=== PATIENT | female | born 1945 | race Caucasian/White ===

== ENCOUNTER → 2025-06-06 | Outpatient (CLI) | payer MEDICARE, OTHER, SELFPAY ==
--- OUTSIDE RECORDS SUMMARY | 2025-06-06 06:04 | XMS RPT_ITS | CCD ---
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 Unavailable Unavailable BARON, DANIELLE A. Unavailable Unavailable NO, PHYSICIAN Unavailable Unavailable BARON, DANIELLE A. Unavailable Unavailable GHAZAL SHEN Unavailable Unavailabl e NO, PHYSICIAN Unavailable Unavailable BARON, DANIELLE A. Unavailable Unavailable KESARI, JAIDEN Unavailable Unavailable NO, PHYSICIAN Unavailable Unavailable BARON, DANIELLE A. Unavailable Unavailable KESARI, JAIDEN Unavailable Unavailable NO, PHYSICIAN Unavailable Unavailable BARON, DANIELLE A. Unavailable Unavailable KESARI, JAIDEN Unavailable Unavailable NO, PHYSICIAN Unavailable Unavailable No, Physician Unavailable Unavailable Unavailable Primary Care Provider Unavailabl e No, Physician Primary Care Provider Unavailabl e No, Physician Primary Care Provider Unavailabl e NEMESIO CHIN Attending Unavailab JUAN PABLO Thakkar Referring Unavailable NO, PHYSICIAN Primary Care Unavailable NEMESIO CHIN Admitting Unavailab NEMESIO Guevara Referring Unavailab le NO, PHYSICIAN Primary Care Unavailable NO, PHYSICIAN Primary Care Unavailable MONE SALVADOR Attending Unavailable NO, PHYSICIAN Primary Care Unavailable FREADOJUAN PABLO Attending Unavailable FREHOPE, JUAN PABLO CALVERT Attending Unavailable JUAN PABLO VELASQUEZ Referring Unavailable NO, PHYSICIAN Primary Care Unavailable NO, PHYSICIAN Primary Care Unavailable MADELEINEMONE Attending Unavailable PHYSICIAN, NONE Primary Care Physician Unavailab galen STEPHENS MD, DR ANGELA Castro Primary Care Physician Un available Kalani Rounding Nurse, Jamal Unavailable Bell CONRAD MD, SERGEY Attending Unavailable KAT HICKEY, DR ANGELA Castro Primary Care Unavailab galen STEPHENS MD, DR ANGELA Castro Attending Unavailab galen DRIVERAR MD, DR ANGELA Castro Primary Care Unavailab galen REYNOLDS PA-C, EARLENE Attending Unavailable KAT HICKEY, DR ANGELA Castro Primary Care Unavailab galen STEPHENS MD, DR ANGELA Castro Attending Unavailab galen STEPHENS MD, DR ANGELA Castro Primary Care Unavailab galen STEPHENS MD, DR ANGELA Castro Primary Care Unavailab galen BRIDGES MD, DR JEAN Attending Unavailab galen STEPHENS MD, DR ANGELA Castro Primary Care Unavailab galen STEPHENS MD, DR ANGELA Castro Attending Unavailab galen STEPHENS MD, DR ANGELA Castro Primary Care Unavailab galen ROMERO MD, DR URIOSTEGUI Attending Unavailable BACILIO HICKEY, ROSA Consulting Unavailable YULIANA HICKEY, DR JEAN Attending Unavailab galen STEPHENS MD, DR ANGELA Castro Primary Care Unavailab galen AMBRIZ SPONGE CLIPPER-TAPEMAN, TSERING Block Attending Shellie STEPHENS MD, DR ANGELA Castro Primary Care Unavailab galen STEPHENS MD, DR ANGELA Castro Attending Unavailab galen STEPHENS MD, DR ANGELA Castro Primary Care Unavailab galen STEPHENS MD, DR ANGELA Castro Primary Care Unavailab galen BRIDGES MD, DR JEAN Attending Unavailab galen BRIDGES MD, DR JEAN Attending Unavailab galen STEPHENS MD, DR ANGELA Castro Primary Care Unavailab galen BRIDGES MD, DR JEAN Attending Unavailab galen STEPHENS MD, DR ANGELA Castro Primary Care Unavailab galen STEPHENS MD, DR ANGELA Csatro Primary Care Unavailab galen GIBBONS MD, DR MEHUL Joseph Admitting Bell ROMERO MD, DR URIOSTEGUI Attending Unavailable KAT HICKEY, DR ANGELA Castro Consulting Unavailab Denisse HICKEY, DR JEAN Consulting Unavailab Itz HICKEY, DR ANGELA Castro Primary Care Unavailab galen BRIDGES MD, DR JEAN Attending Unavailab Itz HICKEY, DR ANGELA Castro Primary Care Unavailab galen AMBRIZ SPONGE CLIPPER-TAPEMAN, TSERING Block Attending Shellie STEPHENS MD, DR ANGELA Castro Primary Care Unavailab galen AMBRIZ APRN-TAPEMAN, TSERING Block Attending Shellie STEPHENS MD, DR ANGELA Castro Primary Care Unavailab galen BRIDGES MD, DR JEAN Attending Unavailab Debo HICKEY, SERGEY Attending Unavailable KAT HICKEY, DR ANGELA Castro Primary Care Unavailab galen DESHPANDE PA-C, VINOD Attending Tho STEPHENS MD, DR ANGELA Castro Primary Care Unavailab galen STEPHENS MD, DR ANGELA Castro Primary Care Unavailab galen STEPHENS MD, DR ANGELA Castro Attending Unavailab galen STEPHENS MD, DR ANGELA Castro Primary Care Unavailab galen BRIDGES MD, DR JEAN Attending Unavailab galen BRIDGES MD, DR JEAN Admitting Unavailab galen STEPHENS MD, DR ANGELA Castro Primary Care Unavailab galen BRIDGES MD, DR JEAN Attending Unavailab galen STEPHENS MD, DR ANGELA Castro Primary Care Unavailab galen BRIDGES MD, DR JEAN Attending Unavailab galen STEPHENS MD, DR ANGELA Castro Primary Care Unavailab galen STEPHENS MD, DR ANGELA Castro Attending Unavailab galen STEPHENS MD, DR ANGELA Castro Attending Unavailab galen STEPHENS MD, DR ANGELA Castro Primary Care Unavailab galen DESHPANDE PA-C, VINOD Attending Tho STEPHENS MD, DR ANGELA Castro Primary Care Unavailab galen STEPHENS MD, DR ANGELA Castro Primary Care Unavailab galen BRIDGES MD, DR JEAN Attending Unavailab galen STEPHENS MD, DR ANGELA Castro Primary Care Unavailab galen STEPHENS MD, DR ANGELA Castro Attending Unavailab galen STEHPENS MD, DR ANGELA Castro Primary Care Unavailab galen BRIDGES MD, DR JEAN Attending Unavailab galen STEPHENS MD, DR ANGELA Castro Primary Care Unavailab galen STEPHENS MD, DR ANGELA Castro Attending Unavailab galen STEPHENS MD, DR ANGELA Castro Primary Care Unavailab galen BRIDGES MD, DR JEAN Attending Unavailab galen STEPHENS MD, DR ANGELA Castro Primary Care Unavailab galen STEPHENS MD, DR ANGELA Castro Attending Unavailab galen STEPHENS MD, DR ANGELA Castro Primary Care Unavailab galen STEPHENS MD, DR ANGELA Castro Attending Unavailab galen [facility] Doctor, Out of Primary Care Provider Bell solis [facility] Doctor, Out of Referring Provider Unavailab Glenna HICKEY, Dr. Lozano Attending Provider [phone] KAT HICKEY, DR ANGELA Castro Primary Care Unavailab galen MORILLO MD, DR YU Ny Attending Unavailab galen MORILLO MD, DR YU Ny Attending Nahum Mobley MD, DR ANGELA Castro Primary Care Unavailab Dioni HICKEY, DR YU Ny Attending Nahum Mobley MD, DR ANGELA Castro Primary Care Unavailab Itz HICKEY, DR ANGELA Castro Primary Care Unavailab Denisse HICKEY, DR JEAN Admitting Nahum Salcedo MD, DR JEAN Attending Unavailab Blake Manzanares Attending Unavailable [facility] Doctor, Out of Referring Unavailable [facility] Doctor, Out of Primary Care Unavailable Care Physician, No Primary Primary Care Unava ilable Jamil, Blake Referring Unavailable Jamil Buhl Attending Unavailable Medications Current Medications Medication Drug Class(es) Dates Sig (Normalized) Sig (Original) aspirin 81 mg delayed release oral tablet (4 sources) Platelet Aggregation Inhibitor, Nonsteroidal Anti-inflammatory Drug Start: 04-12-2025 take 1 tablet by mouth once daily Aspirin (Adult Aspirin Regimen) 81 mg tablet,delayed release (DR/EC) Active 81 mg PO daily April 12, 2025 12:00am Start: 06-02-2024 Ecotrin Adult Low Strength 81 mg oral delayed release tablet Dose : 81 mg = 1 tab(s), Oral, qDayM, # 30 tab(s), 11 Refill(s), Pharmacy: [facility]/pharmacy #[id number], 160, cm, 06/02/24 6:17:00 EDT, Height, kg, 06/02/24 6:17:00 EDT, Dosing Weight Start Date: 06/02/24 Status: Ordered azithromycin 250 mg oral tablet (4 sources) Macrolide Antimicrobial Start: 06-13-2021 End: 06-18-2021 take 2 tablets by mouth once daily, then take 1 tablet by mouth once daily azithromycin (Zithromax Z-Moris) 250 MG tablet Indications: LRTI (lower respiratory tract infection) Take 2 (two) tablets (500 mg total) by mouth daily for 1 day, THEN 1 (one) tablet (250 mg total) daily for 4 days. 6 tablet 0 06/13/2021 06/18/2021 Active Start: 04-24-2021 End: 04-29-2021 take 2 tablets by mouth once daily, then take 1 tablet by mouth once daily azithromycin (Zithromax Z-Moris) 250 MG tablet Indications: LRTI (lower respiratory tract infection) Take 2 (two) tablets (500 mg total) by mouth daily for 1 day, THEN 1 (one) tablet (250 mg total) daily for 4 days. 6 tablet 0 04/24/2021 04/29/2021 Active Start: 06-03-2017 End: 07-08-2017 azithromycin (ZITHROMAX Z-PA K) 250 MG tablet Take 2 tablets (500 mg) on Day 1, followed by 1 tablet (250 mg) once daily on Days 2 through 5.. 6 tablet 0 06/03/2017 07/08/2017 Discontinued Start: 06-03-2017 azithromycin ( ZITHROMAX Z-MORIS) 250 MG tablet Take 2 tablets (500 mg) on Day 1, followed by 1 tablet (250 mg) once daily on Days 2 through 5.. 6 tablet 0 06/03/2017 Active cefdinir 300 mg oral capsule (1 source) Cephalosporin Antibacterial Start: 07-01-2018 End: 07-11-2018 take 1 capsule by mouth twice daily cefdinir (OMNICEF) 300 MG capsule Take 1 (one) capsule (300 mg total) by mouth 2 (two) times a day for 10 days. 20 capsule 0 07/01/2018 07/11/2018 Active celecoxib 200 mg oral capsule (1 source) Nonsteroidal Anti-inflammatory Drug Start: 07-09-2017 End: 07-16-2017 take 1 capsule by mouth twice daily celecoxib (CELEBREX) 200 MG capsule Take 1 (one) capsule (200 mg total) by mouth 2 (two) times a day for 7 days. 14 capsule 0 07/09/2017 07/16/2017 Active cetirizine hydrochloride 10 mg oral tablet (6 sources) Histamine-1 Receptor Antagonist take 1 tablet by mouth once daily cetirizine (ZYRTEC) 10 MG tablet Take 10 mg by mouth daily . 0 Active cholecalciferol 0.025 mg oral capsule (1 source) Vitamin D Start: 04-12-2025 take 1 capsule by mouth once daily Cholecalciferol (Vitamin D3) 25 mcg (1,000 unit) capsule Active 25 ug PO daily April 12, 2025 12:00am clopidogrel 75 mg oral tablet (4 sources) P2Y12 Platelet Inhibitor Start: 04-12-2025 take 1 tablet by mouth once daily Clopidogrel 75 mg tablet Active 75 mg PO daily April 12, 2025 12:00am Start: 06-02-2024 Plavix 75 mg o ral tablet Dose : 75 mg = 1 tab(s), Oral, qDay, # 30 tab(s), 11 Refill(s), [id number] 160, cm, 06/02/24 6:17:00 EDT, Height, kg, 06/02/24 6:17:00 EDT, Dosing Weight Start Date: 06/02/24 Status: Ordered dapagliflozin 10 mg oral tablet (2 sources) Sodium-Glucose Cotransporter 2 Inhibitor Start: 04-12-2025 take 1 tablet by mouth once daily Dapagliflozin Propanediol 10 mg tablet Active 10 mg PO daily April 12, 2025 12:00am Start: 03-15-2024 Farxiga 5 mg o ral tablet Dose : 5 mg = 1 tab(s), Oral, qDay, # 30 tab(s), 6 Refill(s), [id number] 160, cm, 03/15/24 11:01:00 EDT, Height, kg, 03/15/24 11:01:00 EDT, Dosing Weight Start Date: 03/15/24 Status: Ordered dexamethasone 6 mg oral tablet (1 source) Corticosteroid Start: 06-08-2024 End: 06-13-2024 dexAMETHasone 6 mg oral tablet Dose : 6 mg = 1 tab(s), Oral, qDay, X 5 day(s), # 5 tab(s), 0 Refill(s), 06/13/24 9:47:00 AM EDT, [id number] 156, cm, 06/07/24 14:01:00 EDT, Height, kg, 06/07/24 14:01:00 EDT, Dosing Weight Start Date: 06/08/24 Stop Date: 06/13/24 Status: Ordered DULoxetine 30 mg delayed release oral capsule (2 sources) Serotonin and Norepinephrine Reuptake Inhibitor Start: 04-12-2025 take 1 capsule by mouth once daily Duloxetine (Cymbalta) 30 mg capsule,delayed release(DR/EC) Active 30 mg PO daily April 12, 2025 12:00am Start: 08-17-2024 Cymbalta 30 mg oral delayed release capsule Dose : 30 mg = 1 cap(s), Oral, qDay, # 30 cap(s), 2 Refill(s), Pharmacy: [facility]/pharmacy #[id number], 160, cm, 08/17/24 10:51:00 EDT, Height, kg, 08/17/24 10:51:00 EDT, Dosing Weight Start Date: 08/17/24 Status: Ordered empagliflozin 10 mg oral tablet (1 source) Sodium-Glucose Cotransporter 2 Inhibitor Start: 03-30-2024 Jardiance 10 mg oral tablet Dose : 10 mg = 1 tab(s), Oral, qAM, # 30 tab(s), 0 Refill(s), 160, cm, 03/15/24 11:01:00 EDT, Height, kg, 03/15/24 11:01:00 EDT, Dosing Weight Start Date: 03/30/24 Status: Ordered ferrous fumarate 324 mg oral tablet (6 sources) Start: 02-17-2024 ferrous fumara te 324 mg (106 mg elemental iron) oral tablet Dose : 324 mg = 1 tab(s), Oral, Thursday & , 0 Refill(s) Start Date: 02/17/24 Status: Ordered Start: 02-17-2024 take 1 tablet by navid th every week ferrous fumarate 324 mg (106 mg elemental iron) oral tablet See Instructions, 1 tab(s) Oral 2-3x/week, 0 Refill(s) Start Date: 02/17/24 Status: Ordered ferrous sulfate 324 mg delayed release oral tablet (1 source) Start: 04-12-2025 Ferrous Sulfat e 324 mg (65 mg iron) tablet,delayed release (DR/EC) Active 324 mg PO . and April 12, 2025 12:00am furosemide 40 mg oral tablet (4 sources) Loop Diuretic Start: 04-12-2025 Furosemide 40 mg tablet Active 20 mg PO EVERY MORNING as needed April 12, 2025 1:36pm Start: 04-12-2025 End: 04-12-2025 take 1 tablet by mouth once daily in the morning as needed Furosemide 40 mg tablet Discontinued 40 mg PO EVERY MORNING as needed April 12, 2025 12:00am April 12, 2025 1:37pm Start: 08-22-2024 furosemide 20 mg oral tablet Dose : 20 mg = 1 tab(s), Oral, qDay, # 30 tab(s), 6 Refill(s), [id number] 160, cm, 08/22/24 15:20:00 EDT, Height, kg, 08/22/24 15:20:00 EDT, Dosing Weight Start Date: 08/22/24 Status: Ordered Start: 06-08-2024 furosemide 40 mg oral tablet Dose : 40 mg = 1 tab(s), Oral, qDay, # 30 tab(s), 0 Refill(s), [id number] 156, cm, 06/07/24 14:01:00 EDT, Height, kg, 06/07/24 14:01:00 EDT, Dosing Weight Start Date: 06/08/24 Status: Ordered gabapentin 300 mg oral capsule (9 sources) Anti-epileptic Agent Start: 05-10-2025 Gabapenti n 300 mg capsule Active 300 mg PO THREE TIMES A DAY May 10, 2025 1:02pm one cap in AM, one cap at noon, and 2 in the PM Start: 04-12-2025 End: 05-10-2025 take 1 capsule by mouth twice daily Gabapentin 300 mg capsule Discontinued 300 mg PO TWICE A DAY April 12, 2025 12:00am May 10, 2025 1:03pm Start: 08-26-2024 gabapentin 300 mg oral capsule See Instructions, 1 cap(s) in am, 1 cap at noon, and 2 in the pm, # 120 cap(s), 0 Refill(s), [id number], Neuropathy, 160, cm, 08/26/24 9:42:00 EDT, Height, 75, kg, 08/26/24 9:42:00 EDT, Dosing Weight Start Date: 08/26/24 Status: Ordered Start: 06-05-2024 gabapentin 300 mg oral capsule Dose : 300 mg = 1 cap(s), Oral, BID, 0 Refill(s), 77.9 Start Date: 06/05/24 Status: Ordered Start: 02-16-2024 gabapentin Dos e : 300 mg =, Oral, BID, unsure of strength once a day, 0 Refill(s), 77.4 Start Date: 02/16/24 Status: Ordered Start: 02-16-2024 gabapentin Ora l, unsure of strength once a day, 0 Refill(s), 77.4 Start Date: 02/16/24 Status: Ordered leflunomide 20 mg oral tablet (13 sources) Antirheumatic Agent Start: 04-12-2025 take 1 tablet by mouth once daily Leflunomide 20 mg tablet Active 20 mg PO daily April 12, 2025 12:00am Start: 02-16-2024 leflunomide 20 mg oral tablet Dose : 20 mg = 1 tab(s), Oral, qDay, 0 Refill(s) Start Date: 02/16/24 Status: Ordered take 1 tablet by [facility] once daily leflunomide (ARAVA) 20 MG tablet Take 20 mg by mouth daily . 0 Active mecobalamin (1 source) Start: 04-12-2025 take 1 tablet by mouth two times weekly Mecobalamin (Vitamin B12) 5,000 mcg tablet,chewable Active 5000 ug PO TWICE A WEEK April 12, 2025 12:00am meloxicam 15 mg oral tablet (3 sources) Nonsteroidal Anti-inflammatory Drug Start: 05-13-2021 End: 05-23-2021 take 1 tablet by mouth once daily meloxicam (MOBIC) 15 MG tablet Indications: Left wrist injury, initial encounter Take 1 (one) tablet (15 mg total) by mouth daily for 10 days . 10 tablet 0 05/13/2021 05/23/2021 Active 24 hr metoprolol succinate 25 mg extended release oral tablet (13 sources) beta-Adrenergic Alena Start: 02-16-2024 metoprolol succinate 25 mg oral TABLET extended release Dose : 25 mg = 1 tab(s), Oral, qDay, # 30 tab(s), 0 Refill(s) Start Date: 02/16/24 Status: Ordered Start: 07-08-2017 End: 07-09-2017 take 1 tablet by mouth twice daily metoprolol tartrate (LOPRESSOR) tablet 25 mg 25 mg, Oral, 2 times daily, First dose on Thu07/08/17 at 2100 Given 07/08/2017 22:54 EDT 25 mg nebivolol 2.5 mg oral tablet (5 sources) Start: 04-12-2025 take 1 tablet by mouth once daily Nebivolol 2.5 mg tablet Active 2.5 mg PO daily April 12, 2025 12:00am Start: 07-01-2024 nebivolol 2.5 mg oral tablet Dose : 2.5 mg = 1 tab(s), Oral, qDay, # 30 tab(s), 6 Refill(s), Pharmacy: [facility] #[id number], 160, cm, 07/01/24 14:59:00 EDT, Height, kg, 07/01/24 14:59:00 EDT, Dosing Weight Start Date: 07/01/24 Status: Ordered Start: 03-31-2024 nebivolol 5 mg oral tablet Dose : 5 mg = 1 tab(s), Oral, qDay, # 90 tab(s), 3 Refill(s), Pharmacy: [facility]/pharmacy #[id number], 160, cm, 03/15/24 11:01:00 EDT, Height, kg, 03/15/24 11:01:00 EDT, Dosing Weight Start Date: 03/31/24 Status: Ordered omeprazole 20 mg delayed release oral capsule (7 sources) Proton Pump Inhibitor Start: 03-15-2021 take 1 capsule by mouth at breakfast omeprazole (PRILOSEC) 20 MG capsule TAKE 1 CAPSULE BY MOUTH AT LEAST 30 MINUTES PRIOR TO BREAKFAST 0 03/15/2021 Active Start: 07-09-2017 End: 07-16-2017 take 1 capsule by mouth once daily omeprazole (PRILOSEC) 40 MG capsule Take 1 (one) capsule (40 mg total) by mouth daily for 7 days. 7 capsule 0 07/09/2017 07/16/2017 Active potassium chloride 20 meq or al tablet (3 sources) Start: 06-05-2024 Potassium Chlo ride (Eqv-K-Tab) 20 mEq oral tablet, extended release Dose : 20 mEq = 1 tab(s), Oral, qDay, 0 Refill(s) Start Date: 06/05/24 Status: Ordered Start: 04-03-2024 potassium chlo ride 20 mEq oral tablet, extended release Dose : 20 mEq = 1 tab(s), Oral, qDay, Take with food, # 90 tab(s), 3 Refill(s), Pharmacy: [facility]/pharmacy #[id number], 160, cm, 03/15/24 11:01:00 EDT, Height, kg, 03/15/24 11:01:00 EDT, Dosing Weight Start Date: 04/03/24 Status: Ordered Start: 03-10-2024 potassium chlo ride 20 mEq oral tablet, extended release Dose : 20 mEq = 1 tab(s), Oral, qDay, Take with food, # 30 tab(s), 0 Refill(s), Pharmacy: [facility]/pharmacy #[id number], 157.5, cm, 03/10/24 10:06:00 EDT, Height, kg, 03/10/24 10:06:00 EDT, Dosing Weight Start Date: 03/10/24 Status: Ordered predniSONE 2.5 mg oral tablet (12 sources) Corticosteroid Start: 02-16-2024 predniSONE 2.5 mg oral tablet Dose : 2.5 mg = 1 tab(s), Oral, qDay, # 30 tab(s), 0 Refill(s) Start Date: 02/16/24 Status: Ordered End: 05-29-2021 take 7.5 mg by mouth once daily predniSONE (DELTASONE) 5 MG tablet Indications: polymyalgia rheumatica , 7.5mg Take 7.5 mg by mouth daily Reasons: Polymyalgia Rheumatica, 7.5mg. 0 05/29/2021 Discontinued (Discontinued by another clinician) take 1 tablet by navid once daily, then take 7.5 mg by mouth predniSONE (DELTASONE) 5 MG tablet Indications: 7.5mg Take 5 mg by mouth daily Reasons: 7.5mg. Active rosuvastatin calcium 10 mg oral tablet (4 sources) HMG-CoA Reductase Inhibitor Start: 04-12-2025 take 1 tablet by mouth once daily Rosuvastatin 10 mg tablet Active 10 mg PO daily April 12, 2025 12:00am Start: 06-08-2024 rosuvastatin 1 0 mg oral tablet Dose : 10 mg = 1 tab(s), Oral, qHS, # 30 tab(s), 0 Refill(s), Pharmacy: [facility]/pharmacy #[id number], 156, cm, 06/07/24 14:01:00 EDT, Height, kg, 06/07/24 14:01:00 EDT, Dosing Weight Start Date: 06/08/24 Status: Ordered Start: 05-23-2024 Crestor 10 mg oral tablet Dose : 10 mg = 1 tab(s), Oral, Daily, # 100 tab(s), 3 Refill(s), Pharmacy: [facility]/pharmacy #[id number], 160, cm, 05/20/24 9:45:00 EDT, Height, kg, 05/20/24 9:45:00 EDT, Dosing Weight Start Date: 05/23/24 Status: Ordered simvastatin 10 mg oral tablet (1 source) HMG-CoA Reductase Inhibitor Start: 02-16-2024 simvastatin 10 mg oral tablet Dose : 10 mg = 1 tab(s), Oral, qHS, # 90 tab(s), 0 Refill(s) Start Date: 02/16/24 Status: Ordered spironolactone 25 mg oral tablet (7 sources) Aldosterone Antagonist Start: 04-12-2025 take 1 tablet by mouth twice daily Spironolactone 25 mg tablet Active 25 mg PO TWICE A DAY April 12, 2025 1:36pm Start: 04-12-2025 End: 04-12-2025 take 1 tablet by mouth once daily Spironolactone 25 mg tablet Discontinued 25 mg PO daily April 12, 2025 12:00am April 12, 2025 1:37pm Start: 09-08-2024 spironolactone 25 mg oral tablet Dose : 25 mg = 1 tab(s), Oral, qDay, Take with food, # 180 tab(s), 3 Refill(s), Pharmacy: [facility]/pharmacy #[id number], 160, cm, 08/26/24 9:42:00 EDT, Height, kg, 08/26/24 9:42:00 EDT, Dosing Weight Start Date: 09/08/24 Status: Ordered Start: 03-15-2024 spironolactone 25 mg oral tablet Dose : 25 mg = 1 tab(s), Oral, qDay, Take with food, # 30 tab(s), 6 Refill(s), Pharmacy: [facility]/pharmacy #[id number], 160, cm, 03/15/24 11:01:00 EDT, Height, kg, 03/15/24 11:01:00 EDT, Dosing Weight Start Date: 03/15/24 Status: Ordered levothyroxine sodium 0.1 mg oral capsule (19 sources) l-Thyroxine Start: 04-12-2025 take 1 capsule by mouth once daily Levothyroxine 100 mcg capsule Active 100 ug PO daily April 12, 2025 12:00am Start: 02-16-2024 levothyroxine 100 mcg (0.1 mg) oral tablet Dose : 100 mcg = 1 tab(s), Oral, qDay, 0 Refill(s) Start Date: 02/16/24 Status: Ordered Start: 07-08-2017 End: 07-09-2017 take 1 tablet by mouth once daily levothyroxine (SYNTHROID, LEVOTHROID) tablet 100 mcg 100 mcg, Oral, Daily, First dose on Thu07/08/17 at 1800, For patients on continuous tube feed: Hold TF from 1 hr before until 1 hr after each dose. TF rate may need adjustment to meet caloric needs. Given 07/09/2017 06:54 EDT 100 mcg Vitamin B12 5000 mcg oral tablet, disintegrating (6 sources) Start: 06-05-2024 Vitamin B12 50 00 mcg oral tablet, disintegrating Dose : 5,000 mcg = 1 tab(s), Oral, 2X/week, # 100 tab(s), 0 Refill(s) Start Date: 06/05/24 Status: Ordered Start: 03-21-2024 take 1 tablet by navid th every week Vitamin B12 5000 mcg oral tablet, disintegrating See Instructions, 1 tab(s) Oral 3x/week, # 100 tab(s), 1 Refill(s), Pharmacy: [facility]/pharmacy #[id number], 160, cm, 03/15/24 11:01:00 EDT, Height, kg, 03/15/24 11:01:00 EDT, Dosing Weight Start Date: 03/21/24 Status: Ordered Start: 02-17-2024 take 1 tablet by navid th every week Vitamin B12 5000 mcg oral tablet, disintegrating See Instructions, 1 tab(s) Oral 3x/week, 0 Refill(s) Start Date: 02/17/24 Status: Ordered Vitamin D3 25 mcg (1000 intl units) oral capsule (6 sources) Start: 02-17-2024 Vitamin D3 25 mcg (1000 intl units) oral capsule Dose : 25 mcg = 1 cap(s), Oral, qDay, 0 Refill(s) Start Date: 02/17/24 Status: Ordered Start: 02-17-2024 Vitamin D3 25 mcg (1000 intl units) oral capsule Dose : 25 mcg = 1 cap(s), Oral, Daily, 0 Refill(s) Start Date: 02/17/24 Status: Ordered Completed/Discontinued Medications Medication Drug Class(es) Dates Sig (Normalized) Sig (Original) acetaminophen 325 mg oral tablet (1 source) Start: 07-08-2017 End: 07-09-2017 take 2 tablets by mouth every four hours acetaminophen (TYLENOL) tablet 650 mg 650 mg, Oral, Every 4 hours PRN, mild pain, headaches, Starting 07/08/17 at 2259 Given 07/08/2017 23:22 EDT 650 mg [id number] 200 actuat albuterol 0.09 mg/actuat metered dose inhaler (8 sources) beta2-Adrenergic Agonist Start: 04-24-2021 End: 04-24-2022 take 2 puff(s) by inhalation every six hours as needed for wheezing albuterol 90 mcg/actuation inhaler Indications: LRTI (lower respiratory tract infection) Inhale 2 (two) puffs every 6 (six) hours as needed for wheezing . 1 Inhaler 0 04/24/2021 05/29/2021 Discontinued (Discontinued by another clinician) Start: 07-01-2018 End: 04-24-2021 take 2 puff(s) by inhalation every four hours as needed for wheezing albuterol 90 mcg/actuation inhaler Inhale 2 (two) puffs every 4 (four) hours as needed for wheezing or shortness of breath. 1 Inhaler 0 07/01/2018 04/24/2021 Discontinued Start: 07-01-2018 take 2 puff(s) by in halation every four hours as needed for wheezing albuterol 90 mcg/actuation inhaler Inhale 2 (two) puffs every 4 (four) hours as needed for wheezing or shortness of breath. 1 Inhaler 0 07/01/2018 Active Start: 07-01-2018 End: 07-01-2019 albuterol 90 mcg/actuation i nhaler Inhale 2 (two) puffs every 4 (four) hours as needed for wheezing or shortness of breath. 1 Inhaler 0 07/01/2018 07/01/2019 Active benzonatate 100 mg oral capsule (7 sources) Non-narcotic Antitussive Start: 04-24-2021 End: 04-24-2022 take 1 capsule by mouth three times daily as needed for cough benzonatate (Tessalon Perles) 100 MG capsule Indications: LRTI (lower respiratory tract infection) Take 1 (one) capsule (100 mg total) by mouth 3 (three) times a day as needed for cough . 30 capsule 1 04/24/2021 05/29/2021 Discontinued (Discontinued by another clinician) Start: 07-01-2018 End: 07-01-2019 take 1 capsule by mouth three times daily as needed for cough benzonatate (TESSALON PERLES) 100 MG capsule Take 1 (one) capsule (100 mg total) by mouth 3 (three) times a day as needed for cough. 30 capsule 1 07/01/2018 07/01/2019 Active Start: 08-18-2017 End: 08-25-2017 take 1 capsule by mouth three times daily as needed for cough benzonatate (TESSALON) 200 MG capsule Indications: Viral upper respiratory tract infection Take 1 (one) capsule (200 mg total) by mouth 3 (three) times a day as needed for cough. 20 capsule 0 08/18/2017 08/25/2017 Active codeine phosphate 2 mg/ml / guaiFENesin 20 mg/ml oral solution (2 sources) Opioid Agonist Start: 06-03-2017 End: 07-08-2017 take 5 mL by mouth three times daily as needed for cough guaiFENesin-codeine (TUSSI-ORGANIDIN NR) 10-100 mg/5 mL syrup Take 5 mL by mouth 3 (three) times a day as needed for cough. 118 mL 0 06/03/2017 07/08/2017 Discontinued hydroCHLOROthiazide 25 mg oral tablet (12 sources) Thiazide Diuretic Start: 07-08-2017 End: 07-09-2017 take 1 tablet by mouth once daily hydroCHLOROthiazide (HYDRODIURIL) tablet 12.5 mg 12.5 mg, Oral, Daily, First dose on Thu07/08/17 at 1800 Given 07/09/2017 11:37 EDT 12.5 mg take 1 tablet by mouth once lori y hydroCHLOROthiazide (HYDRODIURIL) 12.5 MG tablet Take 12.5 mg by mouth daily. 0 Active Iopamidol (1 source) Radiographic Contrast Agent Start: 07-08-2017 End: 07-08-2017 iopamidol (ISOVUE-370) 76 % injection 100 mL 100 mL, Intravenous, Once in imaging, contrast, Starting 07/08/17 at 1341, For 1 dose Contrast Administered 07/08/2017 14:49 EDT 100 mL 1 ml ketorolac tromethamine 30 mg/ml injection (4 sources) Nonsteroidal Anti-inflammatory Drug, Cyclooxygenase Inhibitor Start: 05-13-2021 End: 05-13-2021 ketorolac (TORADOL) injection 30 mg Start: 05-13-2021 End: 05-13-2021 ketorolac (TORADOL) injectio n 30 mg Start: 05-13-2021 End: 05-13-2021 ketorolac (TORADOL) injectio n 30 mg Start: 05-13-2021 End: 05-13-2021 ketorolac (TORADOL) injectio n 30 mg methotrexate 2.5 mg oral tablet (7 sources) Folate Analog Metabolic Inhibitor End: 05-29-2021 methotrexate (TREXALL) 2.5 MG tablet Take by mouth once a week. 0 05/29/2021 Discontinued (Discontinued by another clinician) methylPREDNISolone (8 sources) Corticosteroid Start: 08-18-2017 End: 05-29-2021 methylPREDNISolone (MEDROL DOSEPACK) 4 mg tablet Indications: Viral upper respiratory tract infection Take as directed.. 21 tablet 0 08/18/2017 05/29/2021 Discontinued (Discontinued by another clinician) Start: 08-18-2017 methylPREDNISo lone (MEDROL DOSEPACK) 4 mg tablet Indications: Viral upper respiratory tract infection Take as directed.. 21 tablet 0 08/18/2017 Active pantoprazole 20 mg delayed release oral tablet (2 sources) Proton Pump Inhibitor Start: 04-12-2025 End: 05-10-2025 take 1 tablet by mouth twice daily Pantoprazole 20 mg tablet,delayed release (DR/EC) Discontinued 20 mg PO TWICE A DAY April 12, 2025 12:00am May 10, 2025 1:03pm Start: 08-17-2024 Protonix 20 mg oral enteric coated tablet Dose : 20 mg = 1 tab(s), Oral, BIDAC, # 60 tab(s), 2 Refill(s), Pharmacy: [id number], 160, cm, 08/17/24 10:51:00 EDT, Height, kg, 08/17/24 10:51:00 EDT, Dosing Weight Start Date: 08/17/24 Status: Ordered predniSONE (DELTASONE) tablet 7.5 mg 7.5 mg, Oral, Daily, First dose on Thu07/08/17 at 1800 Given 07/09/2017 11:37 EDT 7.5 mg (1 source) Start: 07-08-2017 End: 07-09-2017 take 1 tablet by mouth once daily predniSONE (DELTASONE) tablet 7.5 mg 7.5 mg, Oral, Daily, First dose on Thu07/08/17 at 1800 Given 07/09/2017 11:37 EDT 7.5 mg 1000 ml sodium chloride 9 mg/ml injection (2 sources) Start: 07-08-2017 End: 07-09-2017 sodium chloride 0.9% (NS) 125 mL/hr, Intravenous, Continuous, Starting Thu07/08/17 at 1800, For 16 hours, 125 mL/hr for 2 Liters, then convert to saline lock Rate/Dose Verify 07/09/2017 02:52 EDT 125 mL/hr 125 mL/hr Start: 07-08-2017 End: 07-08-2017 sodium chloride 0.9% (NS) jose umer 1,000 mL 1,000 mL, Intravenous, at 1,000 mL/hr, Once, Thu07/08/17 at 1320, For 1 dose New Bag 07/08/2017 15:26 EDT 1,000 mL 1000 mL/hr technetium (Tc-99m) sestamibi (CARDIOLITE) injection 26.5 millicurie 26.5 millicurie, Intravenous, Once, [facility] 07/09/17 at 1000, For 1 dose Contrast Administered 07/09/2017 10:00 EDT 26.5 millicuries (1 source) Start: 07-09-2017 End: 07-09-2017 technetium (Tc-99m) sestamibi (CARDIOLITE) injection 26.5 millicurie 26.5 millicurie, Intravenous, Once, [facility] 07/09/17 at 1000, For 1 dose Contrast Administered 07/09/2017 10:00 EDT 26.5 millicuries technetium (Tc-99m) sestamibi (CARDIOLITE) injection 8.5 millicurie 8.5 millicurie, Intravenous, Once, Inga 07/09/17 at 0830, For 1 dose Contrast Administered 07/09/2017 08:20 EDT 8.5 millicuries (1 source) Start: 07-09-2017 End: 07-09-2017 technetium (Tc-99m) sestamibi (CARDIOLITE) injection 8.5 millicurie 8.5 millicurie, Intravenous, Once, Inga 07/09/17 at 0830, For 1 dose Contrast Administered 07/09/2017 08:20 EDT 8.5 millicuries traMADol hydrochloride 50 mg oral tablet (4 sources) Opioid Agonist Start: 05-13-2021 End: 05-29-2021 take 1 tablet by mouth every four hours as needed for pain traMADoL (ULTRAM) 50 mg tablet Indications: Left wrist injury, initial encounter Take 1 (one) tablet (50 mg total) by mouth every 4 (four) hours as needed for pain . 5 tablet 0 05/13/2021 05/29/2021 Discontinued (Discontinued by another clinician) triamcinolone acetonide 1 mg/ml topical cream (2 sources) Corticosteroid Start: 06-03-2017 End: 06-03-2018 triamcinolone (KENALOG) 0.1 % cream Apply topically 2 (two) times a day. 30 g 0 06/03/2017 07/08/2017 Discontinued Problems Active Problems Problem Classification Problem Date Documented Date Episodic/Chronic Abdominal pain (1 source) Epigastric pain 08-17-2024 Episodic Cardiac dysrhythmias (5 sources) Paroxysmal supraventricular tachycardia; Translations: [Paroxysmal supraventricular tachycardia] 04-06-2024 Chronic Cardiac dysrhythmias (1 source) Palpitations; Translations: [Palpitations] Onset: 09-01-2021 Episodic Chronic obstructive pulmonary disease and bronchiectasis (1 source) Bronchitis Episodic Conditions associated with dizziness or vertigo (2 sources) Postural dizziness; Translations: [Dizziness and giddiness] 06-22-2024 Episodic Conduction disorders (12 sources) Left anterior fascicular block on electrocardiogram; Translations: [Bifascicular block] 02-17-2024 Chronic Congestive heart failure; nonhypertensive (4 sources) Acute on chronic diastolic heart failure; Translations: [Acute on chronic diastolic (congestive) heart failure] Onset: 05-10-2025 Chronic Coronary atherosclerosis and other heart disease (5 sources) Coronary atherosclerosis; Translations: [Atherosclerotic heart disease of [place] coronary artery without angina pectoris] Onset: 05-10-2025 Chronic Coronary atherosclerosis and other heart disease (1 source) Stent in anterior descending branch of left coronary artery 06-22-2024 Episodic Deficiency and other anemia (7 sources) Anemia; Translations: [Anemia, unspecified] 02-17-2024 Episodic Deficiency and other anemia (3 sources) Pernicious anemia 05-20-2024 Episodic Diseases of white blood cells (1 source) Leukocytosis 06-22-2024 Chronic Disorders of lipid metabolism (8 sources) Hyperlipidemia; Translations: [Dyslipidemia] Onset: 05-10-2025 02-17-2024 Chronic Diverticulosis and diverticulitis (2 sources) Diverticulitis; Translations: [Diverticulitis of intestine, part unspecified, without perforation or abscess without bleeding] 06-22-2024 Chronic E Codes: Fall (2 sources) Fall; Translations: [Unspecified fall, initial encounter] Episodic Essential hypertension (8 sources) Hypertensive disorder; Translations: [Essential hypertension] Onset: 05-10-2025 02-17-2024 Chronic Gastritis and duodenitis (1 source) NSAID-associated gastropathy 08-17-2024 Episodic Hypertension with complications and secondary hypertension (1 source) Hypertensive heart failure; Translations: [Hypertensive heart disease with heart failure] Chronic Immunizations and screening for infectious disease (2 sources) Suspected disease caused by 2019-nCoV; Translations: [Suspected COVID-19 virus infection] Episodic Malaise and fatigue (6 sources) Fatigue; Translations: [Other fatigue] Onset: 05-10-2025 04-06-2024 Episodic Mood disorders (2 sources) Mild major depression; Translations: [Depressive disorder] 08-17-2024 Chronic Nausea and vomiting (1 source) Nausea; Translations: [Nausea] Onset: 09-01-2021 Episodic Nutritional deficiencies (6 sources) Vitamin D deficiency; Translations: [Vitamin D deficiency, unspecified] 03-10-2024 Chronic Nutritional deficiencies (10 sources) Cobalamin deficiency; Translations: [Iron deficiency] 03-10-2024 Episodic Osteoarthritis (9 sources) Arthritis of first carpometacarpal joint of left hand; Translations: [Unilateral primary osteoarthritis of first carpometacarpal joint, left hand] Chronic Other connective tissue disease (7 sources) Polymyalgia rheumatica; Translations: [Polymyalgia rheumatica] 02-17-2024 Chronic Other connective tissue disease (6 sources) History of osteopenia 02-17-2024 Episodic Other injuries and conditions due to external causes (2 sources) Injury of left wrist; Translations: [Unspecified injury of left wrist, hand and finger(s), initial encounter] Episodic Other lower respiratory disease (2 sources) Lower respiratory tract infection; Translations: [Unspecified acute lower respiratory infection] Episodic Other lower respiratory disease (1 source) Cough; Translations: [Cough] Episodic Other lower respiratory disease (6 sources) Dyspnea on exertion 02-17-2024 Episodic Other lower respiratory disease (5 sources) Dyspnea; Translations: [Shortness of breath] 04-06-2024 Episodic Other nervous system disorders (1 source) Neuropathy of lower limb 08-26-2024 Chronic Other non-traumatic joint disorders (1 source) Pain in unspecified knee; Translations: [Pain in unspecified knee] Onset: 02-20-2025 Episodic Other non-traumatic joint disorders (1 source) Pain in right knee; Translations: [Pain in right knee] Onset: 02-20-2025 Episodic Other nutritional; endocrine; and metabolic disorders (6 sources) Body mass index 30+ - obesity 02-17-2024 Chronic Other nutritional; endocrine; and metabolic disorders (7 sources) Obesity; Translations: [Obesity, unspecified] 02-17-2024 Chronic Other upper respiratory infections (3 sources) Sore throat symptom; Translations: [Viral upper respiratory tract infection] Episodic Pulmonary heart disease (9 sources) Pulmonary hypertension; Translations: [Pulmonary hypertension, unspecified] Onset: 06-02-2024 03-10-2024 Chronic Residual codes; unclassified (5 sources) Hypersomnia 03-10-2024 Chronic Respiratory failure; insufficiency; arrest (adult) (1 source) Acute respiratory failure; Translations: [Acute respiratory failure with hypoxia] Episodic Spondylosis; intervertebral disc disorders; other back problems (4 sources) Cervical radiculopathy; Translations: [Cervical radiculopathy] Onset: 07-08-2017 07-09-2017 Chronic Spondylosis; intervertebral disc disorders; other back problems (7 sources) Cervical radiculopathy; Translations: [Radiculopathy, cervical region] Onset: 07-08-2017 07-09-2017 Episodic Thyroid disorders (1 source) Hypothyroidism; Translations: [Hypothyroidism, unspecified] 04-12-2025 Chronic Unclassified (6 sources) Long-term current use of steroid 02-17-2024 Unclassified (3 sources) Patient encounter status 05-20-2024 Unclassified (1 source) Supraventricular tachycardia, unspecified; Translations: [Supraventricular tachycardia, unspecified] Onset: 05-10-2025 Past or Other Problems Problem Classification Problem Date Documented Da te Episodic/Chronic Nonspecific chest pain (3 sources) Other chest pain; Translations: [Chest pain] Onset: 07-08-2017 Episodic Other circulatory disease (2 sources) Other specified symptoms and signs involving the circulatory and respiratory systems; Translations: [Other specified symptoms and signs involving the circulatory and respiratory systems] Onset: 07-08-2017 Episodic Unclassified (1 source) Labile blood pressure Viral infection (1 source) Disease caused by 2019-nCoV; Translations: [COVID-19] Results Test Name Value Interpretation Reference Range Facility Cardiology Visit Reporton Cardiology Visit Report [facility] [place] [id number] [facility]. [address] [place], [place] [address] OFFICE VISIT Date of Service: 05/10/25 MR#: [id number] Acct: [id number] Name: PEGGY LOPEZ Rep #: [id number] : 1945 Provider: Dr. Blake Negron MD Age/Sex: 79/F Location: [facility] [place] Status: Signed HPI HPI History of Present Illness Details: 79-year-old lady who presented approximately a year ago with shortness of breath with exertion despite various testing. She eventually underwent a cardiac catheterization with demonstrated an 80% mid left anterior descending artery lesion for which she underwent PCI and stenting. She said that she did well after that but was told that she had diastolic heart failure for which she was put on medication and she thinks that she is overmedicated. Her renal function worsened and she was put on Farxiga for this. She thinks she goes to the bathroom too much. She has not had any chest pain or shortness of breath is somewhat better. She denies any dizziness or diaphoresis near syncope or syncope. Her physical exam is unremarkable electrocardiogram demonstrates normal sinus rhythm with a right bundle branch block and a left anterior fascicular block. Intake Vital Signs 05/10/25 13:06 Height 5 ft 3 in Weight: 156 lb BMI 27.6 BP 132/74 H Blood Pressure Location Lt brachial Position Sitting Respiration 16 Pulse 96 Pulse Source Monitor Intake Visit Reasons: ESTABLISH (SELF) Shuttle Final Inspector Required: No Accompanied by: Self Is patient in pain?: No Allergies No Known Allergies Allergy (Unverified 05/10/25 13:01) Medications ???Medication ???Instructions ???Recorded ???Confirmed ???Type aspirin 81 mg tablet,delayed 81 mg PO QDAY 04/12/25 05/10/25 Hi story release (Adult Aspirin Regimen) cholecalciferol (vitamin D3) 25 25 mcg PO QDAY 04/12/25 05/10/25 H istory mcg (1,000 unit) capsule clopidogrel 75 mg tablet 75 mg PO QDAY 04/12/25 05/10/25 Hi story dapagliflozin propanediol 10 mg 10 mg PO QDAY 04/12/25 05/10/25 Hi story tablet duloxetine 30 mg capsule,delayed 30 mg PO QDAY 04/12/25 05/10/25 Hi story release (Cymbalta) ferrous sulfate 324 mg (65 mg 324 mg PO .QMon and 04/12/25 05/10/25 History iron) tablet,delayed release leflunomide 20 mg tablet 20 mg PO QDAY 04/12/25 05/10/25 Hi story levothyroxine 100 mcg capsule 100 mcg PO QDAY 04/12/25 05/10/25 History mecobalamin (vitamin B12) 5,000 5,000 mcg PO 2XW 04/12/25 05/10/25 History mcg chewable tablet rosuvastatin 10 mg tablet 10 mg PO QDAY 04/12/25 05/10/25 Hi story gabapentin 300 mg capsule 300 mg PO TID 05/10/25 05/10/25 Hi story spironolactone 25 mg tablet 25 mg PO QDAY 05/10/25 05/10/25 Hi story Have you fallen in the past year?: No [facility] Medical History Vitamin D deficiency SOB (shortness of breath) Pulmonary hypertension PSVT (paroxysmal supraventricular tachycardia) Postural dizziness PMR (polymyalgia rheumatica) Fatigue Chronic diastolic heart failure Anemia Depression Diverticulitis Hypothyroidism Osteoarthritis Hyperlipidemia Essential (primary) hypertension CAD (coronary artery disease) Surgical History History of bowel resection S/P coronary artery stent placement ( 2019) Family History Mother Cancer Hypertension Heart disease Father Heart disease Brother Heart disease Hypertension Social History Smoking Status: Never smoker alcohol intake: current alcohol intake frequency: a few times a month substance use type: does not use ROS Const Const: Positive for fatigue and difficulty sleeping; Negative for weakness, headache(s) or daytime sleepiness ENT ENT: Negative for headache(s), dizziness or Nosebleed/epistaxis Cardio Chest Pain: No Palpitations: Yes (infrequently) Edema: None Resp Respiratory: Positive for SOB with activity; Negative for SOB at rest, SOB orthopnea SOB lying down or Cough GI GI: Negative nausea, vomiting or heartburn Neuro Neuro: Negative for dizziness, lightheadedness, near syncope, headache(s) or weakness Endo Endo: Positive for fatigue Cardiology Exam Const Appearance: cooperative, healthy appearing, no acute distress, well developed and well groomed Nutritional Appearance: average body habitus and well nourished Orientation: alert, awake and oriented x3 Head Head: normal to inspection, normocephalic and atraumatic Ears: hearing grossly normal bilaterally and external ears normal Nose: external nose normal, nares normal, nasal mucous membranes and turbinates normal, septum normal and no mak (more content not included)... Normal [facility] .Auto Diffon 04-11-2025 Basophil, Absolute 0.0 10 3/mcL Normal 0.0-0.3 [facility] Comment on above: Performed By: #### L IPID, GFR, PBNP, BMP #### [facility] [address] [place] [id number] Basophils/100 WBC (Bld) 0.5 % Normal 0.0-2.5 [facility] Comment on above: Performed By: #### L IPID, GFR, PBNP, BMP #### [address] [address] Eosinophil, Absolute 0.1 10 3/mcL Normal 0.0-0.7 [facility] Comment on above: Performed By: #### L IPID, GFR, PBNP, BMP #### [address] [address] Eosinophils/100 WBC (Bld) 2.7 % Normal 0.0-6.0 [facility] Comment on above: Performed By: #### L IPID, GFR, PBNP, BMP #### [address] [address] Lymphocyte, Absolute 1.9 10 3/mcL Normal 0.9-4.3 [facility] Comment on above: Performed By: #### L IPID, GFR, PBNP, BMP #### [address] [address] Lymphocytes/100 WBC (Bld) 38.7 % Normal 20.0-40.0 [facility] Comment on above: Performed By: #### L IPID, GFR, PBNP, BMP #### [address] [address] Monocyte, Absolute 0.6 10 3/mcL Normal 0.1-1.4 [facility] Comment on above: Performed By: #### L IPID, GFR, PBNP, BMP #### [address] [address] Monocytes/100 WBC (Bld) 11.9 % Normal 2.0-13.0 [facility] Comment on above: Performed By: #### L IPID, GFR, PBNP, BMP #### [address] [address] Neutrophils/100 WBC (Bld) 46.2 % Low 50.0-75.0 [facility] Comment on above: Performed By: #### L IPID, GFR, PBNP, BMP #### [address] [address] .GFRon 04-11-2025 Estimated Glomerular Filtration Rate 40 ml/min/1.73sqm Normal [facility] Comment on above: Result Comment: Stages of Chronic Kidney Disease (CKD) Stage Description eGFR(ml/min/1.73 sq.m.) CKD 1 Normal kidney function or >=90 normal kindney function with possible kidney damage (ex. Proteinuria) CKD 2 Kidney damage with mild loss 60-89 of kidney function CKD 3a Mild to moderate loss of kidney 45-59 function CKD 3b Moderate to severe loss of 30-44 of kindey function CKD 4 Severe loss of kidney function 15-29 CKD 5 Kidney failure <15 Note: (go live 2024) the eGFR calculation was updated to the 2020 CKD-EPI creatinine equation without a race factor to calculate the eGFR results. Performed By: #### L IPID, GFR, PBNP, BMP #### [place] [address] .NEUABSon 04-11-2025 Neutrophil, Absolute 2.3 10 3/mcL Normal 2.3-8.1 [facility] Comment on above: Performed By: #### L IPID, GFR, PBNP, BMP #### [place] [address] CBCon 04-11-2025 Erythrocyte distribution width (RBC) [Ratio] 15.1 % Normal 11.5-15.5 [facility] Comment on above: Performed By: #### L IPID, GFR, PBNP, BMP #### [place] [address] Hematocrit (Bld) [Volume fraction] 34.7 % Normal 34.0-46.0 [facility] Comment on above: Performed By: #### L IPID, GFR, PBNP, BMP #### [place] [address] Hgb 11.3 G/dL Low 12.0-16.0 [facility] Comment on above: Performed By: #### L IPID, GFR, PBNP, BMP #### [place] [address] MCH (RBC) [Entitic mass] 30.8 pg Normal 27.0-33.0 [facility] Comment on above: Performed By: #### L IPID, GFR, PBNP, BMP #### [place] [address] MCHC 32.7 G/dL Normal 32.0-36.0 [facility] Comment on above: Performed By: #### L IPID, GFR, PBNP, BMP #### [place] [address] MCV (RBC) [Entitic vol] 94.1 fL Normal 80.0-99.0 [facility] Comment on above: Performed By: #### L IPID, GFR, PBNP, BMP #### [place] [address] Platelet 178 10 3/mcL Normal 150-450 [facility] Comment on above: Performed By: #### L IPID, GFR, PBNP, BMP #### [place] [address] Platelet mean volume (Bld) [Entitic vol] 9.4 fL Normal 6.6-10.5 [facility] Comment on above: Performed By: #### L IPID, GFR, PBNP, BMP #### [place] [address] RBC 3.69 10 6/mcL Low 4.10-5.30 [facility] Comment on above: Performed By: #### L IPID, GFR, PBNP, BMP #### [place] [address] WBC 4.9 10 3/mcL Normal 4.5-10.8 [facility] Comment on above: Performed By: #### L IPID, GFR, PBNP, BMP #### [place] [address] CMPon 04-11-2025 Albumin Level 3.8 G/dL Normal 3.2-4.8 [facility] Comment on above: Performed By: #### L IPID, GFR, PBNP, BMP #### [place] [address] Albumin/Globulin [Mass ratio] 1.2 {ratio} Normal 0.9-1.6 [facility] Comment on above: Performed By: #### L IPID, GFR, PBNP, BMP #### [place] [address] ALP [Catalytic activity/Vol] 114 U/L Normal 38-126 [facility] Comment on above: Performed By: #### L IPID, GFR, PBNP, BMP #### [place] [address] ALT [Catalytic activity/Vol] 13 U/L Normal 10-49 [facility] Comment on above: Performed By: #### L IPID, GFR, PBNP, BMP #### [place] [address] AST [Catalytic activity/Vol] 19 U/L Normal 8-34 [facility] Comment on above: Performed By: #### L IPID, GFR, PBNP, BMP #### [place] [address] Bili Total 0.30 mg/dL Normal 0.20-1.20 [facility] Comment on above: Result Comment: Use of this assay is not recommended for patients undergoing treatment with eltrombopag due to the potential for falsely elevated results. Performed By: #### L IPID, GFR, PBNP, BMP #### [place] [address] BUN/Creatinine Ratio 22.8 ratio High 10.0-22.0 [facility] Comment on above: Performed By: #### L IPID, GFR, PBNP, BMP #### [place] [address] Calcium [Mass/Vol] 9.8 mg/dL Normal 8.7-10.4 [facility] Comment on above: Performed By: #### L IPID, GFR, PBNP, BMP #### [place] [address] Chloride [Moles/Vol] 109 mmol/L Normal 98-110 [facility] Comment on above: Performed By: #### L IPID, GFR, PBNP, BMP #### [address] [address] CO2 [Moles/Vol] 29 mmol/L Normal 22-32 [facility] Comment on above: Performed By: #### L IPID, GFR, PBNP, BMP #### [address] [address] Creatinine [Mass/Vol] 1.36 mg/dL High 0.50-1.20 [facility] Comment on above: Result Comment: Test ing performed on [employer] analyzer using enzymatic creatinine methodology. Performed By: #### L IPID, GFR, PBNP, BMP #### [address] [address] Electrolyte Balance 5.0 mEq/L Normal 4.0-15.0 [facility] Comment on above: Performed By: #### L IPID, GFR, PBNP, BMP #### [address] [address] Globulin 3.3 G/dL Normal 2.5-4.2 [facility] Comment on above: Performed By: #### L IPID, GFR, PBNP, BMP #### [address] [address] Glucose [Mass/Vol] 106 mg/dL Normal 82-115 [facility] Comment on above: Performed By: #### L IPID, GFR, PBNP, BMP #### [address] [address] Potassium [Moles/Vol] 4.4 mmol/L Normal 3.5-5.0 [facility] Comment on above: Performed By: #### L IPID, GFR, PBNP, BMP #### [address] [address] Sodium [Moles/Vol] 143 mmol/L Normal 136-145 [facility] Comment on above: Performed By: #### L IPID, GFR, PBNP, BMP #### [address] [address] Total Protein 7.1 G/dL Normal 5.7-8.2 [facility] Comment on above: Performed By: #### L IPID, GFR, PBNP, BMP #### [place] [address] Urea nitrogen [Mass/Vol] 31.0 mg/dL High 8.0-22.0 [facility] Comment on above: Performed By: #### L IPID, GFR, PBNP, BMP #### [place] [id number] FT4on 04-11-2025 Free T4 [Mass/Vol] 1.03 ng/dL Normal 0.89-1.76 [facility] Comment on above: Result Comment: No te - New Reference Range in effect 20 Performed By: #### L IPID, GFR, PBNP, BMP #### [place] [address] TSHon 04-11-2025 TSH 4.011 mIU/mL Normal 0.550-4.780 [facility] Comment on above: Performed By: #### L IPID, GFR, PBNP, BMP #### [place] [address] VIDHon 04-11-2025 Vit. D 25-Hydroxy 36.2 ng/mL Normal [facility] Comment on above: Result Comment: Inte rpretive Values Based on Total 25(OH)D: Severe Deficiency <20 ng/mL Mild to Moderate Deficiency 20-30 ng/mL Optimum Levels 30-100 ng/mL Toxicity Possible >100 ng/mL Performed By: #### L IPID, GFR, PBNP, BMP #### [place] [address] .GFRon 03-31-2025 Estimated Glomerular Filtration Rate 40 ml/min/1.73sqm Normal [facility] Comment on above: Result Comment: Stages of Chronic Kidney Disease (CKD) Stage Description eGFR(ml/min/1.73 sq.m.) CKD 1 Normal kidney function or >=90 normal kindney function with possible kidney damage (ex. Proteinuria) CKD 2 Kidney damage with mild loss 60-89 of kidney function CKD 3a Mild to moderate loss of kidney 45-59 function CKD 3b Moderate to severe loss of 30-44 of kindey function CKD 4 Severe loss of kidney function 15-29 CKD 5 Kidney failure <15 Note: (go live 2024) the eGFR calculation was updated to the 2020 CKD-EPI creatinine equation without a race factor to calculate the eGFR results. Performed By: #### B MP, GFR #### [address] [address] [facility] BUN/Creatinine Ratio 18.5 ratio Normal 10.0-22.0 [facility] Comment on above: Performed By: #### B MP, GFR #### [address] [address] Calcium [Mass/Vol] 9.1 mg/dL Normal 8.7-10.4 [facility] Comment on above: Performed By: #### B MP, GFR #### [address] [address] Chloride [Moles/Vol] 110 mmol/L Normal 98-110 [facility] Comment on above: Performed By: #### B MP, GFR #### [address] [address] CO2 [Moles/Vol] 24 mmol/L Normal 22-32 [facility] Comment on above: Performed By: #### B MP, GFR #### [address] [address] Creatinine [Mass/Vol] 1.35 mg/dL High 0.50-1.20 [facility] Comment on above: Result Comment: Test ing performed on [employer] analyzer using enzymatic creatinine methodology. Performed By: #### B MP, GFR #### [address] [address] Electrolyte Balance 8.0 mEq/L Normal 4.0-15.0 [facility] Comment on above: Performed By: #### B MP, GFR #### [address] [address] Glucose [Mass/Vol] 115 mg/dL Normal 82-115 [facility] Comment on above: Performed By: #### B MP, GFR #### [address] [address] Potassium [Moles/Vol] 4.1 mmol/L Normal 3.5-5.0 [facility] Comment on above: Performed By: #### B MP, GFR #### [address] [address] Sodium [Moles/Vol] 142 mmol/L Normal 136-145 [facility] Comment on above: Performed By: #### B MP, GFR #### [address] [address] Urea nitrogen [Mass/Vol] 25.0 mg/dL High 8.0-22.0 [facility] Comment on above: Performed By: #### B MP, GFR #### [address] [address] .GFRon 03-22-2025 Estimated Glomerular Filtration Rate 36 ml/min/1.73sqm Normal [facility] Comment on above: Result Comment: Stages of Chronic Kidney Disease (CKD) Stage Description eGFR(ml/min/1.73 sq.m.) CKD 1 Normal kidney function or >=90 normal kindney function with possible kidney damage (ex. Proteinuria) CKD 2 Kidney damage with mild loss 60-89 of kidney function CKD 3a Mild to moderate loss of kidney 45-59 function CKD 3b Moderate to severe loss of 30-44 of kindey function CKD 4 Severe loss of kidney function 15-29 CKD 5 Kidney failure <15 Note: (go live 2024) the eGFR calculation was updated to the 2020 CKD-EPI creatinine equation without a race factor to calculate the eGFR results. Performed By: #### L IPID, GFR, PBNP, BMP #### [address] [address] BMPon 03-22-2025 BUN/Creatinine Ratio 24.3 ratio High 10.0-22.0 [facility] Comment on above: Performed By: #### B MP, GFR #### [address] [address] Calcium [Mass/Vol] 9.3 mg/dL Normal 8.7-10.4 [facility] Comment on above: Performed By: #### B MP, GFR #### [address] [address] Chloride [Moles/Vol] 107 mmol/L Normal 98-110 [facility] Comment on above: Performed By: #### B MP, GFR #### [address] [address] CO2 [Moles/Vol] 26 mmol/L Normal 22-32 [facility] Comment on above: Performed By: #### B MP, GFR #### [address] [address] Creatinine [Mass/Vol] 1.48 mg/dL High 0.50-1.20 [facility]IN Comment on above: Result Comment: Test ing performed on [employer] analyzer using enzymatic creatinine methodology. Performed By: #### B MP, GFR #### [address] [address] Electrolyte Balance 7.0 mEq/L Normal 4.0-15.0 [facility] Comment on above: Performed By: #### B MP, GFR #### [address] [address] Glucose [Mass/Vol] 110 mg/dL Normal 82-115 [facility] Comment on above: Performed By: #### B MP, GFR #### [address] [address] Potassium [Moles/Vol] 4.9 mmol/L Normal 3.5-5.0 [facility] Comment on above: Performed By: #### B MP, GFR #### [address] [address] Sodium [Moles/Vol] 140 mmol/L Normal 136-145 [facility] Comment on above: Performed By: #### B MP, GFR #### [address] [address] Urea nitrogen [Mass/Vol] 36.0 mg/dL High 8.0-22.0 [facility] Comment on above: Performed By: #### B MP, GFR #### [address] [address] LIPIDon 03-08-2025 Cholesterol [Mass/Vol] 118 mg/dL Normal 50-199 [facility] Comment on above: Result Comment: Chol esterol Reference Interval: Less than 200 Desirable 200-239 Borderline high risk 240 and above High risk Performed By: #### B MP, PBNP, GFR #### [facility] [address] [place] [address] Cholesterol in HDL [Mass/Vol] 35 mg/dL Low 40-59 [facility] Comment on above: Performed By: #### B MP, PBNP, GFR #### [facility] [address] [place] [address] Cholesterol in LDL [Mass/Vol] 57 mg/dL Normal 0-129 [facility] Comment on above: Performed By: #### B MP, PBNP, GFR #### [facility] [address] [place] [address] Triglyceride [Mass/Vol] 132 mg/dL Normal 3-149 [facility] Comment on above: Performed By: #### B MP, PBNP, GFR #### [facility] [address] [place] [address] PBNPon 03-08-2025 Natriuretic peptide B (Bld) [Mass/Vol] 199 pg/mL Normal 0-1800 [facility] Comment on above: Performed By: #### B MP, PBNP, GFR #### [facility] [address] [place] [address] XR KNEE THREE VIEWS RIGHTon 02-20-2025 XR KNEE THREE VIEWS RIGHT ORIGINAL EXAMINATION: XR knee TECHNIQUE: Three views of the right knee COMPARISON: None. HISTORY: ORDERING SYSTEM PROVIDED HISTORY: Reason for Exam: evaluation for pain/injury FINDINGS: The osseous structures are diffusely demineralized. Moderate tricompartmental joint space narrowing is present. Mild enthesopathy changes of the lateral tibial plateau is noted. Slight cortical irregularity involving the medial femoral condyle may reflect the sequela of remote trauma. No acute fracture or dislocation. A small joint effusion is seen. IMPRESSION: 1. No acute fracture or dislocation. 2. Moderate tricompartmental joint space narrowing. 3. Diffuse osseous demineralization. 4. Small joint effusion. Interpreted by: Milan Marie MD Preliminary Report By: Milan Marie MD Electronically signed By Milan Marie MD Dictated Date: 02/20/2025 9:17:17 AM Prelim Date: 02/20/2025 9:19:02 AM Sign Date: 02/20/2025 9:19:02 AM Ordering Provider: VINOD DESHPANDE [facility] MAIN .GFRon 10-21-2024 GFR 54 ml/min/1.73sqm [facility] MAIN Comment on above: Result Comment: GFR Population mean for , Non- Americans Ages 20-29 = 116 mL/min/1.73 sq.m. Ages 30-39 = 107 mL/min/1.73 sq.m. Ages 40-49 = 99 mL/min/1.73 sq.m. Ages 50-59 = 93 mL/min/1.73 sq.m. Ages 60-69 = 85 mL/min/1.73 sq.m. Ages 70+ = 75 mL/min/1.73 sq.m. Chronic Kidney Disease: Less than 60 mL/min/1.73 square meters End Stage Renal Disease: Less than 15 mL/min/1.73 square meters Performed By: #### B MP, PBNP, GFR #### [address] [address] GFR Non- 45 ml/min/1.73sqm [facility] MAIN Comment on above: Result Comment: GFR Population mean for , Non- Americans Ages 20-29 = 116 mL/min/1.73 sq.m. Ages 30-39 = 107 mL/min/1.73 sq.m. Ages 40-49 = 99 mL/min/1.73 sq.m. Ages 50-59 = 93 mL/min/1.73 sq.m. Ages 60-69 = 85 mL/min/1.73 sq.m. Ages 70+ = 75 mL/min/1.73 sq.m. Chronic Kidney Disease: Less than 60 mL/min/1.73 square meters End Stage Renal Disease: Less than 15 mL/min/1.73 square meters Performed By: #### B MP, PBNP, GFR #### [address] [address] BMPon 10-21-2024 BUN/Creatinine Ratio 18.8 ratio Normal 10.0-22.0 [facility] MAIN Comment on above: Performed By: #### B MP, PBNP, GFR #### [address] [address] Calcium [Mass/Vol] 9.7 mg/dL Normal 8.7-10.4 [facility] Comment on above: Performed By: #### B MP, PBNP, GFR #### [address] [address] Chloride [Moles/Vol] 107 mmol/L Normal 98-110 [facility] Comment on above: Performed By: #### B MP, PBNP, GFR #### [address] [address] CO2 [Moles/Vol] 28 mmol/L Normal 22-32 [facility] Comment on above: Performed By: #### B MP, PBNP, GFR #### [address] [address] Creatinine [Mass/Vol] 1.17 mg/dL Normal 0.50-1.20 [facility]IN Comment on above: Result Comment: Test ing performed on [employer] analyzer using enzymatic creatinine methodology. Performed By: #### B MP, PBNP, GFR #### [address] [address] Electrolyte Balance 6.0 mEq/L Normal 4.0-15.0 [facility] MAIN Comment on above: Performed By: #### B MP, PBNP, GFR #### [address] [address] Glucose [Mass/Vol] 111 mg/dL Normal 82-115 [facility] Comment on above: Performed By: #### B MP, PBNP, GFR #### [address] [address] Potassium [Moles/Vol] 4.1 mmol/L Normal 3.5-5.0 [facility] Comment on above: Performed By: #### B MP, PBNP, GFR #### [address] [address] Sodium [Moles/Vol] 141 mmol/L Normal 136-145 [facility] Comment on above: Performed By: #### B MP, PBNP, GFR #### [address] [address] Urea nitrogen [Mass/Vol] 22.0 mg/dL Normal 8.0-22.0 [facility] Comment on above: Performed By: #### B MP, PBNP, GFR #### [address] [address] PBNPon 10-21-2024 Natriuretic peptide B (Bld) [Mass/Vol] 209 pg/mL Normal 0-1800 [facility] Comment on above: Performed By: #### B MP, PBNP, GFR #### [address] [address] .GFRon 09-22-2024 GFR 54 ml/min/1.73sqm [facility] MAIN Comment on above: Result Comment: GFR Population mean for , Non- Americans Ages 20-29 = 116 mL/min/1.73 sq.m. Ages 30-39 = 107 mL/min/1.73 sq.m. Ages 40-49 = 99 mL/min/1.73 sq.m. Ages 50-59 = 93 mL/min/1.73 sq.m. Ages 60-69 = 85 mL/min/1.73 sq.m. Ages 70+ = 75 mL/min/1.73 sq.m. Chronic Kidney Disease: Less than 60 mL/min/1.73 square meters End Stage Renal Disease: Less than 15 mL/min/1.73 square meters Performed By: #### L IPID, GFR, PBNP, BMP #### [address] [address] GFR Non- 45 ml/min/1.73sqm [facility] MAIN Comment on above: Result Comment: GFR Population mean for , Non- Americans Ages 20-29 = 116 mL/min/1.73 sq.m. Ages 30-39 = 107 mL/min/1.73 sq.m. Ages 40-49 = 99 mL/min/1.73 sq.m. Ages 50-59 = 93 mL/min/1.73 sq.m. Ages 60-69 = 85 mL/min/1.73 sq.m. Ages 70+ = 75 mL/min/1.73 sq.m. Chronic Kidney Disease: Less than 60 mL/min/1.73 square meters End Stage Renal Disease: Less than 15 mL/min/1.73 square meters Performed By: #### L IPID, GFR, PBNP, BMP #### [address] [address] BMPon 09-22-2024 BUN/Creatinine Ratio 23.9 ratio High 10.0-22.0 [facility] MAIN Comment on above: Performed By: #### L IPID, GFR, PBNP, BMP #### [address] [address] Calcium [Mass/Vol] 9.7 mg/dL Normal 8.7-10.4 [facility] Comment on above: Performed By: #### L IPID, GFR, PBNP, BMP #### [place] [id number] Chloride [Moles/Vol] 110 mmol/L Normal 98-110 [facility] MAIN Comment on above: Performed By: #### L IPID, GFR, PBNP, BMP #### [address] [address] CO2 [Moles/Vol] 26 mmol/L Normal 22-32 [facility] Comment on above: Performed By: #### L IPID, GFR, PBNP, BMP #### [address] [address] Creatinine [Mass/Vol] 1.17 mg/dL Normal 0.50-1.20 [facility]IN Comment on above: Result Comment: Test ing performed on [employer] analyzer using enzymatic creatinine methodology. Performed By: #### L IPID, GFR, PBNP, BMP #### [address] [address] Electrolyte Balance 7.0 mEq/L Normal 4.0-15.0 [facility] MAIN Comment on above: Performed By: #### L IPID, GFR, PBNP, BMP #### [address] [address] Glucose [Mass/Vol] 99 mg/dL Normal 82-115 [facility] MAIN Comment on above: Performed By: #### L IPID, GFR, PBNP, BMP #### [address] [address] Potassium [Moles/Vol] 4.8 mmol/L Normal 3.5-5.0 [facility] MAIN Comment on above: Performed By: #### L IPID, GFR, PBNP, BMP #### [address] [address] Sodium [Moles/Vol] 143 mmol/L Normal 136-145 [facility] MA[facility] Comment on above: Performed By: #### L IPID, GFR, PBNP, BMP #### [address] [address] Urea nitrogen [Mass/Vol] 28.0 mg/dL High 8.0-22.0 [facility] Comment on above: Performed By: #### L IPID, GFR, PBNP, BMP #### [address] [address] .GFRon 09-16-2024 GFR 39 ml/min/1.73sqm [facility] MAIN Comment on above: Result Comment: GFR Population mean for , Non- Americans Ages 20-29 = 116 mL/min/1.73 sq.m. Ages 30-39 = 107 mL/min/1.73 sq.m. Ages 40-49 = 99 mL/min/1.73 sq.m. Ages 50-59 = 93 mL/min/1.73 sq.m. Ages 60-69 = 85 mL/min/1.73 sq.m. Ages 70+ = 75 mL/min/1.73 sq.m. Chronic Kidney Disease: Less than 60 mL/min/1.73 square meters End Stage Renal Disease: Less than 15 mL/min/1.73 square meters Performed By: #### L IPID, GFR, PBNP, BMP #### [address] [address] GFR Non- 32 ml/min/1.73sqm [facility] MAIN Comment on above: Result Comment: GFR Population mean for , Non- Americans Ages 20-29 = 116 mL/min/1.73 sq.m. Ages 30-39 = 107 mL/min/1.73 sq.m. Ages 40-49 = 99 mL/min/1.73 sq.m. Ages 50-59 = 93 mL/min/1.73 sq.m. Ages 60-69 = 85 mL/min/1.73 sq.m. Ages 70+ = 75 mL/min/1.73 sq.m. Chronic Kidney Disease: Less than 60 mL/min/1.73 square meters End Stage Renal Disease: Less than 15 mL/min/1.73 square meters Performed By: #### L IPID, GFR, PBNP, BMP #### [address] [address] [facility] BUN/Creatinine Ratio 21.8 ratio Normal 10.0-22.0 [facility] MAIN Comment on above: Performed By: #### L IPID, GFR, PBNP, BMP #### [address] [address] Calcium [Mass/Vol] 9.6 mg/dL Normal 8.7-10.4 [facility] MAIN Comment on above: Performed By: #### L IPID, GFR, PBNP, BMP #### [address] [address] Chloride [Moles/Vol] 114 mmol/L High 98-110 [facility] MAIN Comment on above: Performed By: #### L IPID, GFR, PBNP, BMP #### [address] [address] CO2 [Moles/Vol] 24 mmol/L Normal 22-32 [facility] Comment on above: Performed By: #### L IPID, GFR, PBNP, BMP #### [address] [address] Creatinine [Mass/Vol] 1.56 mg/dL High 0.50-1.20 [facility] MAIN Comment on above: Result Comment: Test ing performed on [employer] analyzer using enzymatic creatinine methodology. Performed By: #### L IPID, GFR, PBNP, BMP #### [address] [address] Electrolyte Balance 10.0 mEq/L Normal 4.0-15.0 [facility] MAIN Comment on above: Performed By: #### L IPID, GFR, PBNP, BMP #### [address] [address] Glucose [Mass/Vol] 113 mg/dL Normal 82-115 [facility] MAIN Comment on above: Performed By: #### L IPID, GFR, PBNP, BMP #### [address] [address] Potassium [Moles/Vol] 5.5 mmol/L High 3.5-5.0 [facility] MAIN Comment on above: Performed By: #### L IPID, GFR, PBNP, BMP #### [address] [address] Sodium [Moles/Vol] 148 mmol/L High 136-145 [facility] MAIN Comment on above: Performed By: #### L IPID, GFR, PBNP, BMP #### [address] [address] Urea nitrogen [Mass/Vol] 34.0 mg/dL High 8.0-22.0 [facility] Comment on above: Performed By: #### L IPID, GFR, PBNP, BMP #### [address] [address] [id number] 09-03-2024 Vitamin B6 Lvl 2.2 UG/L Low 3.4-65.2 [facility] Comment on above: Result Comment: This test was developed and its performance characteristics determined by [facility]. It has not been cleared or approved by the Food and Drug Administration. Deficiency: <3.4 Marginal: 3.4 - 5.1 Adequate: >5.1 Performed At: [address] [id number] Merrill Mayers MD Ph:[phone] Performed By: #### L IPID, GFR, PBNP, BMP #### [address] [address] SPEon 09-01-2024 SPE Interpretation Normal serum protein electrophoresis pattern. No abnormality detected. Normal [facility] Comment on above: Result Comment: Elec tronically Signed by: MECCA LR 09/01/2024 18:08 EDT Performed By: #### L IPID, GFR, PBNP, BMP #### [address] [address] Albumin 3.4 G/dL Normal 3.3-5.0 [facility] Comment on above: Performed By: #### L IPID, GFR, PBNP, BMP #### [address] [address] Alpha 1 0.3 G/dL Normal 0.1-0.4 [facility] Comment on above: Performed By: #### L IPID, GFR, PBNP, BMP #### [address] [address] Alpha 2 1.2 G/dL Normal 0.6-1.2 [facility] Comment on above: Performed By: #### L IPID, GFR, PBNP, BMP #### [address] [address] Beta 1.1 G/dL Normal 0.6-1.3 [facility] Comment on above: Performed By: #### L IPID, GFR, PBNP, BMP #### [address] [address] Gamma 0.9 G/dL Normal 0.7-1.6 [facility] Comment on above: Performed By: #### L IPID, GFR, PBNP, BMP #### [address] [address] UPEon 09-01-2024 UPE Interpretation Electrophoresis of concentrated urine demonstrates the presence of a small amount of albumin and other globulins in a pattern similar to that of serum. This may be seen in diseases associated with mild glomerular dysfunction as well as postural proteinuria, transient proteinuria and . Normal [facility] Comment on above: Result Comment: Elec tronically Signed by: MECCA LR 09/01/2024 18:12 EDT Performed By: #### L IPID, GFR, PBNP, BMP #### [address] [address] IFESon 08-31-2024 IFES Interpretation Immunofixation electrophoresis of serum shows the presence of only polyclonal immunoglobulins (IgG,A,M,Mamers and Lambda), No monoclonal protein detected. Normal [facility] Comment on above: Result Comment: Elec tronically Signed by: MECCA LR 08/31/2024 15:05 EDT Performed By: #### L IPID, GFR, PBNP, BMP #### [address] [address] .Auto Diffon 08-30-2024 Basophil, Absolute 0.0 10 3/mcL Normal 0.0-0.3 [facility] MAIN Comment on above: Performed By: #### L IPID, GFR, PBNP, BMP #### [address] [address] Basophils/100 WBC (Bld) 0.5 % Normal 0.0-2.5 [facility] Comment on above: Performed By: #### L IPID, GFR, PBNP, BMP #### [address] [address] Eosinophil, Absolute 0.1 10 3/mcL Normal 0.0-0.7 [facility] MAIN Comment on above: Performed By: #### L IPID, GFR, PBNP, BMP #### [address] [address] Eosinophils/100 WBC (Bld) 1.9 % Normal 0.0-6.0 [facility] Comment on above: Performed By: #### L IPID, GFR, PBNP, BMP #### [address] [address] Lymphocyte, Absolute 1.5 10 3/mcL Normal 0.9-4.3 [facility] MAIN Comment on above: Performed By: #### L IPID, GFR, PBNP, BMP #### [address] [address] Lymphocytes/100 WBC (Bld) 19.5 % Low 20.0-40.0 [facility] Comment on above: Performed By: #### L IPID, GFR, PBNP, BMP #### [place] [id number] [place] [address] Monocyte, Absolute 0.7 10 3/mcL Normal 0.1-1.4 [facility] MAIN Comment on above: Performed By: #### L IPID, GFR, PBNP, BMP #### [address] [address] Monocytes/100 WBC (Bld) 8.8 % Normal 2.0-13.0 [facility] Comment on above: Performed By: #### L IPID, GFR, PBNP, BMP #### [address] [address] Neutrophils/100 WBC (Bld) 69.3 % Normal 50.0-75.0 [facility] Comment on above: Performed By: #### L IPID, GFR, PBNP, BMP #### [address] [address] .GFRon 08-30-2024 GFR Non- 37 ml/min/1.73sqm [facility] MAIN Comment on above: Result Comment: GFR Population mean for , Non- Americans Ages 20-29 = 116 mL/min/1.73 sq.m. Ages 30-39 = 107 mL/min/1.73 sq.m. Ages 40-49 = 99 mL/min/1.73 sq.m. Ages 50-59 = 93 mL/min/1.73 sq.m. Ages 60-69 = 85 mL/min/1.73 sq.m. Ages 70+ = 75 mL/min/1.73 sq.m. Chronic Kidney Disease: Less than 60 mL/min/1.73 square meters End Stage Renal Disease: Less than 15 mL/min/1.73 square meters Performed By: #### L IPID, GFR, PBNP, BMP #### [address] [address] GFR 45 ml/min/1.73sqm [facility] MAIN Comment on above: Result Comment: GFR Population mean for , Non- Americans Ages 20-29 = 116 mL/min/1.73 sq.m. Ages 30-39 = 107 mL/min/1.73 sq.m. Ages 40-49 = 99 mL/min/1.73 sq.m. Ages 50-59 = 93 mL/min/1.73 sq.m. Ages 60-69 = 85 mL/min/1.73 sq.m. Ages 70+ = 75 mL/min/1.73 sq.m. Chronic Kidney Disease: Less than 60 mL/min/1.73 square meters End Stage Renal Disease: Less than 15 mL/min/1.73 square meters Performed By: #### L IPID, GFR, PBNP, BMP #### [address] [address] GFR 45 ml/min/1.73sqm [facility] MAIN Comment on above: Result Comment: GFR Population mean for , Non- Americans Ages 20-29 = 116 mL/min/1.73 sq.m. Ages 30-39 = 107 mL/min/1.73 sq.m. Ages 40-49 = 99 mL/min/1.73 sq.m. Ages 50-59 = 93 mL/min/1.73 sq.m. Ages 60-69 = 85 mL/min/1.73 sq.m. Ages 70+ = 75 mL/min/1.73 sq.m. Chronic Kidney Disease: Less than 60 mL/min/1.73 square meters End Stage Renal Disease: Less than 15 mL/min/1.73 square meters Performed By: #### L IPID, GFR, PBNP, BMP #### [address] [address] GFR Non- 37 ml/min/1.73sqm [facility] MAIN Comment on above: Result Comment: GFR Population mean for , Non- Americans Ages 20-29 = 116 mL/min/1.73 sq.m. Ages 30-39 = 107 mL/min/1.73 sq.m. Ages 40-49 = 99 mL/min/1.73 sq.m. Ages 50-59 = 93 mL/min/1.73 sq.m. Ages 60-69 = 85 mL/min/1.73 sq.m. Ages 70+ = 75 mL/min/1.73 sq.m. Chronic Kidney Disease: Less than 60 mL/min/1.73 square meters End Stage Renal Disease: Less than 15 mL/min/1.73 square meters Performed By: #### L IPID, GFR, PBNP, BMP #### [address] [address] .NEUABSon 08-30-2024 Neutrophil, Absolute 5.4 10 3/mcL Normal 2.3-8.1 [facility] MAIN Comment on above: Performed By: #### L IPID, GFR, PBNP, BMP #### [place] [address] B12on 08-30-2024 Cobalamin (Vitamin B12) [Mass/Vol] 740 pg/mL Normal 211-911 MAIN [facility] Comment on above: Performed By: #### L IPID, GFR, PBNP, BMP #### [place] [address] BMPon 08-30-2024 BUN/Creatinine Ratio 21.9 ratio Normal 10.0-22.0 [facility] Comment on above: Performed By: #### L IPID, GFR, PBNP, BMP #### [place] [address] Calcium [Mass/Vol] 9.3 mg/dL Normal 8.7-10.4 [facility] Comment on above: Performed By: #### L IPID, GFR, PBNP, BMP #### [place] [address] Chloride [Moles/Vol] 107 mmol/L Normal 98-110 [facility] Comment on above: Performed By: #### L IPID, GFR, PBNP, BMP #### [place] [address] CO2 [Moles/Vol] 29 mmol/L Normal 22-32 [facility] Comment on above: Performed By: #### L IPID, GFR, PBNP, BMP #### [place] [address] Creatinine [Mass/Vol] 1.37 mg/dL High 0.50-1.20 [facility] MAIN Comment on above: Result Comment: Test ing performed on [employer] analyzer using enzymatic creatinine methodology. Performed By: #### L IPID, GFR, PBNP, BMP #### [place] [id number] Electrolyte Balance 5.0 mEq/L Normal 4.0-15.0 [facility] Comment on above: Performed By: #### L IPID, GFR, PBNP, BMP #### [place] [id number] Glucose [Mass/Vol] 108 mg/dL Normal 82-115 [facility] Comment on above: Performed By: #### L IPID, GFR, PBNP, BMP #### [place] [id number] Potassium [Moles/Vol] 4.3 mmol/L Normal 3.5-5.0 [facility] Comment on above: Performed By: #### L IPID, GFR, PBNP, BMP #### [place] [id number] Sodium [Moles/Vol] 141 mmol/L Normal 136-145 [facility] Comment on above: Performed By: #### L IPID, GFR, PBNP, BMP #### [place] [address] Urea nitrogen [Mass/Vol] 30.0 mg/dL High 8.0-22.0 [facility] Comment on above: Performed By: #### L IPID, GFR, PBNP, BMP #### [place] [address] CBCon 08-30-2024 Erythrocyte distribution width (RBC) [Ratio] 15.3 % Normal 11.5-15.5 [facility] Comment on above: Performed By: #### L IPID, GFR, PBNP, BMP #### [place] [id number] Hematocrit (Bld) [Volume fraction] 36.2 % Normal 34.0-46.0 [facility] Comment on above: Performed By: #### L IPID, GFR, PBNP, BMP #### [place] [id number] Hgb 11.6 G/dL Low 12.0-16.0 [facility] Comment on above: Performed By: #### L IPID, GFR, PBNP, BMP #### [place] [address] MCH (RBC) [Entitic mass] 30.4 pg Normal 27.0-33.0 [facility] Comment on above: Performed By: #### L IPID, GFR, PBNP, BMP #### [place] [address] MCHC 32.2 G/dL Normal 32.0-36.0 [facility] Comment on above: Performed By: #### L IPID, GFR, PBNP, BMP #### [place] [address] MCV (RBC) [Entitic vol] 94.5 fL Normal 80.0-99.0 [facility] Comment on above: Performed By: #### L IPID, GFR, PBNP, BMP #### [place] [address] Platelet 198 10 3/mcL Normal 150-450 [facility] Comment on above: Performed By: #### L IPID, GFR, PBNP, BMP #### [place] [address] Platelet mean volume (Bld) [Entitic vol] 9.9 fL Normal 6.6-10.5 [facility] Comment on above: Performed By: #### L IPID, GFR, PBNP, BMP #### [place] [address] RBC 3.83 10 6/mcL Low 4.10-5.30 [facility] Comment on above: Performed By: #### L IPID, GFR, PBNP, BMP #### [place] [address] WBC 7.7 10 3/mcL Normal 4.5-10.8 [facility] Comment on above: Performed By: #### L IPID, GFR, PBNP, BMP #### [place] [address] CMPon 10-15-2024 Albumin/Globulin [Mass ratio] 1.0 {ratio} Normal 0.9-1.6 [facility] Comment on above: Performed By: #### L IPID, GFR, PBNP, BMP #### [place] [address] Globulin 3.5 G/dL Normal 1.5-3.8 [facility] Comment on above: Performed By: #### L IPID, GFR, PBNP, BMP #### [place] [address] Albumin Level 3.4 G/dL Normal 3.2-4.8 [facility] Comment on above: Performed By: #### L IPID, GFR, PBNP, BMP #### [place] [address] ALP [Catalytic activity/Vol] 111 U/L Normal 38-126 [facility] Comment on above: Performed By: #### L IPID, GFR, PBNP, BMP #### [place] [address] ALT [Catalytic activity/Vol] 8 U/L Low 10-49 [facility] Comment on above: Performed By: #### L IPID, GFR, PBNP, BMP #### [place] [address] AST [Catalytic activity/Vol] 16 U/L Normal 8-34 [facility] Comment on above: Performed By: #### L IPID, GFR, PBNP, BMP #### [place] [address] Bili Total 0.50 mg/dL Normal 0.20-1.20 [facility] Comment on above: Result Comment: Use of this assay is not recommended for patients undergoing treatment with eltrombopag due to the potential for falsely elevated results. Performed By: #### L IPID, GFR, PBNP, BMP #### [place] [address] BUN/Creatinine Ratio 22.6 ratio High 10.0-22.0 [facility] Comment on above: Performed By: #### L IPID, GFR, PBNP, BMP #### [address] [address] Calcium [Mass/Vol] 9.3 mg/dL Normal 8.7-10.4 [facility] Comment on above: Performed By: #### L IPID, GFR, PBNP, BMP #### [address] [address] Chloride [Moles/Vol] 109 mmol/L Normal 98-110 [facility] Comment on above: Performed By: #### L IPID, GFR, PBNP, BMP #### [address] [address] CO2 [Moles/Vol] 29 mmol/L Normal 22-32 [facility] Comment on above: Performed By: #### L IPID, GFR, PBNP, BMP #### [address] [address] Creatinine [Mass/Vol] 1.37 mg/dL High 0.50-1.20 [facility] Comment on above: Result Comment: Test ing performed on [employer] analyzer using enzymatic creatinine methodology. Performed By: #### L IPID, GFR, PBNP, BMP #### [address] [address] Electrolyte Balance 1.0 mEq/L Low 4.0-15.0 [facility] MA[facility] Comment on above: Performed By: #### L IPID, GFR, PBNP, BMP #### [address] [address] Glucose [Mass/Vol] 107 mg/dL Normal 82-115 [facility] Comment on above: Performed By: #### L IPID, GFR, PBNP, BMP #### [address] [address] Potassium [Moles/Vol] 4.3 mmol/L Normal 3.5-5.0 [facility] Comment on above: Performed By: #### L IPID, GFR, PBNP, BMP #### [address] [address] Sodium [Moles/Vol] 139 mmol/L Normal 136-145 [facility] Comment on above: Performed By: #### L IPID, GFR, PBNP, BMP #### [place] [address] Total Protein 6.9 G/dL Normal 5.7-8.2 [facility] Comment on above: Result Comment: No te - New Reference Range in effect 20 Performed By: #### L IPID, GFR, PBNP, BMP #### [place] [address] Urea nitrogen [Mass/Vol] 31.0 mg/dL High 8.0-22.0 [facility] Comment on above: Performed By: #### L IPID, GFR, PBNP, BMP #### [place] [address] PBNPon 08-30-2024 Natriuretic peptide B (Bld) [Mass/Vol] 495 pg/mL Normal 0-1800 [facility] Comment on above: Performed By: #### L IPID, GFR, PBNP, BMP #### [place] [id number] SPEon 08-30-2024 Total Protein 6.9 G/dL Normal 5.7-8.2 [facility] Comment on above: Result Comment: No te - New Reference Range in effect 20 Performed By: #### L IPID, GFR, PBNP, BMP #### [place] [address] XR SPINE LUMBAR AP/LATon XR SPINE LUMBAR AP/LAT ORIGINAL EXAMINATION: AP and lateral 2 XRAY VIEWS OF THE LUMBAR SPINE08/26/2024 10:38 am COMPARISON: None HISTORY: ORDERING SYSTEM PROVIDED HISTORY: Reason for Exam: neuropathy, lower back pain FINDINGS: AP view shows moderate lumbar dextroscoliosis. There are 5 non rib-bearing lumbar type vertebral bodies with hypoplastic right T12 rib. Multilevel moderate to severe disc space narrowing, large endplate spurs and facet arthropathy is present throughout most of the lumbar spine. Lower thoracic spondylosis also. There may be minimal L5-S1 anterolisthesis and mild spondylolysis at this level is not excludable. Symmetric normal SI joints. Left upper quadrant calcification is probably vascular or costal cartilage. 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 Interpreted by: Josep Guzman MD Preliminary Report By: Jsoep Guzman MD Electronically signed By Josep Guzman MD Dictated Date: 08/29/2024 1:26:02 PM Prelim Date: 08/29/2024 1:27:50 PM Sign Date: 08/29/2024 1:27:50 PM Ordering Provider: ANGELA Mendes [facility] .Auto Diffon 08-17-2024 Basophil, Absolute 0.0 10 3/mcL Normal 0.0-0.3 [facility] Comment on above: Performed By: #### L IPID, GFR, PBNP, BMP #### [facility] [address] [place] [id number] Basophils/100 WBC (Bld) 0.6 % Normal 0.0-2.5 [facility] Comment on above: Performed By: #### L IPID, GFR, PBNP, BMP #### [address] [address] Eosinophil, Absolute 0.2 10 3/mcL Normal 0.0-0.7 [facility]IN Comment on above: Performed By: #### L IPID, GFR, PBNP, BMP #### [address] [address] Eosinophils/100 WBC (Bld) 3.1 % Normal 0.0-6.0 [facility] Comment on above: Performed By: #### L IPID, GFR, PBNP, BMP #### [address] [address] Lymphocyte, Absolute 1.5 10 3/mcL Normal 0.9-4.3 [facility] Comment on above: Performed By: #### L IPID, GFR, PBNP, BMP #### [address] [address] Lymphocytes/100 WBC (Bld) 19.4 % Low 20.0-40.0 [facility] Comment on above: Performed By: #### L IPID, GFR, PBNP, BMP #### [place] [id number] [address] [place] [address] Monocyte, Absolute 0.6 10 3/mcL Normal 0.1-1.4 [facility] Comment on above: Performed By: #### L IPID, GFR, PBNP, BMP #### [address] [address] Monocytes/100 WBC (Bld) 7.9 % Normal 2.0-13.0 [facility] Comment on above: Performed By: #### L IPID, GFR, PBNP, BMP #### [address] [address] Neutrophils/100 WBC (Bld) 69.0 % Normal 50.0-75.0 [facility] Comment on above: Performed By: #### L IPID, GFR, PBNP, BMP #### [address] [address] .GFRon 08-17-2024 GFR 53 ml/min/1.73sqm [facility] MAIN Comment on above: Result Comment: GFR Population mean for , Non- Americans Ages 20-29 = 116 mL/min/1.73 sq.m. Ages 30-39 = 107 mL/min/1.73 sq.m. Ages 40-49 = 99 mL/min/1.73 sq.m. Ages 50-59 = 93 mL/min/1.73 sq.m. Ages 60-69 = 85 mL/min/1.73 sq.m. Ages 70+ = 75 mL/min/1.73 sq.m. Chronic Kidney Disease: Less than 60 mL/min/1.73 square meters End Stage Renal Disease: Less than 15 mL/min/1.73 square meters Performed By: #### B MP, PBNP, GFR #### [address] [address] GFR Non- 43 ml/min/1.73sqm [facility] MAIN Comment on above: Result Comment: GFR Population mean for , Non- Americans Ages 20-29 = 116 mL/min/1.73 sq.m. Ages 30-39 = 107 mL/min/1.73 sq.m. Ages 40-49 = 99 mL/min/1.73 sq.m. Ages 50-59 = 93 mL/min/1.73 sq.m. Ages 60-69 = 85 mL/min/1.73 sq.m. Ages 70+ = 75 mL/min/1.73 sq.m. Chronic Kidney Disease: Less than 60 mL/min/1.73 square meters End Stage Renal Disease: Less than 15 mL/min/1.73 square meters Performed By: #### B MP, PBNP, GFR #### [address] [address] .NEUABSon 08-17-2024 Neutrophil, Absolute 5.2 10 3/mcL Normal 2.3-8.1 [facility] MAIN Comment on above: Performed By: #### B MP, PBNP, GFR #### [place] [address] AMYon 08-17-2024 Amylase [Catalytic activity/Vol] 62 U/L Normal 30-118 [facility] Comment on above: Order Comment: STAT Dr. Stephens pager [phone] Result Comment: No te - New Reference Range in effect 20 Performed By: #### B MP, PBNP, GFR #### [place] [address] CBCon 08-17-2024 Erythrocyte distribution width (RBC) [Ratio] 14.9 % Normal 11.5-15.5 [facility] Comment on above: Order Comment: STAT Dr. Stephens pager [phone] Performed By: #### L IPID, GFR, PBNP, BMP #### [place] [address] Hematocrit (Bld) [Volume fraction] 35.7 % Normal 34.0-46.0 [facility] Comment on above: Order Comment: STAT Dr. Stephens pager [phone] Performed By: #### L IPID, GFR, PBNP, BMP #### [place] [address] Hgb 11.8 G/dL Low 12.0-16.0 [facility] Comment on above: Order Comment: STAT Dr. Kat sellers [phone] Performed By: #### L IPID, GFR, PBNP, BMP #### [address] [address] MCH (RBC) [Entitic mass] 30.7 pg Normal 27.0-33.0 [facility] Comment on above: Order Comment: STAT Dr. Kat sellers [phone] Performed By: #### L IPID, GFR, PBNP, BMP #### [address] [address] MCHC 32.9 G/dL Normal 32.0-36.0 [facility] Comment on above: Order Comment: STAT Dr. Kat sellers [phone] Performed By: #### L IPID, GFR, PBNP, BMP #### [place] [address] MCV (RBC) [Entitic vol] 93.4 fL Normal 80.0-99.0 [facility] Comment on above: Order Comment: STAT Dr. Kat sellers [phone] Performed By: #### L IPID, GFR, PBNP, BMP #### [place] [address] Platelet 187 10 3/mcL Normal 150-450 [facility] Comment on above: Order Comment: STAT Dr. Kat sellers [phone] Performed By: #### L IPID, GFR, PBNP, BMP #### [place] [address] Platelet mean volume (Bld) [Entitic vol] 9.5 fL Normal 6.6-10.5 [facility] Comment on above: Order Comment: STAT Dr. Kat sellers [phone] Performed By: #### L IPID, GFR, PBNP, BMP #### [place] [address] RBC 3.82 10 6/mcL Low 4.10-5.30 [facility] Comment on above: Order Comment: STAT Dr. Kat sellers [phone] Performed By: #### L IPID, GFR, PBNP, BMP #### [address] [address] WBC 7.6 10 3/mcL Normal 4.5-10.8 [facility] Comment on above: Order Comment: STAT Dr. Kat sellers [phone] Performed By: #### L IPID, GFR, PBNP, BMP #### [address] [address] CMPon 08-17-2024 Albumin Level 3.3 G/dL Normal 3.2-4.8 [facility] Comment on above: Order Comment: STAT Dr. Kat sellers [phone] Performed By: #### B MP, PBNP, GFR #### [place] [address] Albumin/Globulin [Mass ratio] 0.9 {ratio} Normal 0.9-1.6 [facility] Comment on above: Order Comment: STAT Dr. Kat sellers [phone] Performed By: #### B MP, PBNP, GFR #### [address] [address] ALP [Catalytic activity/Vol] 110 U/L Normal 38-126 [facility] Comment on above: Order Comment: STAT Dr. Kat sellers [phone] Performed By: #### B MP, PBNP, GFR #### [address] [address] ALT [Catalytic activity/Vol] 10 U/L Normal 10-49 [facility] Comment on above: Order Comment: STAT Dr. Kat sellers [phone] Performed By: #### B MP, PBNP, GFR #### [address] [address] AST [Catalytic activity/Vol] 15 U/L Normal 8-34 [facility] Comment on above: Order Comment: STAT Dr. Kat sellers [phone] Performed By: #### B MP, PBNP, GFR #### [address] [address] Bili Total 0.40 mg/dL Normal 0.20-1.20 [facility] Comment on above: Order Comment: STAT Dr. Kat sellers [phone] Result Comment: Use of this assay is not recommended for patients undergoing treatment with eltrombopag due to the potential for falsely elevated results. Performed By: #### B MP, PBNP, GFR #### [place] [id number] BUN/Creatinine Ratio 24.2 ratio High 10.0-22.0 [facility] MAIN Comment on above: Order Comment: STAT Dr. Kat sellers [phone] Performed By: #### B MP, PBNP, GFR #### [address] [address] Calcium [Mass/Vol] 10.0 mg/dL Normal 8.7-10.4 [facility] Comment on above: Order Comment: STAT Dr. Kat sellers [phone] Performed By: #### B MP, PBNP, GFR #### [address] [address] Chloride [Moles/Vol] 109 mmol/L Normal 98-110 [facility] MA[facility] Comment on above: Order Comment: STAT Dr. Kat sellers [phone] Performed By: #### B MP, PBNP, GFR #### [address] [address] CO2 [Moles/Vol] 29 mmol/L Normal 22-32 [facility] Comment on above: Order Comment: STAT Dr. Kat sellers [phone] Performed By: #### B MP, PBNP, GFR #### [address] [address] Creatinine [Mass/Vol] 1.20 mg/dL Normal 0.50-1.20 [facility] MAIN Comment on above: Order Comment: STAT Dr. Kat sellers [phone] Result Comment: Test ing performed on [employer] analyzer using enzymatic creatinine methodology. Performed By: #### B MP, PBNP, GFR #### [address] [address] Electrolyte Balance 6.0 mEq/L Normal 4.0-15.0 [facility] MAIN Comment on above: Order Comment: STAT Dr. Kat sellers [phone] Performed By: #### B MP, PBNP, GFR #### [address] [address] Globulin 3.6 G/dL Normal 1.5-3.8 [facility] Comment on above: Order Comment: STAT Dr. Kat sellers [phone] Performed By: #### B MP, PBNP, GFR #### [address] [address] Glucose [Mass/Vol] 125 mg/dL High 82-115 [facility] Comment on above: Order Comment: STAT Dr. Kat sellers [phone] Performed By: #### B MP, PBNP, GFR #### [address] [address] Potassium [Moles/Vol] 4.9 mmol/L Normal 3.5-5.0 [facility] Comment on above: Order Comment: STAT Dr. Kat sellers [phone] Performed By: #### B MP, PBNP, GFR #### [address] [address] Sodium [Moles/Vol] 144 mmol/L Normal 136-145 [facility] Comment on above: Order Comment: STAT Dr. Kat sellers [phone] Performed By: #### B MP, PBNP, GFR #### [address] [address] Total Protein 6.9 G/dL Normal 5.7-8.2 [facility] Comment on above: Order Comment: STAT Dr. Kat sellers [phone] Result Comment: No te - New Reference Range in effect 20 Performed By: #### B MP, PBNP, GFR #### [place] [id number] Urea nitrogen [Mass/Vol] 29.0 mg/dL High 8.0-22.0 [facility] Comment on above: Order Comment: STAT Dr. Stephens pager [phone] Performed By: #### B MP, PBNP, GFR #### [facility] [address] [place] [address] LIPon 08-17-2024 Lipase Level 26 U/L Normal 12-53 [facility] Comment on above: Order Comment: STAT Dr. Stephens pager [phone] Result Comment: No te - New Reference Range in effect 20 Performed By: #### B MP, PBNP, GFR #### [address] [address] .GFRon 07-25-2024 GFR >60 Normal [facility] MAIN Comment on above: Result Comment: GFR Population mean for , Non- Americans Ages 20-29 = 116 mL/min/1.73 sq.m. Ages 30-39 = 107 mL/min/1.73 sq.m. Ages 40-49 = 99 mL/min/1.73 sq.m. Ages 50-59 = 93 mL/min/1.73 sq.m. Ages 60-69 = 85 mL/min/1.73 sq.m. Ages 70+ = 75 mL/min/1.73 sq.m. Chronic Kidney Disease: Less than 60 mL/min/1.73 square meters End Stage Renal Disease: Less than 15 mL/min/1.73 square meters Performed By: #### L IPID, GFR, PBNP, BMP #### [place] [address] GFR Non- 50 ml/min/1.73sqm [facility] MAIN Comment on above: Result Comment: GFR Population mean for , Non- Americans Ages 20-29 = 116 mL/min/1.73 sq.m. Ages 30-39 = 107 mL/min/1.73 sq.m. Ages 40-49 = 99 mL/min/1.73 sq.m. Ages 50-59 = 93 mL/min/1.73 sq.m. Ages 60-69 = 85 mL/min/1.73 sq.m. Ages 70+ = 75 mL/min/1.73 sq.m. Chronic Kidney Disease: Less than 60 mL/min/1.73 square meters End Stage Renal Disease: Less than 15 mL/min/1.73 square meters Performed By: #### L IPID, GFR, PBNP, BMP #### [address] [address] BMPon 07-25-2024 BUN/Creatinine Ratio 21.7 ratio Normal 10.0-22.0 [facility]IN Comment on above: Performed By: #### L IPID, GFR, PBNP, BMP #### [place] [id number] Calcium [Mass/Vol] 9.4 mg/dL Normal 8.7-10.4 [facility] Comment on above: Performed By: #### L IPID, GFR, PBNP, BMP #### [address] [address] Chloride [Moles/Vol] 114 mmol/L High 98-110 [facility] Comment on above: Performed By: #### L IPID, GFR, PBNP, BMP #### [address] [address] CO2 [Moles/Vol] 27 mmol/L Normal 22-32 [facility] Comment on above: Performed By: #### L IPID, GFR, PBNP, BMP #### [address] [address] Creatinine [Mass/Vol] 1.06 mg/dL Normal 0.50-1.20 [facility] MAIN Comment on above: Result Comment: Test ing performed on [employer] analyzer using enzymatic creatinine methodology. Performed By: #### L IPID, GFR, PBNP, BMP #### [address] [address] Electrolyte Balance 2.0 mEq/L Low 4.0-15.0 [facility]IN Comment on above: Performed By: #### L IPID, GFR, PBNP, BMP #### [address] [address] Glucose [Mass/Vol] 107 mg/dL Normal 82-115 [facility] Comment on above: Performed By: #### L IPID, GFR, PBNP, BMP #### [address] [address] Potassium [Moles/Vol] 4.2 mmol/L Normal 3.5-5.0 [facility] Comment on above: Performed By: #### L IPID, GFR, PBNP, BMP #### [address] [address] Sodium [Moles/Vol] 143 mmol/L Normal 136-145 [facility] Comment on above: Performed By: #### L IPID, GFR, PBNP, BMP #### [address] [address] Urea nitrogen [Mass/Vol] 23.0 mg/dL High 8.0-22.0 [facility] Comment on above: Performed By: #### L IPID, GFR, PBNP, BMP #### [place] [address] LIPIDon 07-25-2024 Cholesterol [Mass/Vol] 122 mg/dL Normal 50-199 [facility] Comment on above: Result Comment: Chol esterol Reference Interval: Less than 200 Desirable 200-239 Borderline high risk 240 and above High risk Performed By: #### L IPID, GFR, PBNP, BMP #### [place] [address] Cholesterol in HDL [Mass/Vol] 29 mg/dL Low 40-59 [facility] Comment on above: Performed By: #### L IPID, GFR, PBNP, BMP #### [address] [address] Cholesterol in LDL [Mass/Vol] 59 mg/dL Normal 0-129 [facility] Comment on above: Performed By: #### L IPID, GFR, PBNP, BMP #### [place] [id number] Triglyceride [Mass/Vol] 171 mg/dL High 3-149 [facility] Comment on above: Performed By: #### L IPID, GFR, PBNP, BMP #### [address] [address] PBNPon 07-25-2024 Natriuretic peptide B (Bld) [Mass/Vol] 1256 pg/mL Normal 0-1800 [facility] Comment on above: Performed By: #### L IPID, GFR, PBNP, BMP #### [address] [address] .Auto Diffon 07-07-2024 Basophil, Absolute 0.0 10 3/mcL Normal 0.0-0.3 [facility] [place] Comment on above: Performed By: #### B MP, ADIFF, CBC, ANEU, GFR #### [address] [address] Basophils/100 WBC (Bld) 0.5 % Normal 0.0-2.5 [facility] [place] Comment on above: Performed By: #### B MP, ADIFF, CBC, ANEU, GFR #### [address] [address] Eosinophil, Absolute 0.2 10 3/mcL Normal 0.0-0.7 [facility] ([place]) Comment on above: Performed By: #### B MP, ADIFF, CBC, ANEU, GFR #### [address] [address] Eosinophils/100 WBC (Bld) 2.9 % Normal 0.0-6.0 [facility] [place] Comment on above: Performed By: #### B MP, ADIFF, CBC, ANEU, GFR #### [address] [address] Lymphocyte, Absolute 1.9 10 3/mcL Normal 0.9-4.3 [facility] ([place]) Comment on above: Performed By: #### B MP, ADIFF, CBC, ANEU, GFR #### [address] [address] Lymphocytes/100 WBC (Bld) 27.6 % Normal 20.0-40.0 [facility] [place] Comment on above: Performed By: #### B MP, ADIFF, CBC, ANEU, GFR #### [address] [address] Monocyte, Absolute 0.7 10 3/mcL Normal 0.1-1.4 [facility] ([place] Comment on above: Performed By: #### B MP, ADIFF, CBC, ANEU, GFR #### [address] [address] Monocytes/100 WBC (Bld) 10.3 % Normal 2.0-13.0 [facility] [place] Comment on above: Performed By: #### B MP, ADIFF, CBC, ANEU, GFR #### [address] [address] Neutrophils/100 WBC (Bld) 58.7 % Normal 50.0-75.0 [facility] [place] Comment on above: Performed By: #### B MP, ADIFF, CBC, ANEU, GFR #### [address] [address] .GFRon 07-07-2024 GFR Non- 43 ml/min/1.73sqm Normal [facility] Comment on above: Result Comment: GFR Population mean for , Non- Americans Ages 20-29 = 116 mL/min/1.73 sq.m. Ages 30-39 = 107 mL/min/1.73 sq.m. Ages 40-49 = 99 mL/min/1.73 sq.m. Ages 50-59 = 93 mL/min/1.73 sq.m. Ages 60-69 = 85 mL/min/1.73 sq.m. Ages 70+ = 75 mL/min/1.73 sq.m. Chronic Kidney Disease: Less than 60 mL/min/1.73 square meters End Stage Renal Disease: Less than 15 mL/min/1.73 square meters Performed By: #### B MP, ADIFF, CBC, ANEU, GFR #### [address] [address] GFR 53 ml/min/1.73sqm [facility] Comment on above: Result Comment: GFR Population mean for , Non- Americans Ages 20-29 = 116 mL/min/1.73 sq.m. Ages 30-39 = 107 mL/min/1.73 sq.m. Ages 40-49 = 99 mL/min/1.73 sq.m. Ages 50-59 = 93 mL/min/1.73 sq.m. Ages 60-69 = 85 mL/min/1.73 sq.m. Ages 70+ = 75 mL/min/1.73 sq.m. Chronic Kidney Disease: Less than 60 mL/min/1.73 square meters End Stage Renal Disease: Less than 15 mL/min/1.73 square meters Performed By: #### B MP, ADIFF, CBC, ANEU, GFR #### [address] [address] .NEUABSon 07-07-2024 Neutrophil, Absolute 4.1 10 3/mcL Normal 2.3-8.1 [facility] ([place]) Comment on above: Performed By: #### B MP, ADIFF, CBC, ANEU, GFR #### [address] [address] BMPon 07-07-2024 BUN/Creatinine Ratio 23.3 ratio High 10.0-22.0 [facility] ([place]) Comment on above: Performed By: #### B MP, ADIFF, CBC, ANEU, GFR #### [address] [address] Calcium [Mass/Vol] 9.6 mg/dL Normal 8.7-10.4 [facility] ([place]) Comment on above: Performed By: #### B MP, ADIFF, CBC, ANEU, GFR #### [address] [address] Chloride [Moles/Vol] 108 mmol/L Normal 98-110 [facility] ([place]) Comment on above: Performed By: #### B MP, ADIFF, CBC, ANEU, GFR #### [address] [address] CO2 [Moles/Vol] 27 mmol/L Normal 22-32 [facility] ([place] Comment on [place]: Performed By: #### B MP, ADIFF, CBC, ANEU, GFR #### [address] [address] Creatinine [Mass/Vol] 1.20 mg/dL Normal 0.50-1.20 [facility] ([place]) Comment on above: Performed By: #### B MP, ADIFF, CBC, ANEU, GFR #### [place] [id number] Electrolyte Balance 8.0 mEq/L Normal 4.0-15.0 [facility] ([place]) Comment on above: Performed By: #### B MP, ADIFF, CBC, ANEU, GFR #### [place] [id number] Glucose [Mass/Vol] 97 mg/dL Normal 82-115 [facility] ([place]) Comment on above: Performed By: #### B MP, ADIFF, CBC, ANEU, GFR #### [place] [address] Potassium [Moles/Vol] 4.8 mmol/L Normal 3.5-5.0 [facility] ([place]) Comment on above: Performed By: #### B MP, ADIFF, CBC, ANEU, GFR #### [place] [address] Sodium [Moles/Vol] 143 mmol/L Normal 136-145 [facility] ([place]) Comment on above: Performed By: #### B MP, ADIFF, CBC, ANEU, GFR #### [place] [address] Urea nitrogen [Mass/Vol] 28.0 mg/dL High 8.0-22.0 [facility] ([place] Comment [place]: Performed By: #### B MP, ADIFF, CBC, ANEU, GFR #### [address] [address] CBCon 07-07-2024 Erythrocyte distribution width (RBC) [Ratio] 16.2 % High 11.5-15.5 [facility] [place] Comment [place]: Performed By: #### B MP, ADIFF, CBC, ANEU, GFR #### [place] [id number] Hematocrit (Bld) [Volume fraction] 33.5 % Low 34.0-46.0 [facility] [place] Comment on above: Performed By: #### B MP, ADIFF, CBC, ANEU, GFR #### [place] [address] Hgb 11.1 G/dL Low 12.0-16.0 [facility] [place] Comment on above: Performed By: #### B MP, ADIFF, CBC, ANEU, GFR #### [place] [address] MCH (RBC) [Entitic mass] 31.0 pg Normal 27.0-33.0 [facility] ([place] Comment on above: Performed By: #### B MP, ADIFF, CBC, ANEU, GFR #### [place] [address] MCHC 33.1 G/dL Normal 32.0-36.0 [facility] [place] Comment on above: Performed By: #### B MP, ADIFF, CBC, ANEU, GFR #### [place] [address] MCV (RBC) [Entitic vol] 93.6 fL Normal 80.0-99.0 [facility] ([place] Comment on above: Performed By: #### B MP, ADIFF, CBC, ANEU, GFR #### [place] [address] Platelet 241 10 3/mcL Normal 150-450 [facility] ([place] Comment on above: Performed By: #### B MP, ADIFF, CBC, ANEU, GFR #### [place] [address] Platelet mean volume (Bld) [Entitic vol] 9.2 fL Normal 6.6-10.5 [facility] [place] Comment on above: Performed By: #### B MP, ADIFF, CBC, ANEU, GFR #### [place] [address] RBC 3.57 10 6/mcL Low 4.10-5.30 [facility] ([place] Comment on above: Performed By: #### B MP, ADIFF, CBC, ANEU, GFR #### [address] [address] WBC 7.0 10 3/mcL Normal 4.5-10.8 [facility] ([place] Comment on above: Performed By: #### B MP, ADIFF, CBC, ANEU, GFR #### [address] [address] BD BONE DENSITY DEXA AXIAL S Colleen 06-22-2024 BD BONE DENSITY DEXA AXIAL SKELETON ORIGINAL EXAMINATION: BONE DENSITOMETRY 06/22/2024 1:36 pm TECHNIQUE: A bone density dual x-ray absorptiometry (DEXA) scan was performed of the axial (e.g. hips, spine) and/or appendicular (e.g. radius) skeleton as appropriate on a Hologic system. COMPARISON: None. HISTORY: Reason for Exam: Osteoporosis Screening FINDINGS: BMD (g/cm2) Lumbar Spine: 1.199. T Score Lumbar Spine: 1.4 BMD (g/cm2) Left Femoral Neck: 0.638. T Score Left Femoral Neck: -1.9 BMD (g/cm2) Left Hip: 0.865. T Score Left Hip: -0.6 FRAX: 10 year fracture risk assessment Major osteoporotic fracture: 14% Hip fracture: 3.7% The BHOF f/k/a NOF recommends that FDA-approved medical therapies be considered in post-menopausal women and men age >/= 50 years with a: * Hip or vertebral fracture, or * T-score of /= 20% for major osteoporotic fractures or * >/= 3% for hip fractures All treatment decisions require clinical judgement and consideration of individual patient factors, including patient preferences, comorbidities, previous drug use, risk factors not captured in the FRAX registered model (e.g., frailty, falls, vitamin D deficiency, increased bone turnover, interval significant decline in bone density) and possible under- or over-estimation of fracture risk by FRAX. IMPRESSION: Osteopenia by WHO criteria. I have personally reviewed the images of this examination and agree with the resident's findings and interpretation. Interpreted by: Rosendo Posey MD Preliminary Report By: Jose Ramon Nicholson Electronically signed By Rosendo Posey MD Dictated Date: 06/22/2024 1:58:03 PM Prelim Date: 06/22/2024 3:23:01 PM Sign Date: 06/22/2024 3:23:01 PM Ordering Provider: [facility]A [facility] ([place]) .Auto Diffon 06-15-2024 Basophil, Absolute 0.1 10 3/mcL Normal 0.0-0.3 [facility] ([place]) Comment on above: Performed By: #### B MP, ADIFF, CBC, ANEU, GFR #### [address] [address] Basophils/100 WBC (Bld) 0.5 % Normal 0.0-2.5 [facility] [place] Comment on above: Performed By: #### B MP, ADIFF, CBC, ANEU, GFR #### [address] [address] Eosinophil, Absolute 0.2 10 3/mcL Normal 0.0-0.7 [facility] ([place]) Comment on above: Performed By: #### B MP, ADIFF, CBC, ANEU, GFR #### [address] [address] Eosinophils/100 WBC (Bld) 1.0 % Normal 0.0-6.0 [facility] ([place] Comment on above: Performed By: #### B MP, ADIFF, CBC, ANEU, GFR #### [address] [address] Lymphocyte, Absolute 1.4 10 3/mcL Normal 0.9-4.3 [facility] ([place]) Comment on above: Performed By: #### B MP, ADIFF, CBC, ANEU, GFR #### [address] [address] Lymphocytes/100 WBC (Bld) 9.1 % Low 20.0-40.0 [facility] ([place] Comment on above: Performed By: #### B MP, ADIFF, CBC, ANEU, GFR #### [address] [address] Monocyte, Absolute 1.1 10 3/mcL Normal 0.1-1.4 [facility] ([place]) Comment on above: Performed By: #### B MP, ADIFF, CBC, ANEU, GFR #### [address] [address] Monocytes/100 WBC (Bld) 7.6 % Normal 2.0-13.0 [facility] [place] Comment on above: Performed By: #### B MP, ADIFF, CBC, ANEU, GFR #### [address] [address] Neutrophils/100 WBC (Bld) 81.8 % High 50.0-75.0 [facility] ([place]) Comment on above: Performed By: #### B MP, ADIFF, CBC, ANEU, GFR #### [address] [address] .GFRon 06-15-2024 GFR Non- 40 ml/min/1.73sqm Normal [facility] ([place]) Comment on above: Result Comment: GFR Population mean for , Non- Americans Ages 20-29 = 116 mL/min/1.73 sq.m. Ages 30-39 = 107 mL/min/1.73 sq.m. Ages 40-49 = 99 mL/min/1.73 sq.m. Ages 50-59 = 93 mL/min/1.73 sq.m. Ages 60-69 = 85 mL/min/1.73 sq.m. Ages 70+ = 75 mL/min/1.73 sq.m. Chronic Kidney Disease: Less than 60 mL/min/1.73 square meters End Stage Renal Disease: Less than 15 mL/min/1.73 square meters Performed By: #### B MP, ADIFF, CBC, ANEU, GFR #### [address] [address] GFR 49 ml/min/1.73sqm Normal [facility] ([place]) Comment on above: Result Comment: GFR Population mean for , Non- Americans Ages 20-29 = 116 mL/min/1.73 sq.m. Ages 30-39 = 107 mL/min/1.73 sq.m. Ages 40-49 = 99 mL/min/1.73 sq.m. Ages 50-59 = 93 mL/min/1.73 sq.m. Ages 60-69 = 85 mL/min/1.73 sq.m. Ages 70+ = 75 mL/min/1.73 sq.m. Chronic Kidney Disease: Less than 60 mL/min/1.73 square meters End Stage Renal Disease: Less than 15 mL/min/1.73 square meters Performed By: #### B MP, ADIFF, CBC, ANEU, GFR #### [place] [address] .NEUABSon 06-15-2024 Neutrophil, Absolute 12.2 10 3/mcL High 2.3-8.1 [facility] ([place]) Comment on above: Performed By: #### B MP, ADIFF, CBC, ANEU, GFR #### [place] [address] CBCon 06-15-2024 Erythrocyte distribution width (RBC) [Ratio] 14.7 % Normal 11.5-15.5 [facility] ([place] Comment on above: Performed By: #### B MP, ADIFF, CBC, ANEU, GFR #### [place] [address] Hematocrit (Bld) [Volume fraction] 36.4 % Normal 34.0-46.0 [facility] [place] Comment on above: Performed By: #### B MP, ADIFF, CBC, ANEU, GFR #### [place] [address] Hgb 11.6 G/dL Low 12.0-16.0 [facility] [place] Comment on above: Performed By: #### B MP, ADIFF, CBC, ANEU, GFR #### [place] [address] MCH (RBC) [Entitic mass] 30.4 pg Normal 27.0-33.0 [facility] [place] Comment on above: Performed By: #### B MP, ADIFF, CBC, ANEU, GFR #### [place] [address] MCHC 32.0 G/dL Normal 32.0-36.0 [facility] ([place] Comment on above: Performed By: #### B MP, ADIFF, CBC, ANEU, GFR #### [address] [address] MCV (RBC) [Entitic vol] 94.8 fL Normal 80.0-99.0 [facility] ([place] Comment on above: Performed By: #### B MP, ADIFF, CBC, ANEU, GFR #### [address] [address] Platelet 186 10 3/mcL Normal 150-450 [facility] ([place] Comment on above: Performed By: #### B MP, ADIFF, CBC, ANEU, GFR #### [address] [address] Platelet mean volume (Bld) [Entitic vol] 10.3 fL Normal 6.6-10.5 [facility] ([place] Comment on above: Performed By: #### B MP, ADIFF, CBC, ANEU, GFR #### [place] [id number] RBC 3.84 10 6/mcL Low 4.10-5.30 [facility] ([place] Comment on above: Performed By: #### B MP, ADIFF, CBC, ANEU, GFR #### [place] [id number] WBC 15.0 10 3/mcL High 4.5-10.8 [facility] ([place] Comment on above: Performed By: #### B MP, ADIFF, CBC, ANEU, GFR #### [address] [address] CMPon 06-15-2024 Albumin Level 3.0 G/dL Low 3.2-4.8 [facility] ([place] Comment on above: Performed By: #### B MP, ADIFF, CBC, ANEU, GFR #### [place] [id number] Albumin/Globulin [Mass ratio] 0.8 {ratio} Low 0.9-1.6 [facility] [place] Comment on above: Performed By: #### B MP, ADIFF, CBC, ANEU, GFR #### [place] [id number] ALP [Catalytic activity/Vol] 93 U/L Normal 38-126 [facility] ([place] Comment on above: Performed By: #### B MP, ADIFF, CBC, ANEU, GFR #### [address] [address] ALT [Catalytic activity/Vol] 10 U/L Normal 10-49 [facility] ([place] Comment on above: Performed By: #### B MP, ADIFF, CBC, ANEU, GFR #### [address] [address] AST [Catalytic activity/Vol] 12 U/L Normal 8-34 [facility] ([place] Comment on above: Performed By: #### B MP, ADIFF, CBC, ANEU, GFR #### [address] [address] Bili Total 0.50 mg/dL Normal 0.20-1.20 [facility] ([place] Comment on above: Result Comment: Use of this assay is not recommended for patients undergoing treatment with eltrombopag due to the potential for falsely elevated results. Performed By: #### B MP, ADIFF, CBC, ANEU, GFR #### [address] [address] BUN/Creatinine Ratio 31.2 ratio High 10.0-22.0 [facility] ([place]) Comment on above: Performed By: #### B MP, ADIFF, CBC, ANEU, GFR #### [address] [address] Calcium [Mass/Vol] 9.4 mg/dL Normal 8.7-10.4 [facility] ([place]) Comment on above: Performed By: #### B MP, ADIFF, CBC, ANEU, GFR #### [address] [address] Chloride [Moles/Vol] 102 mmol/L Normal 98-110 [facility] ([place] Comment on above: Performed By: #### B MP, ADIFF, CBC, ANEU, GFR #### [address] [address] CO2 [Moles/Vol] 25 mmol/L Normal 22-32 [facility] [place] Comment on above: Performed By: #### B MP, ADIFF, CBC, ANEU, GFR #### [address] [address] Creatinine [Mass/Vol] 1.28 mg/dL High 0.50-1.20 [facility] ([place]) Comment on above: Performed By: #### B MP, ADIFF, CBC, ANEU, GFR #### [address] [address] Electrolyte Balance 14.0 mEq/L Normal 4.0-15.0 [facility] ([place] Comment on above: Performed By: #### B MP, ADIFF, CBC, ANEU, GFR #### [place] [phone] Globulin 3.7 G/dL Normal 1.5-3.8 [facility] [place] Comment on above: Performed By: #### B MP, ADIFF, CBC, ANEU, GFR #### [place] [address] Glucose [Mass/Vol] 159 mg/dL High 82-115 [facility] ([place]) Comment on above: Performed By: #### B MP, ADIFF, CBC, ANEU, GFR #### [place] [id number] Potassium [Moles/Vol] 3.8 mmol/L Normal 3.5-5.0 [facility] ([place]) Comment on above: Performed By: #### B MP, ADIFF, CBC, ANEU, GFR #### [place] [phone] Sodium [Moles/Vol] 141 mmol/L Normal 136-145 [facility] ([place]) Comment on above: Performed By: #### B MP, ADIFF, CBC, ANEU, GFR #### [place] [id number] Total Protein 6.7 G/dL Normal 5.7-8.2 [facility] ([place] Comment on above: Result Comment: No te - New Reference Range in effect 20 Performed By: #### B MP, ADIFF, CBC, ANEU, GFR #### [place] [id number] [place] [address] Urea nitrogen [Mass/Vol] 40.0 mg/dL High 8.0-22.0 [facility] [place] Comment on above: Performed By: #### B MP, ADIFF, CBC, ANEU, GFR #### [place] [id number] [place] [address] [address] ABDOMEN/PELVIS W/O CONTRA STon 06-15-2024 CT ABDOMEN/PELVIS W/O CONTRAST ORIGINAL EXAMINATION: CT OF THE ABDOMEN AND PELVIS WITHOUT CONTRAST 06/15/2024 1:01 pm TECHNIQUE: CT of the abdomen and pelvis was performed without the administration of intravenous contrast. Multiplanar reformatted images are provided for review. Automated exposure control, iterative reconstruction, and/or weight based adjustment of the mA/kV was utilized to reduce the radiation dose to as low as reasonably achievable. COMPARISON: None. HISTORY: ORDERING SYSTEM PROVIDED HISTORY: Reason for Exam: Mid to left lower quadrant pain with a history of bowel resection secondary to diverticulitis in 2019 abd pain x 1 wk, getting worse, recent heart cath and hx diverticulitis with bowel \resection FINDINGS: Moderate degenerative changes are noted in the spine, greatest inferiorly. No acute osseous abnormality identified. The lung bases are unremarkable. The study is somewhat degraded by motion artifact. Allowing for this, the liver, spleen, adrenal glands and pancreas are unremarkable. No definite kidney abnormality is visible. No adenopathy is identified. The urinary bladder and the solid pelvic organs are grossly normal. There is a rectosigmoid anastomosis from previous surgery. There is moderate sigmoid diverticulosis present, and there are scattered diverticula elsewhere as well. Additionally, there is mild infiltrative change surrounding the sigmoid colon with some wall thickening as well. No free air or abscess is visible. No additional contributory finding. IMPRESSION: Mild sigmoid diverticulitis with no free air or abscess seen. Interpreted by: Roman Cao MD Preliminary Report By: Roman Cao MD Electronically signed By Roman Cao MD Dictated Date: 06/15/2024 1:08:26 PM Prelim Date: 06/15/2024 1:11:20 PM Sign Date: 06/15/2024 1:11:20 PM Ordering Provider: TSERING [facility] ([place]) UAon 06-15-2024 Color (U) Yellow Normal [facility] [place] Comment on above: Performed By: #### B MP, ADIFF, CBC, ANEU, GFR #### [address] [address] Glucose (U) [Mass/Vol] Negative Normal Negative [facility] ([place] Comment [place] above: Performed By: #### B MP, ADIFF, CBC, ANEU, GFR #### [address] [address] Ketones Ql (U) Negative Normal Neg-Trace [facility] ([place] Comment on above: Performed By: #### B MP, ADIFF, CBC, ANEU, GFR #### [place] [address] UA Appear Clear Normal Clear [facility] ([place] Comment on above: Performed By: #### B MP, ADIFF, CBC, ANEU, GFR #### [address] [address] UA Blood Negative Normal Neg-Trace [facility] ([place] Comment on above: Performed By: #### B MP, ADIFF, CBC, ANEU, GFR #### [place] [id number] UA Leuk Est Large Abnormal Negative [facility] [place] Comment on above: Performed By: #### B MP, ADIFF, CBC, ANEU, GFR #### [address] [address] UA Nitrite Negative Normal Negative [facility] ([place] Comment on above: Performed By: #### B MP, ADIFF, CBC, ANEU, GFR #### [place] [id number] UA pH 5.5 Normal 5.0 - 8.0 [facility] [place] Comment on above: Performed By: #### B MP, ADIFF, CBC, ANEU, GFR #### [address] [address] UA Protein Negative Normal Negative [facility] ([place] Comment on above: Performed By: #### B MP, ADIFF, CBC, ANEU, GFR #### [address] [address] UA Spec Grav 1.015 Normal 1.006-1.029 [facility] ([place] Comment on above: Performed By: #### B MP, ADIFF, CBC, ANEU, GFR #### [address] [address] UA Specimen Type Clean Catch Normal [facility] ([place] Comment on above: Result Comment: Spec imen volumes less than 5 ml may not yield chemical or microscopic results truly reflective of renal function or general metabolic status. Performed By: #### B MP, ADIFF, CBC, ANEU, GFR #### [place] [address] UA Urobilinogen 0.2 E.U./dL Normal 0.2-1.0 [facility] [place] Comment on above: Performed By: #### B MP, ADIFF, CBC, ANEU, GFR #### [place] [address] Urobilinogen (U) [Mass/Vol] Negative Normal Neg-Trace [facility] ([place] Comment on above: Performed By: #### B MP, ADIFF, CBC, ANEU, GFR #### [address] [address] UAMICon 06-15-2024 UA Bacteria 2+ /hpf Abnormal Negative [facility] ([place] Comment on above: Performed By: #### B MP, ADIFF, CBC, ANEU, GFR #### [place] [address] UA Mucous Trace Normal [facility] ([place] Comment on above: Performed By: #### B MP, ADIFF, CBC, ANEU, GFR #### [address] [address] UA RBC Negative Normal 0-2 [facility] [place] Comment on above: Performed By: #### B MP, ADIFF, CBC, ANEU, GFR #### [place] [id number] UA Squam Epithelial 0-2 Normal 0-20 [facility] ([place] Comment on above: Performed By: #### B MP, ADIFF, CBC, ANEU, GFR #### [address] [address] UA WBC 0-5 Normal 0-5 [facility] [place] Comment on above: Performed By: #### B MP, ADIFF, CBC, ANEU, GFR #### [address] [address] .GFRon 06-10-2024 GFR 41 ml/min/1.73sqm Normal [facility] ([place] Comment on above: Result Comment: GFR Population mean for , Non- Americans Ages 20-29 = 116 mL/min/1.73 sq.m. Ages 30-39 = 107 mL/min/1.73 sq.m. Ages 40-49 = 99 mL/min/1.73 sq.m. Ages 50-59 = 93 mL/min/1.73 sq.m. Ages 60-69 = 85 mL/min/1.73 sq.m. Ages 70+ = 75 mL/min/1.73 sq.m. Chronic Kidney Disease: Less than 60 mL/min/1.73 square meters End Stage Renal Disease: Less than 15 mL/min/1.73 square meters Performed By: #### C BC, GFR, ANEU, ADIFF, CMP, VIDH, FERR, [id number], B12, [id number] #### [place] [id number] GFR Non- 34 ml/min/1.73sqm Normal [facility] ([place] Comment on above: Result Comment: GFR Population mean for , Non- Americans Ages 20-29 = 116 mL/min/1.73 sq.m. Ages 30-39 = 107 mL/min/1.73 sq.m. Ages 40-49 = 99 mL/min/1.73 sq.m. Ages 50-59 = 93 mL/min/1.73 sq.m. Ages 60-69 = 85 mL/min/1.73 sq.m. Ages 70+ = 75 mL/min/1.73 sq.m. Chronic Kidney Disease: Less than 60 mL/min/1.73 square meters End Stage Renal Disease: Less than 15 mL/min/1.73 square meters Performed By: #### C BC, GFR, ANEU, ADIFF, CMP, VIDH, FERR, [id number], B12, 359654 #### [address] [address] BMPon 06-10-2024 BUN/Creatinine Ratio 42.6 ratio High 10.0-22.0 [facility] [place] Comment on above: Performed By: #### C BC, GFR, ANEU, ADIFF, CMP, VIDH, FERR, 878163, B12, 769374 #### [address] [address] Calcium [Mass/Vol] 9.0 mg/dL Normal 8.7-10.4 [facility] ([place]) Comment on above: Performed By: #### C BC, GFR, ANEU, ADIFF, CMP, VIDH, FERR, [id number], B12, 696911 #### [address] [address] Chloride [Moles/Vol] 105 mmol/L Normal 98-110 [facility] ([place] Comment on above: Performed By: #### C BC, GFR, ANEU, ADIFF, CMP, VIDH, FERR, 502472, B12, 697502 #### [address] [address] CO2 [Moles/Vol] 27 mmol/L Normal 22-32 [facility] [place] Comment on above: Performed By: #### C BC, GFR, ANEU, ADIFF, CMP, VIDH, FERR, 805313, B12, 744037 #### [address] [address] Creatinine [Mass/Vol] 1.48 mg/dL High 0.50-1.20 [facility] ([place]) Comment on above: Performed By: #### C BC, GFR, ANEU, ADIFF, CMP, VIDH, FERR, 462721, B12, 701649 #### [address] [address] Electrolyte Balance 8.0 mEq/L Normal 4.0-15.0 [facility] ([place] Comment on above: Performed By: #### C BC, GFR, ANEU, ADIFF, CMP, VIDH, FERR, 088351, B12, 024201 #### [address] [address] Glucose [Mass/Vol] 109 mg/dL Normal 82-115 [facility] ([place] Comment on above: Performed By: #### C BC, GFR, ANEU, ADIFF, CMP, VIDH, FERR, 801112, B12, 858496 #### [address] [address] Potassium [Moles/Vol] 4.6 mmol/L Normal 3.5-5.0 [facility] ([place]) Comment on above: Performed By: #### C BC, GFR, ANEU, ADIFF, CMP, VIDH, FERR, 799428, B12, 945462 #### [address] [address] Sodium [Moles/Vol] 140 mmol/L Normal 136-145 [facility] ([place] Comment on above: Performed By: #### C BC, GFR, ANEU, ADIFF, CMP, VIDH, FERR, 405794, B12, 679410 #### [address] [address] Urea nitrogen [Mass/Vol] 63.0 mg/dL High 8.0-22.0 [facility] [place] Comment on above: Performed By: #### C BC, GFR, ANEU, ADIFF, CMP, VIDH, FERR, 216679, B12, 664638 #### [address] [address] .GFRon 06-08-2024 GFR 52 ml/min/1.73sqm Normal [facility] [place] Comment on above: Result Comment: GFR Population mean for , Non- Americans Ages 20-29 = 116 mL/min/1.73 sq.m. Ages 30-39 = 107 mL/min/1.73 sq.m. Ages 40-49 = 99 mL/min/1.73 sq.m. Ages 50-59 = 93 mL/min/1.73 sq.m. Ages 60-69 = 85 mL/min/1.73 sq.m. Ages 70+ = 75 mL/min/1.73 sq.m. Chronic Kidney Disease: Less than 60 mL/min/1.73 square meters End Stage Renal Disease: Less than 15 mL/min/1.73 square meters Performed By: #### B MP, ADIFF, CBC, ANEU, GFR #### [address] [address] GFR Non- 43 ml/min/1.73sqm Normal [facility] [place] Comment on above: Result Comment: GFR Population mean for , Non- Americans Ages 20-29 = 116 mL/min/1.73 sq.m. Ages 30-39 = 107 mL/min/1.73 sq.m. Ages 40-49 = 99 mL/min/1.73 sq.m. Ages 50-59 = 93 mL/min/1.73 sq.m. Ages 60-69 = 85 mL/min/1.73 sq.m. Ages 70+ = 75 mL/min/1.73 sq.m. Chronic Kidney Disease: Less than 60 mL/min/1.73 square meters End Stage Renal Disease: Less than 15 mL/min/1.73 square meters Performed By: #### B MP, ADIFF, CBC, ANEU, GFR #### [address] [address] BMPon 06-08-2024 BUN/Creatinine Ratio 44.6 ratio High 10.0-22.0 [facility] [place] Comment on above: Performed By: #### B MP, ADIFF, CBC, ANEU, GFR #### [address] [address] Calcium [Mass/Vol] 9.2 mg/dL Normal 8.7-10.4 [facility] ([place] Comment on above: Performed By: #### B MP, ADIFF, CBC, ANEU, GFR #### [address] [address] Chloride [Moles/Vol] 107 mmol/L Normal 98-110 [facility] [place] Comment on above: Performed By: #### B MP, ADIFF, CBC, ANEU, GFR #### [place] [id number] CO2 [Moles/Vol] 25 mmol/L Normal 22-32 [facility] [place] Comment on above: Performed By: #### B MP, ADIFF, CBC, ANEU, GFR #### [place] [address] Creatinine [Mass/Vol] 1.21 mg/dL High 0.50-1.20 [facility] [place] Comment on above: Performed By: #### B MP, ADIFF, CBC, ANEU, GFR #### [place] [address] Electrolyte Balance 6.0 mEq/L Normal 4.0-15.0 [facility] ([place] Comment on above: Performed By: #### B MP, ADIFF, CBC, ANEU, GFR #### [place] [address] Glucose [Mass/Vol] 124 mg/dL High 82-115 [facility] ([place] Comment on above: Performed By: #### B MP, ADIFF, CBC, ANEU, GFR #### [place] [address] Potassium [Moles/Vol] 4.2 mmol/L Normal 3.5-5.0 [facility] ([place]) Comment on above: Performed By: #### B MP, ADIFF, CBC, ANEU, GFR #### [place] [address] Sodium [Moles/Vol] 138 mmol/L Normal 136-145 [facility] ([place]) Comment on above: Performed By: #### B MP, ADIFF, CBC, ANEU, GFR #### [place] [address] Urea nitrogen [Mass/Vol] 54.0 mg/dL High 8.0-22.0 [facility] ([place] Comment on above: Performed By: #### B MP, ADIFF, CBC, ANEU, GFR #### [place] [address] LABORATORYOrdered By: SYSTEM SYSTEM on 06-08-2024 Calcium [Mass/Vol] 9.2 mg/dL Normal 8.7 - 10. 4 mg/dL ADM SS Chloride [Moles/Vol] 107 mmol/L Normal 98 - 11 0 mEq/L ADM SS CO2 [Moles/Vol] 25 mmol/L Normal 22 - 32 mEq/L AH ADM SS Creatinine [Mass/Vol] 1.21 mg/dL High 0.50 - 1.20 mg/dL ADM SS Electrolyte Balance 6.0 mEq/L Normal 4.0 - 15 .0 mEq/L ADM SS GFR/1.73 sq M.predicted among blacks MDRD (S/P/Bld) [Vol rate/Area] 52 ml/min/1.73sqm Invalid Interpretation Code [facility] S Comment on above: Interpretive Data: GFR Population mean for , Non- Americans Ages 20-29 = 116 mL/min/1.73 sq.m. Ages 30-39 = 107 mL/min/1.73 sq.m. Ages 40-49 = 99 mL/min/1.73 sq.m. Ages 50-59 = 93 mL/min/1.73 sq.m. Ages 60-69 = 85 mL/min/1.73 sq.m. Ages 70+ = 75 mL/min/1.73 sq.m. Chronic Kidney Disease: Less than 60 mL/min/1.73 square meters End Stage Renal Disease: Less than 15 mL/min/1.73 square meters GFR/1.73 sq M.predicted among non-blacks MDRD (S/P/Bld) [Vol rate/Area] 43 ml/min/1.73sqm Invalid Interpretation Code [facility] S Comment on above: Interpretive Data: GFR Population mean for , Non- Americans Ages 20-29 = 116 mL/min/1.73 sq.m. Ages 30-39 = 107 mL/min/1.73 sq.m. Ages 40-49 = 99 mL/min/1.73 sq.m. Ages 50-59 = 93 mL/min/1.73 sq.m. Ages 60-69 = 85 mL/min/1.73 sq.m. Ages 70+ = 75 mL/min/1.73 sq.m. Chronic Kidney Disease: Less than 60 mL/min/1.73 square meters End Stage Renal Disease: Less than 15 mL/min/1.73 square meters Glucose [Mass/Vol] 124 mg/dL High 82 - 115 mg/dL ADM SS Potassium [Moles/Vol] 4.2 mmol/L Normal 3.5 - 5.0 mEq/L AH ADM SS Sodium [Moles/Vol] 138 mmol/L Normal 136 - 145 mEq/L ADM SS Urea nitrogen [Mass/Vol] 54.0 mg/dL High 8.0 - 22.0 mg/dL ADM SS Urea nitrogen/Creatinine [Mass ratio] 44.6 ratio High 10.0 - 22.0 ratio AH ADM SS .Auto Diffon 06-07-2024 Basophil, Absolute 0.0 10 3/mcL Normal 0.0-0.3 [facility] ([place]) Comment on above: Performed By: #### C BC, GFR, ANEU, ADIFF, CMP, VIDH, FERR, [id number], B12, 103852 #### [address] [address] Basophils/100 WBC (Bld) 0.1 % Normal 0.0-2.5 [facility] ([place] Comment on above: Performed By: #### C BC, GFR, ANEU, ADIFF, CMP, VIDH, FERR, [id number], B12, 513943 #### [address] [address] Eosinophil, Absolute 0.0 10 3/mcL Normal 0.0-0.7 [facility] ([place]) Comment on above: Performed By: #### C BC, GFR, ANEU, ADIFF, CMP, VIDH, FERR, 772169, B12, 781487 #### [address] [address] Eosinophils/100 WBC (Bld) 0.1 % Normal 0.0-6.0 [facility] [place] Comment on above: Performed By: #### C BC, GFR, ANEU, ADIFF, CMP, VIDH, FERR, 921988, B12, 824749 #### [address] [address] Lymphocyte, Absolute 0.5 10 3/mcL Low 0.9-4.3 [facility] ([place]) Comment on above: Performed By: #### C BC, GFR, ANEU, ADIFF, CMP, VIDH, FERR, 265657, B12, 095750 #### [address] [address] Lymphocytes/100 WBC (Bld) 8.3 % Low 20.0-40.0 [facility] ([place]) Comment on above: Performed By: #### C BC, GFR, ANEU, ADIFF, CMP, VIDH, FERR, 884096, B12, 743096 #### [address] [address] Monocyte, Absolute 0.6 10 3/mcL Normal 0.1-1.4 [facility] ([place]) Comment on above: Performed By: #### C BC, GFR, ANEU, ADIFF, CMP, VIDH, FERR, 367695, B12, 432749 #### [address] [address] Monocytes/100 WBC (Bld) 10.7 % Normal 2.0-13.0 [facility] ([place]) Comment on above: Performed By: #### C BC, GFR, ANEU, ADIFF, CMP, VIDH, FERR, 353933, B12, 606869 #### [address] [address] Neutrophils/100 WBC (Bld) 80.8 % High 50.0-75.0 [facility] ([place]) Comment on above: Performed By: #### C BC, GFR, ANEU, ADIFF, CMP, VIDH, FERR, 469303, B12, 837749 #### [address] [address] .GFRon 06-07-2024 GFR 53 ml/min/1.73sqm Normal [facility] ([place]) Comment on above: Result Comment: GFR Population mean for , Non- Americans Ages 20-29 = 116 mL/min/1.73 sq.m. Ages 30-39 = 107 mL/min/1.73 sq.m. Ages 40-49 = 99 mL/min/1.73 sq.m. Ages 50-59 = 93 mL/min/1.73 sq.m. Ages 60-69 = 85 mL/min/1.73 sq.m. Ages 70+ = 75 mL/min/1.73 sq.m. Chronic Kidney Disease: Less than 60 mL/min/1.73 square meters End Stage Renal Disease: Less than 15 mL/min/1.73 square meters Performed By: #### C BC, GFR, ANEU, ADIFF, CMP, VIDH, FERR, 290935, B12, 559610 #### [address] [address] GFR Non- 43 ml/min/1.73sqm Normal [facility] ([place] Comment on above: Result Comment: GFR Population mean for , Non- Americans Ages 20-29 = 116 mL/min/1.73 sq.m. Ages 30-39 = 107 mL/min/1.73 sq.m. Ages 40-49 = 99 mL/min/1.73 sq.m. Ages 50-59 = 93 mL/min/1.73 sq.m. Ages 60-69 = 85 mL/min/1.73 sq.m. Ages 70+ = 75 mL/min/1.73 sq.m. Chronic Kidney Disease: Less than 60 mL/min/1.73 square meters End Stage Renal Disease: Less than 15 mL/min/1.73 square meters Performed By: #### C BC, GFR, ANEU, ADIFF, CMP, VIDH, FERR, 101940, B12, 185330 #### [address] [address] .NEUABSon 06-07-2024 Neutrophil, Absolute 4.7 10 3/mcL Normal 2.3-8.1 [facility] ([place]) Comment on above: Performed By: #### C BC, GFR, ANEU, ADIFF, CMP, VIDH, FERR, 061839, B12, 428214 #### [address] [address] BMPon 06-07-2024 BUN/Creatinine Ratio 31.7 ratio High 10.0-22.0 [facility] ([place]) Comment on above: Performed By: #### C BC, GFR, ANEU, ADIFF, CMP, VIDH, FERR, 861341, B12, 168748 #### [address] [address] Urea nitrogen [Mass/Vol] 38.0 mg/dL High 8.0-22.0 [facility] [place] Comment on above: Performed By: #### C BC, GFR, ANEU, ADIFF, CMP, VIDH, FERR, 195175, B12, 208066 #### [address] [address] Calcium [Mass/Vol] 9.3 mg/dL Normal 8.7-10.4 [facility] ([place]) Comment on above: Performed By: #### C BC, GFR, ANEU, ADIFF, CMP, VIDH, FERR, 790773, B12, 985496 #### [address] [address] Chloride [Moles/Vol] 104 mmol/L Normal 98-110 [facility] ([place]) Comment on above: Performed By: #### C BC, GFR, ANEU, ADIFF, CMP, VIDH, FERR, 509050, B12, 315550 #### [address] [address] CO2 [Moles/Vol] 28 mmol/L Normal 22-32 [facility] [place] Comment on above: Performed By: #### C BC, GFR, ANEU, ADIFF, CMP, VIDH, FERR, 717245, B12, 350700 #### [address] [address] Creatinine [Mass/Vol] 1.20 mg/dL Normal 0.50-1.20 [facility] ([place]) Comment on above: Performed By: #### C BC, GFR, ANEU, ADIFF, CMP, VIDH, FERR, 958515, B12, 507301 #### [address] [address] Electrolyte Balance 7.0 mEq/L Normal 4.0-15.0 [facility] ([place]) Comment on above: Performed By: #### C BC, GFR, ANEU, ADIFF, CMP, VIDH, FERR, 203519, B12, 528966 #### [address] [address] Glucose [Mass/Vol] 126 mg/dL High 82-115 [facility] ([place]) Comment on above: Performed By: #### C BC, GFR, ANEU, ADIFF, CMP, VIDH, FERR, 321354, B12, 866646 #### [address] [address] Potassium [Moles/Vol] 4.4 mmol/L Normal 3.5-5.0 [facility] ([place]) Comment on above: Performed By: #### C BC, GFR, ANEU, ADIFF, CMP, VIDH, FERR, 406911, B12, 690939 #### [address] [address] Sodium [Moles/Vol] 139 mmol/L Normal 136-145 [facility] ([place]) Comment on above: Performed By: #### C BC, GFR, ANEU, ADIFF, CMP, VIDH, FERR, 595660, B12, 267559 #### [address] [address] CBCon 06-07-2024 Erythrocyte distribution width (RBC) [Ratio] 14.5 % Normal 11.5-15.5 [facility] ([place] Comment on above: Performed By: #### C BC, GFR, ANEU, ADIFF, CMP, VIDH, FERR, 933321, B12, 764380 #### [address] [address] Hematocrit (Bld) [Volume fraction] 33.9 % Low 34.0-46.0 [facility] ([place] Comment on above: Performed By: #### C BC, GFR, ANEU, ADIFF, CMP, VIDH, FERR, 872322, B12, 443193 #### [address] [address] Hgb 11.2 G/dL Low 12.0-16.0 [facility] ([place] Comment on above: Performed By: #### C BC, GFR, ANEU, ADIFF, CMP, VIDH, FERR, 372056, B12, 334013 #### [place] [id number] MCH (RBC) [Entitic mass] 30.7 pg Normal 27.0-33.0 [facility] ([place] Comment on above: Performed By: #### C BC, GFR, ANEU, ADIFF, CMP, VIDH, FERR, 543822, B12, 204383 #### [place] [id number] MCHC 32.9 G/dL Normal 32.0-36.0 [facility] ([place] Comment on above: Performed By: #### C BC, GFR, ANEU, ADIFF, CMP, VIDH, FERR, 408180, B12, 688550 #### [place] [address] MCV (RBC) [Entitic vol] 93.3 fL Normal 80.0-99.0 [facility] ([place] Comment on above: Performed By: #### C BC, GFR, ANEU, ADIFF, CMP, VIDH, FERR, 264469, B12, 509419 #### [place] [address] Platelet 182 10 3/mcL Normal 150-450 [facility] ([place] Comment on above: Performed By: #### C BC, GFR, ANEU, ADIFF, CMP, VIDH, FERR, 081457, B12, 192694 #### [place] [address] Platelet mean volume (Bld) [Entitic vol] 8.8 fL Normal 6.6-10.5 [facility] ([place] Comment on above: Performed By: #### C BC, GFR, ANEU, ADIFF, CMP, VIDH, FERR, 334057, B12, 733100 #### [place] [address] RBC 3.64 10 6/mcL Low 4.10-5.30 [facility] ([place] Comment on above: Performed By: #### C BC, GFR, ANEU, ADIFF, CMP, VIDH, FERR, 618938, B12, 546314 #### [facility] [address] [place] [address] WBC 5.8 10 3/mcL Normal 4.5-10.8 [facility] ([place]) Comment on above: Performed By: #### C BC, GFR, ANEU, ADIFF, CMP, VIDH, FERR, 741943, B12, 722927 #### [facility] [address] [place] [address] LABORATORYOrdered By: SYSTEM SYSTEM on 06-07-2024 Basophils (Bld) [#/Vol] 0.0 103/mcL Normal 0.0 - 0.3 10^3/mcL Workflow SS Basophils/100 WBC (Bld) 0.1 % Normal 0.0 - 2.5 % Workflow SS Calcium [Mass/Vol] 9.3 mg/dL Normal 8.7 - 10. 4 mg/dL ADM SS Chloride [Moles/Vol] 104 mmol/L Normal 98 - 11 0 mEq/L ADM SS CO2 [Moles/Vol] 28 mmol/L Normal 22 - 32 mEq/L ADM SS Creatinine [Mass/Vol] 1.20 mg/dL Normal 0.50 - 1.20 mg/dL ADM SS Electrolyte Balance 7.0 mEq/L Normal 4.0 - 15 .0 mEq/L ADM SS Eosinophils (Bld) [#/Vol] 0.0 103/mcL Normal 0.0 - 0.7 10^3/mcL AH Workflow SS Eosinophils/100 WBC (Bld) 0.1 % Normal 0.0 - 6.0 % Workflow SS Erythrocyte distribution width (RBC) [Ratio] 14.5 % Normal 11.5 - 15.5 % Workflow SS GFR/1.73 sq M.predicted among blacks MDRD (S/P/Bld) [Vol rate/Area] 53 ml/min/1.73sqm Invalid Interpretation Code Chemistry S Comment on above: Interpretive Data: GFR Population mean for , Non- Americans Ages 20-29 = 116 mL/min/1.73 sq.m. Ages 30-39 = 107 mL/min/1.73 sq.m. Ages 40-49 = 99 mL/min/1.73 sq.m. Ages 50-59 = 93 mL/min/1.73 sq.m. Ages 60-69 = 85 mL/min/1.73 sq.m. Ages 70+ = 75 mL/min/1.73 sq.m. Chronic Kidney Disease: Less than 60 mL/min/1.73 square meters End Stage Renal Disease: Less than 15 mL/min/1.73 square meters GFR/1.73 sq M.predicted among non-blacks MDRD (S/P/Bld) [Vol rate/Area] 43 ml/min/1.73sqm Invalid Interpretation Code Chemistry S Comment on above: Interpretive Data: GFR Population mean for , Non- Americans Ages 20-29 = 116 mL/min/1.73 sq.m. Ages 30-39 = 107 mL/min/1.73 sq.m. Ages 40-49 = 99 mL/min/1.73 sq.m. Ages 50-59 = 93 mL/min/1.73 sq.m. Ages 60-69 = 85 mL/min/1.73 sq.m. Ages 70+ = 75 mL/min/1.73 sq.m. Chronic Kidney Disease: Less than 60 mL/min/1.73 square meters End Stage Renal Disease: Less than 15 mL/min/1.73 square meters Glucose [Mass/Vol] 126 mg/dL High 82 - 115 mg/dL ADM SS Hematocrit (Bld) [Volume fraction] 33.9 % Low 34.0 - 46.0 % AH Workflow SS Hemoglobin (Bld) [Mass/Vol] 11.2 G/dL Low 12.0 - 16.0 G/dL AH Workflow SS Lymphocytes (Bld) [#/Vol] 0.5 103/mcL Low 0.9 - 4.3 10^3/mcL AH Workflow SS Lymphocytes/100 WBC (Bld) 8.3 % Low 20.0 - 40.0 % AH Workflow SS Magnesium [Mass/Vol] 1.8 mg/dL Normal 1.6 - 2 .4 mg/dL ADM SS MCH (RBC) [Entitic mass] 30.7 pg Normal 27.0 - 33.0 pg AH Workflow SS MCHC 32.9 G/dL Normal 32.0 - 36.0 G/dL Workflow SS MCV (RBC) [Entitic vol] 93.3 fL Normal 80.0 - 99.0 fL AH Workflow SS Monocytes (Bld) [#/Vol] 0.6 103/mcL Normal 0.1 - 1.4 10^3/mcL AH Workflow SS Monocytes/100 WBC (Bld) 10.7 % Normal 2.0 - 13.0 % AH Workflow SS Neutrophils (Bld) [#/Vol] 4.7 103/mcL Normal 2.3 - 8.1 10^3/mcL AH Workflow SS Neutrophils/100 WBC (Bld) 80.8 % High 50.0 - 75.0 % AH Workflow SS Platelet mean volume (Bld) [Entitic vol] 8.8 fL Normal 6.6 - 10.5 fL AH Workflow SS Platelets (Bld) [#/Vol] 182 103/mcL Normal 150 - 450 10^3/mcL AH Workflow SS Potassium [Moles/Vol] 4.4 mmol/L Normal 3.5 - 5.0 mEq/L AH ADM SS RBC (Bld) [#/Vol] 3.64 106/mcL Low 4.10 - 5.3 0 10^6/mcL AH Workflow SS Sodium [Moles/Vol] 139 mmol/L Normal 136 - 145 mEq/L AH ADM SS Urea nitrogen [Mass/Vol] 38.0 mg/dL High 8.0 - 22.0 mg/dL AH ADM SS Urea nitrogen/Creatinine [Mass ratio] 31.7 ratio High 10.0 - 22.0 ratio AH ADM SS WBC (Bld) [#/Vol] 5.8 103/mcL Normal 4.5 - 10.8 10^3/mcL Workflow SS MGon 06-07-2024 Magnesium [Mass/Vol] 1.8 mg/dL Normal 1.6-2.4 [facility] ([place]) Comment on above: Performed By: #### C BC, GFR, ANEU, ADIFF, CMP, VIDH, FERR, 740349, B12, 805745 #### [address] [address] .Auto Diffon 06-06-2024 Basophil, Absolute 0.0 10 3/mcL Normal 0.0-0.3 [facility] ([place]) Comment on above: Performed By: #### B MP, ADIFF, CBC, ANEU, GFR #### [address] [address] Basophils/100 WBC (Bld) 0.3 % Normal 0.0-2.5 [facility] [place] Comment on above: Performed By: #### B MP, ADIFF, CBC, ANEU, GFR #### [address] [address] Eosinophil, Absolute 0.0 10 3/mcL Normal 0.0-0.7 [facility] ([place]) Comment on above: Performed By: #### B MP, ADIFF, CBC, ANEU, GFR #### [address] [address] Eosinophils/100 WBC (Bld) 0.2 % Normal 0.0-6.0 [facility] [place] Comment on above: Performed By: #### B MP, ADIFF, CBC, ANEU, GFR #### [address] [address] Lymphocyte, Absolute 0.5 10 3/mcL Low 0.9-4.3 [facility] ([place]) Comment on above: Performed By: #### B MP, ADIFF, CBC, ANEU, GFR #### [address] [address] Lymphocytes/100 WBC (Bld) 6.9 % Low 20.0-40.0 [facility] [place] Comment on above: Performed By: #### B MP, ADIFF, CBC, ANEU, GFR #### [address] [address] Monocyte, Absolute 0.6 10 3/mcL Normal 0.1-1.4 [facility] ([place] Comment on above: Performed By: #### B MP, ADIFF, CBC, ANEU, GFR #### [address] [address] Monocytes/100 WBC (Bld) 8.2 % Normal 2.0-13.0 [facility] [place] Comment on above: Performed By: #### B MP, ADIFF, CBC, ANEU, GFR #### [address] [address] Neutrophils/100 WBC (Bld) 84.4 % High 50.0-75.0 [facility] [place] Comment on above: Performed By: #### B MP, ADIFF, CBC, ANEU, GFR #### [address] [address] .GFRon 06-06-2024 GFR >60 Normal [facility] ([place]) Comment on above: Result Comment: GFR Population mean for , Non- Americans Ages 20-29 = 116 mL/min/1.73 sq.m. Ages 30-39 = 107 mL/min/1.73 sq.m. Ages 40-49 = 99 mL/min/1.73 sq.m. Ages 50-59 = 93 mL/min/1.73 sq.m. Ages 60-69 = 85 mL/min/1.73 sq.m. Ages 70+ = 75 mL/min/1.73 sq.m. Chronic Kidney Disease: Less than 60 mL/min/1.73 square meters End Stage Renal Disease: Less than 15 mL/min/1.73 square meters Performed By: #### B MP, ADIFF, CBC, ANEU, GFR #### [address] [address] GFR Non- 54 ml/min/1.73sqm Normal [facility] ([place] Comment on above: Result Comment: GFR Population mean for , Non- Americans Ages 20-29 = 116 mL/min/1.73 sq.m. Ages 30-39 = 107 mL/min/1.73 sq.m. Ages 40-49 = 99 mL/min/1.73 sq.m. Ages 50-59 = 93 mL/min/1.73 sq.m. Ages 60-69 = 85 mL/min/1.73 sq.m. Ages 70+ = 75 mL/min/1.73 sq.m. Chronic Kidney Disease: Less than 60 mL/min/1.73 square meters End Stage Renal Disease: Less than 15 mL/min/1.73 square meters Performed By: #### B MP, ADIFF, CBC, ANEU, GFR #### [address] [address] .NEUABSon 06-06-2024 Neutrophil, Absolute 6.3 10 3/mcL Normal 2.3-8.1 [facility] ([place]) Comment on above: Performed By: #### B MP, ADIFF, CBC, ANEU, GFR #### [address] [address] BMPon 06-06-2024 BUN/Creatinine Ratio 18.2 ratio Normal 10.0-22.0 [facility] ([place] Comment on above: Performed By: #### B MP, ADIFF, CBC, ANEU, GFR #### [address] [address] Calcium [Mass/Vol] 8.5 mg/dL Low 8.7-10.4 [facility] ([place]) Comment on above: Performed By: #### B MP, ADIFF, CBC, ANEU, GFR #### [address] [address] Chloride [Moles/Vol] 104 mmol/L Normal 98-110 [facility] ([place] Comment on above: Performed By: #### B MP, ADIFF, CBC, ANEU, GFR #### [address] [address] CO2 [Moles/Vol] 26 mmol/L Normal 22-32 [facility] [place] Comment on above: Performed By: #### B MP, ADIFF, CBC, ANEU, GFR #### [address] [address] Creatinine [Mass/Vol] 0.99 mg/dL Normal 0.50-1.20 [facility] ([place]) Comment on above: Performed By: #### B MP, ADIFF, CBC, ANEU, GFR #### [address] [address] Electrolyte Balance 9.0 mEq/L Normal 4.0-15.0 [facility] ([place]) Comment on above: Performed By: #### B MP, ADIFF, CBC, ANEU, GFR #### [address] [address] Glucose [Mass/Vol] 126 mg/dL High 82-115 [facility] ([place]) Comment on above: Performed By: #### B MP, ADIFF, CBC, ANEU, GFR #### [place] [address] Potassium [Moles/Vol] 3.8 mmol/L Normal 3.5-5.0 [facility] ([place]) Comment on above: Performed By: #### B MP, ADIFF, CBC, ANEU, GFR #### [place] [id number] Sodium [Moles/Vol] 139 mmol/L Normal 136-145 [facility] ([place] Comment on above: Performed By: #### B MP, ADIFF, CBC, ANEU, GFR #### [place] [address] Urea nitrogen [Mass/Vol] 18.0 mg/dL Normal 8.0-22.0 [facility] [place] Comment on above: Performed By: #### B MP, ADIFF, CBC, ANEU, GFR #### [place] [address] CBCon 06-06-2024 Erythrocyte distribution width (RBC) [Ratio] 14.5 % Normal 11.5-15.5 [facility] [place] Comment on above: Performed By: #### B MP, ADIFF, CBC, ANEU, GFR #### [place] [address] Hematocrit (Bld) [Volume fraction] 33.9 % Low 34.0-46.0 [facility] [place] Comment on above: Performed By: #### B MP, ADIFF, CBC, ANEU, GFR #### [place] [address] Hgb 11.1 G/dL Low 12.0-16.0 [facility] [place] Comment on above: Performed By: #### B MP, ADIFF, CBC, ANEU, GFR #### [place] [address] MCH (RBC) [Entitic mass] 30.8 pg Normal 27.0-33.0 [facility] [place] Comment on above: Performed By: #### B MP, ADIFF, CBC, ANEU, GFR #### [place] [address] MCHC 32.8 G/dL Normal 32.0-36.0 [facility] [place] Comment on above: Performed By: #### B MP, ADIFF, CBC, ANEU, GFR #### [place] [address] MCV (RBC) [Entitic vol] 94.0 fL Normal 80.0-99.0 [facility] [place] Comment on above: Performed By: #### B MP, ADIFF, CBC, ANEU, GFR #### [place] [address] Platelet 156 10 3/mcL Normal 150-450 [facility] [place] Comment on above: Performed By: #### B MP, ADIFF, CBC, ANEU, GFR #### [place] [address] Platelet mean volume (Bld) [Entitic vol] 8.6 fL Normal 6.6-10.5 [facility] [place] Comment on above: Performed By: #### B MP, ADIFF, CBC, ANEU, GFR #### [place] [address] RBC 3.60 10 6/mcL Low 4.10-5.30 [facility] [place] Comment on above: Performed By: #### B MP, ADIFF, CBC, ANEU, GFR #### [place] [address] WBC 7.5 10 3/mcL Normal 4.5-10.8 [facility] [place] Comment on above: Performed By: #### B MP, ADIFF, CBC, ANEU, GFR #### [place] [address] LABORATORYOrdered By: SYSTEM SYSTEM on 06-06-2024 Basophils (Bld) [#/Vol] 0.0 103/mcL Normal 0.0 - 0.3 10^3/mcL AH Workflow SS Basophils/100 WBC (Bld) 0.3 % Normal 0.0 - 2.5 % AH Workflow SS Calcium [Mass/Vol] 8.5 mg/dL Low 8.7 - 10. 4 mg/dL ADM SS Chloride [Moles/Vol] 104 mmol/L Normal 98 - 11 0 mEq/L ADM SS CO2 [Moles/Vol] 26 mmol/L Normal 22 - 32 mEq/L ADM SS Creatinine [Mass/Vol] 0.99 mg/dL Normal 0.50 - 1.20 mg/dL ADM SS Electrolyte Balance 9.0 mEq/L Normal 4.0 - 15 .0 mEq/L ADM SS Eosinophils (Bld) [#/Vol] 0.0 103/mcL Normal 0.0 - 0.7 10^3/mcL Workflow SS Eosinophils/100 WBC (Bld) 0.2 % Normal 0.0 - 6.0 % Workflow SS Erythrocyte distribution width (RBC) [Ratio] 14.5 % Normal 11.5 - 15.5 % Workflow SS GFR/1.73 sq M.predicted among blacks MDRD (S/P/Bld) [Vol rate/Area] ml/min/1.73sqm Invalid Interpretation Code [facility] Chemistry S Comment on above: Interpretive Data: GFR Population mean for , Non- Americans Ages 20-29 = 116 mL/min/1.73 sq.m. Ages 30-39 = 107 mL/min/1.73 sq.m. Ages 40-49 = 99 mL/min/1.73 sq.m. Ages 50-59 = 93 mL/min/1.73 sq.m. Ages 60-69 = 85 mL/min/1.73 sq.m. Ages 70+ = 75 mL/min/1.73 sq.m. Chronic Kidney Disease: Less than 60 mL/min/1.73 square meters End Stage Renal Disease: Less than 15 mL/min/1.73 square meters GFR/1.73 sq M.predicted among non-blacks MDRD (S/P/Bld) [Vol rate/Area] 54 ml/min/1.73sqm Invalid Interpretation Code [facility] Chemistry S Comment on above: Interpretive Data: GFR Population mean for , Non- Americans Ages 20-29 = 116 mL/min/1.73 sq.m. Ages 30-39 = 107 mL/min/1.73 sq.m. Ages 40-49 = 99 mL/min/1.73 sq.m. Ages 50-59 = 93 mL/min/1.73 sq.m. Ages 60-69 = 85 mL/min/1.73 sq.m. Ages 70+ = 75 mL/min/1.73 sq.m. Chronic Kidney Disease: Less than 60 mL/min/1.73 square meters End Stage Renal Disease: Less than 15 mL/min/1.73 square meters Glucose [Mass/Vol] 126 mg/dL High 82 - 115 mg/dL AH ADM SS Hematocrit (Bld) [Volume fraction] 33.9 % Low 34.0 - 46.0 % AH Workflow SS Hemoglobin (Bld) [Mass/Vol] 11.1 G/dL Low 12.0 - 16.0 G/dL AH Workflow SS Lymphocytes (Bld) [#/Vol] 0.5 103/mcL Low 0.9 - 4.3 10^3/mcL AH Workflow SS Lymphocytes/100 WBC (Bld) 6.9 % Low 20.0 - 40.0 % AH Workflow SS MCH (RBC) [Entitic mass] 30.8 pg Normal 27.0 - 33.0 pg AH Workflow SS MCHC 32.8 G/dL Normal 32.0 - 36.0 G/dL AH Workflow SS MCV (RBC) [Entitic vol] 94.0 fL Normal 80.0 - 99.0 fL AH Workflow SS Monocytes (Bld) [#/Vol] 0.6 103/mcL Normal 0.1 - 1.4 10^3/mcL AH Workflow SS Monocytes/100 WBC (Bld) 8.2 % Normal 2.0 - 13.0 % AH Workflow SS Neutrophils (Bld) [#/Vol] 6.3 103/mcL Normal 2.3 - 8.1 10^3/mcL AH Workflow SS Neutrophils/100 WBC (Bld) 84.4 % High 50.0 - 75.0 % AH Workflow SS Platelet mean volume (Bld) [Entitic vol] 8.6 fL Normal 6.6 - 10.5 fL AH Workflow SS Platelets (Bld) [#/Vol] 156 103/mcL Normal 150 - 450 10^3/mcL AH Workflow SS Potassium [Moles/Vol] 3.8 mmol/L Normal 3.5 - 5.0 mEq/L AH ADM SS RBC (Bld) [#/Vol] 3.60 106/mcL Low 4.10 - 5.3 0 10^6/mcL AH Workflow SS Sodium [Moles/Vol] 139 mmol/L Normal 136 - 145 mEq/L AH ADM SS Urea nitrogen [Mass/Vol] 18.0 mg/dL Normal 8.0 - 22.0 mg/dL ADM SS Urea nitrogen/Creatinine [Mass ratio] 18.2 ratio Normal 10.0 - 22.0 ratio ADM SS WBC (Bld) [#/Vol] 7.5 103/mcL Normal 4.5 - 10.8 10^3/mcL Workflow SS .Auto Diffon 06-05-2024 Basophil, Absolute 0.0 10 3/mcL Normal 0.0-0.3 [facility] ([place]) Comment on above: Performed By: #### B MP, ADIFF, CBC, ANEU, GFR #### [address] [address] Basophils/100 WBC (Bld) 0.3 % Normal 0.0-2.5 [facility] ([place]) Comment on above: Performed By: #### B MP, ADIFF, CBC, ANEU, GFR #### [address] [address] Eosinophil, Absolute 0.0 10 3/mcL Normal 0.0-0.7 [facility] ([place]) Comment on above: Performed By: #### B MP, ADIFF, CBC, ANEU, GFR #### [address] [address] Eosinophils/100 WBC (Bld) 0.1 % Normal 0.0-6.0 [facility] ([place]) Comment on above: Performed By: #### B MP, ADIFF, CBC, ANEU, GFR #### [address] [address] Lymphocyte, Absolute 0.8 10 3/mcL Low 0.9-4.3 [facility] ([place]) Comment on above: Performed By: #### B MP, ADIFF, CBC, ANEU, GFR #### [address] [address] Lymphocytes/100 WBC (Bld) 8.9 % Low 20.0-40.0 [facility] ([place]) Comment on above: Performed By: #### B MP, ADIFF, CBC, ANEU, GFR #### [address] [address] Monocyte, Absolute 0.7 10 3/mcL Normal 0.1-1.4 [facility] ([place]) Comment on above: Performed By: #### B MP, ADIFF, CBC, ANEU, GFR #### [address] [address] Monocytes/100 WBC (Bld) 7.4 % Normal 2.0-13.0 [facility] ([place] Comment on above: Performed By: #### B MP, ADIFF, CBC, ANEU, GFR #### [address] [address] Neutrophils/100 WBC (Bld) 83.3 % High 50.0-75.0 [facility] ([place]) Comment on above: Performed By: #### B MP, ADIFF, CBC, ANEU, GFR #### [address] [address] .GFRon 06-05-2024 GFR >60 Normal [facility] [facility] [place] Comment on above: Result Comment: GFR Population mean for , Non- Americans Ages 20-29 = 116 mL/min/1.73 sq.m. Ages 30-39 = 107 mL/min/1.73 sq.m. Ages 40-49 = 99 mL/min/1.73 sq.m. Ages 50-59 = 93 mL/min/1.73 sq.m. Ages 60-69 = 85 mL/min/1.73 sq.m. Ages 70+ = 75 mL/min/1.73 sq.m. Chronic Kidney Disease: Less than 60 mL/min/1.73 square meters End Stage Renal Disease: Less than 15 mL/min/1.73 square meters Performed By: #### P RO #### [address] [address] GFR Non- 59 ml/min/1.73sqm [facility] [place] Comment on above: Result Comment: GFR Population mean for , Non- Americans Ages 20-29 = 116 mL/min/1.73 sq.m. Ages 30-39 = 107 mL/min/1.73 sq.m. Ages 40-49 = 99 mL/min/1.73 sq.m. Ages 50-59 = 93 mL/min/1.73 sq.m. Ages 60-69 = 85 mL/min/1.73 sq.m. Ages 70+ = 75 mL/min/1.73 sq.m. Chronic Kidney Disease: Less than 60 mL/min/1.73 square meters End Stage Renal Disease: Less than 15 mL/min/1.73 square meters Performed By: #### P RO #### [address] [address] .MDWon 06-05-2024 Monocyte Distribution Width 21.48 High 0.00-20.00 [facility] [place] Comment on above: Result Comment: For adults in ED, MDW>20.0 may be associated with a higher risk of sepsis during the first 12hrs of hospital admission Performed By: #### B MP, ADIFF, CBC, ANEU, GFR #### [place] [address] .NEUABSon 06-05-2024 Neutrophil, Absolute 7.7 10 3/mcL Normal 2.3-8.1 [facility] ([place]) Comment on above: Performed By: #### B MP, ADIFF, CBC, ANEU, GFR #### [address] [address] BMPon 06-05-2024 BUN/Creatinine Ratio 12.0 ratio Normal 10.0-22.0 [facility] ([place] Comment on above: Performed By: #### P RO #### [address] [address] Calcium [Mass/Vol] 9.1 mg/dL Normal 8.7-10.4 [facility] ([place]) Comment on above: Performed By: #### P RO #### [place] [id number] Chloride [Moles/Vol] 108 mmol/L Normal 98-110 [facility] [place] Comment on above: Performed By: #### P RO #### [address] [address] CO2 [Moles/Vol] 25 mmol/L Normal 22-32 [facility] [place] Comment on above: Performed By: #### P RO #### [place] [id number] Creatinine [Mass/Vol] 0.92 mg/dL Normal 0.50-1.20 [facility] ([place]) Comment on above: Performed By: #### P RO #### [place] [address] Electrolyte Balance 5.0 mEq/L Normal 4.0-15.0 [facility] ([place]) Comment on above: Performed By: #### P RO #### [place] [address] Glucose [Mass/Vol] 108 mg/dL Normal 82-115 [facility] ([place]) Comment on above: Performed By: #### P RO #### [place] [address] Potassium [Moles/Vol] 4.1 mmol/L Normal 3.5-5.0 [facility] ([place]) Comment on above: Performed By: #### P RO #### [place] [address] Sodium [Moles/Vol] 138 mmol/L Normal 136-145 [facility] ([place]) Comment on above: Performed By: #### P RO #### [place] [address] Urea nitrogen [Mass/Vol] 11.0 mg/dL Normal 8.0-22.0 [facility] [place] Comment on above: Performed By: #### P RO #### [address] [address] CBCon 06-05-2024 Erythrocyte distribution width (RBC) [Ratio] 14.9 % Normal 11.5-15.5 [facility] [place] Comment on above: Performed By: #### B MP, ADIFF, CBC, ANEU, GFR #### [place] [id number] Hematocrit (Bld) [Volume fraction] 32.5 % Low 34.0-46.0 [facility] [place] Comment on above: Performed By: #### B MP, ADIFF, CBC, ANEU, GFR #### [place] [address] Hgb 10.8 G/dL Low 12.0-16.0 [facility] [place] Comment on above: Performed By: #### B MP, ADIFF, CBC, ANEU, GFR #### [place] [id number] MCH (RBC) [Entitic mass] 31.1 pg Normal 27.0-33.0 [facility] [place] Comment on above: Performed By: #### B MP, ADIFF, CBC, ANEU, GFR #### [place] [address] MCHC 33.1 G/dL Normal 32.0-36.0 [facility] [place] Comment on above: Performed By: #### B MP, ADIFF, CBC, ANEU, GFR #### [place] [address] MCV (RBC) [Entitic vol] 94.0 fL Normal 80.0-99.0 [facility] [place] Comment on above: Performed By: #### B MP, ADIFF, CBC, ANEU, GFR #### [place] [id number] Platelet 191 10 3/mcL Normal 150-450 [facility] [place] Comment on above: Performed By: #### B MP, ADIFF, CBC, ANEU, GFR #### [place] [address] Platelet mean volume (Bld) [Entitic vol] 8.1 fL Normal 6.6-10.5 [facility] [place] Comment on above: Performed By: #### B MP, ADIFF, CBC, ANEU, GFR #### [place] [id number] RBC 3.46 10 6/mcL Low 4.10-5.30 [facility] [place] Comment on above: Performed By: #### B MP, ADIFF, CBC, ANEU, GFR #### [facility] [address] [place] [address] WBC 9.3 10 3/mcL Normal 4.5-10.8 [facility] [place] Comment on above: Performed By: #### B MP, ADIFF, CBC, ANEU, GFR #### [facility] [address] [place] [address] CVFLURVon 06-05-2024 FLU A PCR Negative Normal Negative [facility] [place] Comment on above: Result Comment: Note s 1990 Performed By: #### B MP, ADIFF, CBC, ANEU, GFR #### [address] [address] FLU B PCR Negative Normal Negative [facility] [place] Comment on above: Result Comment: Note s 1990 Performed By: #### B MP, ADIFF, CBC, ANEU, GFR #### [address] [address] RSV PCR Negative Normal Negative [facility] ([place] Comment on above: Result Comment: Note s 1990 Performed By: #### B MP, ADIFF, CBC, ANEU, GFR #### [address] [address] SARS-CoV-2 (COVID-19) RNA MARCELINA+probe Ql (Unsp spec) Positive Abnormal Negative [facility] ([place] Comment on above: Result Comment: This organism causes a reportable disease. Infection Control has been notified. Results have been reported to the [facility]. Notes 1990 This test has been authorized by FDA under an EUA for use by authorized laboratories and has not been FDA cleared or approved. Results from the Xpert Xpress SARS-CoV-2/Flu/RSV or Xpert Xpress SARS-CoV-2 only test should be correlated with the clinical history, epidemiological data, and other data available to the clinician evaluating the patient. Performance of the Xpert Xpress SARS-CoV-2/Flu/RSV or Xpert Xpress SARS-CoV-2 only test has only been established in nasopharyngeal swab specimens. Erroneous test results might occur from improper specimen collection; failure to follow the recommended sample collection, handling, and storage procedures; technical error; or sample mix-up.False negative results may occur if virus is present at levels below the analytical limit of detection. Viral nucleic acid may persist in vivo, independent of virus viability. Detection of analyte target(s) does not imply that the corresponding virus(es) are infectious or are the causative agents for clinical symptoms.Recent patient exposure to FluMist or other live attenuated influenza vaccines may cause inaccurate positive results. Performed By: #### B MP, ADIFF, CBC, ANEU, GFR #### [place] [id number] [facility] D-Dimer HS 376 ng/mL D-DU High 0-230 [facility] ([place] Comment on above: Result Comment: Dime r results reported in D-DU ng/ml. Positive for D-dimer. A positive D-Dimer may occur in the following: DVT, PE, DIC, Trauma, Cancer, Sepsis, , Rheumatoid arthritis, Myocardial infarction and Cirrhosis. Note: Not affected by Rheumatoid Factor <= 1400 IU/ml. The result of the D-Dimer test should be evaluated in the context of all the clinical and laboratory data available. In those instances where the laboratory result does not agree with the clinical evaluation, additional tests should be performed accordingly. Performed By: #### P RO #### [place] [address] LABORATORYOrdered By: SYSTEM SYSTEM on 06-05-2024 Basophils (Bld) [#/Vol] 0.0 103/mcL Normal 0.0 - 0.3 10^3/mcL AH Workflow SS Basophils/100 WBC (Bld) 0.3 % Normal 0.0 - 2.5 % AH Workflow SS D-Dimer HS 376 ng/mL D-DU High 0 - 230 ng/mL D-DU AH [facility] SS Comment on above: Result Comment: Dime r results reported in D-DU ng/ml. Positive for D-dimer. A positive D-Dimer may occur in the following: DVT, PE, DIC, Trauma, Cancer, Sepsis, , Rheumatoid arthritis, Myocardial infarction and Cirrhosis. Note: Not affected by Rheumatoid Factor <= 1400 IU/ml. Interpretive Data: T he result of the D-Dimer test should be evaluated in the context of all the clinical and laboratory data available. In those instances where the laboratory result does not agree with the clinical evaluation, additional tests should be performed accordingly. Eosinophils (Bld) [#/Vol] 0.0 103/mcL Normal 0.0 - 0.7 10^3/mcL AH Workflow SS Eosinophils/100 WBC (Bld) 0.1 % Normal 0.0 - 6.0 % AH Workflow SS Erythrocyte distribution width (RBC) [Ratio] 14.9 % Normal 11.5 - 15.5 % AH Workflow SS Hematocrit (Bld) [Volume fraction] 32.5 % Low 34.0 - 46.0 % AH Workflow SS Hemoglobin (Bld) [Mass/Vol] 10.8 G/dL Low 12.0 - 16.0 G/dL AH Workflow SS Lymphocytes (Bld) [#/Vol] 0.8 103/mcL Low 0.9 - 4.3 10^3/mcL AH Workflow SS Lymphocytes/100 WBC (Bld) 8.9 % Low 20.0 - 40.0 % AH Workflow SS MCH (RBC) [Entitic mass] 31.1 pg Normal 27.0 - 33.0 pg AH Workflow SS MCHC 33.1 G/dL Normal 32.0 - 36.0 G/dL AH Workflow SS MCV (RBC) [Entitic vol] 94.0 fL Normal 80.0 - 99.0 fL AH Workflow SS Monocyte distribution width Auto (Bld) [Entitic vol] 21.48 1 High 0.00 - 20.00 Workflow SS Comment on above: Result Comment: For adults in ED, MDW>20.0 may be associated with a higher risk of sepsis during the first 12hrs of hospital admission Monocytes (Bld) [#/Vol] 0.7 103/mcL Normal 0.1 - 1.4 10^3/mcL Workflow SS Monocytes/100 WBC (Bld) 7.4 % Normal 2.0 - 13.0 % AH Workflow SS Natriuretic peptide.B prohormone N-Terminal IA [Mass/Vol] 4417 pg/mL High 0 - 1800 pg/mL AH ADM SS Neutrophils (Bld) [#/Vol] 7.7 103/mcL Normal 2.3 - 8.1 10^3/mcL AH Workflow SS Neutrophils/100 WBC (Bld) 83.3 % High 50.0 - 75.0 % Workflow SS Platelet mean volume (Bld) [Entitic vol] 8.1 fL Normal 6.6 - 10.5 fL AH Workflow SS Platelets (Bld) [#/Vol] 191 103/mcL Normal 150 - 450 10^3/mcL AH Workflow SS RBC (Bld) [#/Vol] 3.46 106/mcL Low 4.10 - 5.3 0 10^6/mcL AH Workflow SS Troponin I.cardiac DL <= 0.01 ng/mL [Mass/Vol] 25 ng/L Normal 0 - 34 ng/L AH ADM SS Comment on above: Interpretive Data: High Sensitive Troponin I Reference Ranges: Female: 0-34 ng/L Male: 0-54 ng/L Testing performed on [employer] IM analyzer using direct chemiluminescent technology. WBC (Bld) [#/Vol] 9.3 103/mcL Normal 4.5 - 10.8 10^3/mcL Workflow SS LABORATORYOrdered By: Leonid Lara on 06-05-2024 FLUAV RNA MARCELINA+probe Ql (Resp) Negative 7 (06/05/24 12:20 PM) Normal Negative AH Auto Viro/Sero SS Comment on above: Result Comment: Note s 1990 FLUBV RNA MARCELINA+probe Ql (Resp) Negative 8 (06/05/24 12:20 PM) Normal Negative AH Auto Viro/Sero SS Comment on above: Result Comment: Note s 1990 RSV PCR Negative 9 (06/05/24 12:20 PM) Normal Negative AH Auto Viro/Sero SS Comment on above: Result Comment: Note s 1990 SARS-CoV-2 (COVID-19) RNA MARCELINA+probe Ql (Resp) Positive 5, 6 *ABN* (06/05/24 12:20 PM) Invalid Interpretation Code Negative AH Auto Viro/Sero SS Comment on above: Result Comment: This organism causes a reportable disease. Infection Control has been notified. Results have been reported to the [place] [facility]. Notes 1990 Interpretive Data: T his test has been authorized by FDA under an EUA for use by authorized laboratories and has not been FDA cleared or approved. Results from the Xpert Xpress SARS-CoV-2/Flu/RSV or Xpert Xpress SARS-CoV-2 only test should be correlated with the clinical history, epidemiological data, and other data available to the clinician evaluating the patient. Performance of the Xpert Xpress SARS-CoV-2/Flu/RSV or Xpert Xpress SARS-CoV-2 only test has only been established in nasopharyngeal swab specimens. Erroneous test results might occur from improper specimen collection; failure to follow the recommended sample collection, handling, and storage procedures; technical error; or sample mix-up.False negative results may occur if virus is present at levels below the analytical limit of detection. Viral nucleic acid may persist in vivo, independent of virus viability. Detection of analyte target(s) does not imply that the corresponding virus(es) are infectious or are the causative agents for clinical symptoms.Recent patient exposure to FluMist or other live attenuated influenza vaccines may cause inaccurate positive results. PBNPon 06-05-2024 Natriuretic peptide B (Bld) [Mass/Vol] 4417 pg/mL High 0-1800 [facility] [place] Comment on above: Performed By: #### P RO #### [address] [address] TROPHSon 06-05-2024 High Sensitivity Troponin I 25 ng/L Normal 0-34 [facility] ([place] Comment on above: Result Comment: High Sensitive Troponin I Reference Ranges: Female: 0-34 ng/L Male: 0-54 ng/L Testing performed on [employer] IM analyzer using direct chemiluminescent technology. Performed By: #### P RO #### [place] [address] XR CHEST 1 VIEWon 06-05-2024 XR CHEST 1 VIEW ORIGINAL EXAMINATION: ONE XRAY VIEW OF THE CHEST06/05/2024 11:35 am CHEST ONE VIEW AP/PA COMPARISON: None available time of interpretation. HISTORY: ORDERING SYSTEM PROVIDED HISTORY: Reason for Exam: Shortness of breath FINDINGS: Heart size and vascularity are within normal limits. The lungs are clear of focal consolidation. No effusion, pneumothorax, or acute osseous abnormality. IMPRESSION: No radiographic evidence of acute cardiopulmonary process. Interpreted by: Roman Rausch MD Preliminary Report By: Roman Rausch MD Electronically signed By Roman Rausch MD Dictated Date: 06/05/2024 11:45:38 AM Prelim Date: 06/05/2024 11:45:56 AM Sign Date: 06/05/2024 11:45:56 AM Ordering Provider: ROMAN COLLIER [facility] ([place]) .GFRon 06-02-2024 GFR >60 Normal [facility] ([place]) Comment on above: Result Comment: GFR Population mean for , Non- Americans Ages 20-29 = 116 mL/min/1.73 sq.m. Ages 30-39 = 107 mL/min/1.73 sq.m. Ages 40-49 = 99 mL/min/1.73 sq.m. Ages 50-59 = 93 mL/min/1.73 sq.m. Ages 60-69 = 85 mL/min/1.73 sq.m. Ages 70+ = 75 mL/min/1.73 sq.m. Chronic Kidney Disease: Less than 60 mL/min/1.73 square meters End Stage Renal Disease: Less than 15 mL/min/1.73 square meters Performed By: #### B MP, ADIFF, CBC, ANEU, GFR #### [address] [address] GFR Non- >60 Normal [facility] [place] Comment on above: Result Comment: GFR Population mean for , Non- Americans Ages 20-29 = 116 mL/min/1.73 sq.m. Ages 30-39 = 107 mL/min/1.73 sq.m. Ages 40-49 = 99 mL/min/1.73 sq.m. Ages 50-59 = 93 mL/min/1.73 sq.m. Ages 60-69 = 85 mL/min/1.73 sq.m. Ages 70+ = 75 mL/min/1.73 sq.m. Chronic Kidney Disease: Less than 60 mL/min/1.73 square meters End Stage Renal Disease: Less than 15 mL/min/1.73 square meters Performed By: #### B MP, ADIFF, CBC, ANEU, GFR #### [address] [address] CREon 06-02-2024 Creatinine [Mass/Vol] 0.88 mg/dL Normal 0.50-1.20 [facility] ([place]) Comment on above: Performed By: #### B MP, ADIFF, CBC, ANEU, GFR #### [address] [address] LABORATORYOrdered By: SYSTEM SYSTEM on 06-02-2024 Creatinine [Mass/Vol] 0.88 mg/dL Normal 0.50 - 1.20 mg/dL ADM SS GFR/1.73 sq M.predicted among blacks MDRD (S/P/Bld) [Vol rate/Area] ml/min/1.73sqm Invalid Interpretation Code Chemistry S Comment on above: Interpretive Data: GFR Population mean for , Non- Americans Ages 20-29 = 116 mL/min/1.73 sq.m. Ages 30-39 = 107 mL/min/1.73 sq.m. Ages 40-49 = 99 mL/min/1.73 sq.m. Ages 50-59 = 93 mL/min/1.73 sq.m. Ages 60-69 = 85 mL/min/1.73 sq.m. Ages 70+ = 75 mL/min/1.73 sq.m. Chronic Kidney Disease: Less than 60 mL/min/1.73 square meters End Stage Renal Disease: Less than 15 mL/min/1.73 square meters GFR/1.73 sq M.predicted among non-blacks MDRD (S/P/Bld) [Vol rate/Area] ml/min/1.73sqm Invalid Interpretation Code Chemistry S Comment on above: Interpretive Data: GFR Population mean for , Non- Americans Ages 20-29 = 116 mL/min/1.73 sq.m. Ages 30-39 = 107 mL/min/1.73 sq.m. Ages 40-49 = 99 mL/min/1.73 sq.m. Ages 50-59 = 93 mL/min/1.73 sq.m. Ages 60-69 = 85 mL/min/1.73 sq.m. Ages 70+ = 75 mL/min/1.73 sq.m. Chronic Kidney Disease: Less than 60 mL/min/1.73 square meters End Stage Renal Disease: Less than 15 mL/min/1.73 square meters PT Coag (PPP) [Time] 11.9 s Normal 9.0 - 1 4.4 seconds [facility] SS Comment on above: Interpretive Data: E ffective 05/30/08, Protime results may be affected by some antibiotics (i.e. Ciprofloxacin, Azithromycin, Bactrim) which may potentiate the action of oral anticoagulants, with further increases in Protime/INR. PT International Ratio 1.0 ratio Invalid Interpretation Code AH [facility] SS Comment on above: Interpretive Data: Katy mendoza [employer] (CHEST, 1991, 102:[id number]) recommended therapeutic range for oral anticoagulant therapy is: LOW RISK: Prophylaxis of venous thrombosis INR: 2.0-3.0 Treatment of pulmonary embolism 2.0-3.0 Prevention of systemic embolism 2.0-3.0 HIGH RISK: Mechanical prosthetic valves 2.5-3.5 PROon 06-02-2024 INR Coag (PPP) [Relative time] 1.0 {INR} Normal [facility] ([place] Comment on above: Result Comment: [employer] (CHEST, 1991, 102:[id number]) recommended therapeutic range for oral anticoagulant therapy is: LOW RISK: Prophylaxis of venous thrombosis INR: 2.0-3.0 Treatment of pulmonary embolism 2.0-3.0 Prevention of systemic embolism 2.0-3.0 HIGH RISK: Mechanical prosthetic valves 2.5-3.5 Performed By: #### P RO #### [address] [address] PT Coag (PPP) [Time] 11.9 s Normal 9.0-14.4 [facility] ([place] Comment on above: Result Comment: Effe ctive 05/30/08, Protime results may be affected by some antibiotics (i.e. Ciprofloxacin, Azithromycin, Bactrim) which may potentiate the action of oral anticoagulants, with further increases in Protime/INR. Performed By: #### P RO #### [address] [address] .Auto Diffon 05-31-2024 Basophil, Absolute 0.0 10 3/mcL Normal 0.0-0.3 [facility] ([place] Comment on above: Performed By: #### P RO #### [address] [address] Basophils/100 WBC (Bld) 0.6 % Normal 0.0-2.5 [facility] [place] Comment on above: Performed By: #### P RO #### [address] [address] Eosinophil, Absolute 0.1 10 3/mcL Normal 0.0-0.7 [facility] ([place]) Comment on above: Performed By: #### P RO #### [address] [address] Eosinophils/100 WBC (Bld) 1.9 % Normal 0.0-6.0 [facility] ([place] Comment on above: Performed By: #### P RO #### [address] [address] Lymphocyte, Absolute 1.4 10 3/mcL Normal 0.9-4.3 [facility] ([place]) Comment on above: Performed By: #### P RO #### [address] [address] Lymphocytes/100 WBC (Bld) 21.5 % Normal 20.0-40.0 [facility] ([place] Comment on above: Performed By: #### P RO #### [address] [address] Monocyte, Absolute 0.7 10 3/mcL Normal 0.1-1.4 [facility] ([place] Comment on above: Performed By: #### P RO #### [address] [address] Monocytes/100 WBC (Bld) 10.2 % Normal 2.0-13.0 [facility] [place] Comment on above: Performed By: #### P RO #### [address] [address] Neutrophils/100 WBC (Bld) 65.8 % Normal 50.0-75.0 [facility] ([place] Comment on above: Performed By: #### P RO #### [address] [address] .GFRon 05-31-2024 GFR Non- 52 ml/min/1.73sqm Normal [facility] ([place]) Comment on above: Result Comment: GFR Population mean for , Non- Americans Ages 20-29 = 116 mL/min/1.73 sq.m. Ages 30-39 = 107 mL/min/1.73 sq.m. Ages 40-49 = 99 mL/min/1.73 sq.m. Ages 50-59 = 93 mL/min/1.73 sq.m. Ages 60-69 = 85 mL/min/1.73 sq.m. Ages 70+ = 75 mL/min/1.73 sq.m. Chronic Kidney Disease: Less than 60 mL/min/1.73 square meters End Stage Renal Disease: Less than 15 mL/min/1.73 square meters Performed By: #### P RO #### [address] [address] GFR >60 Normal [facility] [place] Comment on above: Result Comment: GFR Population mean for , Non- Americans Ages 20-29 = 116 mL/min/1.73 sq.m. Ages 30-39 = 107 mL/min/1.73 sq.m. Ages 40-49 = 99 mL/min/1.73 sq.m. Ages 50-59 = 93 mL/min/1.73 sq.m. Ages 60-69 = 85 mL/min/1.73 sq.m. Ages 70+ = 75 mL/min/1.73 sq.m. Chronic Kidney Disease: Less than 60 mL/min/1.73 square meters End Stage Renal Disease: Less than 15 mL/min/1.73 square meters Performed By: #### P RO #### [address] [address] .NEUABSon 05-31-2024 Neutrophil, Absolute 4.4 10 3/mcL Normal 2.3-8.1 [facility] ([place] Comment on above: Performed By: #### P RO #### [address] [address] BMPon 05-31-2024 BUN/Creatinine Ratio 27.5 ratio High 10.0-22.0 [facility] [place] Comment on above: Performed By: #### P RO #### [address] [address] Calcium [Mass/Vol] 9.1 mg/dL Normal 8.7-10.4 [facility] ([place] Comment on above: Performed By: #### P RO #### [address] [address] Chloride [Moles/Vol] 107 mmol/L Normal 98-110 [facility] [place] Comment on above: Performed By: #### P RO #### [address] [address] CO2 [Moles/Vol] 26 mmol/L Normal 22-32 [facility] [place] Comment on above: Performed By: #### P RO #### [address] [address] Creatinine [Mass/Vol] 1.02 mg/dL Normal 0.50-1.20 [facility] ([place]) Comment on above: Performed By: #### P RO #### [place] [id number] Electrolyte Balance 9.0 mEq/L Normal 4.0-15.0 [facility] ([place] Comment on above: Performed By: #### P RO #### [place] [id number] Glucose [Mass/Vol] 108 mg/dL Normal 82-115 [facility] ([place] Comment on above: Performed By: #### P RO #### [place] [id number] Potassium [Moles/Vol] 4.0 mmol/L Normal 3.5-5.0 [facility] ([place] Comment on above: Performed By: #### P RO #### [place] [id number] Sodium [Moles/Vol] 142 mmol/L Normal 136-145 [facility] ([place] Comment on above: Performed By: #### P RO #### [address] [address] Urea nitrogen [Mass/Vol] 28.0 mg/dL High 8.0-22.0 [facility] [place] Comment on above: Performed By: #### P RO #### [address] [address] CBCon 05-31-2024 Erythrocyte distribution width (RBC) [Ratio] 14.7 % Normal 11.5-15.5 [facility] [place] Comment on above: Performed By: #### P RO #### [place] [address] Hematocrit (Bld) [Volume fraction] 35.5 % Normal 34.0-46.0 [facility] [place] Comment on above: Performed By: #### P RO #### [place] [address] Hgb 11.6 G/dL Low 12.0-16.0 [facility] [place] Comment on above: Performed By: #### P RO #### [place] [address] MCH (RBC) [Entitic mass] 30.7 pg Normal 27.0-33.0 [facility] [place] Comment on above: Performed By: #### P RO #### [place] [address] MCHC 32.7 G/dL Normal 32.0-36.0 [facility] [place] Comment on above: Performed By: #### P RO #### [place] [address] MCV (RBC) [Entitic vol] 93.9 fL Normal 80.0-99.0 [facility] [place] Comment on above: Performed By: #### P RO #### [place] [address] Platelet 211 10 3/mcL Normal 150-450 [facility] [place] Comment on above: Performed By: #### P RO #### [place] [address] Platelet mean volume (Bld) [Entitic vol] 10.3 fL Normal 6.6-10.5 [facility] [place] Comment on above: Performed By: #### P RO #### [place] [address] RBC 3.78 10 6/mcL Low 4.10-5.30 [facility] [place] Comment on above: Performed By: #### P RO #### [place] [address] WBC 6.7 10 3/mcL Normal 4.5-10.8 [facility] [place] Comment on above: Performed By: #### P RO #### [address] [address] METon 05-16-2024 Methylmalonic Acid 196 nmol/L Normal 0-378 [facility] ([place] Comment on above: Result Comment: This test was developed and its performance characteristics determined by [facility]. It has not been cleared or approved by the Food and Drug Administration. Performed At: [address] [id number] Merrill Mayers MD Ph:[phone] Performed By: #### B MP, ADIFF, CBC, ANEU, GFR #### [place] [address] INTABon 05-14-2024 Intrinsic Factor Abs 1.0 Au/mL Normal 0.0-1.1 [facility] [place] Comment on above: Result Comment: Perf ormed At: [address] [id number] Merrill Mayers MD Ph:[phone] Performed By: #### B MP, ADIFF, CBC, ANEU, GFR #### [place] [address] .Auto Diffon 05-12-2024 Basophil, Absolute 0.0 10 3/mcL Normal 0.0-0.3 [facility] ([place] Comment on above: Performed By: #### C BC, GFR, ANEU, ADIFF, CMP, VIDH, FERR, 419734, B12, 653659 #### [address] [address] Basophils/100 WBC (Bld) 0.6 % Normal 0.0-2.5 [facility] [place] Comment [place]: Performed By: #### C BC, GFR, ANEU, ADIFF, CMP, VIDH, FERR, 049446, B12, 295943 #### [facility] [address] [place], [place] [address] Eosinophil, Absolute 0.3 10 3/mcL Normal 0.0-0.7 [facility] ([place]) Comment on above: Performed By: #### C BC, GFR, ANEU, ADIFF, CMP, VIDH, FERR, 255511, B12, 635176 #### [address] [address] Eosinophils/100 WBC (Bld) 4.0 % Normal 0.0-6.0 [facility] [place] Comment [place]: Performed By: #### C BC, GFR, ANEU, ADIFF, CMP, VIDH, FERR, 453021, B12, 654756 #### [address] [address] Lymphocyte, Absolute 1.6 10 3/mcL Normal 0.9-4.3 [facility] ([place] Comment on above: Performed By: #### C BC, GFR, ANEU, ADIFF, CMP, VIDH, FERR, 467282, B12, 163376 #### [address] [address] Lymphocytes/100 WBC (Bld) 23.0 % Normal 20.0-40.0 [facility] [place] Comment [place] above: Performed By: #### C BC, GFR, ANEU, ADIFF, CMP, VIDH, FERR, 436371, B12, 350369 #### [address] [address] Monocyte, Absolute 0.6 10 3/mcL Normal 0.1-1.4 [facility] ([place] Comment on above: Performed By: #### C BC, GFR, ANEU, ADIFF, CMP, VIDH, FERR, 747743, B12, 399456 #### [address] [address] Monocytes/100 WBC (Bld) 8.6 % Normal 2.0-13.0 [facility] [place] Comment [place] above: Performed By: #### C BC, GFR, ANEU, ADIFF, CMP, VIDH, FERR, 449268, B12, 436735 #### [address] [address] Neutrophils/100 WBC (Bld) 63.8 % Normal 50.0-75.0 [facility] [place] Comment on above: Performed By: #### C BC, GFR, ANEU, ADIFF, CMP, VIDH, FERR, 707389, B12, 248228 #### [address] [address] .GFRon 05-12-2024 GFR 52 ml/min/1.73sqm [facility] [place] Comment on above: Result Comment: GFR Population mean for , Non- Americans Ages 20-29 = 116 mL/min/1.73 sq.m. Ages 30-39 = 107 mL/min/1.73 sq.m. Ages 40-49 = 99 mL/min/1.73 sq.m. Ages 50-59 = 93 mL/min/1.73 sq.m. Ages 60-69 = 85 mL/min/1.73 sq.m. Ages 70+ = 75 mL/min/1.73 sq.m. Chronic Kidney Disease: Less than 60 mL/min/1.73 square meters End Stage Renal Disease: Less than 15 mL/min/1.73 square meters Performed By: #### B MP, ADIFF, CBC, ANEU, GFR #### [place] [address] GFR Non- 43 ml/min/1.73sqm Normal [facility] [place] Comment on above: Result Comment: GFR Population mean for , Non- Americans Ages 20-29 = 116 mL/min/1.73 sq.m. Ages 30-39 = 107 mL/min/1.73 sq.m. Ages 40-49 = 99 mL/min/1.73 sq.m. Ages 50-59 = 93 mL/min/1.73 sq.m. Ages 60-69 = 85 mL/min/1.73 sq.m. Ages 70+ = 75 mL/min/1.73 sq.m. Chronic Kidney Disease: Less than 60 mL/min/1.73 square meters End Stage Renal Disease: Less than 15 mL/min/1.73 square meters Performed By: #### B MP, ADIFF, CBC, ANEU, GFR #### [address] [address] .NEUABSon 05-12-2024 Neutrophil, Absolute 4.4 10 3/mcL Normal 2.3-8.1 [facility] ([place] Comment on above: Performed By: #### C BC, GFR, ANEU, ADIFF, CMP, VIDH, FERR, 475972, B12, 224502 #### [place] [id number] B12on 05-12-2024 Cobalamin (Vitamin B12) [Mass/Vol] 988 pg/mL High 211-911 [facility] ([place] Comment on above: Performed By: #### B MP, ADIFF, CBC, ANEU, GFR #### [place] [address] CBCon 05-12-2024 Erythrocyte distribution width (RBC) [Ratio] 15.1 % Normal 11.5-15.5 [facility] [place] Comment on above: Performed By: #### C BC, GFR, ANEU, ADIFF, CMP, VIDH, FERR, 978448, B12, 351031 #### [place] [address] Hematocrit (Bld) [Volume fraction] 37.7 % Normal 34.0-46.0 [facility] [place] Comment on above: Performed By: #### C BC, GFR, ANEU, ADIFF, CMP, VIDH, FERR, 858029, B12, 174709 #### [place] [id number] Hgb 12.4 G/dL Normal 12.0-16.0 [facility] [place] Comment on above: Performed By: #### C BC, GFR, ANEU, ADIFF, CMP, VIDH, FERR, 912242, B12, 454184 #### [place] [address] MCH (RBC) [Entitic mass] 30.5 pg Normal 27.0-33.0 [facility] [place] Comment on above: Performed By: #### C BC, GFR, ANEU, ADIFF, CMP, VIDH, FERR, 965467, B12, 417442 #### [address] [address] MCHC 32.9 G/dL Normal 32.0-36.0 [facility] [place] Comment on above: Performed By: #### C BC, GFR, ANEU, ADIFF, CMP, VIDH, FERR, 039982, B12, 884608 #### [place] [id number] MCV (RBC) [Entitic vol] 92.7 fL Normal 80.0-99.0 [facility] [place] Comment on above: Performed By: #### C BC, GFR, ANEU, ADIFF, CMP, VIDH, FERR, 330745, B12, 234069 #### [place] [address] Platelet 210 10 3/mcL Normal 150-450 [facility] [place] Comment on above: Performed By: #### C BC, GFR, ANEU, ADIFF, CMP, VIDH, FERR, 468231, B12, 024161 #### [address] [address] Platelet mean volume (Bld) [Entitic vol] 9.4 fL Normal 6.6-10.5 [facility] [place] Comment on above: Performed By: #### C BC, GFR, ANEU, ADIFF, CMP, VIDH, FERR, 975497, B12, 268796 #### [address] [address] RBC 4.07 10 6/mcL Low 4.10-5.30 [facility] [place] Comment on above: Performed By: #### C BC, GFR, ANEU, ADIFF, CMP, VIDH, FERR, 933229, B12, 010135 #### [address] [address] WBC 6.9 10 3/mcL Normal 4.5-10.8 [facility] [place] Comment [place] above: Performed By: #### C BC, GFR, ANEU, ADIFF, CMP, VIDH, FERR, 120217, B12, 887719 #### [address] [address] [facility] Albumin Level 3.7 G/dL Normal 3.2-4.8 [facility] [place] Comment on above: Performed By: #### C BC, GFR, ANEU, ADIFF, CMP, VIDH, FERR, 894150, B12, 490910 #### [place] [id number] Albumin/Globulin [Mass ratio] 1.0 {ratio} Normal 0.9-1.6 [facility] [place] Comment on above: Performed By: #### C BC, GFR, ANEU, ADIFF, CMP, VIDH, FERR, 081040, B12, 519937 #### [address] [address] ALP [Catalytic activity/Vol] 127 U/L High 38-126 [facility] [place] Comment on above: Performed By: #### C BC, GFR, ANEU, ADIFF, CMP, VIDH, FERR, 262897, B12, 727898 #### [address] [address] ALT [Catalytic activity/Vol] 11 U/L Normal 10-49 [facility] [place] Comment on above: Performed By: #### C BC, GFR, ANEU, ADIFF, CMP, VIDH, FERR, 147044, B12, 280802 #### [address] [address] AST [Catalytic activity/Vol] 17 U/L Normal 8-34 [facility] [place] Comment on above: Performed By: #### C BC, GFR, ANEU, ADIFF, CMP, VIDH, FERR, 842340, B12, 478716 #### [address] [address] Bili Total 0.40 mg/dL Normal 0.20-1.20 [facility] [place] Comment on above: Result Comment: Use of this assay is not recommended for patients undergoing treatment with eltrombopag due to the potential for falsely elevated results. Performed By: #### C BC, GFR, ANEU, ADIFF, CMP, VIDH, FERR, 105631, B12, 012155 #### [address] [address] BUN/Creatinine Ratio 20.7 ratio Normal 10.0-22.0 [facility] [place] Comment on above: Performed By: #### C BC, GFR, ANEU, ADIFF, CMP, VIDH, FERR, 664088, B12, 143337 #### [address] [address] Calcium [Mass/Vol] 9.6 mg/dL Normal 8.7-10.4 [facility] ([place]) Comment on above: Performed By: #### C BC, GFR, ANEU, ADIFF, CMP, VIDH, FERR, 750661, B12, 980744 #### [address] [address] Chloride [Moles/Vol] 105 mmol/L Normal 98-110 [facility] [place] Comment on above: Performed By: #### C BC, GFR, ANEU, ADIFF, CMP, VIDH, FERR, 744867, B12, 537977 #### [address] [address] CO2 [Moles/Vol] 30 mmol/L Normal 22-32 [facility] [place] Comment on above: Performed By: #### C BC, GFR, ANEU, ADIFF, CMP, VIDH, FERR, 479452, B12, 603846 #### [address] [address] Creatinine [Mass/Vol] 1.21 mg/dL High 0.50-1.20 [facility] ([place]) Comment on above: Performed By: #### C BC, GFR, ANEU, ADIFF, CMP, VIDH, FERR, 310870, B12, 482326 #### [address] [address] Electrolyte Balance 6.0 mEq/L Normal 4.0-15.0 [facility] ([place] Comment on above: Performed By: #### C BC, GFR, ANEU, ADIFF, CMP, VIDH, FERR, 331644, B12, 267725 #### [address] [address] Globulin 3.7 G/dL Normal 1.5-3.8 [facility] [place] Comment on above: Performed By: #### C BC, GFR, ANEU, ADIFF, CMP, VIDH, FERR, 468734, B12, 291800 #### [address] [address] Glucose [Mass/Vol] 114 mg/dL Normal 82-115 [facility] ([place]) Comment on above: Performed By: #### C BC, GFR, ANEU, ADIFF, CMP, VIDH, FERR, 137979, B12, 428403 #### [address] [address] Potassium [Moles/Vol] 4.2 mmol/L Normal 3.5-5.0 [facility] ([place]) Comment on above: Performed By: #### C BC, GFR, ANEU, ADIFF, CMP, VIDH, FERR, 444403, B12, 940011 #### [address] [address] Sodium [Moles/Vol] 141 mmol/L Normal 136-145 [facility] ([place]) Comment on above: Performed By: #### C BC, GFR, ANEU, ADIFF, CMP, VIDH, FERR, 583157, B12, 226514 #### [address] [address] Total Protein 7.4 G/dL Normal 5.7-8.2 [facility] [place] Comment on above: Result Comment: No te - New Reference Range in effect 20 Performed By: #### C BC, GFR, ANEU, ADIFF, CMP, VIDH, FERR, 999519, B12, 638604 #### [address] [address] Urea nitrogen [Mass/Vol] 25.0 mg/dL High 8.0-22.0 [facility] [place] Comment on above: Performed By: #### C BC, GFR, ANEU, ADIFF, CMP, VIDH, FERR, 090531, B12, 190458 #### [place] [address] [place] [address] [place] 05-12-2024 Ferritin [Mass/Vol] 27.4 ng/mL Normal 8.0-252.0 [facility] ([place] Comment on above: Performed By: #### B MP, ADIFF, CBC, ANEU, GFR #### [place] [id number] VIDHon 05-12-2024 Vit. D 25-Hydroxy 39.8 ng/mL [facility] [place] Comment on above: Result Comment: Inte rpretive Values Based on Total 25(OH)D: Severe Deficiency <20 ng/mL Mild to Moderate Deficiency 20-30 ng/mL Optimum Levels 30-100 ng/mL Toxicity Possible >100 ng/mL Performed By: #### B MP, ADIFF, CBC, ANEU, GFR #### [address] [address] .GFRon 04-29-2024 GFR 52 ml/min/1.73sqm Normal [facility] ([place] Comment on above: Result Comment: GFR Population mean for , Non- Americans Ages 20-29 = 116 mL/min/1.73 sq.m. Ages 30-39 = 107 mL/min/1.73 sq.m. Ages 40-49 = 99 mL/min/1.73 sq.m. Ages 50-59 = 93 mL/min/1.73 sq.m. Ages 60-69 = 85 mL/min/1.73 sq.m. Ages 70+ = 75 mL/min/1.73 sq.m. Chronic Kidney Disease: Less than 60 mL/min/1.73 square meters End Stage Renal Disease: Less than 15 mL/min/1.73 square meters Performed By: #### B MP, ADIFF, CBC, ANEU, GFR #### [address] [address] GFR Non- 43 ml/min/1.73sqm [facility] [place] Comment on above: Result Comment: GFR Population mean for , Non- Americans Ages 20-29 = 116 mL/min/1.73 sq.m. Ages 30-39 = 107 mL/min/1.73 sq.m. Ages 40-49 = 99 mL/min/1.73 sq.m. Ages 50-59 = 93 mL/min/1.73 sq.m. Ages 60-69 = 85 mL/min/1.73 sq.m. Ages 70+ = 75 mL/min/1.73 sq.m. Chronic Kidney Disease: Less than 60 mL/min/1.73 square meters End Stage Renal Disease: Less than 15 mL/min/1.73 square meters Performed By: #### B MP, ADIFF, CBC, ANEU, GFR #### [address] [address] BMPon 04-29-2024 BUN/Creatinine Ratio 25.4 ratio High 10.0-22.0 [facility] ([place] Comment on above: Performed By: #### B MP, ADIFF, CBC, ANEU, GFR #### [address] [address] Calcium [Mass/Vol] 9.3 mg/dL Normal 8.7-10.4 [facility] ([place] Comment on above: Performed By: #### B MP, ADIFF, CBC, ANEU, GFR #### [address] [address] Chloride [Moles/Vol] 109 mmol/L Normal 98-110 [facility] [place] Comment on above: Performed By: #### B MP, ADIFF, CBC, ANEU, GFR #### [address] [address] CO2 [Moles/Vol] 27 mmol/L Normal 22-32 [facility] [place] Comment on above: Performed By: #### B MP, ADIFF, CBC, ANEU, GFR #### [address] [address] Creatinine [Mass/Vol] 1.22 mg/dL High 0.50-1.20 [facility] ([place] Comment on above: Performed By: #### B MP, ADIFF, CBC, ANEU, GFR #### [address] [address] Electrolyte Balance 7.0 mEq/L Normal 4.0-15.0 [facility] ([place] Comment on above: Performed By: #### B MP, ADIFF, CBC, ANEU, GFR #### [address] [address] Glucose [Mass/Vol] 117 mg/dL High 82-115 [facility] ([place] Comment on above: Performed By: #### B MP, ADIFF, CBC, ANEU, GFR #### [address] [address] Potassium [Moles/Vol] 4.9 mmol/L Normal 3.5-5.0 [facility] ([place]) Comment on above: Performed By: #### B MP, ADIFF, CBC, ANEU, GFR #### [address] [address] Sodium [Moles/Vol] 143 mmol/L Normal 136-145 [facility] ([place] Comment on above: Performed By: #### B MP, ADIFF, CBC, ANEU, GFR #### [address] [address] Urea nitrogen [Mass/Vol] 31.0 mg/dL High 8.0-22.0 [facility] [place] Comment on above: Performed By: #### B MP, ADIFF, CBC, ANEU, GFR #### [address] [address] PBNPon 04-29-2024 Natriuretic peptide B (Bld) [Mass/Vol] 317 pg/mL Normal 0-1800 [facility] [place] Comment on above: Performed By: #### B MP, ADIFF, CBC, ANEU, GFR #### [address] [address] NM MYOCARDIAL SPECT STRESS/R ESTon 03-29-2024 NM MYOCARDIAL SPECT STRESS/REST ORIGINAL EXAMINATION: CARDIAC SPECT03/29/2024 10:54 am TECHNIQUE: Lexiscan dose: 0.4 mg IV Radiopharmaceutical (rest and stress doses): Tc-99m Sestamibi IV 8.5 and 26.8 mCi SPECT acquisition and processing: Images reconstructed into short, vertical long, and horizontal long axis planes. Wall motion evaluation and quantitative LVEF assessment. Low-dose attenuation correction CT. COMPARISON: None HISTORY: Reason for Exam: dyspnea FINDINGS: Decreased perfusion involving the basal inferior wall on non-attenuation corrected post stress images resolves on attenuation corrected post-stress images, likely represents soft tissue attenuation. There is no stress-induced reversible perfusion abnormality. No fixed perfusion defect is seen to suggest infarction. The left ventricular end-diastolic volume is 65 mL. Gated imaging demonstrates no regional wall motion abnormality. Estimated left ventricular ejection fraction is 58 %. TID ratio is normal at 1.01. Low-dose attenuation correction CT demonstrates no coronary atherosclerotic calcifications. The heart is normal in size. No pericardial or pleural effusion is seen. There are areas of ground-glass atelectasis and air trapping. IMPRESSION: 1. No stress-induced reversible perfusion abnormality is seen. 2. Cardiac systolic function is normal with estimated ejection fraction of 58 %. Interpreted by: Rosendo Posey MD Preliminary Report By: Rosendo Posey MD Electronically signed By Rosendo Posey MD Dictated Date: 03/29/2024 2:59:49 PM Prelim Date: 03/29/2024 3:04:55 PM Sign Date: 03/29/2024 3:04:55 PM Ordering Provider: TED BRIDGES [facility] [place] CORTon 03-15-2024 Cortisol Level 10.2 mcg/dL Normal [facility]) Comment on above: Result Comment: Real isol AM Reference Range 6.5-26.0 mcg/dL Cortisol PM Reference Range 3.5-15.0 mcg/dL Performed By: #### B MP, ADIFF, CBC, ANEU, GFR #### [place] [address] DIMERon 03-15-2024 D-Dimer 277 ng/mL D-DU High 0-230 [facility] [place] Comment on above: Result Comment: Resu lts reported in D-DU ng/mL. Positive for D-dimer. A positive D-Dimer may occur in the following: DVT, PE, DIC, Trauma, Cancer, Sepsis, , Rheumatoid arthritis, Myocardial infarction and Cirrhosis. The presence of Rheumatoid Factor and HAMA (human mouse antibody) produces an overestimation of test results. The result of the D-Dimer test should be evaluated in the context of all the clinical and laboratory data available. In those instances where the laboratory result does not agree with the clinical evaluation, additional tests should be performed accordingly. Performed By: #### B MP, ADIFF, CBC, ANEU, GFR #### [address] [address] PBNPon 03-15-2024 Natriuretic peptide B (Bld) [Mass/Vol] 140 pg/mL Normal 0-1800 [facility] [place] Comment on above: Performed By: #### B MP, ADIFF, CBC, ANEU, GFR #### [place] [id number] PHOSon 03-15-2024 Phosphate [Mass/Vol] 2.9 mg/dL Normal 2.4-5.1 [facility] ([place]) Comment on above: Result Comment: No te - New Reference Range in effect 20 Performed By: #### B MP, ADIFF, CBC, ANEU, GFR #### [place] [address] CCPon 02-17-2024 Cyclic Citrullinated Peptide <20.0 Normal <=19.9 [facility] [place] Comment on above: Result Comment: Cycl ic Citrullinated IgG Interpretation: Result Units Negative <20 Weak Positive 20-39 Moderate Positive 40-59 Strong Positive >=60 A positive result indicates the presence of IgG anti-CCP3 antibodies and suggests the possibility of RA. A negative result indicates no CCP3 antibody or levels below the negative cut-off of the assay. Results of this assay should be used in conjunction with clinical findings and other serological tests. These test results were obtained with the VitaFlavor Quanta Lite CCP3 IgG ELIAZAR. Anti-CCP values obtained with different manufacturers' assay methods may not be used interchangeably. Performed By: #### C BC, GFR, ANEU, ADIFF, CMP, VIDH, FERR, 434644, B12, 842666 #### [place] [id number] .Auto Diffon 02-16-2024 Basophil, Absolute 0.0 10 3/mcL Normal 0.0-0.3 [facility] ([place]) Comment on above: Performed By: #### C BC, GFR, ANEU, ADIFF, CMP, VIDH, FERR, 169955, B12, 198020 #### [address] [address] Basophils/100 WBC (Bld) 0.5 % Normal 0.0-2.5 [facility] [place] Comment on above: Performed By: #### C BC, GFR, ANEU, ADIFF, CMP, VIDH, FERR, 729813, B12, 906140 #### [address] [address] Eosinophil, Absolute 0.1 10 3/mcL Normal 0.0-0.7 [facility] ([place] Comment on above: Performed By: #### C BC, GFR, ANEU, ADIFF, CMP, VIDH, FERR, 241146, B12, 145421 #### [address] [address] Eosinophils/100 WBC (Bld) 1.3 % Normal 0.0-6.0 [facility] [place] Comment on above: Performed By: #### C BC, GFR, ANEU, ADIFF, CMP, VIDH, FERR, 713661, B12, 169460 #### [address] [address] Lymphocyte, Absolute 1.0 10 3/mcL Normal 0.9-4.3 [facility] ([place] Comment on above: Performed By: #### C BC, GFR, ANEU, ADIFF, CMP, VIDH, FERR, 669881, B12, 980036 #### [address] [address] Lymphocytes/100 WBC (Bld) 16.4 % Low 20.0-40.0 [facility] [place] Comment [place] above: Performed By: #### C BC, GFR, ANEU, ADIFF, CMP, VIDH, FERR, 482025, B12, 044309 #### [address] [address] Monocyte, Absolute 0.5 10 3/mcL Normal 0.1-1.4 [facility] [place] Comment on above: Performed By: #### C BC, GFR, ANEU, ADIFF, CMP, VIDH, FERR, 436250, B12, 605840 #### [address] [address] Monocytes/100 WBC (Bld) 7.9 % Normal 2.0-13.0 [facility] [place] Comment on above: Performed By: #### C BC, GFR, ANEU, ADIFF, CMP, VIDH, FERR, 786345, B12, 342266 #### [address] [address] Neutrophils/100 WBC (Bld) 73.9 % Normal 50.0-75.0 [facility] [place] Comment on above: Performed By: #### C BC, GFR, ANEU, ADIFF, CMP, VIDH, FERR, 763161, B12, 604342 #### [address] [address] .GFRon 02-16-2024 GFR >60 Normal [facility] [place] Comment on above: Result Comment: GFR Population mean for , Non- Americans Ages 20-29 = 116 mL/min/1.73 sq.m. Ages 30-39 = 107 mL/min/1.73 sq.m. Ages 40-49 = 99 mL/min/1.73 sq.m. Ages 50-59 = 93 mL/min/1.73 sq.m. Ages 60-69 = 85 mL/min/1.73 sq.m. Ages 70+ = 75 mL/min/1.73 sq.m. Chronic Kidney Disease: Less than 60 mL/min/1.73 square meters End Stage Renal Disease: Less than 15 mL/min/1.73 square meters Performed By: #### C BC, GFR, ANEU, ADIFF, CMP, VIDH, FERR, 912944, B12, 800953 #### [address] [address] GFR Non- >60 [facility] [place] Comment on above: Result Comment: GFR Population mean for , Non- Americans Ages 20-29 = 116 mL/min/1.73 sq.m. Ages 30-39 = 107 mL/min/1.73 sq.m. Ages 40-49 = 99 mL/min/1.73 sq.m. Ages 50-59 = 93 mL/min/1.73 sq.m. Ages 60-69 = 85 mL/min/1.73 sq.m. Ages 70+ = 75 mL/min/1.73 sq.m. Chronic Kidney Disease: Less than 60 mL/min/1.73 square meters End Stage Renal Disease: Less than 15 mL/min/1.73 square meters Performed By: #### C BC, GFR, ANEU, ADIFF, CMP, VIDH, FERR, 113628, B12, 618630 #### [address] [address] .NEUABSon 02-16-2024 Neutrophil, Absolute 4.6 10 3/mcL Normal 2.3-8.1 [facility] ([place] Comment on above: Performed By: #### C BC, GFR, ANEU, ADIFF, CMP, VIDH, FERR, 260228, B12, 526524 #### [place] [address] A1Con 02-16-2024 HbA1c (Bld) [Mass fraction] 5.6 % Normal 4.0-6.0 [facility] [place] Comment on above: Performed By: #### C BC, GFR, ANEU, ADIFF, CMP, VIDH, FERR, 727091, B12, 976883 #### [place] [id number] B12on 02-16-2024 Cobalamin (Vitamin B12) [Mass/Vol] 246 pg/mL Normal 211-911 [facility] [place] Comment on above: Performed By: #### C BC, GFR, ANEU, ADIFF, CMP, VIDH, FERR, 912620, B12, 172768 #### [address] [address] CBCon 02-16-2024 Erythrocyte distribution width (RBC) [Ratio] 14.8 % Normal 11.5-15.5 [facility] [place] Comment on above: Performed By: #### C BC, GFR, ANEU, ADIFF, CMP, VIDH, FERR, 349612, B12, 465516 #### [place] [id number] Hematocrit (Bld) [Volume fraction] 34.1 % Normal 34.0-46.0 [facility] [place] Comment on above: Performed By: #### C BC, GFR, ANEU, ADIFF, CMP, VIDH, FERR, 969302, B12, 638391 #### [address] [address] Hgb 11.6 G/dL Low 12.0-16.0 [facility] [place] Comment on above: Performed By: #### C BC, GFR, ANEU, ADIFF, CMP, VIDH, FERR, 535317, B12, 323271 #### [place] [id number] MCH (RBC) [Entitic mass] 31.8 pg Normal 27.0-33.0 [facility] [place] Comment on above: Performed By: #### C BC, GFR, ANEU, ADIFF, CMP, VIDH, FERR, 352881, B12, 589972 #### [place] [id number] MCHC 34.0 G/dL Normal 32.0-36.0 [facility] [place] Comment on above: Performed By: #### C BC, GFR, ANEU, ADIFF, CMP, VIDH, FERR, 950974, B12, 609349 #### [place] [id number] MCV (RBC) [Entitic vol] 93.7 fL Normal 80.0-99.0 [facility] [place] Comment on above: Performed By: #### C BC, GFR, ANEU, ADIFF, CMP, VIDH, FERR, 629951, B12, 456695 #### [place] [id number] Platelet 184 10 3/mcL Normal 150-450 [facility] [place] Comment on above: Performed By: #### C BC, GFR, ANEU, ADIFF, CMP, VIDH, FERR, 685591, B12, 626983 #### [address] [address] Platelet mean volume (Bld) [Entitic vol] 9.7 fL Normal 6.6-10.5 [facility] [place] Comment on above: Performed By: #### C BC, GFR, ANEU, ADIFF, CMP, VIDH, FERR, 211703, B12, 508646 #### [address] [address] RBC 3.64 10 6/mcL Low 4.10-5.30 [facility] [place] Comment on above: Performed By: #### C BC, GFR, ANEU, ADIFF, CMP, VIDH, FERR, 824814, B12, 090289 #### [place] [id number] WBC 6.2 10 3/mcL Normal 4.5-10.8 [facility] [place] Comment on above: Performed By: #### C BC, GFR, ANEU, ADIFF, CMP, VIDH, FERR, 192969, B12, 467414 #### [address] [address] CMPon 02-16-2024 Albumin Level 3.5 G/dL Normal 3.2-4.8 [facility] [place] Comment on above: Performed By: #### C BC, GFR, ANEU, ADIFF, CMP, VIDH, FERR, 339590, B12, 060993 #### [place] [id number] Albumin/Globulin [Mass ratio] 1.0 {ratio} Normal 0.9-1.6 [facility] Comment on above: Performed By: #### C BC, GFR, ANEU, ADIFF, CMP, VIDH, FERR, [id number], B12, 134449 #### [address] [address] ALP [Catalytic activity/Vol] 100 U/L Normal 38-126 [facility] Comment on above: Performed By: #### C BC, GFR, ANEU, ADIFF, CMP, VIDH, FERR, [id number], B12, [id number] #### [address] [address] ALT [Catalytic activity/Vol] 9 U/L Low 10-49 [facility] Comment on above: Performed By: #### C BC, GFR, ANEU, ADIFF, CMP, VIDH, FERR, [id number], B12, [id number] #### [address] [address] AST [Catalytic activity/Vol] 16 U/L Normal 8-34 [facility] Comment on above: Performed By: #### C BC, GFR, ANEU, ADIFF, CMP, VIDH, FERR, 993132, B12, 050654 #### [address] [address] Bili Total 0.60 mg/dL Normal 0.20-1.20 [facility] Comment on above: Result Comment: Use of this assay is not recommended for patients undergoing treatment with eltrombopag due to the potential for falsely elevated results. Performed By: #### C BC, GFR, ANEU, ADIFF, CMP, VIDH, FERR, [id number], B12, [id number] #### [address] [address] BUN/Creatinine Ratio 28.4 ratio High 10.0-22.0 [facility] ([place] Comment on above: Performed By: #### C BC, GFR, ANEU, ADIFF, CMP, VIDH, FERR, 437510, B12, 134204 #### [address] [address] [address] Calcium [Mass/Vol] 9.3 mg/dL Normal 8.7-10.4 [facility] ([place]) Comment on above: Performed By: #### C BC, GFR, ANEU, ADIFF, CMP, VIDH, FERR, [id number], B12, 648777 #### [address] [address] Chloride [Moles/Vol] 115 mmol/L High 98-110 [facility] ([place]) Comment on above: Performed By: #### C BC, GFR, ANEU, ADIFF, CMP, VIDH, FERR, 627976, B12, 072187 #### [address] [address] CO2 [Moles/Vol] 30 mmol/L Normal 22-32 [facility] ([place] Comment on above: Performed By: #### C BC, GFR, ANEU, ADIFF, CMP, VIDH, FERR, 342306, B12, 335558 #### [address] [address] Creatinine [Mass/Vol] 0.74 mg/dL Normal 0.50-1.20 [facility] ([place]) Comment on above: Performed By: #### C BC, GFR, ANEU, ADIFF, CMP, VIDH, FERR, 094817, B12, 709711 #### [address] [address] Electrolyte Balance -5.0 mEq/L Low 4.0-15.0 [facility] ([place]) Comment on above: Performed By: #### C BC, GFR, ANEU, ADIFF, CMP, VIDH, FERR, 322345, B12, 808589 #### [address] [address] Globulin 3.4 G/dL Normal 1.5-3.8 [facility] ([place] Comment on above: Performed By: #### C BC, GFR, ANEU, ADIFF, CMP, VIDH, FERR, 698963, B12, 076201 #### [address] [address] Glucose [Mass/Vol] 108 mg/dL Normal 82-115 [facility] ([place]) Comment on above: Performed By: #### C BC, GFR, ANEU, ADIFF, CMP, VIDH, FERR, 784081, B12, 626129 #### [address] [address] Potassium [Moles/Vol] 3.8 mmol/L Normal 3.5-5.0 [facility] ([place]) Comment on above: Performed By: #### C BC, GFR, ANEU, ADIFF, CMP, VIDH, FERR, 692606, B12, 012933 #### [address] [address] Sodium [Moles/Vol] 140 mmol/L Normal 136-145 [facility] ([place]) Comment on above: Performed By: #### C BC, GFR, ANEU, ADIFF, CMP, VIDH, FERR, 418788, B12, 228320 #### [place] [id number] Total Protein 6.9 G/dL Normal 5.7-8.2 [facility] ([place] Comment on above: Result Comment: No te - New Reference Range in effect 20 Performed By: #### C BC, GFR, ANEU, ADIFF, CMP, VIDH, FERR, 185225, B12, 637826 #### [place] [address] Urea nitrogen [Mass/Vol] 21.0 mg/dL Normal 8.0-22.0 [facility] [place] Comment on above: Performed By: #### C BC, GFR, ANEU, ADIFF, CMP, VIDH, FERR, 372285, B12, 910169 #### [place] [address] CRPon 02-16-2024 CRP [Mass/Vol] mg/L Normal 0.0-1.0 [facility] ([place] Comment on above: Result Comment: No te - New Reference Range in effect 20 Performed By: #### C BC, GFR, ANEU, ADIFF, CMP, VIDH, FERR, 189953, B12, 760602 #### [place] [id number] ESRon 02-16-2024 Erythrocyte Sed Rate 25 mm/hr Normal 0-30 [facility] ([place] Comment on above: Performed By: #### C BC, GFR, ANEU, ADIFF, CMP, VIDH, FERR, 777818, B12, 765888 #### [place] [id number] Humphrey 02-16-2024 Ferritin [Mass/Vol] 18.6 ng/mL Normal 8.0-252.0 [facility] ([place]) Comment on above: Performed By: #### C BC, GFR, ANEU, ADIFF, CMP, VIDH, FERR, 853247, B12, 036921 #### [place] [address] FESon 02-16-2024 Iron [Mass/Vol] 95 ug/dL Normal 50-170 [facility] ([place] Comment on above: Performed By: #### C BC, GFR, ANEU, ADIFF, CMP, VIDH, FERR, 309814, B12, 565032 #### [place] [address] Iron Sat 25 % Normal [facility] ([place] Comment on above: Performed By: #### C BC, GFR, ANEU, ADIFF, CMP, VIDH, FERR, 611540, B12, 570813 #### [place] [address] TIBC 379 mcg/dL Normal 250-500 [facility] ([place] Comment on above: Performed By: #### C BC, GFR, ANEU, ADIFF, CMP, VIDH, FERR, 153215, B12, 123701 #### [place] [address] HCVon 02-16-2024 Hep C Ab Non-Reactive Normal Non-Reactive [facility] ([place] Comment on above: Performed By: #### C BC, GFR, ANEU, ADIFF, CMP, VIDH, FERR, 792195, B12, 174713 #### [place] [address] Hep C Ab Int Normal [facility] ([place] Comment on above: Result Comment: Nonr eactive: Samples with a value < 0.80 are considered nonreactive (negative) for antibodies to HCV. A negative test result does not exclude the possibility of exposure to or infection with HCV. HCV antibodies may be undetectable in some stages of the infection and in some clinical conditions. See Interp Performed By: #### C BC, GFR, ANEU, ADIFF, CMP, VIDH, FERR, 634264, B12, 179287 #### [address] [address] LIPIDon 02-16-2024 Cholesterol [Mass/Vol] 168 mg/dL Normal 50-199 [facility] ([place] Comment on above: Result Comment: Chol esterol Reference Interval: Less than 200 Desirable 200-239 Borderline high risk 240 and above High risk Performed By: #### C BC, GFR, ANEU, ADIFF, CMP, VIDH, FERR, 854815, B12, 547293 #### [address] [address] Cholesterol in HDL [Mass/Vol] 42 mg/dL Normal 40-59 [facility] ([place] Comment on above: Performed By: #### C BC, GFR, ANEU, ADIFF, CMP, VIDH, FERR, 345782, B12, 438172 #### [address] [address] Cholesterol in LDL [Mass/Vol] 103 mg/dL Normal 0-129 [facility] ([place] Comment on above: Performed By: #### C BC, GFR, ANEU, ADIFF, CMP, VIDH, FERR, 745702, B12, 694638 #### [address] [address] Triglyceride [Mass/Vol] 115 mg/dL Normal 3-149 [facility] ([place] Comment on above: Performed By: #### C BC, GFR, ANEU, ADIFF, CMP, VIDH, FERR, 273631, B12, 837454 #### [address] [address] MALBRon 02-16-2024 U Creatinine 137.1 mg/dL Normal [facility] ([place] Comment on above: Performed By: #### B MP, ADIFF, CBC, ANEU, GFR #### [address] [address] U Microalb 811 mcg/dL Normal [facility] ([place] Comment on above: Performed By: #### B MP, ADIFF, CBC, ANEU, GFR #### [place] [address] U Ratio Alb/Cre 5.9 mcg/mg Normal 0.0-24.9 [facility] ([place] Comment on above: Performed By: #### B MP, ADIFF, CBC, ANEU, GFR #### [address] [address] PBNPon 02-16-2024 Natriuretic peptide B (Bld) [Mass/Vol] 959 pg/mL Normal 0-1800 [facility] ([place] Comment on above: Result Comment: NT-p roBNP results of less than 300 pg/mL effectively rules out acute congestive heart failure with 99% negative predictive value. Performed By: #### C BC, GFR, ANEU, ADIFF, CMP, VIDH, FERR, 293842, B12, 103054 #### [place] [address] TSHon 02-16-2024 TSH 0.840 mIU/mL Normal 0.550-4.780 [facility] ([place] Comment on above: Result Comment: No te - New Reference Range in effect 20 Performed By: #### C BC, GFR, ANEU, ADIFF, CMP, VIDH, FERR, 782204, B12, 389712 #### [place] [address] UAon 02-16-2024 Color (U) Yellow Normal [facility] ([place] Comment on above: Performed By: #### B MP, ADIFF, CBC, ANEU, GFR #### [place] [id number] Glucose (U) [Mass/Vol] Negative Normal Negative [facility] ([place] Comment on above: Performed By: #### B MP, ADIFF, CBC, ANEU, GFR #### [place] [id number] Ketones Ql (U) Negative Normal Neg-Trace [facility] ([place] Comment on above: Performed By: #### B MP, ADIFF, CBC, ANEU, GFR #### [place] [id number] UA Appear Clear Normal Clear [facility] ([place] Comment on above: Performed By: #### B MP, ADIFF, CBC, ANEU, GFR #### [address] [address] UA Blood Negative Normal Neg-Trace [facility] ([place] Comment on above: Performed By: #### B MP, ADIFF, CBC, ANEU, GFR #### [address] [address] UA Leuk Est Negative Normal Negative [facility] ([place] Comment on above: Performed By: #### B MP, ADIFF, CBC, ANEU, GFR #### [address] [address] UA Nitrite Negative Normal Negative [facility] ([place] Comment on above: Performed By: #### B MP, ADIFF, CBC, ANEU, GFR #### [address] [address] UA pH 5.5 Normal 5.0 - 8.0 [facility] ([place] Comment on above: Performed By: #### B MP, ADIFF, CBC, ANEU, GFR #### [address] [address] UA Protein Negative Normal Negative [facility] ([place] Comment on above: Performed By: #### B MP, ADIFF, CBC, ANEU, GFR #### [address] [address] UA Spec Grav 1.025 Normal 1.006-1.029 [facility] ([place] Comment on above: Performed By: #### B MP, ADIFF, CBC, ANEU, GFR #### [place] [address] UA Specimen Type Clean Catch Normal [facility] ([place] Comment on above: Performed By: #### B MP, ADIFF, CBC, ANEU, GFR #### [address] [address] UA Urobilinogen 1.0 E.U./dL Normal 0.2-1.0 [facility] ([place] Comment on above: Performed By: #### B MP, ADIFF, CBC, ANEU, GFR #### [address] [address] Urobilinogen (U) [Mass/Vol] Negative Normal Neg-Trace [facility] ([place] Comment on above: Performed By: #### B MP, ADIFF, CBC, ANEU, GFR #### [address] [address] URICon 02-16-2024 Uric Acid Lvl 4.3 mg/dL Normal 3.1-7.8 [facility] ([place] Comment on above: Result Comment: No te - New Reference Range in effect 20 Performed By: #### C BC, GFR, ANEU, ADIFF, CMP, VIDH, FERR, 014198, B12, 311961 #### [place] [address] VIDHon 02-16-2024 Vit. D 25-Hydroxy 34.1 ng/mL Normal [facility] ([place] Comment on above: Result Comment: Inte rpretive Values Based on Total 25(OH)D: Severe Deficiency <20 ng/mL Mild to Moderate Deficiency 20-30 ng/mL Optimum Levels 30-100 ng/mL Toxicity Possible >100 ng/mL Performed By: #### C BC, GFR, ANEU, ADIFF, CMP, VIDH, FERR, 511421, B12, 177827 #### [address] [address] LABORATORYOrdered By: Avis Boothe on 09-01-2021 Appearance (U) Clear (09/01/21 10:06 PM) Invalid Interpretation Code AH Auto Urine SS Bilirubin Ql (U) Negative (09/01/21 10:06 PM) Invalid Interpretation Code Neg-Trace AH Auto Urine SS Color (U) Yellow (09/01/21 10:06 PM) Invalid Interpretation Code AH Auto Urine SS Glucose Test strip (U) [Mass/Vol] Negative Invalid Interpretation Code Negativemg/d L AH Auto Urine SS Hemoglobin Auto test strip (U) [Mass/Vol] Trace (09/01/21 10:06 PM) Invalid Interpretation Code Neg-Trace AH Auto Urine SS Ketones Ql (U) Negative Invalid Interpretation Code Neg-Tracemg/ dL AH Auto Urine SS UA Leuk Est Negative (09/01/21 10:06 PM) Invalid Interpretation Code Negative AH Auto Urine SS UA Nitrite Negative (09/01/21 10:06 PM) Invalid Interpretation Code Negative AH Auto Urine SS UA pH 5.5 (09/01/21 10:06 PM) Invalid Interpretation Code 5.0 - 8.0 AH Auto Urine SS UA Protein Negative Invalid Interpretation Code Negativemg/d L AH Auto Urine SS UA Spec Grav 1.025 (09/01/21 10:06 PM) Invalid Interpretation Code AH Auto Urine SS UA Specimen Type Clean Catch (09/01/21 10:06 PM) Invalid Interpretation Code AH Auto Urine SS UA Urobilinogen 0.2 E.U./dL Invalid Interpretation Code AH Auto Urine SS LABORATORYOrdered By: SYSTEM SYSTEM on 09-01-2021 Base excess Calc (BldMV) [Moles/Vol] 8.0 mEq/L Invalid Interpretation Code 4.0 - 15.0 mEq/L AH ADM SS Basophils (Bld) [#/Vol] 0.00 103/mcL Invalid Interpretation Code 0.00 - 0.27 10^3/mcL AH Remisol SS Basophils/100 WBC (Bld) 0.6 % Invalid Interpretation Code 0.0 - 2.5 % Remisol SS Calcium [Mass/Vol] 8.8 mg/dL Invalid Interpretation Code 8.4 - 10.1 mg/dL ADM SS Chloride [Moles/Vol] 111 mmol/L Invalid Interpretation Code 98 - 110 mEq/L AH ADM SS CO2 [Moles/Vol] 25 mmol/L Invalid Interpretation Code 22 - 32 mEq/L AH ADM SS Creatinine [Mass/Vol] 0.78 mg/dL Invalid Interpretation Code 0.50 - 1.20 mg/dL AH ADM SS Eosinophils (Bld) [#/Vol] 0.10 103/mcL Invalid Interpretation Code 0.00 - 0.65 10^3/mcL AH Remisol SS Eosinophils/100 WBC (Bld) 2.0 % Invalid Interpretation Code 0.0 - 6.0 % AH Remisol SS Erythrocyte distribution width (RBC) [Ratio] 14.3 % Invalid Interpretation Code 11.5 - 15.5 % AH Remisol SS GFR/1.73 sq M.predicted among blacks MDRD (S/P/Bld) [Vol rate/Area] ml/min/1.73sqm Invalid Interpretation Code ADM SS GFR/1.73 sq M.predicted among non-blacks MDRD (S/P/Bld) [Vol rate/Area] ml/min/1.73sqm Invalid Interpretation Code AH ADM SS Glucose [Mass/Vol] 103 mg/dL Invalid Interpretation Code 82 - 115 mg/dL AH ADM SS Hematocrit (Bld) [Volume fraction] 36.3 % Invalid Interpretation Code 34.0 - 46.0 % AH Remisol SS Hemoglobin (Bld) [Mass/Vol] 12.0 G/dL Invalid Interpretation Code 12.0 - 16.0 G/dL AH Remisol SS Lymphocytes (Bld) [#/Vol] 2.20 103/mcL Invalid Interpretation Code 0.90 - 4.32 10^3/mcL AH Remisol SS Lymphocytes/100 WBC (Bld) 44.4 % Invalid Interpretation Code 20.0 - 40.0 % AH Remisol SS MCH (RBC) [Entitic mass] 31.0 pg Invalid Interpretation Code 27.0 - 33.0 pg AH Remisol SS MCHC (RBC) [Mass/Vol] 33.2 G/dL Invalid Interpretation Code 32.0 - 36.0 G/dL AH Remisol SS MCV (RBC) [Entitic vol] 93.3 fL Invalid Interpretation Code 80.0 - 99.0 fL AH Remisol SS Monocytes (Bld) [#/Vol] 0.50 103/mcL Invalid Interpretation Code 0.09 - 1.40 10^3/mcL AH Remisol SS Monocytes/100 WBC (Bld) 9.8 % Invalid Interpretation Code 2.0 - 13.0 % AH Remisol SS Neutrophils (Bld) [#/Vol] 2.10 103/mcL Invalid Interpretation Code 2.25 - 8.10 10^3/mcL AH Remisol SS Neutrophils/100 WBC (Bld) 43.2 % Invalid Interpretation Code 50.0 - 75.0 % AH Remisol SS Platelet mean volume (Bld) [Entitic vol] 8.3 fL Invalid Interpretation Code 6.6 - 10.5 fL AH Remisol SS Platelets (Bld) [#/Vol] 187 103/mcL Invalid Interpretation Code 150 - 450 10^3/mcL AH Remisol SS Potassium [Moles/Vol] 3.3 mmol/L Invalid Interpretation Code 3.5 - 5.0 mEq/L AH ADM SS RBC (Bld) [#/Vol] 3.89 106/mcL Invalid Interpretation Code 4.10 - 5.30 10^6/mcL AH Remisol SS Sodium [Moles/Vol] 144 mmol/L Invalid Interpretation Code 136 - 145 mEq/L AH ADM SS Troponin I.cardiac DL <= 0.01 ng/mL [Mass/Vol] 3.06 ng/L Invalid Interpretation Code 0.00 - 34.00 ng/L AH ADM SS Urea nitrogen [Mass/Vol] 13.0 mg/dL Invalid Interpretation Code 8.0 - 22.0 mg/dL AH ADM SS Urea nitrogen/Creatinine [Mass ratio] 16.7 ratio Invalid Interpretation Code 10.0 - 22.0 ratio AH ADM SS WBC (Bld) [#/Vol] 4.90 103/mcL Invalid Interpretation Code 4.50 - 10.80 10^3/mcL AH Remisol SS COVID-19, MOLECULARon 2020 SARS-CoV-2 (COVID-19) Ab IA Ql Not detected Normal Not Detected [facility] Comment on above: Result Comment: This test was performed under the FDA's Emergency Use Authorization (EUA). Testing was performed using the HiringSolved ID NOW COVID-19 assay on the Clover platform. This test has not been approved for use in asymptomatic patients and its performance in this patient population has not been evaluated. Negative results do not rule out the presence of SARS-CoV-2/COVID-19. Fact sheets for the EUA can be found at the following links: For Healthcare Providers: https://www.fda.gov/media/473517/download For Patients: https://www.fda.gov/media/531487/download COVID-19, MolecularOrdered B y: Mone Salvador on 06-13-2021 SARS-CoV-2 (COVID-19) RdRp gene MARCELINA+probe Ql (Resp) Not detected Not Detected [facility] Comment on above: This test was perfor med under the FDA's Emergency Use Authorization (EUA). Testing was performed using the HiringSolved ID NOW COVID-19 assay on the Clover platform. This test has not been approved for use in asymptomatic patients and its performance in this patient population has not been evaluated. Negative results do not rule out the presence of SARS-CoV-2/COVID-19. Fact sheets for the EUA can be found at the following links: For Healthcare Providers: https://www.fda.gov/media/628484/download For Patients: https://www.fda.gov/media/636937/download SARS-CoV-2 (COVID-19) RdRp g nas MARCELINA+probe Ql (Resp)Ordered By: Mone Salvador on 06-13-2021 Interpretation and review of laboratory results Normal [facility] XR WRIST LEFT 2 VIEWSon 05-16 XR WRIST LEFT 2 VIEWS X-rays, 2 views of the Left wrist (PA, lateral) were obtained and independently reviewed. 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 Significant degenerative changes at the STT joint. Dictated by: NEMESIO CHIN on ThuMay 29, 2021 1:53:48 PM EDT Transcribed by: NEMESIO CHIN on ThuMay 29, 2021 1:53:48 PM EDT Finalized by: NEMESIO CHIN on ThuMay 29, 2021 1:53:48 PM EDT Normal [facility] Comment on above: Order Comment: Injur y/Trauma or Illness?:Injury/Trauma How long have you had these symptoms (acute/chronic)?:Unknown Reason for exam?:left wrist pain History of cancer?:no Surgeries, chemotherapy, or radiation?:breast reduction Type of Exam?:Initial Mechanism of injury?: XR WRIST LEFT 3+ VIEWS (AGUILAR MARK)on 05-13-2021 XR WRIST LEFT 3+ VIEWS (STANDARD) EXAMINATION: XR WRIST LEFT 3+ VIEWS (STANDARD) 05/13/2021 3:34 pm HISTORY: ORDERING SYSTEM PROVIDED HISTORY: ORLANDO TURCIOS, TECHNOLOGIST PROVIDED HISTORY: Injury/Trauma Reason for exam: pain in lt medial aspect of lt wrist Cancer History: no Surgery, RadiationHistory: breast reduction Encounter Type: Initial Mechanism of injury: Tripped over a curb about 4 hrs and injured L wrist. Painful and slightly swollen ORDERING SYSTEM PROVIDED DIAGNOSIS CODES: W19.XXXA Fall, initial encounter S69.92XA Left wrist injury, initial encounter COMPARISON: None FINDINGS: Lucency is identified involving the radial styloid with surrounding soft tissue swelling. This is only seen on the oblique view. Findings could represent a nondisplaced radial styloid fracture. No other acute fracture identified.. 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 IMPRESSION: Possible nondisplaced radial styloid fracture. Correlate with physical exam for point tenderness. Workstation ID: [id number] Dictated by: KWASI HERZOG on ThuMay 13, 2021 4:07:54 PM EDT Transcribed by: KWASI HERZOG on ThuMay 13, 2021 4:07:54 PM EDT Finalized by: KWASI HERZOG on ThuMay 13, 2021 4:07:54 PM EDT Normal [facility] Comment on above: Order Comment: Injur y/Trauma or Illness?:Injury/Trauma How long have you had these symptoms (acute/chronic)?:Acute Reason for exam?:pain in lt medial aspect of lt wrist History of cancer?:no Surgeries, chemotherapy, or radiation?:breast reduction Type of Exam?:Initial Mechanism of injury?:Tripped over a curb about 4 hrs and injured L wrist. Painful and slightly swollen XR Wrist Left 3+ Views (Aguilar mark)Ordered By: Juan Pablo Velasquez on 05-13-2021 Possible nondisplace d radial styloid fracture. Correlate with physical exam for point tenderness. Workstation ID: [id number] [facility] EXAMINATION: XR WRIS T LEFT 3+ VIEWS (STANDARD) 05/13/2021 3:34 pm HISTORY: ORDERING SYSTEM PROVIDED HISTORY: GLF, ORLANDO, TECHNOLOGIST PROVIDED HISTORY: Injury/Trauma Reason for exam: pain in lt medial aspect of lt wrist Cancer History: no Surgery, RadiationHistory: breast reduction Encounter Type: Initial Mechanism of injury: Tripped over a curb about 4 hrs and injured L wrist. Painful and slightly swollen ORDERING SYSTEM PROVIDED DIAGNOSIS CODES: W19.XXXA Fall, initial encounter S69.92XA Left wrist injury, initial encounter COMPARISON: None FINDINGS: Lucency is identified involving the radial styloid with surrounding soft tissue swelling. This is only seen on the oblique view. Findings could represent a nondisplaced radial styloid fracture. No other acute fracture identified.. 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 [facility], Rad In Fu ji Speechq - 05/13/2021 4:10 PM EDT EXAMINATION: XR WRIST LEFT 3+ VIEWS (STANDARD) 05/13/2021 3:34 pm HISTORY: ORDERING SYSTEM PROVIDED HISTORY: ALFREDOFORLANDO, TECHNOLOGIST PROVIDED HISTORY: Injury/Trauma Reason for exam: pain in lt medial aspect of lt wrist Cancer History: no Surgery, RadiationHistory: breast reduction Encounter Type: Initial Mechanism of injury: Tripped over a curb about 4 hrs and injured L wrist. Painful and slightly swollen ORDERING SYSTEM PROVIDED DIAGNOSIS CODES: W19.XXXA Fall, initial encounter S69.92XA Left wrist injury, initial encounter COMPARISON: None FINDINGS: Lucency is identified involving the radial styloid with surrounding soft tissue swelling. This is only seen on the oblique view. Findings could represent a nondisplaced radial styloid fracture. No other acute fracture identified.. 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 IMPRESSION: Possible nondisplaced radial styloid fracture. Correlate with physical exam for point tenderness. Workstation ID: [id number] [facility] COVID-19, MOLECULARon 2020 SARS-CoV-2 (COVID-19) Ab IA Ql Not detected Normal Not Detected [facility] Comment on above: Result Comment: This test was performed under the FDA's Emergency Use Authorization (EUA). Testing was performed using the Denise ID NOW COVID-19 assay on the ID NOW platform. This test has not been approved for use in asymptomatic patients and its performance in this patient population has not been evaluated. Negative results do not rule out the presence of SARS-CoV-2/COVID-19. Fact sheets for the EUA can be found at the following links: For Healthcare Providers: https://www.fda.gov/media/891309/download For Patients: https://www.fda.gov/media/838370/download COVID-19, MolecularOrdered B y: Mone Salvador on 04-24-2021 SARS-CoV-2 (COVID-19) RdRp gene MARCELINA+probe Ql (Resp) Not detected Not Detected [facility] Comment on above: This test was perfor med under the FDA's Emergency Use Authorization (EUA). Testing was performed using the Denise ID NOW COVID-19 assay on the ID NOW platform. This test has not been approved for use in asymptomatic patients and its performance in this patient population has not been evaluated. Negative results do not rule out the presence of SARS-CoV-2/COVID-19. Fact sheets for the EUA can be found at the following links: For Healthcare Providers: https://www.fda.gov/media/512437/download For Patients: https://www.fda.gov/media/649404/download SARS-CoV-2 (COVID-19) RdRp g nas MARCELINA+probe Ql (Resp)Ordered By: Mone Salvador on 04-24-2021 Interpretation and review of laboratory results Normal [facility] POC Rapid Strep Aon 07-01-20 18 Interpretation and review of laboratory results Normal Invalid Interpretation Code [facility] S. pyogenes Ag Ql (Throat) Negative Invalid Interpretation Code Negative [facility] NM MYOCARDIAL PERFUSION MULT I SPECTon 07-09-2017 NM MYOCARDIAL PERFUSION MULTI SPECT Nuclear Report Patient: JESSICA Maldonado [facility] Rec#: [id number] (Age): 1945(71y) Height: 162.6(cm)/63(inStudy Date: 07/09/2017 Weight: 92.1(kg)/203(lbRoom#: BSA: 1.97 Type: Inpatient Loc: CILSex: F Indications: -Chest pain, unspecified 786.50 R07.9 Chest pain,unspecifiedCheckl ists: -Patient verbally identified self -Patient identified by IDband -Consent signed and placed in chart -Procedure verified andexplained to patient -Medication Reconciliation completed. ICD-10 Diagnosis Codes: -R07.9 Chest pain, unspecifiedICD-10 Procedure Codes: -[id number] Tomographic (Jose Angel) Nuclear Medicine Imaging of Myocardiumusing Technetium 99m (Tc-99m)Nuclear Cardiology Conclusion:Normal exercise myocardial perfusion with Tc-99m sestamibi imaging.Overall low-risk study based on SCAI criteria (Less Than 1% predictedannual cardiac mortality). Normal LV size. Global left ventricularsystolic function was normal, with an EF of 65%. No prior study orreport was available for comparison. Stress ECG Conclusion:Normal exercise stress ECG . HR Response to stress: normal BP responseto stress: normal The patient experienced no chest pain. Patient onlyhad left arm pressure prior to stress test that did not change duringtest or recovery. Symptoms noted during stress include: dyspnea andfatigue The test was terminated due to fatigue and dyspnea. An adequatelevel of stress was achieved. No diagnostic ECG changes at maximalworkload. General History :- No known allergies - Family history of CAD - Hypertension - Other: Polymyalgia Rheumatica, Ulcers - Prior Stress test - Thyroid disease Current Clinical Presentation:Pt with left arm pressure prior to start of stress test. Heart tonesS1, S2. Breath sounds are clear. The patient had no chest pain onpresentation. Medications :- Prednisone - Synthroid - Chronic Beta Blockers - Diuretics Exercise Protocol: A Garber treadmill score of 4 was achieved. TotalExercise TimeThe patient exercised for a total of 04:03 min using the Standard Bruceexercise protocol, achieving stage 2 and a max METs of 5.8. A Duketreadmill score of 4 was achieved. Exercise functional capacity wasaverage. Baseline ECG:Normal sinus rhythm. Incomplete RBBB. Stress ECG :Sinus tachycardia. Incomplete RBBB. Atrial premature contractions. Rare Ventricular premature contractions. Paired PVCs. No ST-segmentdepression under pharmacologic stress. Recovery ECG:Normal sinus rhythm. Incomplete RBBB. Ventricular prematurecontractions. Borderline ST-segment depression (0.5 - 0.9mm). (V2and V3) The ST-Segment changes returned to baseline. Hemodynamics REST STRESS RECOVERY SBP 148 mmHg 158 mmHg 146 mmHg DBP 84 mmHg 80 mmHg 80 mmHg HR 84 bpm 141 bpm 85 bpm %MPHR 94 % Imaging Protocol:This was a gated SPECT myocardial perfusion imaging study. A one dayrest-stress imaging protocol was followed using Tc-99m sestamibi(Cardiolite) injected intravenously. For the rest portion of the study,8.5 mCi of the radiopharmaceutical was administered at 07/09/201708:20:00. Rest imaging was performed at 09:15:00. For the stressportion of the study, 26.5 mCi was administered at 07/09/2017 10:00:00. Stress imaging was performed at 11:00:00. Perfusion Interpretation:The left ventricular cavity size was normal under post stressconditions. TID Ratio 1.09. Mild breast attenuation artifact on rest images. Wall Motion Interpretation:The patient's calculated post stress LVEF was 65%. The patient's enddiastolic volume was 75ml. The patient's end systolic volume was 26ml. Gated imaging under post-stress conditions demonstrated normal wallmotion. Study Limitations:Limitation s and artifact were due to breast tissue. Stress ECG Doctor Interpreted Study and Electronically signed at07/09/2017 12:04:00 by: Sydnee JEANuclear Doctor Interpreted Study and Electronically signed at 07/09/201713:00:08 by: Georgina Escoto MDDictated by: GEORGINA ESCOTO on ThuJul 09, 2017 1:00:08 PM EDTTranscribed by: GEORGINA ESCOTO on ThuJul 09, 2017 1:00:08 PM EDTFinalized by: GEORGINA ESCOTO on ThuJul 09, 2017 1:00:08 PM EDT [facility] Comment on above: Order Comment: Reaso n for exam?:cpInjury/Trauma or Illness?:Illness/OtherHow long have you had these symptoms (acute/chronic)?:UnknownType of Exam?:UnknownAdditional signs and symptoms?:na NM Myocardial Perfusion Mult iple SPECTon 07-09-2017 NM Myocardial Perfusion Multiple SPECT Nuclear Report ____ Patient: JESSICA Maldonado Med Rec#: [id number] (Age): 1945(71y) Height: 162.6(cm)/63(in Study Date: 07/09/2017 Weight: 92.1(kg)/203(lb Room#: BSA: 1.97 Type: Inpatient Loc: [facility] Sex: F ____ Indications: -Chest pain, unspecified 786.50 R07.9 Chest pain, unspecified Checklists: -Patient verbally identified self -Patient identified by ID band -Consent signed and placed in chart -Procedure verified and explained to patient -Medication Reconciliation completed. ICD-10 Diagnosis Codes: -R07.9 Chest pain, unspecified ICD-10 Procedure Codes: -[id number] Tomographic (Jose Angel) Nuclear Medicine Imaging of Myocardium using Technetium 99m (Tc-99m) Nuclear Cardiology Conclusion: Normal exercise myocardial perfusion with Tc-99m sestamibi imaging. Overall low-risk study based on SCAI criteria (Less Than 1% predicted annual cardiac mortality). Normal LV size. Global left ventricular systolic function was normal, with an EF of 65%. No prior study or report was available for comparison. Stress ECG Conclusion: Normal exercise stress ECG . HR Response to stress: normal BP response to stress: normal The patient experienced no chest pain. Patient only had left arm pressure prior to stress test that did not change during test or recovery. Symptoms noted during stress include: dyspnea and fatigue The test was terminated due to fatigue and dyspnea. An adequate level of stress was achieved. No diagnostic ECG changes at maximal workload. General History : - No known allergies - Family history of CAD - Hypertension - Other: Polymyalgia Rheumatica, Ulcers - Prior Stress test - Thyroid disease Current Clinical Presentation: Pt with left arm pressure prior to start of stress test. Heart tones S1, S2. Breath sounds are clear. The patient had no chest pain on presentation. Medications : - Prednisone - Synthroid - Chronic Beta Blockers - Diuretics Exercise Protocol: A Garber treadmill score of 4 was achieved. Total Exercise Time The patient exercised for a total of 04:03 min using the Standard Leonid exercise protocol, achieving stage 2 and a max METs of 5.8. A Garber treadmill score of 4 was achieved. Exercise functional capacity was average. Baseline ECG: Normal sinus rhythm. Incomplete RBBB. Stress ECG : Sinus tachycardia. Incomplete RBBB. Atrial premature contractions. Rare Ventricular premature contractions. Paired PVCs. No ST-segment depression under pharmacologic stress. Recovery ECG: Normal sinus rhythm. Incomplete RBBB. Ventricular premature contractions. Borderline ST-segment depression (0.5 - 0.9mm). (V2 and V3) The ST-Segment changes returned to baseline. Hemodynamics REST STRESS RECOVERY SBP 148 mmHg 158 mmHg 146 mmHg DBP 84 mmHg 80 mmHg 80 mmHg HR 84 bpm 141 bpm 85 bpm %MPHR 94 % Imaging Protocol: This was a gated SPECT myocardial perfusion imaging study. A one day rest-stress imaging protocol was followed using Tc-99m sestamibi (Cardiolite) injected intravenously. For the rest portion of the study, 8.5 mCi of the radiopharmaceutical was administered at 07/09/2017 08:20:00. Rest imaging was performed at 09:15:00. For the stress portion of the study, 26.5 mCi was administered at 07/09/2017 10:00:00. Stress imaging was performed at 11:00:00. Perfusion Interpretation: The left ventricular cavity size was normal under post stress conditions. TID Ratio 1.09. Mild breast attenuation artifact on rest images. Wall Motion Interpretation: The patient's calculated post stress LVEF was 65%. The patient's end diastolic volume was 75ml. The patient's end systolic volume was 26ml. Gated imaging under post-stress conditions demonstrated normal wall motion. Study Limitations: Limitations and artifact were due to breast tissue. Stress ECG Doctor Interpreted Study and Electronically signed at 07/09/2017 12:04:00 by: Sydnee Miller MD Nuclear Doctor Interpreted Study and Electronically signed at 07/09/2017 13:00:08 by: Georgina Escoto MD [facility] RAD NM Myocardial Perfusion Multiple SPECT Interface, Rad In Heartlab Xper [facility] - 07/09/2017 1:05 PM EDT Nuclear Report ____ Patient: JESSICA Maldonado [facility] Rec#: [id number] (Age): 1945(71y) Height: 162.6(cm)/63(in Study Date: 07/09/2017 Weight: 92.1(kg)/203(lb Room#: BSA: 1.97 Type: Inpatient Loc: [facility] Sex: F ____ Indications: -Chest pain, unspecified 786.50 R07.9 Chest pain, unspecified Checklists: -Patient verbally identified self -Patient identified by ID band -Consent signed and placed in chart -Procedure verified and explained to patient -Medication Reconciliation completed. ICD-10 Diagnosis Codes: -R07.9 Chest pain, unspecified ICD-10 Procedure Codes: -[id number] Tomographic (Jose Angel) Nuclear Medicine Imaging of Myocardium using Technetium 99m (Tc-99m) Nuclear Cardiology Conclusion: Normal exercise myocardial perfusion with Tc-99m sestamibi imaging. Overall low-risk study based on SCAI criteria (Less Than 1% predicted annual cardiac mortality). Normal LV size. Global left ventricular systolic function was normal, with an EF of 65%. No prior study or report was available for comparison. Stress ECG Conclusion: Normal exercise stress ECG . HR Response to stress: normal BP response to stress: normal The patient experienced no chest pain. Patient only had left arm pressure prior to stress test that did not change during test or recovery. Symptoms noted during stress include: dyspnea and fatigue The test was terminated due to fatigue and dyspnea. An adequate level of stress was achieved. No diagnostic ECG changes at maximal workload. General History : - No known allergies - Family history of CAD - Hypertension - Other: Polymyalgia Rheumatica, Ulcers - Prior Stress test - Thyroid disease Current Clinical Presentation: Pt with left arm pressure prior to start of stress test. Heart tones S1, S2. Breath sounds are clear. The patient had no chest pain on presentation. Medications : - Prednisone - Synthroid - Chronic Beta Blockers - Diuretics Exercise Protocol: A Garber treadmill score of 4 was achieved. Total Exercise Time The patient exercised for a total of 04:03 min using the Standard Leonid exercise protocol, achieving stage 2 and a max METs of 5.8. A Garber treadmill score of 4 was achieved. Exercise functional capacity was average. Baseline ECG: Normal sinus rhythm. Incomplete RBBB. Stress ECG : Sinus tachycardia. Incomplete RBBB. Atrial premature contractions. Rare Ventricular premature contractions. Paired PVCs. No ST-segment depression under pharmacologic stress. Recovery ECG: Normal sinus rhythm. Incomplete RBBB. Ventricular premature contractions. Borderline ST-segment depression (0.5 - 0.9mm). (V2 and V3) The ST-Segment changes returned to baseline. Hemodynamics REST STRESS RECOVERY SBP 148 mmHg 158 mmHg 146 mmHg DBP 84 mmHg 80 mmHg 80 mmHg HR 84 bpm 141 bpm 85 bpm %MPHR 94 % Imaging Protocol: This was a gated SPECT myocardial perfusion imaging study. A one day rest-stress imaging protocol was followed using Tc-99m sestamibi (Cardiolite) injected intravenously. For the rest portion of the study, 8.5 mCi of the radiopharmaceutical was administered at 07/09/2017 08:20:00. Rest imaging was performed at 09:15:00. For the stress portion of the study, 26.5 mCi was administered at 07/09/2017 10:00:00. Stress imaging was performed at 11:00:00. Perfusion Interpretation: The left ventricular cavity size was normal under post stress conditions. TID Ratio 1.09. Mild breast attenuation artifact on rest images. Wall Motion Interpretation: The patient's calculated post stress LVEF was 65%. The patient's end diastolic volume was 75ml. The patient's end systolic volume was 26ml. Gated imaging under post-stress conditions demonstrated normal wall motion. Study Limitations: Limitations and artifact were due to breast tissue. Stress ECG Doctor Interpreted Study and Electronically signed at 07/09/2017 12:04:00 by: Sydnee Miller MD Nuclear Doctor Interpreted Study and Electronically signed at 07/09/2017 13:00:08 by: Georgina Escoto MD [facility] RAD Troponinon 07-09-2017 Interpretation and review of laboratory results Normal [facility] Troponin T.cardiac mass conc ug/L <0.040 ng/mL [facility] Interpretation and review of laboratory results Normal [facility] Troponin T.cardiac mass conc ug/L <0.040 ng/mL [facility] Basic Metabolic Panelon 06-17 Anion gap molar conc 17 mmol/L 10 - 20 mmol/L [facility] Calcium mass conc 9.4 mg/dL 8.4 - 10.2 mg/dL [facility] Chloride molar conc 102 mmol/L 98 - 108 mmol/L [facility] Creatinine mass conc 0.82 mg/dL 0.6 - 1 .2 mg/dL [facility] GFR/1.73 sq M predicted among non-blacks MDRD vol rate/area (S/P/Bld) The eGFR should be used for monitoring renal function only and not for medication dosing. [facility] GFR/1.73 sq M.predicted CKD-EPI vol rate/area (S/P/Bld) 72 mL/min/1.73 m2 >=60 [facility] Glucose mass conc 120 mg/dL High 65 - 99 mg/dL [facility] HCO3 molar conc 27 mmol/L 21 - 32 mmol/L [facility] Interpretation and review of laboratory results Abnormal [facility] Potassium molar conc 3.9 mmol/L 3.5 - 5 .1 mmol/L [facility] Sodium molar conc 142 mmol/L 135 - 145 mmol/L [facility] Urea nitrogen mass conc 16 mg/dL 8 - 25 mg/dL [facility] Urea nitrogen/Creatinine mass ratio 19.5 mg/mg 10.0 - 20.0 [facility] CBC Auto Differentialon 06-17 Basophils #/vol (Bld) 0.02 K/mcL 0.00 - 0.30 [facility] Basophils/100 WBC (Bld) 0.2 % [facility] Eosinophils #/vol (Bld) 0.03 K/mcL 0.00 - 0.50 [facility] Eosinophils/100 WBC (Bld) 0.4 % [facility] Erythrocyte distribution width Entitic volume (RBC) 12.8 % 11.6 - 14.8 % [facility] Hematocrit Volume Fraction (Bld) 39.4 % 36 - 46 % [facility] Hemoglobin mass conc (Bld) 13.4 g/dL 12 - 16 g/dL [facility] Immature granulocytes #/vol (Bld) 0.05 K/mcL 0.00 - 0.30 [facility] Immature granulocytes/100 WBC (Bld) 0.60 % [facility] Comment on above: The IG parameter is the percentage of metamyelocytes, myelocytes, and promyelocytes. Lymphocytes #/vol (Bld) 2.19 K/mcL 0.90 - 4.00 [facility] Lymphocytes/100 WBC (Bld) 26.6 % [facility] MCH Entitic mass (RBC) 32.7 pg 26 - 34 pg [facility] MCHC mass conc (RBC) 34.0 g/dL 31 - 37 g/dL [facility] MCV Entitic volume (RBC) 96.1 fL 80 - 100 fL [facility] Monocytes #/vol (Bld) 0.40 K/mcL 0.30 - 0.90 [facility] Monocytes/100 WBC (Bld) 4.9 % [facility] Neutrophils #/vol (Bld) 5.53 K/mcL 1.70 - 7.00 [facility] Neutrophils/100 WBC (Bld) 67.3 % [facility] Nucleated RBC #/vol (Bld) 0.02 K/mcL High 0.00 - 0.00 [facility] Nucleated RBC/100 WBC Ratio (Bld) 0.2 % [facility] Platelet mean volume Entitic volume (Bld) 10.4 fL 9 - 15.5 fL [facility] Platelets #/vol (Bld) 209 K/mcL 150 - 400 [facility] RBC #/vol (Bld) 4.10 M/mcL 4.00 - 5.20 [facility] WBC #/vol (Bld) 8.22 K/mcL 4.50 - 11.00 [facility] CBC and Differentialon 07-08 CBC and Differential The following order s were created for panel order CBC and Differential. Procedure Abnormality Status --------- ------ CBC Auto Differential[[id number] ] Abnormal Final result Please view results for these tests on the individual orders. [employer] Work Phone: CT DISSECTIONon 07-08-2017 CT DISSECTION EXAMINATION:CT DISSECTION, 07/08/2017HISTORY:ORDE RING SYSTEM PROVIDED HISTORY: subscapular pain, TECHNOLOGIST PROVIDED HISTORY: Reason for exam: subscapular painIllness/OtherEncou nter Type: InitialAdditional signs and symptoms: cx and low back painORDERING SYSTEM PROVIDED DIAGNOSIS CODES:COMPARISON:Two-v iew chest 07/08/2017.TECHNIQUE:D ose reduction techniques were achieved by using automated exposure control and/or adjustment of mA and/or kV according to patient size and/or use of iterative reconstruction technique.3D volume-rendered images were also created on a separate workstation by the interpreting radiologist and submitted as part of the examination.5 mm axial images from thoracic inlet through aortic bifurcation without intravenous contrast were obtained. This was followed by 2 mm axial images from thoracic inlet through aortic bifurcation following administration of intravenous contrast. Sagittal, coronal reconstructions were performed.CONTRAST:IOP AMIDOL 76 % INTRAVENOUS SOLUTION - 100 mL,FINDINGS:CT AORTA: On the noncontrast images, there are mild atherosclerotic changes of the thoracic, abdominal aorta; however, there is no obvious intramural hematoma. Post contrast, the caliber of ascending, descending thoracic aorta, abdominal aorta is within normal limits without abnormal dilatation to suggest aneurysm or intimal flaps to suggest dissection. There is a normal-appearing 3-vessel arch. The visceral vessels including celiac artery, superior mesenteric artery, bilateral renal arteries, visualized common iliac arteries are widely patent.CT PULMONARY ANGIOGRAM: There are no filling defects within the visualized superior vena cava, main, left, right pulmonary arteries, lobar, segmental branches.CT CHEST: The visualized thyroid seems normal. The heart size seems normal. There is no significant axillary, hilar, mediastinal adenopathy. Lungs demonstrate no focal abnormalities.CT ABDOMEN: On the noncontrast images, there is no hydronephrosis, nephrolithiasis of the left or the right kidney. There is no ureterolithiasis of the visualized ureters. Post contrast, the liver is homogeneously low in density compatible with fatty liver. There are no focal lesions in the liver. Spleen, gallbladder, pancreas, adrenal glands, kidneys appear normal. The small and large bowel loops are of normal caliber. There are scattered diverticula in the visualized colon. Normal appendix is not seen. There is no obvious retroperitoneal, mesenteric adenopathy. The visualized osseous structures demonstrate degenerative changes of thoracolumbar spine with scoliotic curvature of lumbar spine to the right with multilevel vacuum disc phenomena involving several levels of the lumbar vertebral bodies.IMPRESSION:1. No dissection, aneurysm of the thoracic aorta.2. No evidence to suggest pulmonary embolic disease.3. No acute process in the visualized chest or abdomen.4. Fatty liver.5. Diverticulosis without diverticulitis.[employer] Workstation ID: [id number] by: MARQUITA PANG on ThuJul 08, 2017 3:21:52 PM EDTTranscribed by: SHARRI CRAWFORD on ThuJul 08, 2017 3:30:16 PM EDTFinalized by: MARQUITA PANG on ThuJul 08, 2017 3:37:12 PM EDT [facility] Comment on above: Order Comment: Reaso n for exam?:subscapular painInjury/Trauma or Illness?:Illness/OtherHow long have you had these symptoms (acute/chronic)?:AcuteType of Exam?:InitialAdditional signs and symptoms?:cx and low back pain CT Dissectionon 07-08-2017 CT Dissection Interface, [facility] In ji Speech[facility] - 07/08/2017 3:39 PM EDT EXAMINATION: CT DISSECTION, 07/08/2017 HISTORY: ORDERING SYSTEM PROVIDED HISTORY: subscapular pain, TECHNOLOGIST PROVIDED HISTORY: Reason for exam: subscapular pain Illness/Other Encounter Type: Initial Additional signs and symptoms: cx and low back pain ORDERING SYSTEM PROVIDED DIAGNOSIS CODES: COMPARISON: Two-view chest 07/08/2017. TECHNIQUE: Dose reduction techniques were achieved by using automated exposure control and/or adjustment of mA and/or kV according to patient size and/or use of iterative reconstruction technique. 3D volume-rendered images were also created on a separate workstation by the interpreting radiologist and submitted as part of the examination. 5 mm axial images from thoracic inlet through aortic bifurcation without intravenous contrast were obtained. This was followed by 2 mm axial images from thoracic inlet through aortic bifurcation following administration of intravenous contrast. Sagittal, coronal reconstructions were performed. CONTRAST: IOPAMIDOL 76 % INTRAVENOUS SOLUTION - 100 mL, FINDINGS: CT AORTA: On the noncontrast images, there are mild atherosclerotic changes of the thoracic, abdominal aorta; however, there is no obvious intramural hematoma. Post contrast, the caliber of ascending, descending thoracic aorta, abdominal aorta is within normal limits without abnormal dilatation to suggest aneurysm or intimal flaps to suggest dissection. There is a normal-appearing 3-vessel arch. The visceral vessels including celiac artery, superior mesenteric artery, bilateral renal arteries, visualized common iliac arteries are widely patent. CT PULMONARY ANGIOGRAM: There are no filling defects within the visualized superior vena cava, main, left, right pulmonary arteries, lobar, segmental branches. CT CHEST: The visualized thyroid seems normal. The heart size seems normal. There is no significant axillary, hilar, mediastinal adenopathy. Lungs demonstrate no focal abnormalities. CT ABDOMEN: On the noncontrast images, there is no hydronephrosis, nephrolithiasis of the left or the right kidney. There is no ureterolithiasis of the visualized ureters. Post contrast, the liver is homogeneously low in density compatible with fatty liver. There are no focal lesions in the liver. Spleen, gallbladder, pancreas, adrenal glands, kidneys appear normal. The small and large bowel loops are of normal caliber. There are scattered diverticula in the visualized colon. Normal appendix is not seen. There is no obvious retroperitoneal, mesenteric adenopathy. The visualized osseous structures demonstrate degenerative changes of thoracolumbar spine with scoliotic curvature of lumbar spine to the right with multilevel vacuum disc phenomena involving several levels of the lumbar vertebral bodies. IMPRESSION: 1. No dissection, aneurysm of the thoracic aorta. 2. No evidence to suggest pulmonary embolic disease. 3. No acute process in the visualized chest or abdomen. 4. Fatty liver. 5. Diverticulosis without diverticulitis. [employer] Workstation ID: [id number] [facility] CT Dissection 1. No dissection, aneurysm of the thoracic aorta. 2. No evidence to suggest pulmonary embolic disease. 3. No acute process in the visualized chest or abdomen. 4. Fatty liver. 5. Diverticulosis without diverticulitis. [employer] Workstation ID: [id number] [facility] CT Dissection EXAMINATION: CT DISSECTION, 07/08/2017 HISTORY: ORDERING SYSTEM PROVIDED HISTORY: subscapular pain, TECHNOLOGIST PROVIDED HISTORY: Reason for exam: subscapular pain Illness/Other Encounter Type: Initial Additional signs and symptoms: cx and low back pain ORDERING SYSTEM PROVIDED DIAGNOSIS CODES: COMPARISON: Two-view chest 07/08/2017. TECHNIQUE: Dose reduction techniques were achieved by using automated exposure control and/or adjustment of mA and/or kV according to patient size and/or use of iterative reconstruction technique. 3D volume-rendered images were also created on a separate workstation by the interpreting radiologist and submitted as part of the examination. 5 mm axial images from thoracic inlet through aortic bifurcation without intravenous contrast were obtained. This was followed by 2 mm axial images from thoracic inlet through aortic bifurcation following administration of intravenous contrast. Sagittal, coronal reconstructions were performed. CONTRAST: IOPAMIDOL 76 % INTRAVENOUS SOLUTION - 100 mL, FINDINGS: CT AORTA: On the noncontrast images, there are mild atherosclerotic changes of the thoracic, abdominal aorta; however, there is no obvious intramural hematoma. Post contrast, the caliber of ascending, descending thoracic aorta, abdominal aorta is within normal limits without abnormal dilatation to suggest aneurysm or intimal flaps to suggest dissection. There is a normal-appearing 3-vessel arch. The visceral vessels including celiac artery, superior mesenteric artery, bilateral renal arteries, visualized common iliac arteries are widely patent. CT PULMONARY ANGIOGRAM: There are no filling defects within the visualized superior vena cava, main, left, right pulmonary arteries, lobar, segmental branches. CT CHEST: The visualized thyroid seems normal. The heart size seems normal. There is no significant axillary, hilar, mediastinal adenopathy. Lungs demonstrate no focal abnormalities. CT ABDOMEN: On the noncontrast images, there is no hydronephrosis, nephrolithiasis of the left or the right kidney. There is no ureterolithiasis of the visualized ureters. Post contrast, the liver is homogeneously low in density compatible with fatty liver. There are no focal lesions in the liver. Spleen, gallbladder, pancreas, adrenal glands, kidneys appear normal. The small and large bowel loops are of normal caliber. There are scattered diverticula in the visualized colon. Normal appendix is not seen. There is no obvious retroperitoneal, mesenteric adenopathy. The visualized osseous structures demonstrate degenerative changes of thoracolumbar spine with scoliotic curvature of lumbar spine to the right with multilevel vacuum disc phenomena involving several levels of the lumbar vertebral bodies. [facility] EKG 12-leadon 07-08-2017 Atrial Rate 74 BPM MUSE P [place] 21 degrees MUSE P-R Interval 134 ms MUSE Q-T Interval 414 ms MUSE QRS Duration 116 ms MUSE QTC Calculation (Bezet) 459 ms MUSE R [place] -7 degrees MUSE T [place] 15 degrees MUSE Urea nitrogen mass conc Normal sinus rhythm Incomplete right bundle branch block Abnormal ECG Confirmed by DES DYSON MD ([id number]) on 07/08/2017 12:55:08 PM MUSE Ventricular Rate 74 BPM MUSE Lipid Panelon 07-08-2017 Cholesterol in HDL mass conc 46 mg/dL 40 - 59 mg/dL [facility] Comment on above: National Cholesterol Education Program Guidelines: HDL Cholesterol Low: <40 mg/dL Near Optimal: 40-59 mg/dL High: greater than or equal to 60 mg/dL Cholesterol in LDL mass conc 102 mg/dL 10 - 150 mg/dL [facility] Comment on above: National Cholesterol Education Program Guidelines: LDL Cholesterol Optimal: <100 mg/dL Near Optimal/above Optimal: 100-129 mg/dL Borderline High: 130-159 mg/dL High: 160-189 mg/dL Very High: greater than or equal to 190 mg/dL Cholesterol mass conc 183 mg/dL 100 - 199 mg/dL [facility] Comment on above: National Cholesterol Education Program Guidelines: Cholesterol Desirable: <200 mg/dL Borderline High: 200-239 mg/dL High: greater than or equal to 240 mg/dL Cholesterol non HDL mass conc 137 mg/dL [facility] Comment on above: National Cholesterol Education Program Guidelines: NON HDL Cholesterol Desirable: <130 mg/dL Borderline High: 130-159 mg/dL High: 160-189 mg/dL Very High: > or = 190 mg/dL Cholesterol.total/Cho lesterol in HDL mass ratio 4 {ratio} [facility] Comment on above: Female Cholesterol/HDL Ratio: Average risk: 4.4 1/2 average risk: 3.3 2 x average risk: 7.1 Interpretation and review of laboratory results Abnormal [facility] Triglyceride mass conc 174 mg/dL High 30 - 150 mg/dL [facility] Comment on above: National Cholesterol Education Program Guidelines: Triglyceride Normal: <150 mg/dL Borderline High: 150-199 mg/dL High: 200-499 mg/dL Very High: greater than or equal to 500 mg/dL Troponinon 07-08-2017 Interpretation and review of laboratory results Normal [facility] Troponin T.cardiac mass conc ug/L <0.040 ng/mL [facility] Interpretation and review of laboratory results Normal [facility] Troponin T.cardiac mass conc ug/L <0.040 ng/mL [facility] Interpretation and review of laboratory results Normal [facility] Troponin T.cardiac mass conc ug/L <0.040 ng/mL [facility] XR CHEST AP/PA AND LATon XR CHEST AP/PA AND LAT CLINICAL HISTORY:Chest pain.EXAMINATION:PA UPRIGHT AND LATERAL CHEST: 07/08/2017.COMPARISON: 06/03/2017.FINDINGS:Th ere are moderate degenerative changes of thoracic vertebral bodies. The heart size remains normal. The aorta is slightly tortuous, minimally atherosclerotic. No discrete infiltrates, pleural effusions, pulmonary edema or pneumothorax.IMPRESSIO N:No acute cardiopulmonary disease.KKV/brunoWorksta tion ID: [id number] by: MARQUITA PANG on ThuJul 08, 2017 12:56:46 PM EDTTranscribed by: AISLINN JARAMILLO on ThuJul 08, 2017 1:19:06 PM EDTFinalized by: MARQUITA PANG on ThuJul 08, 2017 1:25:55 PM EDT Normal [facility] Comment on above: Order Comment: Reaso n for exam?:cpInjury/Trauma or Illness?:Illness/OtherHow long have you had these symptoms (acute/chronic)?:UnknownHistory of cancer?:noSurgeries, chemotherapy, or radiation?:breast reductionType of Exam?:UnknownAdditional signs and symptoms?:Pt arrives from Urgent Care for eval of chest pain heaviness and pain into her back XR Chest AP/PA and LATon XR Chest AP/PA and LAT Interface, Rad In Fuji Speechq - 07/08/2017 1:28 PM EDT CLINICAL HISTORY: Chest pain. EXAMINATION: PA UPRIGHT AND LATERAL CHEST: 07/08/2017. COMPARISON: 06/03/2017. FINDINGS: There are moderate degenerative changes of thoracic vertebral bodies. The heart size remains normal. The aorta is slightly tortuous, minimally atherosclerotic. No discrete infiltrates, pleural effusions, pulmonary edema or pneumothorax. IMPRESSION: No acute cardiopulmonary disease. KKV/trn Workstation ID: [id number] [facility] revoPT [facility] XR Chest AP/PA and LAT No acute cardiopulmonary disease. KKV/trn Workstation ID: [id number] [facility] revoPT [facility] XR Chest AP/PA and LAT CLINICAL HISTORY: Chest pain. EXAMINATION: PA UPRIGHT AND LATERAL CHEST: 07/08/2017. COMPARISON: 06/03/2017. FINDINGS: There are moderate degenerative changes of thoracic vertebral bodies. The heart size remains normal. The aorta is slightly tortuous, minimally atherosclerotic. No discrete infiltrates, pleural effusions, pulmonary edema or pneumothorax. [facility]ITAL[facility] [employer] [facility] Vital Signs Date Time Vital Sign Value Performing Clinician Facility 05-10-2025 13:06-0400 Body height 160.02 cm Out [facility] 05-10-2025 13:06-0400 Body mass index (BMI) [Ratio] 27.6 kg/m2 Out [facility] 05-10-2025 13:06-0400 Body weight 70.76 kg [facility] 05-10-2025 13:06-0400 Diastolic blood pressure 74 mm[Hg] [facility] 05-10-2025 13:06-0400 Heart rate 96 /min [facility] 05-10-2025 13:06-0400 Respiratory rate 16 /min Out [facility] 05-10-2025 13:06-0400 Systolic blood pressure 132 mm[Hg] [facility] 06-08-2024 12:15-0400 Heart rate 64 /min DR MEHUL GIBBONS MD [facility] 06-08-2024 10:37-0400 Body temperature 97.88 [degF] DR MEHUL GIBBONS MD [facility] 06-08-2024 10:37-0400 Diastolic Blood Pressure Non-Invasive 65 mm[Hg] DR MEHUL GIBBONS MD [facility] 06-08-2024 10:37-0400 Heart rate 52 /min DR MEHUL GIBBONS MD [facility] 06-08-2024 10:37-0400 Respiratory rate 18 /min DR MEHUL GIBBONS MD [facility] 06-08-2024 10:37-0400 Systolic Blood Pressure Non-Invasive 132 mm[Hg] DR MEHUL GIBBONS MD [address] [place] [id number] 06-08-2024 07:37-0400 Heart rate 50 /min DR MEHUL GIBBONS MD [address] [place] [id number] 06-08-2024 06:56-0400 Body temperature 97.88 [degF] DR MEHUL GIBBONS MD [address] [place] [id number] 06-08-2024 06:56-0400 Diastolic Blood Pressure Non-Invasive 64 mm[Hg] DR MEHUL GIBBONS MD [address] [place] [id number] 06-08-2024 06:56-0400 Respiratory rate 18 /min DR MEHUL GIBBONS MD [facility] 06-08-2024 06:56-0400 Systolic Blood Pressure Non-Invasive 113 mm[Hg] DR MEHUL GIBBONS MD [facility] 06-08-2024 03:41-0400 Body temperature 97.88 [degF] DR MEHUL GIBBONS MD [address] [place] [id number] 06-08-2024 03:41-0400 Diastolic Blood Pressure Non-Invasive 68 mm[Hg] DR MEHUL GIBBONS MD [address] [place] [id number] 06-08-2024 03:41-0400 Heart rate 54 /min DR MEHUL GIBBONS MD [facility] 06-08-2024 03:41-0400 Reason For Taking VItal Signs DR MEHUL GIBBONS MD [facility] 06-08-2024 03:41-0400 Respiratory rate 18 /min DR MEHUL GIBBONS MD [address] [place] [id number] 06-08-2024 03:41-0400 Systolic Blood Pressure Non-Invasive 123 mm[Hg] DR MEHUL GIBBONS MD [address] [place] [id number] 06-07-2024 22:26-0400 Heart rate 52 /min DR MEHUL GIBBONS MD [address] [place] [id number] 06-07-2024 22:26-0400 Reason For Taking VItal Signs DR MEHUL GIBBONS MD [address] 06-07-2024 19:01-0400 Heart rate 57 /min DR MEHUL GIBBONS MD [address] 06-07-2024 19:01-0400 Reason For Taking VItal Signs DR MEHUL GIBBONS MD [address] [place] [id number] 06-07-2024 14:01-0400 Body height [address] MEHUL GIBBONS MD [address] [place] [id number] 06-07-2024 14:01-0400 Body weight [address] MEHUL GIBBONS MD [address] [place] [id number] 06-07-2024 14:01-0400 Body weight 30.41 kg/m2 DR MEHUL GIBBONS MD [address] [place] [id number] 06-06-2024 18:12-0400 Blood Pressure Cuff Size DR MEHUL GIBBONS MD [address] [place] [id number] 06-06-2024 18:12-[address] MEHUL GIBBONS MD [address] [place] [id number] 06-06-2024 18:12-[address] MEHUL GIBBONS MD [address] [place] [id number] 06-06-2024 14:27-0400 Blood Pressure Cuff Size DR MEHUL GIBBONS MD [address] [place] [id number] 06-06-2024 14:27-[address] MEHUL GIBBONS MD [address] [place] [id number] 06-06-2024 14:27-[address] MEHUL GIBBONS MD [address] [place] [id number] 06-06-2024 12:30-0400 Mean blood pressure 52 mm[Hg] DR MEHUL GIBBONS MD [address] 06-06-2024 06:36-0400 Mean blood pressure 75 mm[Hg] DR MEHUL GIBBONS MD [address] 06-06-2024 04:06-0400 Body height [address] MEHUL GIBBONS MD [address] [place] [id number] 06-06-2024 04:06-0400 Body weight [address] MEHUL GIBBONS MD [address] 06-06-2024 04:06-0400 Body weight 30.41 kg/m2 DR MEHUL GIBBONS MD [address] [place] [id number] 06-05-2024 12:46-0400 Heart rate 81 /min DR MEHUL GIBBONS MD [address] [place] [id number] 06-05-2024 10:33-0400 Body temperature 99.32 [degF] DR MEHUL GIBBONS MD [address] [place] [id number] 06-05-2024 10:33-0400 Heart rate 82 /min DR MEHUL GIBBONS MD [address] 06-02-2024 15:15-0400 Diastolic Blood Pressure Non-Invasive 96 mm[Hg] DR TED BRIDGES MD [facility] 06-02-2024 15:15-0400 Heart rate 64 /min DR TED BRIDGES MD [address] [place] [id number] 06-02-2024 15:15-0400 Respiratory rate 18 /min DR TED BRIDGES MD [address] [place] [id number] 06-02-2024 15:15-0400 Systolic Blood Pressure Non-Invasive 120 mm[Hg] DR TED BRIDGES MD [address] [place] [id number] 06-02-2024 06:25-0400 Body weight 30.43 kg/m2 DR TED BRIDGES MD [address] [place] [id number] 06-02-2024 06:14-0400 Body height [address] TED BRIDGES MD [address] [place] [id number] 06-02-2024 06:14-0400 Body temperature 98.78 [degF] DR TED BRIDGES MD [address] [place] [id number] 06-02-2024 06:14-0400 Body weight 77.[address] TED BRIDGES MD [address] [place] [id number] 06-02-2024 06:14-0400 Body weight 30.43 kg/m2 DR TED BRIDGES MD [address] [place] [id number] 06-02-2024 06:14-0400 Diastolic Blood Pressure Non-Invasive 79 mm[Hg] DR TED BRIDGES MD [address] [place] [id number] 06-02-2024 06:14-0400 Heart rate 74 /min DR TED BRIDGES MD [address] [place] [id number] 06-02-2024 06:14-0400 Respiratory rate 16 /min DR TED BRIDGES MD [address] [place] [id number] 06-02-2024 06:14-0400 Systolic Blood Pressure Non-Invasive 148 mm[Hg] DR TED BRIDGES MD [address] [place] [id number] 09-01-2021 23:40-0400 Diastolic blood pressure 89 mm[Hg] DR MICHELLE NICHOLS MD [facility] 09-01-2021 23:40-0400 Heart rate 70 /min DR MICHELLE NICHOLS MD [facility] 09-01-2021 23:40-0400 Respiratory rate 18 /min DR MICHELLE NICHOLS MD [facility] 09-01-2021 23:40-0400 Systolic blood pressure 149 mm[Hg] DR MICHELLE NICHOLS MD [facility] 09-01-2021 20:43-0400 Diastolic blood pressure 107 mm[Hg] DR MICHELLE NICHOLS MD [facility] 09-01-2021 20:43-0400 Heart rate 68 /min DR MICHELLE NICHOLS MD [facility] 09-01-2021 20:43-0400 Respiratory rate 17 /min DR MICHELLE NICHOLS MD [facility] 09-01-2021 20:43-0400 Systolic blood pressure 157 mm[Hg] DR MICHELLE NICHOLS MD [facility] 09-01-2021 19:36-0400 Body temperature 98.24 [degF] DR MICHELLE NICHOLS MD [facility] 09-01-2021 19:36-0400 Body weight 77.[address] MICHELLE NICHOLS MD [facility] 09-01-2021 19:36-0400 Diastolic blood pressure 97 mm[Hg] DR MICHELLE NICHOLS MD [facility] 09-01-2021 19:36-0400 Heart rate 80 /min DR MICHELLE NICHOLS MD [facility] 09-01-2021 19:36-0400 Respiratory rate 18 /min DR MICHELLE NICHOLS MD [facility] 09-01-2021 19:36-0400 Systolic blood pressure 192 mm[Hg] DR MICHELLE NICHOLS MD [facility] 06-13-2021 14:16-0400 SaO2% (BldA) [Mass fraction] 96 % Mone Madeleine PA-C Work Phone: [facility] 06-13-2021 13:36-0400 Body height 162.6 cm Mone Madeleine PA-C Work Phone: [facility] 06-13-2021 13:36-0400 Body mass index (BMI) [Ratio] 28.67 kg/m2 Mone Madeleine PA-C Work Phone: [facility] 06-13-2021 13:36-0400 Body temperature 98.8 [degF] Mone Madeleine PA-C Work Phone: [facility] 06-13-2021 13:36-0400 Body weight 75.75 kg Mone Madeleine PA-C Work Phone: [facility] 06-13-2021 13:36-0400 Diastolic blood pressure 61 mm[Hg] Mone Madeleine PA-C Work Phone: [facility] 06-13-2021 13:36-0400 Heart rate 73 /min Mone Madeleine PA-C Work Phone: [facility] 06-13-2021 13:36-0400 Respiratory rate 17 /min Mone Madeleine PA-C Work Phone: [facility] 06-13-2021 13:36-0400 Systolic blood pressure 107 mm[Hg] Mone Madeleine PA-C Work Phone: [facility] 05-29-2021 13:38-0400 Body height 165.1 cm Nemesio Tr PA-C Work Phone: [facility] 05-29-2021 13:38-0400 Body mass index (BMI) [Ratio] 27.96 kg/m2 Nemesio Tr PA-C Work Phone: [facility] 05-29-2021 13:38-0400 Body weight 76.2 kg Nemesio Tr PA-C Work Phone: [facility] 05-13-2021 15:11-0400 Body height 165.1 cm Juan Pablo Diopado PA-C Work Phone: [facility] 05-13-2021 15:11-0400 Body mass index (BMI) [Ratio] 28.29 kg/m2 Juan Pablo Freado PA-C Work Phone: [facility] 05-13-2021 15:11-0400 Body temperature 98.91 [degF] Juan Pablo Freado PA-C Work Phone: [facility] 05-13-2021 15:11-0400 Body weight 77.11 kg Juan Pablo Freado PA-C Work Phone: [facility] 05-13-2021 15:11-0400 Diastolic blood pressure 64 mm[Hg] Juan Pablo Jadonado PA-C Work Phone: [facility] 05-13-2021 15:11-0400 Heart rate 99 /min Juan Pablo Freado PA-C Work Phone: [facility] 05-13-2021 15:11-0400 Respiratory rate 16 /min Juan Pablo Freado PA-C Work Phone: [facility] 05-13-2021 15:11-0400 SaO2% (BldA) [Mass fraction] 95 % Juan Pablo Freado PA-C Work Phone: [facility] 05-13-2021 15:11-0400 Systolic blood pressure 104 mm[Hg] Juan Pablo Diophope PA-C Work Phone: [facility] 04-24-2021 09:42-0400 Body temperature 99.9 [degF] Mone Madeleine PA-C Work Phone: [facility] 04-24-2021 09:42-0400 Diastolic blood pressure 79 mm[Hg] Mone Madeleine PA-C Work Phone: [facility] 04-24-2021 09:42-0400 Heart rate 94 /min Mone Madeleine PA-C Work Phone: [facility] 04-24-2021 09:42-0400 Respiratory rate 16 /min Mone Madeleine PA-C Work Phone: [facility] 04-24-2021 09:42-0400 SaO2% (BldA) [Mass fraction] 95 % Mone Madeleine PA-C Work Phone: [facility] 04-24-2021 09:42-0400 Systolic blood pressure 125 mm[Hg] Mone Madeleine PA-C Work Phone: [facility] 04-24-2021 09:36-0400 Body height 165.1 cm Mone Madeleine PA-C Work Phone: [facility] 04-24-2021 09:36-0400 Body mass index (BMI) [Ratio] 28.96 kg/m2 Mone Madeleine PA-C Work Phone: [facility] 04-24-2021 09:36-0400 Body weight 78.93 kg Mone Madeleine PA-C Work Phone: [facility] 07-01-2018 09:13-0400 BMI (Body Mass Index) 34.33 kg/m2 Tiny Quiroz [facility] 07-01-2018 09:13-0400 Body Temperature 99.7 [degF] Tiny Quiroz [facility] 07-01-2018 09:13-0400 BP Diastolic 85 mm[Hg] Tiny Quiroz [facility] 07-01-2018 09:13-0400 BP Systolic 129 mm[Hg] Tiny Quiroz [facility] 07-01-2018 09:13-0400 Height 162.6 cm Tiny Quiroz [facility] 07-01-2018 09:13-0400 Pulse (Heart Rate) 90 /min Tiny Quiroz [facility] 07-01-2018 09:13-0400 Pulse Oximetry 94 % Tiny Quiroz [facility] 07-01-2018 09:13-0400 Weight 90.72 kg Tiny Quiroz [facility] 08-18-2017 09:12-0400 BMI (Body Mass Index) 34.16 kg/m2 [facility] Work Phone: 08-18-2017 09:12-0400 Body Temperature 98.1 [degF] [facility] Work Phone: 08-18-2017 09:12-0400 BP Diastolic 76 mm[Hg] [facility] Work Phone: 08-18-2017 09:12-0400 BP Systolic 110 mm[Hg] [facility] Work Phone: 08-18-2017 09:12-0400 Height 162.6 cm [facility] Work Phone: 08-18-2017 09:12-0400 Pulse (Heart Rate) 79 /min [facility] Work Phone: 08-18-2017 09:12-0400 Pulse Oximetry 94 % [facility] Work Phone: 08-18-2017 09:12-0400 Respiratory Rate 16 /min [facility] Work Phone: 08-18-2017 09:12-0400 Weight 90.27 kg [facility] Work Phone: 07-09-2017 12:05-0400 Body Temperature 97.9 [degF] Danielle Baron [facility] Work Phone: 07-09-2017 12:05-0400 BP Diastolic 73 mm[Hg] Danielle Baron [facility] Work Phone: 07-09-2017 12:05-0400 BP Systolic 117 mm[Hg] Danielle Baron [employer] Work Phone: 07-09-2017 12:05-0400 Pulse (Heart Rate) 69 /min Danielle Baron [facility] Work Phone: 07-09-2017 12:05-0400 Pulse Oximetry 93 % Danielle Baron [facility] Work Phone: 07-09-2017 12:05-0400 Respiratory Rate 16 /min Danielle Baron [facility] Work Phone: 07-08-2017 11:46-0400 BMI (Body Mass Index) 34.84 kg/m2 Danielle Baron [employer] Work Phone: 07-08-2017 11:46-0400 Height 162.6 cm Danielle Baron [facility] Work Phone: 07-08-2017 11:46-0400 Weight 92.08 kg Danielle Baron [facility] Work Phone: 07-08-2017 10:40-0400 BMI (Body Mass Index) 35.07 kg/m2 Devika Palomo [facility] Work Phone: 07-08-2017 10:40-0400 Body Temperature 98.6 [degF] Devika Palomo [facility] Work Phone: 07-08-2017 10:40-0400 BP Diastolic 85 mm[Hg] Devika Hernandezta [facility] Work Phone: 07-08-2017 10:40-0400 BP Systolic 144 mm[Hg] Devikaleah Hernandezta [employer] Work Phone: 07-08-2017 10:40-0400 Height 160 cm Devika Palomo [employer] Work Phone: 07-08-2017 10:40-0400 Pulse (Heart Rate) 77 /min Devika Hernandezta [facility] Work Phone: 07-08-2017 10:40-0400 Pulse Oximetry 96 % Devika Palomo [facility] Work Phone: 07-08-2017 10:40-0400 Respiratory Rate 16 /min Devika Palomo [facility] Work Phone: 07-08-2017 10:40-0400 Weight 89.81 kg Devika Palomo [facility] Work Phone: Encounters Encounter Date Encounter Type Care Provider Facility Start: 06-06-2025 ambulatory No Primary Car e Physician Facility:[facility] Start: 05-30-[address] ANGELA REYES MD Facility:[facility] Start: 05-29-[address] YU MUNGUIA MD Facility:[facility] Start: 05-10-2025 End: 05-10-[address] Blake Negron MD [facility] Work Phone: Start: 05-10-2025 End: 05-10-2025 ambulatory Out of Town Doctor [facility] Work Phone: Start: 04-11-2025 End: 04-11-[address] ANGELA STEPHENS MD Facility:A Start: 03-31-2025 End: 03-31-[address] ANGELA STEPHENS MD Facility:A Start: 03-22-2025 End: 03-22-[address] ANGELA STEPHENS MD Facility:A Start: 03-08-2025 End: 03-08-[address] ANGELA STEPHENS MD Facility:A Start: 02-20-2025 End: 02-20-2025 ambulatory VINOD DESHPANDE PA-C Facility:A Start: 02-20-2025 End: 02-20-2025 ambulatory VINOD DESHPANDE PA-C Facility:A Start: 10-21-2024 End: 10-21-[address] ANGELA STEPHENS MD Facility:A Start: 09-26-2024 End: 09-26-[address] ANGELA STEPHENS MD Facility:[facility] Start: 09-26-2024 End: 09-26-[address] TED BRIDGES MD [facility] Start: 09-23-[address] ANGELA REYES MD Facility:A Start: 09-22-2024 End: 09-22-[address] ANGELA STEPHENS MD Facility:A Start: 09-16-2024 End: 09-16-[address] ANGELA STEPHENS MD Facility:A Start: 08-31-[address] ANGELA REYES MD Facility:A Start: 08-30-2024 End: 08-30-[address] ANGELA STEPHENS MD Facility:A Start: 08-26-2024 End: 08-26-[address] ANGELA STEPHENS MD Facility:A Start: 08-17-2024 End: 08-17-[address] ANGELA STEPHENS MD Facility:A Start: 07-25-2024 End: 07-25-[address] ANGELA STEPHENS MD Facility:A Start: 07-07-2024 End: 07-07-[address] ANGELA STEPHENS MD Facility:A Start: 06-22-2024 End: 06-22-[address] ANGELA STEPHENS MD Facility:A Start: 06-21-2024 End: 11-15-2024 ambulatory SERGEY CONRAD MD Facility:A Start: 06-15-2024 End: 06-15-2024 ambulatory TSERING AMBRIZ APRN-TAPEMAN Facility:A Start: 06-15-2024 End: 06-15-[address] ANGELA STEPHENS MD Facility:A Start: 06-10-2024 End: 06-10-[address] ANGELA STEPHENS MD Facility:A Start: 06-05-2024 End: 06-08-2024 Evaluation and management of inpatient DR MEHUL GIBBONS MD [facility] Start: 06-02-2024 End: 06-02-[address] ANGELA STEPHENS MD Facility:A Start: 06-02-2024 End: 06-02-[address] TED BRIDGES MD [facility] Start: 05-31-2024 End: 05-31-2024 ambulatory EARLENE REYNOLDS PA-C Facility:A Start: 05-12-2024 End: 05-12-[address] ANGELA STEPHENS MD Facility:A Start: 04-29-2024 End: 04-29-[address] ANGELA STEPHENS MD Facility:A Start: 04-29-2024 End: 04-29-[address] TED BRIDGES MD Facility:A Start: 04-29-2024 End: 04-29-[address] TED BRIDGES MD [facility] Start: 03-29-2024 End: 03-29-2024 ambulatory ROSA RIBERA MD Facility:A Start: 03-29-2024 End: 03-29-[address] TED BIRDGES MD [facility] Start: 03-15-2024 End: 03-15-[address] TED BRIDGES MD Facility:A Start: 02-23-2024 End: 02-23-[address] ANGELA STEPHENS MD Facility:A Start: 02-18-2024 End: 02-18-[address] ANGELA STEPHENS MD [facility] Start: 02-16-2024 End: 02-16-[address] ANGELA STEPHENS MD Facility:A Start: 09-01-2021 End: 09-01-2021 Emergency department patient visit DR MICHELLE NICHOLS MD [facility] Start: 06-13-2021 End: 06-13-2021 ambulatory PHYSICIAN [facility] Start: 06-13-2021 End: 06-13-2021 Office outpatient visit 25 minutes Mone Salvador PA-C Work Phone: [facility] Comment on above: LRTI (lower respirat ory tract infection) (Primary Dx); Suspected COVID-19 virus infection; Cough Start: 05-29-2021 End: 06-02-2021 ambulatory NEMESIO CHIN [facility] Start: 05-29-2021 End: 05-29-2021 Office outpatient new 30 minutes Nemesio GuadarramaTr PA-C Work Phone: [facility] Comment on above: 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 Start: 05-13-2021 End: 05-14-2021 ambulatory JUAN PABLO VELASQUEZ [facility] Start: 05-13-2021 End: 05-13-2021 Subsequent hospital visit by physician Juan Pablo Velasquez PA-C Work Phone: [facility] Comment on above: Arrived Start: 05-13-2021 End: 05-13-2021 Office outpatient visit 25 minutes Juan Pablo RAZOC Work Phone: [facility] Comment on above: Left wrist injury, i nitial encounter (Primary Dx); Fall, initial encounter Start: 04-24-2021 End: 04-24-2021 ambulatory PHYSICIAN NO [facility] Start: 04-24-2021 End: 04-24-2021 Office outpatient visit 25 minutes Mone Salvador PA-C Work Phone: [facility] Comment on above: LRTI (lower respirat ory tract infection) (Primary Dx); Suspected COVID-19 virus infection Start: 12-11-2020 End: 12-11-2020 Orders Only Praveen Sommer Work Phone: [facility] Start: 07-01-2018 End: 07-01-2018 Office outpatient visit 25 minutes Tiny Quiroz Work Phone: [facility] Start: 08-18-2017 End: 08-18-2017 Office outpatient visit 15 minutes Ramón Hanna Work Phone: [facility] Comment on above: Viral upper respirat ory tract infection (Primary Dx) Start: 07-09-2017 Ambulatory CHATHAM [facility] Start: 07-08-2017 Emergency department patient visit CHATHAM [facility] Start: 07-08-2017 Emergency department patient visit DANIELLE [facility] Start: 07-08-2017 End: 07-09-2017 Ambulatory PHYSICIAN NO [facility] Start: 07-08-2017 End: 07-09-2017 Emergency department patient visit Danielle Baron Work Phone: [facility] Comment on above: Other chest pain (Pr imary Dx);Labile blood pressure Start: 07-08-2017 Patient encounter Devika Lopez kwesi Palomo Work Phone: [facility] Procedures Date Procedure Procedure Detail Performing Clinician Start: 06-07-[address] DYLON BRIDGES MD Comment on above: 02/23/2024 Summary: 1. Left ventricle: The cavity size is normal. Wall thickness is mildly increased. Systolic function is normal. The estimated ejection fraction is 60-65%. Wall motion is normal; there are no regional wall motion abnormalities. Grade II diastolic dysfunction. 2. Aortic valve: Thickening, consistent with sclerosis. There is mild regurgitation. 3. Mitral valve: The annulus is moderately calcified. There is mild regurgitation. 4. Right ventricle: Systolic pressure is moderately increased. The RV systolic pressure by Doppler is 58 mm Hg. 5. Tricuspid valve: There is mild-moderate regurgitation. 6. Right atrium: The estimated right atrial pressure is 3 mm Hg. (06/07/24) Summary: 1. Left ventricle: The cavity size is normal. Wall thickness is normal. Systolic function is normal. The estimated ejection fraction is 55-60%. Although no diagnostic regional wall motion abnormality is identified, this possibility cannot be completely excluded on the basis of this study. 2. Mitral valve: The annulus is mildly to moderately calcified. 3. Left atrium: The atrium is dilated. Start: 06-02-[address] TED BRIDGES MD Comment on above: SUMMARY: 1. Condition 1 - LV ohbwqrzl=095/6, 22 mm Hg. dP/vh=7446 mm Hg/s. 2. Left ventricle: Systolic function is normal. The estimated ejection fraction is 60-65%. 3. LAD: Mid-vessel lesion: There is an 80% stenosis. IMPRESSIONS: 1. The study demonstrates severe coronary artery disease. 2. DFR/FFR LAD Start: 03-29-20[address] [employer] [address] system (physical object) DR TED BRIDGES MD Comment on above: IMPRESSION: 1. No stress-induced reversible perfusion abnormality is seen. 2. Cardiac systolic function is normal with estimated ejection fraction of 58 %. Start: 02-23-[address] DYLON BRIDGES MD Comment on above: 02/23/2024 Summary: 1. Left ventricle: The cavity size is normal. Wall thickness is mildly increased. Systolic function is normal. The estimated ejection fraction is 60-65%. Wall motion is normal; there are no regional wall motion abnormalities. Grade II diastolic dysfunction. 2. Aortic valve: Thickening, consistent with sclerosis. There is mild regurgitation. 3. Mitral valve: The annulus is moderately calcified. There is mild regurgitation. 4. Right ventricle: Systolic pressure is moderately increased. The RV systolic pressure by Doppler is 58 mm Hg. 5. Tricuspid valve: There is mild-moderate regurgitation. 6. Right atrium: The estimated right atrial pressure is 3 mm Hg. Start: 06-13-2021 Sars-cov-2 detection by dna/rna Mone Salvador PA-C Work Phone: Start: 05-13-2021 Radex wrist complete minimum 3 views Juan Pablo Velasquez PA-C Work Phone: Start: 04-24-2021 COVID-19/INFLUENZA O RDER ALGORITHM Mone Salvador PA-C Work Phone: Start: 04-24-2021 Sars-cov-2 detection by dna/rna Mone Sanders Madeleine CULP Work Phone: Repair of shoulder DR ANGELA STEPHENS MD Small intestine excision DR ANGELA STEPHENS MD Plan of Treatment Date Care Activity Detail Author Start: 05-10-2025 Evaluation of diagnostic study results [facility] Start: 07-17-2021 Influenza vaccination [facility] Start: 07-17-2020 Influenza vaccination given Sequential Influenza Vaccine (#1) [facility] Start: 07-17-2018 Influenza vaccination SEQUENTIAL INFLUENZA VACCINE (#1) [facility] Start: 07-17-2017 Influenza vaccination SEQUENTIAL INFLUENZA VACCINE (#1) [facility] Work Phone: Start: 07-17-2017 SEQUENTIAL INFLUENZA VACCINE (#1) SEQUENTIAL INFLUENZA VACCINE (#1) [facility] Work Phone: Start: 2010 Fall risk assessment Falls Risk Assessment [facility] Start: 2010 Pneumococcal vaccination PNEUMOCOCCAL VACCINE AGE 65+ (1 of 2 - PCV13) [facility] Work Phone: Start: 2010 PNEUMOCOCCAL VACCINE AGE 65+ (1 of 2 - PCV13) PNEUMOCOCCAL VACCINE AGE 65+ (1 of 2 - PCV13) [facility] Work Phone: Start: 2010 Pneumococcal Vaccine: Age 65+ (1 of 1 - PPSV23) Pneumococcal Vaccine: Age 65+ (1 of 1 - PPSV23) [facility] Start: 2005 Zoster vacc, sc ZOSTER VACCINE [facility] Work Phone: Start: 1995 Administration of herpes zoster vaccine Zoster Vaccines (1 of 2) [facility] Start: 1995 Screening for malignant neoplasm of colon [facility] Start: 1985 Screening for malignant neoplasm of breast Mammogram [facility] Start: 1985 Screening mammography Mammogram [facility] Start: 1963 Hepatitis C antibody, confirmatory test Hepatitis C Screening [facility] Start: 1963 Hepatitis C screening Hepatitis C Screening [facility] Start: 1961 COVID-19 Vaccine (1 of 2) COVID-19 Vaccine (1 of 2) [facility] Start: 10-05-1957 Adolescent depression screening assessment Depression Screening (PHQ9) [facility] Start: 1957 COVID-19 Vaccine (1) COVID-19 Vaccine (1) [facility] Start: 1957 Depression screening using PHQ-9 (Patient Health Questionnaire 9) score Depression Screening (PHQ9) [facility] Start: 1948 History and physical examination, annual for health maintenance Wellness Visit [facility] Start: 1945 Colonoscopy COLONOSCOPY [facility] Work Phone: Start: 1945 Fall risk assessment Falls Risk Assessment [facility] Start: 1945 Screening mammography Mammogram [facility] Start: 1945 Colonoscopy COLONOSCOPY [facility] Work Phone: Start: 1945 End: 1945 DEXA SCAN DEXA SCAN [facility] Work Phone: Start: 1945 End: 1945 HEPATITIS C SCREENING HEPATITIS C SCREENING [facility] Work Phone: Start: 1945 Screening colonoscopy COLONOSCOPY [facility] Work Phone: Start: 1945 End: 1945 Screening for osteoporosis DEXA SCAN [facility] Work Phone: Start: 1945 End: 1945 TETANUS EVERY 10 YR TETANUS EVERY 10 YR [facility] Work Phone: Start: 1945 End: 1945 Tetanus vaccination [facility] Work Phone: Immunizations Immunization Date Immunization Notes Care Provider Fa cility 08-17-2024 influenza, high dose seasonal, preservative-free; Translations: [Fluad PF Prefilled Syringe ] DR TED BRIDGES MD [facility] Comment on above: Result Comment: logan essed by PD 08-25-2023 RSV vaccine preF3, recombinant DR ANGELA STEPHENS MD [facility] 08-04-2023 influenza virus vaccine, unspecified formulation DR ANGELA STEPHENS MD [facility] 09-01-2022 influenza virus vaccine, unspecified formulation DR ANGELA STEPHENS MD [facility] 08-27-2021 SARS-CoV-2 mRNA (tozinameran) vaccine DR ANGELA STEPHENS MD [facility] 08-15-2021 influenza virus vaccine, unspecified formulation DR ANGELA STEPHENS MD [facility] 01-22-2021 Pfizer SARS-CoV-2 Vaccination Nemesio Chin PA-C Work Phone: [facility] 12-23-2020 Pfizer SARS-CoV-2 Vaccination Nemesio Chin PA-C Work Phone: [facility] Payers Date Payer Category Payer Self-pay 2023 Medicare [id number] 2023 Private Health Insurance [id number] 2016 Unknown [id number] [id number] 3 2016 Unknown AARP AARP [facility] [id number] 2016-Present [id number] .[id number] 2010 Medicare [id number] 2.16.840.1.865657.3.249.1 3 2010 Medicare MEDICARE MEDICAR E PART A & B [id number] 2010-Present [place] [id number] 2010 Medicare MEDICARE MEDICAR E PART A & B [id number] 2010-Present [place] [id number] .[id number] 2010 Medicare [id number] 1945 Unknown [id number] 2.16.840.1.805112.3.579.2 .903 1945 Unknown [id number] 2.16.840.1.410441.3.579.2 .903 1945 Unknown [id number] 2.16.840.1.923273.3.579.2 .903 1945 Unknown [id number] 2.16.840.1.768903.3.579.2 .903 1945 Unknown [id number] 2.16.840.1.085528.3.579.2 .903 1945 Unknown [id number] 2.16.840.1.246099.3.579.2 .903 1945 Unknown [id number] 2.16.840.1.045409.3.579.2 .627 1945 Unknown [id number] 2.16.840.1.916046.3.579.2 .62 1945 Unknown [id number] 2.16.840.1.800594.3.579.2 .627 1945 Unknown [id number] 2.16.840.1.427754.3.579.2 627 1945 Unknown [id number] 2.16.840.1.536844.3.579.2 .627 1945 Unknown [id number] 2.16.840.1.799843.3.579.2 .627 1945 Unknown [id number] 2.16.840.1.349332.3.579.2 .627 1945 Unknown [id number] 2.16.840.1.864011.3.579.2 .627 1945 Unknown [id number] 2.16.840.1.448219.3.579.2 .627 1945 Unknown [id number] 2.16.840.1.880480.3.579.2 .627 1945 Unknown [id number] 2.16.840.1.091856.3.579.2 .627 1945 Unknown [id number] 2.16.840.1.046942.3.579.2 .627 1945 Unknown [id number] 2.16.840.1.215223.3.579.2 .627 1945 Unknown [id number] 2.16.840.1.365478.3.579.2 .627 1945 Unknown [id number] 2.16.840.1.133079.3.579.2 .1945 Unknown [id number] 2.16.840.1.228780.3.579.2 7 1945 Unknown [id number] 2.16.840.1.931184.3.579.2 .1945 Unknown [id number] 2.16.840.1.352147.3.579.2 .627 1945 Unknown [id number] 2.16.840.1.450463.3.579.2 7 1945 Unknown [id number] 2.16.840.1.082824.3.579.2 .7 1945 Unknown [id number] 2.16.840.1.075586.3.579.2 .1945 Unknown [id number] 2.16.840.1.331983.3.579.2 .627 1945 Unknown [id number] 2.16.840.1.654522.3.579.2 .1945 Unknown [id number] 2.16.840.1.308328.3.579.2 .627 1945 Unknown [id number] 2.16.840.1.117925.3.579.2 62 1945 Unknown [id number] 2.16.840.1.269645.3.579.2 .627 1945 Unknown [id number] 2.16.840.1.420418.3.579.2 .627 1945 Unknown [id number] 2.16.840.1.864563.3.579.2 .627 1945 Unknown [id number] 2.16.840.1.714367.3.579.2 .627 1945 Unknown [id number] 2.16.840.1.984300.3.579.2 .627 1945 Unknown [id number] 2.16.840.1.810120.3.579.2 .627 1945 Unknown [id number] 2.840.1.282842.3.579.2 .627 1945 Unknown [id number] 2.16840.1.527924.3.579.2 .627 1945 Unknown [id number] 2.16.840.1.820926.3.579.2 .627 1945 Unknown [id number] 2.16.840.1.076169.3.579.2 .627 1945 Unknown [id number] 2.840.1.061810.3.579.2 .627 1945 Unknown [id number] 2.840.1.007051.3.579.2 .627 Private Health Insurance [employer] L [id number] Unknown [id number] 2.16840.1.638081.3.579.2 .462 Unknown [id number] 2.840.1.641760.3.579.2 .462 Social History Date Type Detail Facility Start: 07-08-2017 End: 04-12-2025 Tobacco smoking status NHIS Never smoker [facility] Start: 1945 Sex Assigned At Not on file [employer] Work Phone: Start: 07-01-2018 End: 06-14-2021 Tobacco use and exposure Never used [facility] Start: 07-01-2018 End: 06-14-2021 Alcohol intake Current non-drinker of alcohol (finding) [facility] Exposure to SARS-CoV -2 (event) Not sure [facility] Sex Assigned At Sex [facility] Start: 1945 Sex Assigned At Female [facility] Functional Status Date Assessment Result Facility 06-08-2024 Functional Status 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 Wali rosales q2hrs Performed 7am-3pm [facility] 06-08-2024 Functional Status Room check performed [facility] 06-08-2024 Functional Status Skin Care Prod uct Applied Skin moisturizer [facility] 06-08-2024 Functional Status [facility] 06-08-2024 Functional Status [facility] 06-08-2024 Functional Status [facility] 06-07-2024 Functional Status Done [facility] 06-07-2024 Functional Status Lunch Percent 60 [facility] 06-07-2024 Functional Status [facility] 06-07-2024 Functional Status [facility] 06-07-2024 Functional Status [facility] 06-06-2024 Functional Status [facility] 06-06-2024 Functional Status [facility] 06-06-2024 Functional Status [facility] 06-06-2024 Functional Status [facility] 06-06-2024 Functional Status Independent [facility] 06-06-2024 Functional Status Sensory Deficits None A [facility] 06-06-2024 Functional Status Supervision [facility] 06-02-2024 Functional Status Awake, Resting, Up ad ina, Up to bathroom [facility] 06-02-2024 Functional Status [facility] 06-02-2024 Functional Status Maintained, More than 8 hours [facility] Mental Status Date Assessment Result Facility 06-08-2024 Mental Status Orientation Oriented x 4 [facility] 06-08-2024 Mental Status [facility] 06-08-2024 Mental Status [facility] 06-06-2024 Mental Status Orientation Assessment Orie nted x 4 [facility] 06-02-2024 Mental Status Orientation Orie nted x 4, Follows simple commands [facility] 06-02-2024 Mental Status [facility] 06-02-2024 Mental Status [facility] Clinical Notes 04-24-2021 to 09-26-2024 Note Date & Type Note Facility 09-26-2024 Note Exam Date Time Procedure Performing Provider Status 09/26/24 3:36 PM Echocardiogram, Adult - CV Auth (Verified) [facility] 07-24-2024 Hospital Discharge instructions Patient Education 06/08/2024 13:10:00 Heart Failure, Diagnosis Heart Failure, Diagnosis Heart failure is a condition in which the heart has trouble pumping blood because it has become weak or stiff. This means that the heart does not pump blood well enough for the body to stay healthy. For some people with heart failure, fluid may back up into the lungs. There may also be swelling (edema) in the lower legs. Heart failure is usually a long-term (chronic) condition. It is important for you to take good care of yourself and follow the treatment plan from your health care provider. What are the causes? This condition may be caused by: High blood pressure (hypertension). Hypertension causes the heart muscle to work harder than normal. This makes the heart stiff or weak. Coronary artery disease, or CAD. CAD is the buildup of cholesterol and fat (plaque) in the arteriesof the heart. Heart attack, also called myocardial infarction. This injures the heart muscle, making it hard for the heart to pump blood. Abnormal heart valves. The valves do not open and close properly, forcing the heart to pump harder to keep the blood flowing. Heart muscle disease (cardiomyopathy or myocarditis). This is damage to the heart muscle. It can increase the risk of heart failure. Lung disease. The heart works harder when the lungs are not healthy. Abnormal heart rhythms. These can lead to heart failure. What increases the risk? The risk of heart failure increases as a person ages. This condition is also more likely to developin people who: Are overweight. Are male. Smoke or chew tobacco. Abuse alcohol or illegal drugs. Have taken medicines that can damage the heart, such as chemotherapy drugs. Have diabetes. Have abnormal heart rhythms. Have thyroid problems. Have low blood counts (anemia). What are the signs or symptoms? Symptoms of this condition include: Shortness of breath with activity, such as when climbing stairs. A cough that does not go away. Swelling of the feet, ankles, legs, or abdomen. Losing weight for no reason. Trouble breathing when lying flat (orthopnea). Waking from sleep because of the need to sit up and get more air. Rapid heartbeat. Tiredness (fatigue) and loss of energy. Feeling light-headed, dizzy, or close to fainting. Loss of appetite. Nausea. Waking up more often during the night to urinate (nocturia). Confusion. How is this diagnosed? This condition is diagnosed based on: Your medical history, symptoms, and a physical exam. Diagnostic tests, which may include: ?Echocardiogram. ?Electrocardiogram (ECG). ?Chest X-ray. ?Blood tests. ?Exercise stress test. ?Radionuclide scans. ?Cardiac catheterization and angiogram. How is this treated? Treatment for this condition is aimed at managing the symptoms of heart failure. Medicines Treatment may include medicines that: Help lower blood pressure by relaxing (dilating) the blood vessels. These medicines are called JOLENE inhibitors (angiotensin-converting enzyme) and ARBs (angiotensin receptor blockers). Cause the kidneys to remove salt and water from the blood through urination (diuretics). Improve heart muscle strength and prevent the heart from beating too fast (beta blockers). Increase the force of the heartbeat (digoxin). Healthy behavior changes Treatment may also include making healthy lifestyle changes, such as: Reaching and staying at a healthy weight. Quitting smoking or chewing tobacco. Eating heart-healthy foods. Limiting or avoiding alcohol. Stopping the use of illegal drugs. Being physically active. Other treatments Other treatments may include: Procedures to open blocked arteries or repair damaged valves. Placing a pacemaker to improve heart function (cardiac resynchronization therapy). Placing a device to treat serious abnormal heart rhythms (implantable cardioverter defibrillator, or ICD). Placing a device to improve the pumping ability of the heart (left ventricular assist device, or LVAD). Receiving a healthy heart from a donor (heart transplant). This is done when other treatments have not helped. Follow these instructions at home: Manage other health conditions as told by your health care provider. These may include hypertension, diabetes, thyroid disease, or abnormal heart rhythms. Get ongoing education and support as needed. Learn as much as you can about heart failure. Keep all follow-up visits as told by your health care provider. This is important. Summary Heart failure is a condition in which the heart has trouble pumping blood because it has become weak or stiff. This condition is caused by high blood pressure and other diseases of the heart and lungs. Symptoms of this condition include shortness of breath, tiredness (fatigue), nausea, and swelling of the feet, ankles, legs, or abdomen. Treatments for this condition may include medicines, lifestyle changes, and surgery. Manage other health conditions as told by your health care provider. This information is not intended to replace advice given to you by your health care provider. Make sure you discuss any questions you have with your health care provider. Document Released: 11/02/2006 Document Revised: 01/20/2020 Document Reviewed: 01/20/2020 [employer] Patient Education 2020 [employer]. 06/08/2024 13:09:41 COVID-19: How to Protect Yourself and Others - CDC COVID-19: How to Protect Yourself and Others Know how it spreads There is currently no vaccine to prevent coronavirus disease 2019 (COVID-19). The best way to prevent illness is to avoid being exposed to this virus. The virus is thought to spread mainly from nvrbyl-mi-ohdszf. ?Between people who are in close contact with one another (within about 6 feet). ?Through respiratory droplets produced when an infected person coughs, sneezes or talks. ?These droplets can land in the mouths or noses of people who are nearby or possibly be inhaled into the lungs. ?Some recent studies have suggested that COVID-19 may be spread by people who are not showing symptoms. Everyone should Clean your hands often Wash your hands often with soap and water for at least 20 seconds especially after you have been [place] public place, or after blowing your nose, coughing, or sneezing. If soap and water are not readily available, use a hand associate professor of biology that contains at least 60% alcohol. Cover all surfaces of your hands and rub them together until they feel dry. Avoid touching your eyes, nose, and mouth with unwashed hands. Avoid close contact Limit contact with others as much as possible. Avoid close contact with people who are sick. Put distance between yourself and other people. ?Remember that some people without symptoms may be able to spread virus. ?This is especially important for people who are at higher risk of getting very sick.www.cdc.gov/cor onavirus/2019-ncov/zmbo-pkgth-twvzgjejgmn/gazoty-jj-ryubpu-risk.html Cover your mouth and nose with a cloth face cover when around others You could spread COVID-19 to others even if you do not feel sick. Everyone should wear a cloth face covering in public settings and when around people not living in their household, especially when social distancing is difficult to maintain. ?Cloth face coverings should not be placed on young children under age 2, anyone who has trouble breathing, or is unconscious, incapacitated or otherwise unable to remove the mask without assistance. The cloth face cover is meant to protect other people in case you are infected. Do NOT use a facemask meant for a healthcare worker. Continue to keep about 6 feet between yourself and others. The cloth face cover is not a substitutefor social distancing. Cover coughs and sneezes Always cover your mouth and nose with a tissue when you cough or sneeze or use the inside of your elbow. Throw used tissues in the trash. Immediately wash your hands with soap and water for at least 20 seconds. If soap and water are not readily available, clean your hands with a hand associate professor of biology that contains at least 60% alcohol. Clean and disinfect Clean AND disinfect frequently touched surfaces daily. This includes tables, doorknobs, light switches, countertops, handles, desks, phones, keyboards, toilets, faucets, and sinks. www.cdc.gov/coronav irus/2019-ncov/oqstamj-bqiewrh-jgpk/ycdvnjbmtjxq-kkbk-wsua.html If surfaces are dirty, clean them: Use detergent or soap and water prior to disinfection. Then, use a household disinfectant. You can see a list of EPA-registered household disinfectants here. cdc.gov/coronavirus 05/15/2020 This information is not intended to replace advice given to you by your health care provider. Make sure you discuss any questions you have with your health care provider. Document Released: 02/28/2020 Document Revised: 05/24/2020 Document Reviewed: 05/24/2020 [employer] Patient Education 2019 [employer]. 06/08/2024 13:09:39 COVID-19 COVID-19 COVID-19 is a respiratory infection that is caused by a virus called severe acute respiratory syndrome coronavirus 2 (SARS-CoV-2). The disease is also known as coronavirus disease or novel coronavirus. In some people, the virus may not cause any symptoms. In others, it may cause a serious infection. The infection can get worse quickly and can lead to complications, such as: Pneumonia, or infection of the lungs. Acute respiratory distress syndrome or ARDS. This is fluid build-up in the lungs. Acute respiratory failure. This is a condition in which there is not enough oxygen passing from thelungs to the body. Sepsis or septic shock. This is a serious bodily reaction to an infection. Blood clotting problems. Secondary infections due to bacteria or fungus. The virus that causes COVID-19 is contagious. This means that it can spread from person to person through droplets from coughs and sneezes (respiratory secretions). What are the causes? This illness is caused by a virus. You may catch the virus by: Breathing in droplets from an infected person's cough or sneeze. Touching something, like a table or a doorknob, that was exposed to the virus (contaminated) and then touching your mouth, nose, or eyes. What increases the risk? Risk for infection You are more likely to be infected with this virus if you: Live in or travel to an area with a COVID-19 outbreak. Come in contact with a sick person who recently traveled to an area with a COVID-19 outbreak. Provide care for or live with a person who is infected with COVID-19. Risk for serious illness You are more likely to become seriously ill from the virus if you: Are 65 years of age or older. Have a long-term disease that lowers your body's ability to fight infection (immunocompromised). Live in a usp or long-term care facility. Have a long-term (chronic) disease such as: ?Chronic lung disease, including chronic obstructive pulmonary disease or asthma ?Heart disease. ?Diabetes. ?Chronic kidney disease. ?Liver disease. Are obese. What are the signs or symptoms? Symptoms of this condition can range from mild to severe. Symptoms may appear any time from 2 to 14days after being exposed to the virus. They include: A fever. A cough. Difficulty breathing. Chills. Muscle pains. A sore throat. Loss of taste or smell. Some people may also have stomach problems, such as nausea, vomiting, or diarrhea. Other people may not have any symptoms of COVID-19. How is this diagnosed? This condition may be diagnosed based on: Your signs and symptoms, especially if: ?You live in an area with a COVID-19 outbreak. ?You recently traveled to or from an area where the virus is common. ?You provide care for or live with a person who was diagnosed with COVID-19. A physical exam. Lab tests, which may include: ?A nasal swab to take a sample of fluid from your nose. ?A throat swab to take a sample of fluid from your throat. ?A sample of mucus from your lungs (sputum). ?Blood tests. Imaging tests, which may include, X-rays, CT scan, or ultrasound. How is this treated? At present, there is no medicine to treat COVID-19. Medicines that treat other diseases are being used on a trial basis to see if they are effective against COVID-19. Your health care provider will talk with you about ways to treat your symptoms. For most people, the infection is mild and can be managed at home with rest, fluids, and xgvb-pic-crjapst medicines. Treatment for a serious infection usually takes places in a hospital intensive care unit (ICU). It may include one or more of the following treatments. These treatments are given until your symptoms improve. Receiving fluids and medicines through an IV. Supplemental oxygen. Extra oxygen is given through a tube in the nose, a face mask, or a adkins. Positioning you to lie on your stomach (prone position). This makes it easier for oxygen to get into the lungs. Continuous positive airway pressure (CPAP) or bi-level positive airway pressure (BPAP) machine. This treatment uses mild air pressure to keep the airways open. A tube that is connected to a motor delivers oxygen to the body. Ventilator. This treatment moves air into and out of the lungs by using a tube that is placed in your windpipe. Tracheostomy. This is a procedure to create a hole in the neck so that a breathing tube can be inserted. Extracorporeal membrane oxygenation (ECMO). This procedure gives the lungs a chance to recover by taking over the functions of the heart and lungs. It supplies oxygen to the body and removes carbon dioxide. Follow these instructions at home: Lifestyle If you are sick, stay home except to get medical care. Your health care provider will tell you how long to stay home. Call your health care provider before you go for medical care. Rest at home as told by your health care provider. Do not use any products that contain nicotine or tobacco, such as cigarettes, e- cigarettes, and chewing tobacco. If you need help quitting, ask your health care provider. Return to your normal activities as told by your health care provider. Ask your health care provider what activities are safe for you. General instructions Take djnx-xzo-roewknv and prescription medicines only as told by your health care provider. Drink enough fluid to keep your urine pale yellow. Keep all follow-up visits as told by your health care provider. This is important. How is this prevented? There is no vaccine to help prevent COVID-19 infection. However, there are steps you can take to protect yourself and others from this virus. To protect yourself: Do not travel to areas where COVID-19 is a risk. The areas where COVID-19 is reported change often.To identify high-risk areas and travel restrictions, check the CDC travel website: wwwnc.cdc.gov/travel/notices If you live in, or must travel to, an area where COVID-19 is a risk, take precautions to avoid infection. ?Stay away from people who are sick. ?Wash your hands often with soap and water for 20 seconds. If soap and water are not available, usean alcohol-based hand associate professor of biology. ?Avoid touching your mouth, face, eyes, or nose. ?Avoid going out in public, follow guidance from your state and local health authorities. ?If you must go out in public, wear a cloth face covering or face mask. ?Disinfect objects and surfaces that are frequently touched every day. This may include: ?Counters and tables. ?Doorknobs and light switches. ?Sinks and faucets. ?Electronics, such as phones, remote controls, keyboards, computers, and tablets. To protect others: If you have symptoms of COVID-19, take steps to prevent the virus from spreading to others. If you think you have a COVID-19 infection, contact your health care provider right away. Tell yourhealth care team that you think you may have a COVID-19 infection. Stay home. Leave your house only to seek medical care. Do not use public transport. Do not travel while you are sick. Wash your hands often with soap and water for 20 seconds. If soap and water are not available, use alcohol-based hand associate professor of biology. Stay away from other members of your household. Let healthy household members care for children andpets, if possible. If you have to care for children or pets, wash your hands often and wear a mask.If possible, stay in your own room, separate from others. Use a different bathroom. Make sure that all people in your household wash their hands well and often. Cough or sneeze into a tissue or your sleeve or elbow. Do not cough or sneeze into your hand or into the air. Wear a cloth face covering or face mask. Where to find more information Centers for Disease Control and Prevention: www.cdc.gov/coronavirus/2019-ncov/index.html World Health Organization: www.who.int/health-topics/coronavirus Contact a health care provider if: You live in or have traveled to an area where COVID-19 is a risk and you have symptoms of the infection. You have had contact with someone who has COVID-19 and you have symptoms of the infection. Get help right away if: You have trouble breathing. You have pain or pressure in your chest. You have confusion. You have bluish lips and fingernails. You have difficulty waking from sleep. You have symptoms that get worse. These symptoms may represent a serious problem that is an emergency. Do not wait to see if the symptoms will go away. Get medical help right away. Call your local emergency services (911 in the [place] Do not drive yourself to the hospital. Let the emergency medical personnel know if you think you have COVID-19. Summary COVID-19 is a respiratory infection that is caused by a virus. It is also known as coronavirus disease or novel coronavirus. It can cause serious infections, such as pneumonia, acute respiratory distress syndrome, acute respiratory failure, or sepsis. The virus that causes COVID-19 is contagious. This means that it can spread from person to person through droplets from coughs and sneezes. You are more likely to develop a serious illness if you are 65 years of age or older, have a weak immunity, live in a usp, or have chronic disease. There is no medicine to treat COVID-19. Your health care provider will talk with you about ways to treat your symptoms. Take steps to protect yourself and others from infection. Wash your hands often and disinfect objects and surfaces that are frequently touched every day. Stay away from people who are sick and wear amask if you are sick. This information is not intended to replace advice given to you by your health care provider. Make sure you discuss any questions you have with your health care provider. Document Released: 12/08/2019 Document Revised: 03/29/2020 Document Reviewed: 12/08/2019 [employer] Patient Education 2020 [employer]. Follow Up Care 06/05/2024 10:33:00 With:ANGELA STEPHENS MD, Internal Medicine Address: [address] [place] [address]- When:1-2 days Comments:Please call the office to schedule a hospital follow-up appointment [facility] 07-24-2024 Note Discharge Instructions Thank you for allowing [facility] to assist you with your healthcare needs. The following is importantdischarge information regarding your hospital visit. Your Care Team ANGELA STEPHENS MD What to do next Scheduled Follow-Up Appointments Appointment Type When With Where Contact Information StatusBD Bone Density DEXA Axial Skeleton 06/22/2024 01:30 PM EDT [facility] Confirmed CV OV 07/01/2024 03:15 PM EDT [facility] Confirmed PC OV Lab Check 08/26/2024 09:45 AM EDT ANGELA STEPHENS MD [facility] Confirmed Follow Up Appointments Follow Up with ANGELA STEPHENS MD, Internal Medicine When:Within 1-2 days Where:[facility] [address] [place] [address]- Additional Information: Please call the office to schedule a hospital follow-up appointment The Following Activity and Diet Have Been Ordered for You Discharge Activity - Ordered -- Resume your pre-hospitalization activity, 06/08/24 9:50:00 EDT Discharge Diet - Ordered -- Type of Diet: Regular, 06/08/24 9:50:00 EDT The Following Equipment Has Been Ordered for You No qualifying data available. The Following Treatments Have Been Ordered for You Discharge Labs Discharge Outpatient Labwork - Ordered -- bmp, on lasix, follow-up within: 2-4 days, Results Notify to: ANGELA STEPHENS MD, 06/08/24 9:50:00 EDT Discharge Radiology No qualifying data available. Other Therapies No qualifying data available. Post Acute Orders No qualifying data available. Someone Will Contact You Regarding These Home Health Referrals No home referrals have been ordered for you. No one will call you. Allergies NKA Medications Please ask your primary doctor or pharmacist before taking any other medication not listed, including over the counter drugs, herbal medications, vitamins and or supplements as they may interact withyour home medications. What How Much When Instructions Last Dose New dexAMETHasone (dexAMETHasone 6 mg oral tablet) 1 tab(s) by mouth Once a day Duration: 5 Days Pickup at [facility]/pharmacy #[id number] New furosemide (furosemide 40 mg oral tablet) 1 tab(s) by mouth Once a day Pickup at [facility]/pharmacy #[id number] New rosuvastatin (rosuvastatin 10 mg oral tablet) 1 tab(s) by mouth Daily at bedtime Pickup at [facility]/pharmacy #[id number] Unchanged aspirin (Ecotrin Adult Low Strength 81 mg oral delayed release tablet) 1 tab(s) by mouth Once a day with a meal Unchanged cholecalciferol (Vitamin D3 25 mcg (1000 intl units) oral capsule) 1 cap by mouth Once a day Unchanged clopidogrel (Plavix 75 mg oral tablet) 1 tab(s) by mouth Once a day Unchanged cyanocobalamin (Vitamin B12 5000 mcg oral tablet, disintegrating) 1 tab(s) by mouth Twice a week Unchanged ferrous fumarate (ferrous fumarate 324 mg (106 mg elemental iron) oral tablet) 1 tab(s) by mouth Once a day Unchanged gabapentin 300 Milligram by mouth Two (2) times a day unsure of strength once a day Unchanged gabapentin (gabapentin 300 mg oral capsule) 1 cap by mouth Two (2) times a day Unchanged leflunomide (leflunomide 20 mg oral tablet) 1 tab(s) by mouth Once a day Unchanged levothyroxine (levothyroxine 100 mcg (0.1 mg) oral tablet) 1 tab(s) by mouth Once a day Unchanged nebivolol (nebivolol 5 mg oral tablet) 1 tab(s) by mouth Once a day Unchanged potassium chloride (Potassium Chloride (Eqv-K-Tab) 20 mEq oral tablet, extended release) 1 tab(s) by mouth Once a day Unchanged spironolactone (spironolactone 25 mg oral tablet) 1 tab(s) by mouth Once a day Take with food Pharmacy Information [facility]/pharmacy #[id number]: [address] [place], [place] [id number] [phone] Please take this list to your next doctor s visit. Bring all medications you take, including over the counter medications, herbals and other supplements with you to your doctor s visit. Patients and families are reminded to discard old lists and to update any records with all medication providers or retail pharmacies. Education Materials Heart Failure, Diagnosis Heart failure is a condition in which the heart has trouble pumping blood because it has become weak or stiff. This means that the heart does not pump blood well enough for the body to stay healthy. For some people with heart failure, fluid may back up into the lungs. There may also be swelling (edema) in the lower legs. Heart failure is usually a long-term (chronic) condition. It is important for you to take good care of yourself and follow the treatment plan from your health care provider. What are the causes? This condition may be caused by: High blood pressure (hypertension). Hypertension causes the heart muscle to work harder than normal. This makes the heart stiff or weak. Coronary artery disease, or CAD. CAD is the buildup of cholesterol and fat (plaque) in the arteriesof the heart. Heart attack, also called myocardial infarction. This injures the heart muscle, making it hard for the heart to pump blood. Abnormal heart valves. The valves do not open and close properly, forcing the heart to pump harder to keep the blood flowing. Heart muscle disease (cardiomyopathy or myocarditis). This is damage to the heart muscle. It can increase the risk of heart failure. Lung disease. The heart works harder when the lungs are not healthy. Abnormal heart rhythms. These can lead to heart failure. What increases the risk? The risk of heart failure increases as a person ages. This condition is also more likely to developin people who: Are overweight. Are male. Smoke or chew tobacco. Abuse alcohol or illegal drugs. Have taken medicines that can damage the heart, such as chemotherapy drugs. Have diabetes. Have abnormal heart rhythms. Have thyroid problems. Have low blood counts (anemia). What are the signs or symptoms? Symptoms of this condition include: Shortness of breath with activity, such as when climbing stairs. A cough that does not go away. Swelling of the feet, ankles, legs, or abdomen. Losing weight for no reason. Trouble breathing when lying flat (orthopnea). Waking from sleep because of the need to sit up and get more air. Rapid heartbeat. Tiredness (fatigue) and loss of energy. Feeling light-headed, dizzy, or close to fainting. Loss of appetite. Nausea. Waking up more often during the night to urinate (nocturia). Confusion. How is this diagnosed? This condition is diagnosed based on: Your medical history, symptoms, and a physical exam. Diagnostic tests, which may include: ? Echocardiogram. ? Electrocardiogram (ECG). ? Chest X-ray. ? Blood tests. ? Exercise stress test. ? Radionuclide scans. ? Cardiac catheterization and angiogram. How is this treated? Treatment for this condition is aimed at managing the symptoms of heart failure. Medicines Treatment may include medicines that: Help lower blood pressure by relaxing (dilating) the blood vessels. These medicines are called JOLENE inhibitors (angiotensin-converting enzyme) and ARBs (angiotensin receptor blockers). Cause the kidneys to remove salt and water from the blood through urination (diuretics). Improve heart muscle strength and prevent the heart from beating too fast (beta blockers). Increase the force of the heartbeat (digoxin). Healthy behavior changes Treatment may also include making healthy lifestyle changes, such as: Reaching and staying at a healthy weight. Quitting smoking or chewing tobacco. Eating heart-healthy foods. Limiting or avoiding alcohol. Stopping the use of illegal drugs. Being physically active. Other treatments Other treatments may include: Procedures to open blocked arteries or repair damaged valves. Placing a pacemaker to improve heart function (cardiac resynchronization therapy). Placing a device to treat serious abnormal heart rhythms (implantable cardioverter defibrillator, or ICD). Placing a device to improve the pumping ability of the heart (left ventricular assist device, or LVAD). Receiving a healthy heart from a donor (heart transplant). This is done when other treatments have not helped. Follow these instructions at home: Manage other health conditions as told by your health care provider. These may include hypertension, diabetes, thyroid disease, or abnormal heart rhythms. Get ongoing education and support as needed. Learn as much as you can about heart failure. Keep all follow-up visits as told by your health care provider. This is important. Summary Heart failure is a condition in which the heart has trouble pumping blood because it has become weak or stiff. This condition is caused by high blood pressure and other diseases of the heart and lungs. Symptoms of this condition include shortness of breath, tiredness (fatigue), nausea, and swelling of the feet, ankles, legs, or abdomen. Treatments for this condition may include medicines, lifestyle changes, and surgery. Manage other health conditions as told by your health care provider. This information is not intended to replace advice given to you by your health care provider. Make sure you discuss any questions you have with your health care provider. Document Released: 11/02/2006 Document Revised: 01/20/2020 Document Reviewed: 01/20/2020 [employer] Patient Education 2020 [employer] COVID-19: How to Protect Yourself and Others Know how it spreads There is currently no vaccine to prevent coronavirus disease 2019 (COVID-19). The best way to prevent illness is to avoid being exposed to this virus. The virus is thought to spread mainly from jeapnx-mt-veiley. ? Between people who are in close contact with one another (within about 6 feet). ? Through respiratory droplets produced when an infected person coughs, sneezes or talks. ? These droplets can land in the mouths or noses of people who are nearby or possibly be inhaled intothe lungs. ? Some recent studies have suggested that COVID-19 may be spread by people who are not showing symptoms. Everyone should Clean your hands often Wash your hands often with soap and water for at least 20 seconds especially after you have been [place] public place, or after blowing your nose, coughing, or sneezing. If soap and water are not readily available, use a hand associate professor of biology that contains at least 60% alcohol. Cover all surfaces of your hands and rub them together until they feel dry. Avoid touching your eyes, nose, and mouth with unwashed hands. Avoid close contact Limit contact with others as much as possible. Avoid close contact with people who are sick. Put distance between yourself and other people. ? Remember that some people without symptoms may be able to spread virus. ? This is especially important for people who are at higher risk of getting very sick.www.cdc.gov/abigail navirus/2019-ncov/gcvj-dlrcw-mghpffjgxls/yuixod-zs-nlcghy-risk.html Cover your mouth and nose with a cloth face cover when around others You could spread COVID-19 to others even if you do not feel sick. Everyone should wear a cloth face covering in public settings and when around people not living in their household, especially when social distancing is difficult to maintain. ? Cloth face coverings should not be placed on young children under age 2, anyone who has trouble breathing, or is unconscious, incapacitated or otherwise unable to remove the mask without assistance. The cloth face cover is meant to protect other people in case you are infected. Do NOT use a facemask meant for a healthcare worker. Continue to keep about 6 feet between yourself and others. The cloth face cover is not a substitutefor social distancing. Cover coughs and sneezes Always cover your mouth and nose with a tissue when you cough or sneeze or use the inside of your elbow. Throw used tissues in the trash. Immediately wash your hands with soap and water for at least 20 seconds. If soap and water are not readily available, clean your hands with a hand associate professor of biology that contains at least 60% alcohol. Clean and disinfect Clean AND disinfect frequently touched surfaces daily. This includes tables, doorknobs, light switches, countertops, handles, desks, phones, keyboards, toilets, faucets, and sinks. www.cdc.gov/coronav irus/2019-ncov/xpxikra-ljriaiy-kmcn/cassjnqxnnho-almp-xcmd.html If surfaces are dirty, clean them: Use detergent or soap and water prior to disinfection. Then, use a household disinfectant. You can see a list of EPA-registered household disinfectants here. cdc.gov/coronavirus 05/15/2020 This information is not intended to replace advice given to you by your health care provider. Make sure you discuss any questions you have with your health care provider. Document Released: 02/28/2020 Document Revised: 05/24/2020 Document Reviewed: 05/24/2020 [employer] Patient Education 2019 [employer]. COVID-19 COVID-19 is a respiratory infection that is caused by a virus called severe acute respiratory syndrome coronavirus 2 (SARS-CoV-2). The disease is also known as coronavirus disease or novel coronavirus. In some people, the virus may not cause any symptoms. In others, it may cause a serious infection. The infection can get worse quickly and can lead to complications, such as: Pneumonia, or infection of the lungs. Acute respiratory distress syndrome or ARDS. This is fluid build-up in the lungs. Acute respiratory failure. This is a condition in which there is not enough oxygen passing from thelungs to the body. Sepsis or septic shock. This is a serious bodily reaction to an infection. Blood clotting problems. Secondary infections due to bacteria or fungus. The virus that causes COVID-19 is contagious. This means that it can spread from person to person through droplets from coughs and sneezes (respiratory secretions). What are the causes? This illness is caused by a virus. You may catch the virus by: Breathing in droplets from an infected person's cough or sneeze. Touching something, like a table or a doorknob, that was exposed to the virus (contaminated) and then touching your mouth, nose, or eyes. What increases the risk? Risk for infection You are more likely to be infected with this virus if you: Live in or travel to an area with a COVID-19 outbreak. Come in contact with a sick person who recently traveled to an area with a COVID-19 outbreak. Provide care for or live with a person who is infected with COVID-19. Risk for serious illness You are more likely to become seriously ill from the virus if you: Are 65 years of age or older. Have a long-term disease that lowers your body's ability to fight infection (immunocompromised). Live in a usp or long-term care facility. Have a long-term (chronic) disease such as: ? Chronic lung disease, including chronic obstructive pulmonary disease or asthma ? Heart disease. ? Diabetes. ? Chronic kidney disease. ? Liver disease. Are obese. What are the signs or symptoms? Symptoms of this condition can range from mild to severe. Symptoms may appear any time from 2 to 14days after being exposed to the virus. They include: A fever. A cough. Difficulty breathing. Chills. Muscle pains. A sore throat. Loss of taste or smell. Some people may also have stomach problems, such as nausea, vomiting, or diarrhea. Other people may not have any symptoms of COVID-19. How is this diagnosed? This condition may be diagnosed based on: Your signs and symptoms, especially if: ? You live in an area with a COVID-19 outbreak. ? You recently traveled to or from an area where the virus is common. ? You provide care for or live with a person who was diagnosed with COVID-19. A physical exam. Lab tests, which may include: ? A nasal swab to take a sample of fluid from your nose. ? A throat swab to take a sample of fluid from your throat. ? A sample of mucus from your lungs (sputum). ? Blood tests. Imaging tests, which may include, X-rays, CT scan, or ultrasound. How is this treated? At present, there is no medicine to treat COVID-19. Medicines that treat other diseases are being used on a trial basis to see if they are effective against COVID-19. Your health care provider will talk with you about ways to treat your symptoms. For most people, the infection is mild and can be managed at home with rest, fluids, and mvrz-pcz-hzfijyn medicines. Treatment for a serious infection usually takes places in a hospital intensive care unit (ICU). It may include one or more of the following treatments. These treatments are given until your symptoms improve. Receiving fluids and medicines through an IV. Supplemental oxygen. Extra oxygen is given through a tube in the nose, a face mask, or a adkins. Positioning you to lie on your stomach (prone position). This makes it easier for oxygen to get into the lungs. Continuous positive airway pressure (CPAP) or bi-level positive airway pressure (BPAP) machine. This treatment uses mild air pressure to keep the airways open. A tube that is connected to a motor delivers oxygen to the body. Ventilator. This treatment moves air into and out of the lungs by using a tube that is placed in your windpipe. Tracheostomy. This is a procedure to create a hole in the neck so that a breathing tube can be inserted. Extracorporeal membrane oxygenation (ECMO). This procedure gives the lungs a chance to recover by taking over the functions of the heart and lungs. It supplies oxygen to the body and removes carbon dioxide. Follow these instructions at home: Lifestyle If you are sick, stay home except to get medical care. Your health care provider will tell you how long to stay home. Call your health care provider before you go for medical care. Rest at home as told by your health care provider. Do not use any products that contain nicotine or tobacco, such as cigarettes, e- cigarettes, and chewing tobacco. If you need help quitting, ask your health care provider. Return to your normal activities as told by your health care provider. Ask your health care provider what activities are safe for you. General instructions Take iieg-ilt-isbkvzy and prescription medicines only as told by your health care provider. Drink enough fluid to keep your urine pale yellow. Keep all follow-up visits as told by your health care provider. This is important. How is this prevented? There is no vaccine to help prevent COVID-19 infection. However, there are steps you can take to protect yourself and others from this virus. To protect yourself: Do not travel to areas where COVID-19 is a risk. The areas where COVID-19 is reported change often.To identify high-risk areas and travel restrictions, check the CDC travel website: wwwnc.cdc.gov/travel/notices If you live in, or must travel to, an area where COVID-19 is a risk, take precautions to avoid infection. ? Stay away from people who are sick. ? Wash your hands often with soap and water for 20 seconds. If soap and water are not available, use an alcohol-based hand associate professor of biology. ? Avoid touching your mouth, face, eyes, or nose. ? Avoid going out in public, follow guidance from your state and local health authorities. ? If you must go out in public, wear a cloth face covering or face mask. ? Disinfect objects and surfaces that are frequently touched every day. This may include: ? Counters and tables. ? Doorknobs and light switches. ? Sinks and faucets. ? Electronics, such as phones, remote controls, keyboards, computers, and tablets. To protect others: If you have symptoms of COVID-19, take steps to prevent the virus from spreading to others. If you think you have a COVID-19 infection, contact your health care provider right away. Tell yourhealth care team that you think you may have a COVID-19 infection. Stay home. Leave your house only to seek medical care. Do not use public transport. Do not travel while you are sick. Wash your hands often with soap and water for 20 seconds. If soap and water are not available, use alcohol-based hand associate professor of biology. Stay away from other members of your household. Let healthy household members care for children andpets, if possible. If you have to care for children or pets, wash your hands often and wear a mask.If possible, stay in your own room, separate from others. Use a different bathroom. Make sure that all people in your household wash their hands well and often. Cough or sneeze into a tissue or your sleeve or elbow. Do not cough or sneeze into your hand or into the air. Wear a cloth face covering or face mask. Where to find more information Centers for Disease Control and Prevention: www.cdc.gov/coronavirus/2019-ncov/index.html World Health Organization: www.who.int/health-topics/coronavirus Contact a health care provider if: You live in or have traveled to an area where COVID-19 is a risk and you have symptoms of the infection. You have had contact with someone who has COVID-19 and you have symptoms of the infection. Get help right away if: You have trouble breathing. You have pain or pressure in your chest. You have confusion. You have bluish lips and fingernails. You have difficulty waking from sleep. You have symptoms that get worse. These symptoms may represent a serious problem that is an emergency. Do not wait to see if the symptoms will go away. Get medical help right away. Call your local emergency services (911 in the [place] Do not drive yourself to the hospital. Let the emergency medical personnel know if you think you have COVID-19. Summary COVID-19 is a respiratory infection that is caused by a virus. It is also known as coronavirus disease or novel coronavirus. It can cause serious infections, such as pneumonia, acute respiratory distress syndrome, acute respiratory failure, or sepsis. The virus that causes COVID-19 is contagious. This means that it can spread from person to person through droplets from coughs and sneezes. You are more likely to develop a serious illness if you are 65 years of age or older, have a weak immunity, live in a usp, or have chronic disease. There is no medicine to treat COVID-19. Your health care provider will talk with you about ways to treat your symptoms. Take steps to protect yourself and others from infection. Wash your hands often and disinfect objects and surfaces that are frequently touched every day. Stay away from people who are sick and wear amask if you are sick. This information is not intended to replace advice given to you by your health care provider. Make sure you discuss any questions you have with your health care provider. Document Released: 12/08/2019 Document Revised: 03/29/2020 Document Reviewed: 12/08/2019 [employer] Patient Education 2020 [employer]. Additional Information VACCINATE! IT SAVES LIVES! Members of the community who have not yet received the COVID-19 vaccine and would like to receive it can visit one of [facility] vaccine clinics. There are many vaccine clinic locations within the [facility]. For locations and available times, please visit https://[email or web address].[place].gov/. It is important to note that some COVID mobile vaccine clinics are held outdoors and may be canceled in rainy or stormy conditions. To learn more about pediatric vaccinations (ages 5-11), we invite you to visit the [facility] webpage. [email or web address] learn more about the COVID-19 vaccine, we invite you to visit the CDC website for a list of frequently asked questions.https://www.cdc.gov/coronavirus/2019-ncov/vaccines/faq.html [facility] Patient Portal Access Instructions: Stay connected with your healthcare team and access your personal medical information anytime with the [employer] [facility] Patient Portal. Please follow the directions below to create your [email or web address] account: 1.Access the email account you provided upon registration to the hospital/physician office.2.Look for an invitation email from [facility].3.Open the email and access the invitation link: AcceptInvitation to [facility].4.Fill in the required simpson to create your account. To access your account, visit [email or web address]. Click the blue button labeled Access Patient Portal and then log in with the username and password that you created in the steps above. You will be able to view your test results, lab results, a summary of your visits, upcoming appointments and more. There is also a convenient messaging option where you can send secure messages to your p rovider. In addition, you will have the ability to download any documents or summaries to your computer and/or send the information securely to a physician. Remember that your healthcare information is confidential, so carefully consider who you will allowto register on the [facility] Patient Portal for access to your information. You can also access the [facility] Patient Portal on the [facility]osi. Simply click on Patient Portal and then log into your account. If you would like to receive a full copy of your medical records, please contact the [facility] Medical Records Department by calling [phone], Thursday through Thursday between 8 a.m. and 4:30 p.m. HOW TO SAFELY DISPOSE OF PRESCRIPTION MEDICATIONS Please use one of the following methods to safely dispose of your unused medications. 1.Use a drug disposal kit: the drug disposal pouch allows you to safely discard your old and unuseddrugs. Ask your nurse to give you one when you are discharged.2.Visit a local take-back location: Many local pharmacies and police departments have programs that collect old and unwanted prescriptiondrugs. Call your local pharmacy or go to http://bit.ly/1K8Qh7o to find one close to you.3.Make use of household items: Use cat litter or old coffee grounds to dispose medications if other options arenot available. Mix your drugs with these household products, seal them in an airtight container andthrow it into the garbage. Call [facility]: [phone] to be sure your drugs can be disposed of in this way. Some medicines may require a different approach.4.Never flush your medications down the toilet. IF YOU HAVE BEEN PRESCRIBED AN OPIOID FOR PAIN If you have been prescribed an opioid (such as hydrocodone, oxycodone or morphine), it is critical to understand the possible side effects and risks of opioid pain medications. Even when taken as directed, opioids can have several side effects including: Tolerance, meaning you might need to take more of a medication for the same pain relief. Nausea, vomiting and/or constipation. Sleepiness, dizziness, dry mouth, confusion, depression or itching. Physical dependence, meaning you have withdrawal symptoms when a medication is stopped, can develop within a few days. KNOW YOUR RESPONSIBILITIES It is important to know exactly how much and how often to take the opioid pain medications you are prescribed. Never take opioids in higher amounts or more often than prescribed. Do not combine opioids with alcohol or other drugs that cause drowsiness, such as benzodiazepines, also known as benzos, including diazepam and alprazolam, muscle relaxants or sleep aids. Never sell or share prescription opioids. This is illegal. Store opioids in a secure place and out of reach of others (including children, family, friends and visitors). The last page of this document has been signed and retained as a CHART COPY. Signatures Patient Education Materials Heart Failure, Diagnosis COVID-19: How to Protect Yourself and Others - [facility] COVID-19 Medication Leaflets My discharge plan and instructions have been reviewed and explained to me and I,PEGGY LOPEZ understand my current condition and have read and understand these discharge instructions. I have received a written copy of the plan/instructions. If I have questions, I am aware that I should contact my doctor. Patient/Quality Assurance Group Leader Signature: Date/Time: Relationship to Patient: Witness Name/Signature: Date/Time[id number] Discharge summary Date of Service 06/08/2024 Discharge Diagnosis 1. Acute hypoxic respiratory failure secondary to combination of COVID-19 respiratory infection andCHF exacerbation. 2. Acute over chronic congestive heart failure with preserved EF. 3. COVID-19 respiratory infection. 4. Coronary artery disease status post PCI to the LAD 06/02/2024 5. Hypertension. 6. Hypothyroidism. 7. Polymyalgia rheumatica. 8. Chronic anemia 9. Pulmonary hypertension COVID-19 (U07.1 - ICD-10-CM) Acute on chronic diastolic (congestive) heart failure (I50.33 - ICD-10-CM) Acute respiratory failure with hypoxia (J96.01 - ICD-10-CM) Acute pharyngitis, unspecified (J02.9 - ICD-10-CM) Hypertensive heart disease with heart failure (I11.0 - ICD-10-CM) Obesity, unspecified (E66.9 - ICD-10-CM) Pulmonary hypertension, unspecified (I27.20 - ICD-10-CM) Unspecified right bundle-branch block (I45.10 - ICD-10-CM) Atherosclerotic heart disease of [place] coronary artery without angina pectoris (I25.10 - ICD-10-CM) Cough ([id number] - PNED) Fever > 75 years ([id number] - PNED) Sore throat - Adult ([id number] - PNED) Vomiting- heart cath 06/02 ([id number] - PNED) Additional Orders: Other status: BMP,06/08/24 5:00:00 EDT, Next AM Draw (one day only), Blood, Once, Preferred Lab: [facility], Stop date 06/08/24 5:00:00 EDT(Complete) Ordered: Discharge,06/08/24 9:50:00 EDT, Discharged to: Home Ordered: Discharge Activity,Resume your pre-hospitalization activity, 06/08/24 9:50:00 EDT Ordered: Discharge Diet,Type of Diet: Regular, 06/08/24 9:50:00 EDT Ordered: Discharge Outpatient Labwork,bmp, on lasix, follow-up within: 2-4 days, Results Notify to:ANGELA STEPHENS MD, 06/08/24 9:50:00 EDT Ordered: dexAMETHasone 6 mg oral tablet,Dose : 6 mg = 1 tab(s), Oral, qDay, X 5 day(s), # 5 tab(s),0 Refill(s), 06/13/24 9:47:00 EDT, Pharmacy: [facility]/pharmacy #[id number], 156, cm, 06/07/24 14:01:00 EDT, Height, kg, 06/07/24 14:01:00 EDT, Dosing Weight Ordered: furosemide 40 mg oral tablet,Dose : 40 mg = 1 tab(s), Oral, qDay, # 30 tab(s), 0 Refill(s), Pharmacy: [facility]/pharmacy #[id number], 156, cm, 06/07/24 14:01:00 EDT, Height, kg, 06/07/24 14:01:00 EDT, Dosing Weight Ordered: rosuvastatin 10 mg oral tablet,Dose : 10 mg = 1 tab(s), Oral, qHS, # 30 tab(s), 0 Refill(s), Pharmacy: [facility]/pharmacy #[id number], 156, cm, 06/07/24 14:01:00 EDT, Height, kg, 06/07/24 14:01:00 EDT, Dosing Weight Hospital Course 78-year-old female with multiple medical problems listed above presented to the hospital complaining of shortness of breath was found to have acute hypoxic respiratory failure, requiring oxygen supplementation, and this failure was due to COVID-19 respiratory infection along with acute over chroniccongestive heart failure with preserved ejection fraction, patient was started on IV Lasix, oral steroids, and she declined the use of remdesivir. Patient remained on oxygen supplementation during the hospital stay, and cardiology team evaluated the patient, patient remained on IV Lasix, and she was diuresing very well, during the hospital stay, patient's symptoms was improving slowly, she was transitioned to oral Lasix, and weaned off the oxygen. Patient was examined and evaluated by me today she was awake alert and oriented, denying any chest pain, stating that shortness of breath has improved significantly, no abdominal pain, no nausea or vomiting, no headache lightheadedness or dizziness, patient will be discharged home today all her ques tions were answered, all her concerns were addressed, I called her son to update him about her condition, he did not answer I left a message on Madelin's voicemail Allergies NKA Procedures None Consults Consult to Physician - Ordered -- 06/05/24 17:55:00 EDT, TED BRIDGES MD, Routine, chf Imaging Results and Diagnostics Please see Litzy Objective Vitals and Measurements T: 36.6 C (Oral) TMIN: 36.4 C (Oral) TMAX: 36.6 C (Oral) HR: 52 (Monitored) RR: 18 BP: 132/65 SpO2:95% HT: 156 cm WT: 74 kg BMI: 30.41 Weight Current Weight Dosing Weight: 74 kg (06/07/24) Current Weight: 76.5 kg (06/07/24) Dosing Weight: 74 kg (06/06/24) Head: atraumatic normocephalic Neck: supple no JVD Lungs: clear to auscultation bilaterally, no wheezes no accessory muscle use. Heart: S1-S2 regular rate and rhythm, no murmurs Abdomen: soft nontender nondistended, bowel sounds are present all 4 quadrants Lower extremities: no cyanosis, no chronic skin changes, pulse palpable +1 bilaterally, no edema Skin: showed no rash Neurological: patient is awake alert and oriented 3, no focal neurological deficit. Pending Labs and Studies None Code Status Code Status - Ordered -- 06/05/24 14:11:00 EDT, Full Code, Constant Order Admission Date 06/05/2024 Discharge Date 06/08/2024 Medications New Prescription dexAMETHasone (dexAMETHasone 6 mg oral tablet)1 tab(s) by mouth once a day for 5 Days. Refills: 0. furosemide (furosemide 40 mg oral tablet)1 tab(s) by mouth once a day. Refills: 0. rosuvastatin (rosuvastatin 10 mg oral tablet)1 tab(s) by mouth daily at bedtime. Refills: 0. Unchanged aspirin (Ecotrin Adult Low Strength 81 mg oral delayed release tablet)1 tab(s) by mouth once a day with a meal. Refills: 11. cholecalciferol (Vitamin D3 25 mcg (1000 intl units) oral capsule)1 cap by mouth once a day. clopidogrel (Plavix 75 mg oral tablet)1 tab(s) by mouth once a day. Refills: 11. cyanocobalamin (Vitamin B12 5000 mcg oral tablet, disintegrating)1 tab(s) by mouth twice a week. ferrous fumarate (ferrous fumarate 324 mg (106 mg elemental iron) oral tablet)1 tab(s) by mouth once a day. [id number] Milligram by mouth two (2) times a day. unsure of strength once a day. gabapentin (gabapentin 300 mg oral capsule)1 cap by mouth two (2) times a day. leflunomide (leflunomide 20 mg oral tablet)1 tab(s) by mouth once a day. levothyroxine (levothyroxine 100 mcg (0.1 mg) oral tablet)1 tab(s) by mouth once a day. nebivolol (nebivolol 5 mg oral tablet)1 tab(s) by mouth once a day. Refills: 3. potassium chloride (Potassium Chloride (Eqv-K-Tab) 20 mEq oral tablet, extended release)1 tab(s) bymouth once a day. spironolactone (spironolactone 25 mg oral tablet)1 tab(s) by mouth once a day. Take with food. Refills: 6. Follow Up Follow Up with ANGELA STEPHENS MD, Internal Medicine When:Within 1-2 days Where:[address] [place] [address]- Additional Information: Please call the office to schedule a hospital follow-up appointment Follow Up Appointments No qualifying data available. Follow Up Labs/Studies Discharge Labs Discharge Outpatient Labwork - Ordered -- bmp, on lasix, follow-up within: 2-4 days, Results Notify to: ANGELA STEPHENS MD, 06/08/24 9:50:00 EDT Discharge Studies No Follow-up Studies Discharge Diet Discharge Diet - Ordered -- Type of Diet: Regular, 06/08/24 9:50:00 EDT Discharge Activity Discharge Activity - Ordered -- Resume your pre-hospitalization activity, 06/08/24 9:50:00 EDT Condition on Discharge stable Readmission Risk/Palliative Score LACE Score: 10 (06/06/24 10:23:00) Palliative Total Score: 1 (06/06/24 10:23:00) Discharge Disposition 31 min Time Spent 32 min Digitally Signed by DEVIKA ROMERO MD on 06/08/2024 11:19 AM [id number] Cardiology Progress note Date of Service 06/07/2024 Subjective Patient examined at bedside. Patient is alert, oriented*3. Denies any complaints. Background: 78-year-old lady past medical history of heart failure with ejection fraction, Polymyalgia rheumatica on leflunomide, coronary disease status post right heart cath PCI to LAD on 06/02/2024, chronic anemia, hypertension, iron deficiency, pulmonary hypertension, hypothyroidism, hyperlipidemia presented for shortness of breath with plan to be COVID-19 positive hypoxic at 86 on room air was placed on oxygen. proBNP of 4417 troponin of 25. D-dimer of 376. 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 She is admitted for COVID-19 positive and hypoxic with concern for CHF. She reports that she has not had much of an appetite as she has been feeling very weak. Also reports persistent cough. [06/07/2024): DISCONTINUE IV furosemide, START furosemide 40 mg p.o. daily from tomorrow [06/06/2024]: Continue on IV Lasix. [06/05/2024]: Patient admitted from ED because of shortness of breath, was found to be COVID-positive. Patient was recently discharged from the hospital s/p PCI to [facility], so cardiology consult was placed for the same reason. To the primary team, the patient appeared to be in CHF exacerbation. Objective Vitals and Measurements T: 36.6 C (Oral) TMIN: 36.6 C (Oral) TMAX: 37.2 C (Oral) HR: 59 (Monitored) RR: 18 BP: 112/59 SpO2:97% WT: 76.5 kg Intake and Output 7AM Yesterday to 7AM Today Intake and Output (Last 24 hours) Intake Oral Intake 580.00 Output Urine Voided 700.00 Stool Count 1.00 Urine Count 3.00 Total Summary Total Intake 580.00 Total Output 700.00 Fluid Balance -120.00 Physical Exam General: AAOX3, NAD HEENT: Anicteric sclera, MMM Neck: Trachea midline, no JVD appreciated CVS: RRR, normal S1/S2, no murmurs/rubs/gallops Lung: CTAB, no wheezes/rhonchi/rales Abd: Soft, NT/ND Extrem: WWP, no LE edema Skin: Warm, Intact Neuro: AAOX3, spontaneous movement of all extremities Psych: Appropriate mood & affect Weight Current Weight Dosing Weight: 74 kg (06/06/24) Current Weight: 76.5 kg (06/07/24) Medications Medications (21) Active Scheduled: (15) aspirin 81 mg Chewable 81 mg 1 tab(s), Oral, qDay cholecalciferol 25 mcg tablet (Vit D3 1000 units) 25 mcg 1 tab(s), Oral, qDay clopidogrel 75 mg Tablet 75 mg 1 tab(s), Oral, qDay cyanocobalamin 500 mcg Tablet 5,000 mcg 10 tab(s), Sublingual, 2X/week dexamethasone 6 mg tablet 6 mg 1 tab(s), Oral, qDay enoxaparin 40 mg/ 0.4mL syringe 40 mg 0.4 mL, Subcutaneous, qDay ferrous sulfate 325 mg Tablet 325 mg 1 tab(s), Oral, qDayM furosemide 40 mg/4 mL vial 40 mg 4 mL, IV Push, BID gabapentin 300 mg Capsule 300 mg 1 cap(s), Oral, BID leflunomide 20 mg Tablet 20 mg 1 tab(s), Oral, qDay levothyroxine 100 mcg tablet 100 mcg 1 tab(s), Oral, qDay nebivolol 2.5 mg tablet 5 mg 2 tab(s), Oral, qDay potassium chloride 20 mEq ER tablet 20 mEq 1 tab(s), Oral, qDay rosuvastatin 10 mg tablet 10 mg 1 tab(s), Oral, qHS spironolactone 25 mg tablet 25 mg 1 tab(s), Oral, qDayM Continuous: (0) PRN: (6) acetaminophen 325 mg Tablet 650 mg 2 tab(s), Oral, q4h albuterol - ipratropium 2.5 mg-0.5 mg/3 mL Inhal Clau UD 3 mL, Inhalation, q4hRT benzonatate 100 mg Capsule 100 mg 1 cap(s), Oral, TID dextrose 50% Solution Disp syringe 50 mL 12.5 gram(s) 25 mL, IV Push, AsDirected melatonin 3 mg tablet 3 mg 1 tab(s), Oral, qHS ondansetron 2 mg/ 1 mL 2 mL INJ 4 mg 2 mL, IV Push, q4h Lab Results 06/07 03:56 WBC: 5.8 Hgb: 11.2 L Hct: 33.9 L Platelet: 182 Neutrophil %: 80.8 H Glucose Level: 126 H Sodium Level: 139 Potassium Level: 4.4 BUN: 38.0 H Creatinine Lvl (s): 1.20 06/06 04:49 WBC: 7.5 Hgb: 11.1 L Hct: 33.9 L Platelet: 156 Neutrophil %: 84.4 H Glucose Level: 126 H Sodium Level: 139 Potassium Level: 3.8 BUN: 18.0 Creatinine Lvl (s): 0.99 EKG No qualifying data available. Assessment/Plan 1. COVID-19 positivity Patient presented with shortness of breath and was found to be COVID-19 positive Plan Management as per primary hospitalist team 2. Concern for CHF exacerbation Patient presented with shortness of breath and was found to be COVID-positive proBNP: 4400 JVP: Mildly elevated No pedal edema ECHO [02/23/2024]: EF 60 to 65% Plan Fluid restriction to 1500 mill per day Salt restricted diet Daily weight monitoring Accurate input and output DISCONTINUE IV furosemide START furosemide 40 mg p.o. daily from tomorrow CONTINUE spironolactone 25 mg p.o. daily 2. CAD S/p PCI to LAD on 06/02/2024 Plan CONTINUE aspirin 81 mg p.o. daily CONTINUE clopidogrel 75 mg p.o. daily CONTINUE rosuvastatin 10 mg p.o. daily 3. Pulmonary hypertension 4. Hypertension 5. Hyperlipidemia 6. Hypothyroidism 7. Obesity 8. Osteoarthritis Management as per primary hospitalist team At this time, cardiology will sign off. Please reconsult, if there is a change in clinical condition of the patient. [1] Consult Note; MARNI DONOHUE MD 06/06/2024 10:13 EDT Digitally Signed by MARNI DONOHUE MD on 06/07/2024 05:51 PM [id number] Note* Exam Date Time Procedure Performing Provider Status 06/07/24 5:10 PM Echocardiogram Follo w up, Adult - CV Auth (Verified) [facility] 07-23-2024 Note Subjective: Patient seen for acute hypoxic respiratory failure patient was examined and evaluated today, patient denies chest pain, patient requirement is down to1 L, patient still having some trouble breathing when she walks, she feels better were addressed, no abdominal pain no nausea or vomiting, no headache lightheadedness or dizziness. Vitals Signs(Last 24 hrs)__Last Charted Minimum Maximum Temp36.6(JUN 07:)36.6(JUN 07:)36.9(JUN 06:) Heart Rate62(JUN 07:)L 57(JUN 07 03:14)70(JUN 06:) WHK485(JUN 07:)102(JUN 06 14:27)123(JUN 07 03:14) DBPL 57(JUN 07:)L 51(JUN 06 18:12)82(JUN 07 03:14) Physical examination: HEENT, is atraumatic normocephalic, pupils are equal, no pallor Neck supple no JVD Lungs diminished breath sounds on lower lung simpson with scattered crackles, no rhonchi, no accessory muscle use Heart S1-S2 regular Abdomen soft nontender nondistended bowel sounds are present all 4 quadrants Lower extremities show +1 edema, no cyanosis, pulses palpable +2 bilaterally Skin showed no rash Neurological examination patient is awake alert and oriented 3, cranial nerves are grossly intact, no focal neurological defect could be appreciated Assessment and plan: 1. Acute hypoxic respiratory failure secondary to combination of COVID-19 respiratory infection andCHF exacerbation. 2. Acute over chronic congestive heart failure with preserved EF. 3. COVID-19 respiratory infection. 4. Coronary artery disease status post PCI to the LAD 06/02/2024 5. Hypertension. 6. Hypothyroidism. 7. Polymyalgia rheumatica. 8. Chronic anemia 9. Pulmonary hypertension Plan: 1. Continue with the dexamethasone for COVID-19 respiratory infection, patient had declined the useof the remdesivir. 2. Cardiology team has evaluated the patient, they indicated to change the patient IV Lasix to oral 3. Continue to monitor I's and O's, electrolytes 4. Continue with Lovenox for DVT prophylaxis. 5. Continue to monitor patient clinically as well as her labs. Patient understood her plan of care all questions were answered, all concerns were addressed, I didspeak to her son Leandro I updated him about his condition all his questions were answered Labs: Basic Metabolic Profile Glucose Level: 126 mg/dL High (06/07/24 03:56:00) Sodium Level: 139 mEq/L (06/07/24 03:56:00) Potassium Level: 4.4 mEq/L (06/07/24 03:56:00) Chloride: 104 mEq/L (06/07/24 03:56:00) CO2: 28 mEq/L (06/07/24 03:56:00) BUN/Creatinine Ratio: 31.7 ratio High (06/07/24 03:56:00) Complete Blood Count WBC: 5.8 10^3/mcL (06/07/24 03:56:00) RBC: 3.64 10^6/mcL Low (06/07/24 03:56:00) Hgb: 11.2 G/dL Low (06/07/24 03:56:00) Hct: 33.9 % Low (06/07/24 03:56:00) MCV: 93.3 fL (06/07/24 03:56:00) MCH: 30.7 pg (06/07/24 03:56:00) MCHC: 32.9 G/dL (06/07/24 03:56:00) RDW: 14.5 % (06/07/24 03:56:00) Platelet: 182 10^3/mcL (06/07/24 03:56:00) MPV: 8.8 fL (06/07/24 03:56:00) Medications (22) Active Scheduled: (16) aspirin 81 mg Chewable 81 mg 1 tab(s), Oral, qDay cholecalciferol 25 mcg tablet (Vit D3 1000 units) 25 mcg 1 tab(s), Oral, qDay clopidogrel 75 mg Tablet 75 mg 1 tab(s), Oral, qDay cyanocobalamin 500 mcg Tablet 5,000 mcg 10 tab(s), Sublingual, 2X/week dexamethasone 6 mg tablet 6 mg 1 tab(s), Oral, qDay enoxaparin 40 mg/ 0.4mL syringe 40 mg 0.4 mL, Subcutaneous, qDay ferrous sulfate 325 mg Tablet 325 mg 1 tab(s), Oral, qDayM furosemide 40 mg tablet 40 mg 1 tab(s), Oral, BID gabapentin 300 mg Capsule 300 mg 1 cap(s), Oral, BID leflunomide 20 mg Tablet 20 mg 1 tab(s), Oral, qDay levothyroxine 100 mcg tablet 100 mcg 1 tab(s), Oral, qDay nebivolol 2.5 mg tablet 5 mg 2 tab(s), Oral, qDay pantoprazole 40 mg EC tablet 40 mg 1 tab(s), Oral, qDayAC potassium chloride 20 mEq ER tablet 20 mEq 1 tab(s), Oral, qDay rosuvastatin 10 mg tablet 10 mg 1 tab(s), Oral, qHS spironolactone 25 mg tablet 25 mg 1 tab(s), Oral, qDayM Continuous: (0) PRN: (6) acetaminophen 325 mg Tablet 650 mg 2 tab(s), Oral, q4h albuterol - ipratropium 2.5 mg-0.5 mg/3 mL Inhal Clau UD 3 mL, Inhalation, q4hRT benzonatate 100 mg Capsule 100 mg 1 cap(s), Oral, TID dextrose 50% Solution Disp syringe 50 mL 12.5 gram(s) 25 mL, IV Push, AsDirected melatonin 3 mg tablet 3 mg 1 tab(s), Oral, qHS ondansetron 2 mg/ 1 mL 2 mL INJ 4 mg 2 mL, IV Push, q4h Signature: Devika Romero MD Digitally Signed by DEVIKA ROMERO MD on 06/07/2024 03:54 PM [facility] [id number] Cardiology Progress note Date of Service 06/07/2024 Subjective Patient examined at bedside. Patient is alert, oriented*3. Denies any complaints. Background: 78-year-old lady past medical history of heart failure with ejection fraction, Polymyalgia rheumatica on leflunomide, coronary disease status post right heart cath PCI to LAD on 06/02/2024, chronic anemia, hypertension, iron deficiency, pulmonary hypertension, hypothyroidism, hyperlipidemia presented for shortness of breath with plan to be COVID-19 positive hypoxic at 86 on room air was placed on oxygen. proBNP of 4417 troponin of 25. D-dimer of 376. 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 She is admitted for COVID-19 positive and hypoxic with concern for CHF. She reports that she has not had much of an appetite as she has been feeling very weak. Also reports persistent cough. [06/07/2024): DISCONTINUE IV furosemide, START furosemide 40 mg p.o. daily from tomorrow [06/06/2024]: Continue on IV Lasix. [06/05/2024]: Patient admitted from ED because of shortness of breath, was found to be COVID-positive. Patient was recently discharged from the hospital s/p PCI to LAD, so cardiology consult was placed for the same reason. To the primary team, the patient appeared to be in CHF exacerbation. Objective Vitals and Measurements T: 36.6 C (Oral) TMIN: 36.6 C (Oral) TMAX: 37.2 C (Oral) HR: 59 (Monitored) RR: 18 BP: 112/59 SpO2:97% WT: 76.5 kg Intake and Output 7AM Yesterday to 7AM Today Intake and Output (Last 24 hours) Intake Oral Intake 580.00 Output Urine Voided 700.00 Stool Count 1.00 Urine Count 3.00 Total Summary Total Intake 580.00 Total Output 700.00 Fluid Balance -120.00 Physical Exam General: AAOX3, NAD HEENT: Anicteric sclera, MMM Neck: Trachea midline, no JVD appreciated CVS: RRR, normal S1/S2, no murmurs/rubs/gallops Lung: CTAB, no wheezes/rhonchi/rales Abd: Soft, NT/ND Extrem: WWP, no LE edema Skin: Warm, Intact Neuro: AAOX3, spontaneous movement of all extremities Psych: Appropriate mood & affect Weight Current Weight Dosing Weight: 74 kg (06/06/24) Current Weight: 76.5 kg (06/07/24) Medications Medications (21) Active Scheduled: (15) aspirin 81 mg Chewable 81 mg 1 tab(s), Oral, qDay cholecalciferol 25 mcg tablet (Vit D3 1000 units) 25 mcg 1 tab(s), Oral, qDay clopidogrel 75 mg Tablet 75 mg 1 tab(s), Oral, qDay cyanocobalamin 500 mcg Tablet 5,000 mcg 10 tab(s), Sublingual, 2X/week dexamethasone 6 mg tablet 6 mg 1 tab(s), Oral, qDay enoxaparin 40 mg/ 0.4mL syringe 40 mg 0.4 mL, Subcutaneous, qDay ferrous sulfate 325 mg Tablet 325 mg 1 tab(s), Oral, qDayM furosemide 40 mg/4 mL vial 40 mg 4 mL, IV Push, BID gabapentin 300 mg Capsule 300 mg 1 cap(s), Oral, BID leflunomide 20 mg Tablet 20 mg 1 tab(s), Oral, qDay levothyroxine 100 mcg tablet 100 mcg 1 tab(s), Oral, qDay nebivolol 2.5 mg tablet 5 mg 2 tab(s), Oral, qDay potassium chloride 20 mEq ER tablet 20 mEq 1 tab(s), Oral, qDay rosuvastatin 10 mg tablet 10 mg 1 tab(s), Oral, qHS spironolactone 25 mg tablet 25 mg 1 tab(s), Oral, qDayM Continuous: (0) PRN: (6) acetaminophen 325 mg Tablet 650 mg 2 tab(s), Oral, q4h albuterol - ipratropium 2.5 mg-0.5 mg/3 mL Inhal Clau UD 3 mL, Inhalation, q4hRT benzonatate 100 mg Capsule 100 mg 1 cap(s), Oral, TID dextrose 50% Solution Disp syringe 50 mL 12.5 gram(s) 25 mL, IV Push, AsDirected melatonin 3 mg tablet 3 mg 1 tab(s), Oral, qHS ondansetron 2 mg/ 1 mL 2 mL INJ 4 mg 2 mL, IV Push, q4h Lab Results 06/07 03:56 WBC: 5.8 Hgb: 11.2 L Hct: 33.9 L Platelet: 182 Neutrophil %: 80.8 H Glucose Level: 126 H Sodium Level: 139 Potassium Level: 4.4 BUN: 38.0 H Creatinine Lvl (s): 1.20 06/06 04:49 WBC: 7.5 Hgb: 11.1 L Hct: 33.9 L Platelet: 156 Neutrophil %: 84.4 H Glucose Level: 126 H Sodium Level: 139 Potassium Level: 3.8 BUN: 18.0 Creatinine Lvl (s): 0.99 EKG No qualifying data available. Assessment/Plan 1. COVID-19 positivity Patient presented with shortness of breath and was found to be COVID-19 positive Plan Management as per primary hospitalist team 2. Concern for CHF exacerbation Patient presented with shortness of breath and was found to be COVID-positive proBNP: 4400 JVP: Mildly elevated No pedal edema ECHO [02/23/2024]: EF 60 to 65% Plan Fluid restriction to 1500 mill per day Salt restricted diet Daily weight monitoring Accurate input and output DISCONTINUE IV furosemide START furosemide 40 mg p.o. daily from tomorrow CONTINUE spironolactone 25 mg p.o. daily 2. CAD S/p PCI to LAD on 06/02/2024 Plan CONTINUE aspirin 81 mg p.o. daily CONTINUE clopidogrel 75 mg p.o. daily CONTINUE rosuvastatin 10 mg p.o. daily 3. Pulmonary hypertension 4. Hypertension 5. Hyperlipidemia 6. Hypothyroidism 7. Obesity 8. Osteoarthritis Management as per primary hospitalist team At this time, cardiology will sign off. Please reconsult, if there is a change in clinical condition of the patient. [1] Consult Note; MARNI DONOHUE MD 06/06/2024 10:13 EDT Digitally Signed by MARNI DONOHUE MD on 06/07/2024 05:51 PM [facility] [id number] Note Subjective: Patient seen for acute hypoxic respiratory failure patient was examined and evaluated today, patient denies chest pain, still complaining of shortnessof breath, still on oxygen supplementation, she does have this mild dry intermittent cough, no sorethroat, no nausea or vomiting, appetite is fair, feeling weak tired and fatigued, and out of energy. Vitals Signs(Last 24 hrs)__Last Charted Minimum Maximum TempH 38.0(JUN 06 06:36)37.2(JUN 06 04:00)H 38.0(JUN 06 06:36) Heart Rate72(JUN 06 06:36)72(JUN 06 06:36)72(JUN 06 06:36) XDW908(JUN 06 06:36)119(JUN 06 06:36)H 145(JUN 05 16:28) DBPL 55(JUN 06 06:36)C 50(JUN 06 03:40)C 102(JUN 05 23:04) Physical examination: HEENT, is atraumatic normocephalic, pupils are equal, no pallor Neck supple no JVD Lungs diminished breath sounds on lower lung simpson with scattered crackles, no rhonchi, no accessory muscle use Heart S1-S2 regular Abdomen soft nontender nondistended bowel sounds are present all 4 quadrants Lower extremities show +1 edema, no cyanosis, pulses palpable +2 bilaterally Skin showed no rash Neurological examination patient is awake alert and oriented 3, cranial nerves are grossly intact, no focal neurological defect could be appreciated Assessment and plan: 1. Acute hypoxic respiratory failure secondary to combination of COVID-19 respiratory infection andCHF exacerbation. 2. Acute over chronic congestive heart failure with preserved EF. 3. COVID-19 respiratory infection. 4. Coronary artery disease status post PCI to the LAD 06/02/2024 5. Hypertension. 6. Hypothyroidism. 7. Polymyalgia rheumatica. 8. Chronic anemia 9. Pulmonary hypertension Plan: 1. Continue with the dexamethasone for COVID-19 respiratory infection, patient had declined the useof the remdesivir. 2. Continue with IV Lasix, continue to monitor I's and O's, electrolytes and respiratory status. 3. Cardiology team will be evaluating the patient's, will follow their recommendations. 4. Continue with Lovenox for DVT prophylaxis. 5. Continue to monitor patient clinically as well as her labs. Patient understood her plan of care all questions were answered, all concerns were addressed, she declined my offer to call her family stating that she will update the family by herself Labs: Basic Metabolic Profile Glucose Level: 126 mg/dL High (06/06/24 04:49:00) Glucose Level: 108 mg/dL (06/05/24 12:41:00) Sodium Level: 139 mEq/L (06/06/24 04:49:00) Sodium Level: 138 mEq/L (06/05/24 12:41:00) Potassium Level: 3.8 mEq/L (06/06/24 04:49:00) Potassium Level: 4.1 mEq/L (06/05/24 12:41:00) Chloride: 104 mEq/L (06/06/24 04:49:00) Chloride: 108 mEq/L (06/05/24 12:41:00) CO2: 26 mEq/L (06/06/24 04:49:00) CO2: 25 mEq/L (06/05/24 12:41:00) BUN/Creatinine Ratio: 18.2 ratio (06/06/24 04:49:00) BUN/Creatinine Ratio: 12 ratio (06/05/24 12:41:00) Complete Blood Count WBC: 7.5 10^3/mcL (06/06/24 04:49:00) WBC: 9.3 10^3/mcL (06/05/24 12:41:00) RBC: 3.6 10^6/mcL Low (06/06/24 04:49:00) RBC: 3.46 10^6/mcL Low (06/05/24 12:41:00) Hgb: 11.1 G/dL Low (06/06/24 04:49:00) Hgb: 10.8 G/dL Low (06/05/24 12:41:00) Hct: 33.9 % Low (06/06/24 04:49:00) Hct: 32.5 % Low (06/05/24 12:41:00) MCV: 94 fL (06/06/24 04:49:00) MCV: 94 fL (06/05/24 12:41:00) MCH: 30.8 pg (06/06/24 04:49:00) MCH: 31.1 pg (06/05/24 12:41:00) MCHC: 32.8 G/dL (06/06/24 04:49:00) MCHC: 33.1 G/dL (06/05/24 12:41:00) RDW: 14.5 % (06/06/24 04:49:00) RDW: 14.9 % (06/05/24 12:41:00) Platelet: 156 10^3/mcL (06/06/24 04:49:00) Platelet: 191 10^3/mcL (06/05/24 12:41:00) MPV: 8.6 fL (06/06/24 04:49:00) MPV: 8.1 fL (06/05/24 12:41:00) Medications (20) Active Scheduled: (15) aspirin 81 mg Chewable 81 mg 1 tab(s), Oral, qDay cholecalciferol 25 mcg tablet (Vit D3 1000 units) 25 mcg 1 tab(s), Oral, qDay clopidogrel 75 mg Tablet 75 mg 1 tab(s), Oral, qDay cyanocobalamin 500 mcg Tablet 5,000 mcg 10 tab(s), Sublingual, 2X/week dexamethasone 6 mg tablet 6 mg 1 tab(s), Oral, qDay enoxaparin 40 mg/ 0.4mL syringe 40 mg 0.4 mL, Subcutaneous, qDay ferrous sulfate 325 mg Tablet 325 mg 1 tab(s), Oral, qDayM furosemide 40 mg/4 mL vial 40 mg 4 mL, IV Push, BID gabapentin 300 mg Capsule 300 mg 1 cap(s), Oral, BID gabapentin 300 mg Capsule 300 mg 1 cap(s), Oral, BID leflunomide 20 mg Tablet 20 mg 1 tab(s), Oral, qDay levothyroxine 100 mcg tablet 100 mcg 1 tab(s), Oral, qDay nebivolol 2.5 mg tablet 5 mg 2 tab(s), Oral, qDay potassium chloride 20 mEq ER tablet 20 mEq 1 tab(s), Oral, qDay spironolactone 25 mg tablet 25 mg 1 tab(s), Oral, qDayM Continuous: (0) PRN: (5) acetaminophen 325 mg Tablet 650 mg 2 tab(s), Oral, q4h albuterol - ipratropium 2.5 mg-0.5 mg/3 mL Inhal Clau UD 3 mL, Inhalation, q4hRT dextrose 50% Solution Disp syringe 50 mL 12.5 gram(s) 25 mL, IV Push, AsDirected melatonin 3 mg tablet 3 mg 1 tab(s), Oral, qHS ondansetron 2 mg/ 1 mL 2 mL INJ 4 mg 2 mL, IV Push, q4h Signature: Devika Romero MD Digitally Signed by DEVIKA ROMERO MD on 06/06/2024 10:59 AM [facility] [id number] Cardiology Consult note Date of Service 06/06/2024 Reason for Consultation CHF History of Present Illness 78-year-old lady past medical history of heart failure with ejection fraction, Polymyalgia rheumatica on leflunomide, coronary disease status post right heart cath PCI to LAD on 06/02/2024, chronic anemia, hypertension, iron deficiency, pulmonary hypertension, hypothyroidism, hyperlipidemia presented for shortness of breath with plan to be COVID-19 positive hypoxic at 86 on room air was placed on oxygen. proBNP of 4417 troponin of 25. D-dimer of 376. 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 She is admitted for COVID-19 positive and hypoxic with concern for CHF. She reports that she has not had much of an appetite as she has been feeling very weak. Also reports persistent cough. [06/05/2024]: Patient admitted from ED because of shortness of breath, was found to be COVID-positive. Patient was recently discharged from the hospital s/p PCI to LAD, so cardiology consult was placed for the same reason. To the primary team, the patient appeared to be in CHF exacerbation. Review of Systems General: negative for weight change, fevers/night sweats/chills, fatigue/weakness Skin: negative for skin changes HEENT: negative for headache, visual changes, hearing loss, rhinorrhea/congestion/epistaxis, bleeding gums, hoarseness/sore throat Breasts: negative for skin changes, discharge Cardiac: negative for murmurs, angina, palpitations, BRENNAN, orthopnea, PND, edema Pulmonary: negative for SOB, wheezing, cough, sputum/hemoptysis, PNA, asthma/bronchitis/COPD GI: negative for N/V, change in appetite, dysphagia, change in BM, stool color, hematemesis/melena/hematochezia, constipation/diarrhea : negative for polydipsia, polyuria, hematuria, dysuria, nocturia MSK: negative for muscle weakness, joint pain/stiffness, redness/swelling Heme: negative for anemia, easy bruising Neurologic: negative for loss of sensation/numbness/tingling, weakness/paralysis Physical Exam Vitals and Measurements T: 38.0 C (Oral) TMIN: 37.2 C (Oral) TMAX: 38.0 C (Oral) HR: 72 (Apical) RR: 18 BP: 119/55 SpO2: 94% HT: 156 cm WT: 74 kg BMI: 30.41 Weight Dosing Weight: 74 kg (06/06/24) General: AAOX3, NAD HEENT: Anicteric sclera, MMM Neck: Trachea midline, no JVD appreciated CVS: RRR, normal S1/S2, no murmurs/rubs/gallops Lung: CTAB, no wheezes/rhonchi/rales Abd: Soft, NT/ND Extrem: WWP, no LE edema Skin: Warm, Intact Neuro: AAOX3, spontaneous movement of all extremities Psych: Appropriate mood & affect Lab Results 06/06 04:49 WBC: 7.5 Hgb: 11.1 L Hct: 33.9 L Platelet: 156 Neutrophil %: 84.4 H Glucose Level: 126 H Sodium Level: 139 Potassium Level: 3.8 BUN: 18.0 Creatinine Lvl (s): 0.99 06/05 12:41 WBC: 9.3 Hgb: 10.8 L Hct: 32.5 L Platelet: 191 Neutrophil %: 83.3 H Glucose Level: 108 Sodium Level: 138 Potassium Level: 4.1 BUN: 11.0 Creatinine Lvl (s): 0.92 Assessment/Plan 1. COVID-19 positivity Patient presented with shortness of breath and was found to be COVID-19 positive Plan Management as per primary hospitalist team 2. Concern for CHF exacerbation Patient presented with shortness of breath and was found to be COVID-positive proBNP: 4400 JVP: Mildly elevated No pedal edema ECHO [02/23/2024]: EF 60 to 65% Plan Fluid restriction to 1500 mill per day Salt restricted diet Daily weight monitoring Accurate input and output CONTINUE furosemide 40 mg IVP every 12 hours -possible changing to p.o. furosemide tomorrow CONTINUE spironolactone 25 mg p.o. daily 2. CAD S/p PCI to LAD on 06/02/2024 Plan CONTINUE aspirin 81 mg p.o. daily CONTINUE clopidogrel 75 mg p.o. daily RESTART rosuvastatin 10 mg p.o. daily 3. Pulmonary hypertension 4. Hypertension 5. Hyperlipidemia 6. Hypothyroidism 7. Obesity 8. Osteoarthritis Management as per primary hospitalist team Problem List/Past Medical History Ongoing Anemia B12 deficiency Bifascicular block BMI 30.0-30.9,adult Current chronic use of systemic steroids Dyslipidemia Fatigue History of osteopenia Hypersomnolence Hypertension Iron deficiency Left anterior fascicular block (LAFB) determined by electrocardiography Obese Osteoarthritis of hand Pernicious anemia PMR (polymyalgia rheumatica) PSVT (paroxysmal supraventricular tachycardia) Pulmonary HTN Screening for osteoporosis Shortness of breath SOBOE (shortness of breath on exertion) Vitamin D deficiency Procedure/Surgical History Stress exercise monitoring system: 03/29/24 Echocardiogram: 02/23/24 Shoulder repair Small bowel resection Medications Inpatient Aldactone, 25 mg= 1 tab(s), Oral, qDayM aspirin, 81 mg= 1 tab(s), Oral, qDay Decadron, 6 mg= 1 tab(s), Oral, qDay Dextrose 50% IV Push, 12.5 gram(s)= 25 mL, IV Push, AsDirected, PRN DuoNeb, 3 mL, Inhalation, q4hRT, PRN Feosol, 325 mg= 1 tab(s), Oral, qDayM gabapentin, 300 mg= 1 cap(s), Oral, BID gabapentin, 300 mg= 1 cap(s), Oral, BID Lasix, 40 mg= 4 mL, IV Push, BID leflunomide, 20 mg= 1 tab(s), Oral, qDay levothyroxine, 100 mcg= 1 tab(s), Oral, qDay Lovenox, 40 mg= 0.4 mL, Subcutaneous, qDay melatonin, 3 mg= 1 tab(s), Oral, qHS, PRN nebivolol, 5 mg= 2 tab(s), Oral, qDay Plavix, 75 mg= 1 tab(s), Oral, qDay potassium chloride extended release, 20 mEq= 1 tab(s), Oral, qDay Tylenol, 650 mg= 2 tab(s), Oral, q4h, PRN Vitamin B12, 5000 mcg= 10 tab(s), Sublingual, 2X/week Vitamin D3 25 mcg (1000 intl units) oral tablet, 25 mcg= 1 tab(s), Oral, qDay Zofran, 4 mg= 2 mL, IV Push, q4h, PRN Home Ecotrin Adult Low Strength 81 mg oral delayed release tablet, 81 mg= 1 tab(s), Oral, qDayM, 11 refills ferrous fumarate 324 mg (106 mg elemental iron) oral tablet, 324 mg= 1 tab(s), Oral, qDay gabapentin, 300 mg, Oral, BID gabapentin 300 mg oral capsule, 300 mg= 1 cap(s), Oral, BID leflunomide 20 mg oral tablet, 20 mg= 1 tab(s), Oral, qDay levothyroxine 100 mcg (0.1 mg) oral tablet, 100 mcg= 1 tab(s), Oral, qDay nebivolol 5 mg oral tablet, 5 mg= 1 tab(s), Oral, qDay, 3 refills Plavix 75 mg oral tablet, 75 mg= 1 tab(s), Oral, qDay, 11 refills Potassium Chloride (Eqv-K-Tab) 20 mEq oral tablet, extended release, 20 mEq= 1 tab(s), Oral, qDay spironolactone 25 mg oral tablet, 25 mg= 1 tab(s), Oral, qDay, 6 refills Vitamin B12 5000 mcg oral tablet, disintegrating, 5000 mcg= 1 tab(s), Oral, 2X/week Vitamin D3 25 mcg (1000 intl units) oral capsule, 25 mcg= 1 cap(s), Oral, qDay Allergies NKA Social History Alcohol Use: Current. Type: Liquor. Frequency: 1-2 times per month., 02/16/2024 Employment/School Status: Retired., 02/16/2024 Home/Environment Living situation: Home/Independent. Guardian(s) Information: - 1 daughter L/W, 1 son L/W, 2grandchildren L/W., 02/16/2024 Substance Abuse Use: Never., 03/07/2024 Tobacco Nicotine Use: Never (less than 100 in lifetime)., 05/20/2024 Family History Cancer: Mother. Coronary artery disease: Paternal Uncle. HTN - Hypertension: Mother and Brother. Heart disease: Mother, Father and Brother. Health Status Family Member(s) Family Member(s) Relationship: Mother, Age: Unknown, Cause: cancer-lung Relationship: Father, Age: Unknown, Cause: heart Relationship: Brother, Age: Unknown, Cause: heart Immunizations SARS-CoV-2 mRNA (tozinameran) vaccine: 0.3 unknown unit (08/27/21) Digitally Signed by MARNI DONOHUE MD on 06/06/2024 04:20 PM Digitally Signed by VIOLET OROZCO MD [facility] [id number] History and physical note Date of Service 06/05/24 Chief Complaint 06/02/24 Stent placed. Tested Covid + 06/04/24. Cough, Sore throat and fever. History of Present Illness 78-year-old lady past medical history of heart failure with ejection fraction, Polymyalgia rheumatica on leflunomide, coronary disease status post right heart cath PCI to LAD on 06/02/2024, chronic anemia, hypertension, iron deficiency, pulmonary hypertension, hypothyroidism, hyperlipidemia presented for shortness of breath with plan to be COVID-19 positive hypoxic at 86 on room air was placed on oxygen. proBNP of 4417 troponin of 25. D-dimer of 376. 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 She is admitted for COVID-19 positive and hypoxic with concern for CHF. She reports that she has not had much of an appetite as she has been feeling very weak. Also reports persistent cough. Review of Systems 14 point review of system was discussed and reviewed as negative unless otherwise specified above Physical Exam Vitals and Measurements T: 37.2 C (Oral) TMIN: 37.2 C (Oral) TMAX: 37.4 C (Temporal Artery) HR: 81 RR: 26 BP: 155/79 SpO2: 96% No qualifying data available. General- in no acute distress, alert Cardiac- Normal S1 S2, with no murmur rubs or gallops, no edema HEENT- PERRLA, eyes- sclera nonicteric, oral mucosa moist Lungs- Clear to auscultation bilaterally Abdomen- Nontender to palpation, positive bowel sounds Neurology- No focal neuro deficit, follows command Skin- no rash Psychiatry- oriented x3 Lab Results 06/05 12:41 WBC: 9.3 Hgb: 10.8 L Hct: 32.5 L Platelet: 191 Neutrophil %: 83.3 H Glucose Level: 108 Sodium Level: 138 Potassium Level: 4.1 BUN: 11.0 Creatinine Lvl (s): 0.92 EKG EC06/05/24: SINUS RHYTHM RBBB AND LAFB Compared to ECG at 06/02/2024 16:19:03 Electronic Signature: LEANDRO HASSAN DO 06/05/2024 13:52:17 Assessment/Plan Orders: aspirin, 81 mg= 1 tab(s), Oral, qDay clopidogrel(Plavix), 75 mg= 1 tab(s), Oral, qDay Assessment 1. Acute hypoxic respite failure 2. Acute on chronic heart failure with ejection fraction 3. COVID-19 4. Coronary artery disease status post PCI to LAD 06/02/2024 5. Hypertension 6. Hypothyroidism 7. Polymyalgia rheumatica on leflunomide Plan 1. Chest x-ray reviewed negative for any acute findings. Given hypoxia will continue with Decadron 6 mg daily. D-dimer is below her age adjusted cutoff, so no need for CTA. Concern for CHF exacerbation we will go ahead and start Lasix 40 IV twice daily. Consult cardiology given recent PCI to LAD. Oxygen support wean as tolerated. DVT prophylaxis. This document was transcribed using a voice recognition software and may contain typographical errors. Problem List/Past Medical History Ongoing Anemia B12 deficiency Bifascicular block BMI 30.0-30.9,adult Current chronic use of systemic steroids Dyslipidemia Fatigue History of osteopenia Hypersomnolence Hypertension Iron deficiency Left anterior fascicular block (LAFB) determined by electrocardiography Obese Osteoarthritis of hand Pernicious anemia PMR (polymyalgia rheumatica) PSVT (paroxysmal supraventricular tachycardia) Pulmonary HTN Screening for osteoporosis Shortness of breath SOBOE (shortness of breath on exertion) Vitamin D deficiency Procedure/Surgical History Stress exercise monitoring system: 03/29/24 Echocardiogram: 02/23/24 Shoulder repair Small bowel resection Medications Home Medications (11) Active Crestor 10 mg oral tablet 10 mg = 1 tab(s), Oral, Daily Ecotrin Adult Low Strength 81 mg oral delayed release tablet 81 mg = 1 tab(s), Oral, qDayM ferrous fumarate 324 mg (106 mg elemental iron) oral tablet See Instructions gabapentin 300 mg, Oral, BID leflunomide 20 mg oral tablet 20 mg = 1 tab(s), Oral, qDay levothyroxine 100 mcg (0.1 mg) oral tablet 100 mcg = 1 tab(s), Oral, qDay nebivolol 5 mg oral tablet 5 mg = 1 tab(s), Oral, qDay Plavix 75 mg oral tablet 75 mg = 1 tab(s), Oral, qDay spironolactone 25 mg oral tablet 25 mg = 1 tab(s), Oral, qDay Vitamin B12 5000 mcg oral tablet, disintegrating See Instructions Vitamin D3 25 mcg (1000 intl units) oral capsule 25 mcg = 1 cap(s), Oral, Daily Allergies NKA Social History Alcohol Use: Current. Type: Liquor. Frequency: 1-2 times per month., 02/16/2024 Employment/School Status: Retired., 02/16/2024 Home/Environment Living situation: Home/Independent. Guardian(s) Information: - 1 daughter L/W, 1 son L/W, 2grandchildren L/W., 02/16/2024 Substance Abuse Use: Never., 03/07/2024 Tobacco Nicotine Use: Never (less than 100 in lifetime)., 05/20/2024 Family History Cancer: Mother. Coronary artery disease: Paternal Uncle. HTN - Hypertension: Mother and Brother. Heart disease: Mother, Father and Brother. Health Status Family Member(s) Family Member(s) Relationship: Mother, Age: Unknown, Cause: cancer-lung Relationship: Father, Age: Unknown, Cause: heart Relationship: Brother, Age: Unknown, Cause: heart Immunizations SARS-CoV-2 mRNA (tozinameran) vaccine: 0.3 unknown unit (08/27/21) Code Status Code Status - Ordered -- 06/05/24 14:11:00 EDT, Full Code, Constant Order Digitally Signed by MEHUL GIBBONS MD on 06/05/2024 04:13 PM Digitally Signed by MEHUL GIBBONS MD on 06/05/2024 04:20 PM [facility] [id number] Evaluation + Plan noteExtracted from: Title:History and Physical Author:GEORGE GIBBONS MD Date:06/05/24 Orders: aspirin, 81 mg= 1 tab(s), Oral, qDay clopidogrel(Plavix), 75 mg= 1 tab(s), Oral, qDay Assessment 1. Acute hypoxic respite failure 2. Acute on chronic heart failure with ejection fraction 3. COVID-19 4. Coronary artery disease status post PCI to LAD 06/02/2024 5. Hypertension 6. Hypothyroidism 7. Polymyalgia rheumatica on leflunomide Plan 1. Chest x-ray reviewed negative for any acute findings. Given hypoxia will continue with Decadron 6 mg daily. D-dimer is below her age adjusted cutoff, so no need for CTA. Concern for CHF exacerbation we will go ahead and start Lasix 40 IV twice daily. Consult cardiology given recent PCI to LAD. Oxygen support wean as tolerated. DVT prophylaxis. This document was transcribed using a voice recognition software and may contain typographical errors. Future Appointments Appointment Date:06/22/2024 01:30:00 PM Scheduled Provider: Location:[facility] Appointment Type:BD Bone Density DEXA Axial Skeleton Appointment Date:07/01/2024 03:15:00 PM Scheduled Provider: Location:[facility] Appointment Type:CV OV Appointment Date:08/26/2024 09:45:00 AM Scheduled Provider:ANGELA STEPHENS MD Location:[facility] Appointment Type:PC OV Lab Check Future Scheduled Tests Laboratory* Basic Metabolic Panel 05/04/24 * Basic Metabolic Panel 04/08/24 * Lipid Profile 07/01/24 * Complete Metabolic Panel 07/01/24 Radiology* BD Bone Density DEXA Axial Skeleton 06/22/24 * BD Bone Density DEXA Axial Skeleton 03/10/24 [facility] 07-21-2024 NoteSINUS RHYTHM RBBB AND LAFB Compared to ECG at 06/02/2024 16:19:03 Electronic Signature: LEANDRO HASSAN DO 06/05/2024 13:52:[address] [place] [address] 07-21-2024 Note ORIGINAL EXAMINATION: ONE XRAY VIEW OF THE CHEST06/05/2024 11:35 am CHEST ONE VIEW AP/PA COMPARISON: None available time of interpretation. HISTORY: ORDERING SYSTEM PROVIDED HISTORY: Reason for Exam: Shortness of breath FINDINGS: Heart size and vascularity are within normal limits. The lungs are clear of focal consolidation. No effusion, pneumothorax, or acute osseous abnormality. IMPRESSION: No radiographic evidence of acute cardiopulmonary process. Interpreted by: Roman Rausch MD Preliminary Report By: Roman Rausch MD Electronically signed By Roman Rausch MD Dictated Date: 06/05/2024 11:45:38 AM Prelim Date: 06/05/2024 11:45:56 AM Sign Date: 06/05/2024 11:45:56 AM Ordering Provider: ROMAN Delgadilloman [id number] Hospital Discharge instructions Patient Education 06/02/2024 16:52:40 3- Heart Cath/PCI radial (08/2018) (CUSTOM) HEART CATHETERIZATION (radial) Discharge Instructions DIET Drink plenty of fluids for the next 48 hours to help your kidneys flush the heart cath dye out of your system ACTIVITY For the next 48 hours: Do not deep bend the wrist Do not lift, push, or pull anything over 5 pounds for 5 days Do not use the hand/arm to support your weight when rising from a chair or bed Do not drive for 2 days For the next 7 days: Do not submerse your procedure site in water Do not swim, wash dishes, or take tub baths You may write, eat, type, and shower WOUND CARE Keep a Band-Aid on your procedure site for the next 3-4 days Change the Band-Aid daily or if it gets wet/soiled AFTER YOU GO HOME, CALL YOUR DOCTOR FOR: Any increase in bruising or tenderness from the procedure site Any redness, pus, or other signs of infection at the site A temperature above 100.5 Severe pain at the site DIAL 911 AND RETURN TO THE HOSPITAL FOR: Any bleeding from the procedure site. The site may be bruised or tender, but it should not be bleeding at any time. If your site begins to bleed, hold firm pressure on it and dial 911 to return to the hospital Any increase in swelling at the procedure site. An increase in swelling could mean the area is bleeding under the skin. Hold firm pressure to the site and dial 911 to return to the hospital Document Released: 11/02/2006 Document Revised: 10/19/2013 Document Reviewed: 11/03/2014 ExitCare Patient Information 2015 [employer]. This information is not intended to replace advicegiven to you by your health care provider. Make sure you discuss any questions you have with your health care provider. 06/02/2024 16:51:59 Moderate Conscious Sedation, Adult, Care After Moderate Conscious Sedation, Adult, Care After These instructions provide you with information about caring for yourself after your procedure. Your health care provider may also give you more specific instructions. Your treatment has been plannedaccording to current medical practices, but problems sometimes occur. Call your health care provider if you have any problems or questions after your procedure. What can I expect after the procedure? After your procedure, it is common: To feel sleepy for several hours. To feel clumsy and have poor balance for several hours. To have poor judgment for several hours. To vomit if you eat too soon. Follow these instructions at home: For at least 24 hours after the procedure: Do not: ?Participate in activities where you could fall or become injured. ?Drive. ?Use heavy machinery. ?Drink alcohol. ?Take sleeping pills or medicines that cause drowsiness. ?Make important decisions or sign legal documents. ?Take care of children on your own. Rest. Eating and drinking Follow the diet recommended by your health care provider. If you vomit: ?Drink water, juice, or soup when you can drink without vomiting. ?Make sure you have little or no nausea before eating solid foods. General instructions Have a responsible adult stay with you until you are awake and alert. Take lvab-eug-upwynrd and prescription medicines only as told by your health care provider. If you smoke, do not smoke without supervision. Keep all follow-up visits as told by your health care provider. This is important. Contact a health care provider if: You keep feeling nauseous or you keep vomiting. You feel light-headed. You develop a rash. You have a fever. Get help right away if: You have trouble breathing. This information is not intended to replace advice given to you by your health care provider. Make sure you discuss any questions you have with your health care provider. Document Released: 08/23/2014 Document Revised: 10/15/2018 Document Reviewed: 02/21/2017 [employer] Patient Education 2020 [employer] Follow Up Care 05/27/2024 14:39:55 With:*[facility] will contact you for an appointment in 1-2 weeks If you have any questions please call:[phone]. Address: When: Unknown With:TED BRIDGES MD Address: [address] [facility] [address] [facility] [place] [address]- [phone] When:07/01/2024 15:15:00 [facility] 07-18-2024 Summary of episode note Discharge Instructions Thank you for allowing [facility] to assist you with your healthcare needs. The following is importantdischarge information regarding your hospital visit. Your Care Team ANGELA STEPHENS MD What to do next Scheduled Follow-Up Appointments Appointment Type When With Where Contact Information StatusBD Bone Density DEXA Axial Skeleton 06/22/2024 01:30 PM EDT [facility] Confirmed CV OV 07/01/2024 03:15 PM EDT [facility] Confirmed PC OV Lab Check 08/26/2024 09:45 AM EDT ANGELA STEPHENS MD [facility] Confirmed Follow Up Appointments Follow Up with *[facility] will contact you for an appointment in 1-2 weeks If youhave any questions please call:[phone]. Follow Up with TED BRIDGES MD When:07/01/2024 03:15 PM EDT Where:[address] [place] [address]- [phone] Medications Please ask your primary doctor or pharmacist before taking any other medication not listed, including over the counter drugs, herbal medications, vitamins and or supplements as they may interact withyour home medications. What How Much When Instructions Last Dose New aspirin (Ecotrin Adult Low Strength 81 mg oral delayed release tablet) 1 tab(s) by mouth Once a day with a meal Refills: 11 Pickup at [facility]/pharmacy #[id number] New clopidogrel (Plavix 75 mg oral tablet) 1 tab(s) by mouth Once a day Refills: 11 Pickup at [facility]/pharmacy #[id number] Unchanged cholecalciferol (Vitamin D3 25 mcg (1000 intl units) oral capsule) 1 cap by mouth Every day Unchanged cyanocobalamin (Vitamin B12 5000 mcg oral tablet, disintegrating) See instructions 1 tab(s) Oral 3x/ week Unchanged ferrous fumarate (ferrous fumarate 324 mg (106 mg elemental iron) oral tablet) See instructions 1 tab(s) oral daily Unchanged gabapentin 300 Milligram by mouth Two (2) times a day unsure of strength once a day Unchanged leflunomide (leflunomide 20 mg oral tablet) 1 tab(s) by mouth Once a day Unchanged levothyroxine (levothyroxine 100 mcg (0.1 mg) oral tablet) 1 tab(s) by mouth Once a day Unchanged nebivolol (nebivolol 5 mg oral tablet) 1 tab(s) by mouth Once a day Unchanged rosuvastatin (Crestor 10 mg oral tablet) 1 tab(s) by mouth Every day Unchanged spironolactone (spironolactone 25 mg oral tablet) 1 tab(s) by mouth Once a day Take with food Pharmacy Information [facility]/pharmacy #[id number]: [address] [place] [address], [place] [id number] [phone] Please take this list to your next doctor s visit. Bring all medications you take, including over the counter medications, herbals and other supplements with you to your doctor s visit. Patients and families are reminded to discard old lists and to update any records with all medication providers or retail pharmacies. Education Materials HEART CATHETERIZATION (radial) Discharge Instructions DIET Drink plenty of fluids for the next 48 hours to help your kidneys flush the heart cath dye out of your system ACTIVITY For the next 48 hours: Do not deep bend the wrist Do not lift, push, or pull anything over 5 pounds for 5 days Do not use the hand/arm to support your weight when rising from a chair or bed Do not drive for 2 days For the next 7 days: Do not submerse your procedure site in water Do not swim, wash dishes, or take tub baths You may write, eat, type, and shower WOUND CARE Keep a Band-Aid on your procedure site for the next 3-4 days Change the Band-Aid daily or if it gets wet/soiled AFTER YOU GO HOME, CALL YOUR DOCTOR FOR: Any increase in bruising or tenderness from the procedure site Any redness, pus, or other signs of infection at the site A temperature above 100.5 Severe pain at the site DIAL 911 AND RETURN TO THE HOSPITAL FOR: Any bleeding from the procedure site. The site may be bruised or tender, but it should not be bleeding at any time. If your site begins to bleed, hold firm pressure on it and dial 911 to return to the hospital Any increase in swelling at the procedure site. An increase in swelling could mean the area is bleeding under the skin. Hold firm pressure to the site and dial 911 to return to the hospital Document Released: 11/02/2006 Document Revised: 10/19/2013 Document Reviewed: 11/03/2014 ExitCare Patient Information 2015 [employer]. This information is not intended to replace advicegiven to you by your health care provider. Make sure you discuss any questions you have with your health care provider. Moderate Conscious Sedation, Adult, Care After These instructions provide you with information about caring for yourself after your procedure. Your health care provider may also give you more specific instructions. Your treatment has been plannedaccording to current medical practices, but problems sometimes occur. Call your health care provider if you have any problems or questions after your procedure. What can I expect after the procedure? After your procedure, it is common: To feel sleepy for several hours. To feel clumsy and have poor balance for several hours. To have poor judgment for several hours. To vomit if you eat too soon. Follow these instructions at home: For at least 24 hours after the procedure: Do not: ? Participate in activities where you could fall or become injured. ? Drive. ? Use heavy machinery. ? Drink alcohol. ? Take sleeping pills or medicines that cause drowsiness. ? Make important decisions or sign legal documents. ? Take care of children on your own. Rest. Eating and drinking Follow the diet recommended by your health care provider. If you vomit: ? Drink water, juice, or soup when you can drink without vomiting. ? Make sure you have little or no nausea before eating solid foods. General instructions Have a responsible adult stay with you until you are awake and alert. Take moov-wkh-bewxzhl and prescription medicines only as told by your health care provider. If you smoke, do not smoke without supervision. Keep all follow-up visits as told by your health care provider. This is important. Contact a health care provider if: You keep feeling nauseous or you keep vomiting. You feel light-headed. You develop a rash. You have a fever. Get help right away if: You have trouble breathing. This information is not intended to replace advice given to you by your health care provider. Make sure you discuss any questions you have with your health care provider. Document Released: 08/23/2014 Document Revised: 10/15/2018 Document Reviewed: 02/21/2017 [employer] Patient Education 2020 [employer] Additional Information VACCINATE! IT SAVES LIVES! Members of the community who have not yet received the COVID-19 vaccine and would like to receive it can visit one of [facility] vaccine clinics. There are many vaccine clinic locations within the [facility]. For locations and available times, please visit https://[email or web address].[place].gov/. It is important to note that some COVID mobile vaccine clinics are held outdoors and may be canceled in rainy or stormy conditions. To learn more about pediatric vaccinations (ages 5-11), we invite you to visit the [employer] [facility] webpage. https://www.[email or web address].org/pages/[email or web address]-[email or web address]-Bpsrydugjq-Tolfd-[email or web address] stions.htmlTo learn more about the COVID-19 vaccine, we invite you to visit the CDC website for a list of frequently asked questions.https://www.cdc.gov/coronavirus/2019-ncov/vaccines/faq.html [employer] [facility] Patient Portal Access Instructions: Stay connected with your healthcare team and access your personal medical information anytime with the [employer] Patient Portal. Please follow the directions below to create your [employer] account: 1.Access the email account you provided upon registration to the hospital/physician office.2.Look for an invitation email from [facility].3.Open the email and access the invitation link: AcceptInvitation to [employer] [facility].4.Fill in the required simpson to create your account. To access your account, visit [email or web address]. Click the blue button labeled Access Patient Portal and then log in with the username and password that you created in the steps above. You will be able to view your test results, lab results, a summary of your visits, upcoming appointments and more. There is also a convenient messaging option where you can send secure messages to your p [employer]. In addition, you will have the ability to download any documents or summaries to your computer and/or send the information securely to a physician. Remember that your healthcare information is confidential, so carefully consider who you will allowto register on the [employer] Patient Portal for access to your information. You can also access the [employer] Patient Portal on the [employer] josi. Simply click on Patient Portal and then log into your account. If you would like to receive a full copy of your medical records, please contact the [facility] Medical Records Department by calling [phone], Thursday through Thursday between 8 a.m. and 4:30 p.m. HOW TO SAFELY DISPOSE OF PRESCRIPTION MEDICATIONS Please use one of the following methods to safely dispose of your unused medications. 1.Use a drug disposal kit: the drug disposal pouch allows you to safely discard your old and unuseddrugs. Ask your nurse to give you one when you are discharged.2.Visit a local take-back location: Many local pharmacies and police departments have programs that collect old and unwanted prescriptiondrugs. Call your local pharmacy or go to http://Casualing.Circular/4K5Ui0x to find one close to you.3.Make use of household items: Use cat litter or old coffee grounds to dispose medications if other options arenot available. Mix your drugs with these household products, seal them in an airtight container andthrow it into the garbage. Call [facility]: [phone] to be sure your drugs can be disposed of in this way. Some medicines may require a different approach.4.Never flush your medications down the toilet. IF YOU HAVE BEEN PRESCRIBED AN OPIOID FOR PAIN If you have been prescribed an opioid (such as hydrocodone, oxycodone or morphine), it is critical to understand the possible side effects and risks of opioid pain medications. Even when taken as directed, opioids can have several side effects including: Tolerance, meaning you might need to take more of a medication for the same pain relief. Nausea, vomiting and/or constipation. Sleepiness, dizziness, dry mouth, confusion, depression or itching. Physical dependence, meaning you have withdrawal symptoms when a medication is stopped, can develop within a few days. KNOW YOUR RESPONSIBILITIES It is important to know exactly how much and how often to take the opioid pain medications you are prescribed. Never take opioids in higher amounts or more often than prescribed. Do not combine opioids with alcohol or other drugs that cause drowsiness, such as benzodiazepines, also known as benzos, including diazepam and alprazolam, muscle relaxants or sleep aids. Never sell or share prescription opioids. This is illegal. Store opioids in a secure place and out of reach of others (including children, family, friends and visitors). The last page of this document has been signed and retained as a CHART COPY. Signatures Patient Education Materials 3- Heart Cath/PCI radial (08/2018) (CUSTOM) Moderate Conscious Sedation, Adult, Care After Medication Leaflets My discharge plan and instructions have been reviewed and explained to me and I,PEGGY LOPEZ understand my current condition and have read and understand these discharge instructions. I have received a written copy of the plan/instructions. If I have questions, I am aware that I should contact my doctor. 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 DFR positive LAD lesion. Patient had successful PCI to lad with IVUS guidance. Aspirin 81 mg daily lifelong Plavix 75 mg daily 12 months. Allergies NKA Consults No qualifying data available. Objective Vitals and Measurements T: 37.1 C (Oral) HR: 74 RR: 16 BP: 148/79 SpO2: 95% HT: 160.0 cm WT: 77.9 kg BMI: 30.43 Weight Dosing Weight: 77.9 kg (06/02/24) Code Status No qualifying data available. Medications New Prescription aspirin (Ecotrin Adult Low Strength 81 mg oral delayed release tablet)1 tab(s) by mouth once a day with a meal. Refills: 11. clopidogrel (Plavix 75 mg oral tablet)1 tab(s) by mouth once a day. Refills: 11. Unchanged cholecalciferol (Vitamin D3 25 mcg (1000 intl units) oral capsule)1 cap by mouth every day. cyanocobalamin (Vitamin B12 5000 mcg oral tablet, disintegrating)1 tab(s) Oral 3x/week. Refills: 1. ferrous fumarate (ferrous fumarate 324 mg (106 mg elemental iron) oral tablet)1 tab(s) oral daily. [id number] Milligram by mouth two (2) times a day. unsure of strength once a day. leflunomide (leflunomide 20 mg oral tablet)1 tab(s) by mouth once a day. levothyroxine (levothyroxine 100 mcg (0.1 mg) oral tablet)1 tab(s) by mouth once a day. nebivolol (nebivolol 5 mg oral tablet)1 tab(s) by mouth once a day. Refills: 3. rosuvastatin (Crestor 10 mg oral tablet)1 tab(s) by mouth every day. Refills: 3. spironolactone (spironolactone 25 mg oral tablet)1 tab(s) by mouth once a day. Take with food. Refills: 6. Follow Up Follow Up with TED BRIDGES MD When:07/01/2024 03:15 PM EDT Where:[address] [facility] [address] [facility] [place] [address]- [phone] Follow Up Appointments No qualifying data available. Follow Up Labs/Studies Discharge Labs No Follow-up Labs Discharge Studies No Follow-up Studies Discharge Diet No qualifying data available. Discharge Activity No qualifying data available. Readmission Risk/Palliative Score No qualifying data available. Digitally Signed by SERGEY CONRAD MD on 06/02/2024 11:32 AM [facility] [id number] Note Date of Service 03/29/2024 Procedure: Regadenoson (Lexiscan) chemical stress test Patient underwent a pharmacologic stress test using regadenoson. Total regadenoson dose of 0.4 mg was given as per protocol. The patient had a baseline heart rate of 79 bpm, which peaked at 106 bpm. The patient had a baseline blood pressure of 135/91 mmHg and it changed to 135/65 mmHg after the regadenoson administration. The patient experienced nausea which resolved at the end of the test. The patient's baseline ECG showed NSR with RBBB and baseline ST depression >1 mm in V1. During the stress, there were no ECG changes diagnostic of ischemia. Impression: ECG portion of the pharmacologic stress test is nondiagnostic due to baseline ECG abnormalities. The results of the nuclear portion of the stress test will be reported separately. See addendum to this note by the attending physician for additional comments. Digitally Signed by ROSA RIBERA MD on 03/29/2024 10:05 AM [facility] [id number] Note ORIGINAL EXAMINATION: CARDIAC SPECT03/29/2024 10:54 am TECHNIQUE: Lexiscan dose: 0.4 mg IV Radiopharmaceutical (rest and stress doses): Tc-99m Sestamibi IV 8.5 and 26.8 mCi SPECT acquisition and processing: Images reconstructed into short, vertical long, and horizontal long axis planes. Wall motion evaluation and quantitative LVEF assessment. Low-dose attenuation correction CT. COMPARISON: None HISTORY: Reason for Exam: dyspnea FINDINGS: Decreased perfusion involving the basal inferior wall on non-attenuation corrected post stress images resolves on attenuation corrected post-stress images, likely represents soft tissue attenuation. There is no stress-induced reversible perfusion abnormality. No fixed perfusion defect is seen to suggest infarction. The left ventricular end-diastolic volume is 65 mL. Gated imaging demonstrates no regional wall motion abnormality. Estimated left ventricular ejection fraction is 58 %. TID ratio is normal at 1.01. Low-dose attenuation correction CT demonstrates no coronary atherosclerotic calcifications. The heart is normal in size. No pericardial or pleural effusion is seen. There are areas of ground-glass atelectasis and air trapping. IMPRESSION: 1. No stress-induced reversible perfusion abnormality is seen. 2. Cardiac systolic function is normal with estimated ejection fraction of 58 %. Interpreted by: Rosendo Posey MD Preliminary Report By: Rosendo Posey MD Electronically signed By Rosendo Posey MD Dictated Date: 03/29/2024 2:59:49 PM Prelim Date: 03/29/2024 3:04:55 PM Sign Date: 03/29/2024 3:04:55 PM Ordering Provider: [facility]05-14-2024 Note Date of Service 03/29/2024 Procedure: Regadenoson (Lexiscan) chemical stress test Patient underwent a pharmacologic stress test using regadenoson. Total regadenoson dose of 0.4 mg was given as per protocol. The patient had a baseline heart rate of 79 bpm, which peaked at 106 bpm. The patient had a baseline blood pressure of 135/91 mmHg and it changed to 135/65 mmHg after the regadenoson administration. The patient experienced nausea which resolved at the end of the test. The patient's baseline ECG showed NSR with RBBB and baseline ST depression >1 mm in V1. During the stress, there were no ECG changes diagnostic of ischemia. Impression: ECG portion of the pharmacologic stress test is nondiagnostic due to baseline ECG abnormalities. The results of the nuclear portion of the stress test will be reported separately. See addendum to this note by the attending physician for additional comments. Digitally Signed by ROSA RIBERA MD on 03/29/2024 10:05 AM [facility] [id number] Hospital Discharge instructions Patient Education 09/01/2021 21:58:10 Understanding Heart Palpitations Understanding Heart Palpitations Heart palpitations are a symptom. It s the feeling you have when your heartbeat seems to be racing,pounding, skipping, or fluttering. Heart palpitations are most often felt in the chest. Sometimes, they may also be felt in the neck. What causes heart palpitations? In most cases, heart palpitations are caused by: Stress or anxiety Exercise Some medicines Caffeine Nicotine Alcohol Illegal drugs, such as cocaine Health problems, such as anemia or overactive thyroid In some cases, heart palpitations may be caused by a problem with the heart. Abnormal heart rhythms(arrhythmias) are the main concern. They may need to be managed by you and your healthcare provideror treated right away. How are heart palpitations treated? Treatments for heart palpitations depend on the cause. Options may include: Managing the things that trigger your heart palpitations. This could mean: oLearning ways to reduce stress and anxiety oAvoiding caffeine, nicotine, alcohol, or illegal drugs oStopping the use of certain medicines, under your doctor s guidance Medicines, procedures, or surgery to treat an arrhythmia or other health problem that is causing your symptoms What are the complications of heart palpitations? Complications of heart palpitations are rare unless they are caused by a problem such as an arrhythmia. In such cases, complications can include: Fainting Heart failure. This problem occurs when the heart is so weak it no longer pumps blood well. Blood clots and stroke Sudden cardiac arrest. This problem occurs when the heart suddenly stops beating. When should I call my healthcare provider? Call your healthcare provider right away if you have any of these: Fever of 100.4 F (38 C) or higher, or as directed Symptoms that don t get better with treatment, or symptoms that get worse New symptoms, such as chest pain, shortness of breath, dizziness, or fainting [id number] [place] [address]. All rights reserved. This information is not intended as a substitute for professional medical care. Always follow yourhealthcare professional's instructions. Follow Up Care 09/01/2021 19:29:30 With:Call Physician Referral Address:Unknown When:2-4 days [facility] 07-29-2021 History of Present illness Narrative* Mone Salvador PA-C - 06/13/2021 2:09 PM EDT Images from the original note were not included. Patient Name: [facility] Location: Peggy Lopez [address] [place] [address] Date Of : Date Of Visit: 1945 06/14/2021 MRN# Provider: [id number] Mone Salvador PA-C Chief Complaint Patient presents with Sore Throat x 3 days, cough, congestion, drainage, yellow mucus Assessment & Plan 1. LRTI (lower respiratory tract infection) azithromycin (Zithromax Z-Moris) 250 MG tablet 2. Suspected COVID-19 virus infection COVID-19, Molecular 3. Cough COVID-19, Molecular No follow-ups on file. Medical Decision Making covid test negative. Placed on z-moris for LRTI. She has an albuterol inhaler at home if needed. Also recommend mucinex, rest, hydration. Additional Clinical Comments Educated patient and/or guardian about signs and symptoms that would warrant further immediate evaluation. Recommended that they should return to urgent care, make an appointment with their family physician, or go to the emergency room if symptoms persist or get acutely worse. Recommended follow upwithin the next week with their PCP or to get established with a PCP soon in order to follow up appropriately. Subjective 75 y.o. female presents with Sore Throat (x 3 days, cough, congestion, drainage, yellow mucus) Wants a covid test. x3 days: sinus congestion/drainage, sore throat, cough with yellow sputum, fatigue. Fully covid vaccinated. No known ill contacts. No fever, hemoptysis, chest pain, SOB Review Of Systems Review of Systems Constitutional: Positive for fatigue. Negative for fever. HENT: Positive for congestion, postnasal drip, rhinorrhea and sinus pressure. Negative for trouble swallowing and voice change. Eyes: Negative for redness. Respiratory: Positive for cough. Negative for shortness of breath and wheezing. Cardiovascular: Negative for chest pain. Gastrointestinal: Negative for abdominal pain. Musculoskeletal: Negative for neck stiffness. Medical History Past Medical History: Diagnosis Date Disease of thyroid gland Hypertension Polymyalgia (HCC) Past Surgical History: Procedure Laterality Date BREAST SURGERY reduction Patient Active Problem List Diagnosis Cervical radiculopathy Social History Social History Tobacco Use Smoking status: Never Smoker Smokeless tobacco: Never Used Vaping Use Vaping Use: Never used Substance Use Topics Alcohol use: No Drug use: No Family History Family History Problem Relation Age of Onset Heart disease Mother Heart disease Father Heart disease Brother Objective Physical Exam BP 107/61 (BP Location: Right arm, Patient Position: Sitting, BP Cuff Size: Adult) Pulse 73 Temp 98.8 F (37.1 C) (Tympanic) Resp 17 Ht 5' 4 Wt 75.8 kg (167 lb) SpO2 96% BMI 28.67 kg/m Vision/Hearing Exam:No exam data present Physical Exam Vitals and nursing note reviewed. Exam conducted with a pelletizer tender present. Constitutional: General: She is not in acute distress. Appearance: Normal appearance. HENT: Head: Normocephalic and atraumatic. Right Ear: External ear normal. Left Ear: External ear normal. Nose: Mucosal edema and rhinorrhea present. Mouth/Throat: Lips: [place]. Mouth: Mucous membranes are moist. Pharynx: Oropharynx is clear. Uvula midline. No pharyngeal swelling, oropharyngeal exudate, posterior oropharyngeal erythema or uvula swelling. Eyes: Conjunctiva/sclera: Conjunctivae normal. Cardiovascular: Rate and Rhythm: Normal rate and regular rhythm. Heart sounds: Normal heart sounds. Pulmonary: Effort: Pulmonary effort is normal. Breath sounds: Normal breath sounds. Musculoskeletal: General: Normal range of motion. Cervical back: Neck supple. Skin: General: Skin is dry. Findings: No rash. Neurological: Mental Status: She is alert and oriented to person, place, and time. Psychiatric: Mood and Affect: Mood normal. Behavior: Behavior normal. Thought Content: Thought content normal. Judgment: Judgment normal. Procedure Notes Procedures Results Recent Results (from the past 168 hour(s)) COVID-19, Molecular Collection Time: 06/13/21 2:18 PM Specimen: Nasopharyngeal; Swab Result Value Ref Range SARS-CoV-2 Not Detected Not Detected No orders to display Orders Placed This Visit Orders Placed This Encounter Procedures COVID-19, Molecular Medication List At End Of Visit Current Outpatient Medications Medication Sig Dispense Refill cetirizine (ZYRTEC) 10 MG tablet Take 10 mg by mouth daily . hydroCHLOROthiazide (HYDRODIURIL) 12.5 MG tablet Take 12.5 mg by mouth daily. leflunomide (ARAVA) 20 MG tablet Take 20 mg by mouth daily . levothyroxine (SYNTHROID, LEVOTHROID) 100 MCG tablet Take 100 mcg by mouth once daily. metoprolol tartrate (LOPRESSOR) 25 MG tablet Take 25 mg by mouth 2 (two) times a day. omeprazole (PRILOSEC) 20 MG capsule TAKE 1 CAPSULE BY MOUTH AT LEAST 30 MINUTES PRIOR TO BREAKFAST azithromycin (Zithromax Z-Moris) 250 MG tablet Take 2 (two) tablets (500 mg total) by mouth daily for1 day, THEN 1 (one) tablet (250 mg total) daily for 4 days. 6 tablet 0 No current facility-administered medications for this visit. Patient Instructions Cough: Care Instructions Your Care Instructions A cough is your body's response to something that bothers your throat or airways. Many things can cause a cough. You might cough because of a cold or the flu, bronchitis, or asthma. Smoking, postnasal drip, allergies, and stomach acid that backs up into your throat also can cause coughs. A cough is a symptom, not a disease. Most coughs stop when the cause, such as a cold, goes away. You can take a few steps at home to cough less and feel better. Follow-up care is a maddox part of your treatment and safety. Be sure to make and go to all appointments, and call your doctor if you are having problems. It's also a good idea to know your test resultsand keep a list of the medicines you take. How can you care for yourself at home? Drink lots of water and other fluids. This helps thin the mucus and soothes a dry or sore throat. Honey or lemon juice in hot water or tea may ease a dry cough. Take cough medicine as directed by your doctor. Prop up your head on pillows to help you breathe and ease a dry cough. Try cough drops to soothe a dry or sore throat. Cough drops don't stop a cough. Medicine-flavored cough drops are no better than candy-flavored drops or hard candy. Do not smoke. Avoid secondhand smoke. If you need help quitting, talk to your doctor about stop-smoking programs and medicines. These can increase your chances of quitting for good. When should you call for help? Call 911 anytime you think you may need emergency care. For example, call if: You have severe trouble breathing. Call your doctor now or seek immediate medical care if: You cough up blood. You have new or worse trouble breathing. You have a new or higher fever. You have a new rash. Watch closely for changes in your health, and be sure to contact your doctor if: You cough more deeply or more often, especially if you notice more mucus or a change in the color of your mucus. You have new symptoms, such as a sore throat, an earache, or sinus pain. You do not get better as expected. Where can you learn more? Log into your personal health record on?[email or web address].com.[employer]?and enter N333?in the Education box to learn more about Cough: Care Instructions. Current as of: September 10, 2020 Content Version: 12.9 [employer]. Care instructions adapted under license by your healthcare professional. If you have questions about a medical condition or this instruction, always ask your healthcare professional. [employer] disclaims any warranty or liability for your use of this information. documented in this [id number] Instructions* Patient Instructions* Mone Salvador PA-C - 06/13/2021 1:51 PM EDT Images from the original note were not included. Cough: Care Instructions Your Care Instructions A cough is your body's response to something that bothers your throat or airways. Many things can cause a cough. You might cough because of a cold or the flu, bronchitis, or asthma. Smoking, postnasal drip, allergies, and stomach acid that backs up into your throat also can cause coughs. A cough is a symptom, not a disease. Most coughs stop when the cause, such as a cold, goes away. You can take a few steps at home to cough less and feel better. Follow-up care is a maddox part of your treatment and safety. Be sure to make and go to all appointments, and call your doctor if you are having problems. It's also a good idea to know your test resultsand keep a list of the medicines you take. How can you care for yourself at home? Drink lots of water and other fluids. This helps thin the mucus and soothes a dry or sore throat. Honey or lemon juice in hot water or tea may ease a dry cough. Take cough medicine as directed by your doctor. Prop up your head on pillows to help you breathe and ease a dry cough. Try cough drops to soothe a dry or sore throat. Cough drops don't stop a cough. Medicine-flavored cough drops are no better than candy-flavored drops or hard candy. Do not smoke. Avoid secondhand smoke. If you need help quitting, talk to your doctor about stop-smoking programs and medicines. These can increase your chances of quitting for good. When should you call for help? Call 911 anytime you think you may need emergency care. For example, call if: You have severe trouble breathing. Call your doctor now or seek immediate medical care if: You cough up blood. You have new or worse trouble breathing. You have a new or higher fever. You have a new rash. Watch closely for changes in your health, and be sure to contact your doctor if: You cough more deeply or more often, especially if you notice more mucus or a change in the color of your mucus. You have new symptoms, such as a sore throat, an earache, or sinus pain. You do not get better as expected. Where can you learn more? Log into your personal health record on?https://Jumping [email or web address].[email or web address]?and enter D290?in the Education box to learn more about Cough: Care Instructions. Current as of: September 10, 2020 Content Version: 12.9 [employer]. Care instructions adapted under license by your healthcare professional. If you have questions about a medical condition or this instruction, always ask your healthcare professional. [email or web address] disclaims any warranty or liability for your use of this information. documented in this [id number] History of Present illness Narrative* Nemesio Chin PA-C - 05/29/2021 1:55 PM EDT 05/29/21 Peggy Lopez 1945 DATE OF INJURY: 05/13/21 CHIEF COMPLAINT Left Wrist pain HISTORY Ms. Lopez is a 75 y.o. female presents today for evaluation of her left wrist pain. She states thatthis started after she tripped over the curb and fell while watering her guardado. She immediately started having wrist pain over the radial aspect of her wrist. She was seen at [facility] urgent [facility] who received x-rays and suspected a radial styloid fracture. She was placed into a brace and sent out for evaluation today. REVIEW OF SYSTEMS Patient denies any recent fever, chills or skin changes. PAST MEDICAL HISTORY The patient's Medications, Allergies, Past Surgical History, Medical History, Family History and Social History were reviewed and can be found in their online medical record. PHYSICAL EXAM General: Patient is well developed, well nourished in no apparent distress. They are awake and oriented x 3. Appropriate mood and affect. Pt ambulates with a normal gait. Appropriate balance. Inspection: Examination of the Left UE reveals the skin to be intact with no edema, erythema or ecchymosis. There is no obvious deformity. Palpation: Tender over the CMC joint with a positive CMC Grind Test. ROM: Extension 70 , Flexion 70 , Supination 85 and Pronation 85 . Strength: Normal strength against resistance. Instability: None. Neurovascular: Left Hand: Sensation is intact to light touch in median, radial, and ulnar nerve distributions. Firing EPL, FPL, finger flexors, and interossei muscles. Fingers are pink and well-perfused with brisk capillary refill. No skin changes are noted. IMAGING XR Wrist Left 2 Views Result Date: 05/29/2021 X-rays, 2 views of the Left wrist (PA, lateral) were obtained and independently reviewed. 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 Significant degenerative changes atthe STT joint. ASSESSMENT Left thumb CMC joint osteoarthritis PLAN I explained diagnosis and treatment options with patient here today. Patient has absolutely no painover her radial styloid and therefore I do not believe she is struggling from a radial styloid fracture. All of her pain is over her thumb CMC joint and STT joint. For this, I offered her conservative management in the form of cortisone injection. She would like to hold off on this for now. She will utilize the brace that she was given as needed for the pain. She will follow-up with me as needed.Patient was amenable to the plan as stated. X-rays upon next visit:No. Cast:N/A. Dr. Saurabh Parekh was immediately available for collaboration during the care and management of this patient. Thank you for allowing me to participate in her care. Nemesio Chin PA-C Note: To expedite correspondence this note was generated by [employer] voice recognition software. Somegrammatical or spelling errors may occur using the system. documented in this [id number] History of Present illness Narrative* Juan Pablo Velasquez PA-C - 05/13/2021 4:37 PM EDT Images from the original note were not included. Patient Name: [facility] Location: Peggy Lopez [address] [place] [address] Date Of : Date Of Visit: 1945 05/13/2021 MRN# Provider: [id number] Juan Pablo Velasquez PA-C Chief Complaint Patient presents with Fall Tripped over a curb about 4 hrs and injured L wrist. Painful and slightly swollen. Assessment & Plan 1. Left wrist injury, initial encounter XR Wrist Left 3+ Views (Standard) ketorolac (TORADOL) injection 30 mg Ambulatory Referral to [facility] traMADoL (ULTRAM) 50 mg tablet Wrist splint - universal meloxicam (MOBIC) 15 MG tablet 2. Fall, initial encounter XR Wrist Left 3+ Views (Standard) No follow-ups on file. Medical Decision Making Peggy is a RHD, afebrile, nontoxic appearing 75 y.o. female who presents to the urgent care for evaluation of LEFT wrist pain after GLF. No thinner use. No head or neck injury/pain. XR reveals a neurovascularly intact LEFT UE with Limited ROM and strength testing due to pain with reproducible TTP over the dorsum of the LEFT wrist. No snuffbox tenderness. DDx: fractures, sprain, strain, contusion.XR was negative per my read, however, radiology not a possible non- displaced fracture at the radialstyloid. Patient contacted to discuss these results. She was given Toradol and ice pack in the UC. Patient will be discharged with wrist splint, short course of Tramadol to help with severe pain and referral to ortho. Patient is from [place] and does not have any PCP here. Patient instructed to go to nearest ED if symptoms return and/or get worse. Patientmade aware that they can return to the UC at any time. Patient gave verbal understanding and agreement with this plan. The patient was given an opportunity to ask questions and all questions were answered. Additional Clinical Comments Discussed over the counter medications for symptomatic management and side effects of medications. Recommended taking all medications with food and to stop medications if they develop any signs of anallergic reaction. Educated patient and/or guardian about signs and symptoms that would warrant further immediate evaluation. Recommended that they should return to urgent care, make an appointment with their family physician, or go to the emergency room if symptoms persist or get acutely worse. Recommended follow upwithin the next week with their PCP or to get established with a PCP soon in order to follow up appropriately. Subjective 75 y.o. female presents with Fall (Tripped over a curb about 4 hrs and injured L wrist. Painful andslightly swollen. ) Wrist Injury The incident occurred 3 to 6 hours ago. The incident occurred at home. The injury mechanism was a fall. The pain is present in the left wrist. The quality of the pain is described as aching, shootingand stabbing. The pain radiates to the left arm. The pain is at a severity of 7/10. The pain has been constant since the incident. Pertinent negatives include no chest pain, muscle weakness, numbnessor tingling. The symptoms are aggravated by movement, lifting and palpation. She has tried acetaminophen for the symptoms. The treatment provided no relief. Review Of Systems Review of Systems Constitutional: Negative for activity change, appetite change, chills, diaphoresis, fatigue and fever. HENT: Negative for congestion, ear discharge, ear pain, postnasal drip, rhinorrhea, sinus pressure,sinus pain and sore throat. Eyes: Negative for pain, discharge, redness and itching. Respiratory: Negative for cough, chest tightness, shortness of breath and wheezing. Cardiovascular: Negative for chest pain and palpitations. Gastrointestinal: Negative for abdominal pain, constipation, diarrhea, nausea and vomiting. Genitourinary: Negative for dysuria, frequency and urgency. Musculoskeletal: Positive for arthralgias and joint swelling. Negative for gait problem and myalgias. Skin: Negative for rash. Allergic/Immunologic: Negative for environmental allergies. Neurological: Negative for dizziness, tingling, weakness, numbness and headaches. Hematological: Negative for adenopathy. Psychiatric/Behavioral: Negative for agitation and confusion. All other systems reviewed and are negative. Medical History Past Medical History: Diagnosis Date Disease of thyroid gland Hypertension Polymyalgia (HCC) Past Surgical History: Procedure Laterality Date BREAST SURGERY reduction Patient Active Problem List Diagnosis Cervical radiculopathy Social History Social History Tobacco Use Smoking status: Never Smoker Smokeless tobacco: Never Used Vaping Use Vaping Use: Never used Substance Use Topics Alcohol use: No Drug use: No Family History Family History Problem Relation Age of Onset Heart disease Mother Heart disease Father Heart disease Brother Objective Physical Exam BP 104/64 (BP Location: Right arm, Patient Position: Sitting, BP Cuff Size: Adult) Pulse 99 Temp 98.9 F (37.2 C) (Tympanic) Resp 16 Ht 5' 5 Wt 77.1 kg (170 lb) SpO2 95% BMI 28.29 kg/m Vision/Hearing Exam:No exam data present Physical Exam Vitals and nursing note reviewed. Constitutional: General: She is not in acute distress. Appearance: Normal appearance. She is not ill-appearing, toxic-appearing or diaphoretic. HENT: Head: Normocephalic and atraumatic. Right Ear: External ear normal. Left Ear: External ear normal. Nose: Nose normal. No congestion or rhinorrhea. Eyes: General: Right eye: No discharge. Left eye: No discharge. Conjunctiva/sclera: Conjunctivae normal. Cardiovascular: Rate and Rhythm: Normal rate. Pulses: Normal pulses. Pulmonary: Effort: Pulmonary effort is normal. No respiratory distress. Abdominal: General: Abdomen is flat. There is no distension. Musculoskeletal: General: Swelling, tenderness and signs of injury present. No deformity. Left forearm: Normal. Right wrist: Normal. Left wrist: Swelling, tenderness and bony tenderness present. No deformity, effusion, lacerations, snuff box tenderness or crepitus. Decreased range of motion. Normal pulse. Left hand: Normal. Skin: General: Skin is warm and dry. Capillary Refill: Capillary refill takes less than 2 seconds. Coloration: Skin is not jaundiced or pale. Findings: No bruising. Neurological: Mental Status: She is alert and oriented to person, place, and time. Sensory: No sensory deficit. Motor: Weakness present. Gait: Gait normal. Psychiatric: Mood and Affect: Mood normal. Behavior: Behavior normal. Thought Content: Thought content normal. Judgment: Judgment normal. Procedure Notes Procedures Results No results found for this or any previous visit (from the past 168 hour(s)). XR Wrist Left 3+ Views (Standard) Final Result Possible nondisplaced radial styloid fracture. Correlate with physical exam for point tenderness. Workstation ID: [id number] Orders Placed This Visit Orders Placed This Encounter Procedures Wrist splint - universal XR Wrist Left 3+ Views (Standard) Ambulatory Referral to [facility] Medication List At End Of Visit Current Outpatient Medications Medication Sig Dispense Refill cetirizine (ZYRTEC) 10 MG tablet Take 10 mg by mouth daily . hydroCHLOROthiazide (HYDRODIURIL) 12.5 MG tablet Take 12.5 mg by mouth daily. leflunomide (ARAVA) 20 MG tablet Take 20 mg by mouth daily . levothyroxine (SYNTHROID, LEVOTHROID) 100 MCG tablet Take 100 mcg by mouth once daily. metoprolol tartrate (LOPRESSOR) 25 MG tablet Take 25 mg by mouth 2 (two) times a day. omeprazole (PRILOSEC) 20 MG capsule TAKE 1 CAPSULE BY MOUTH AT LEAST 30 MINUTES PRIOR TO BREAKFAST albuterol 90 mcg/actuation inhaler Inhale 2 (two) puffs every 6 (six) hours as needed for wheezing . (Patient not taking: Reported on 05/13/2021 .) 1 Inhaler 0 benzonatate (Tessalon Perles) 100 MG capsule Take 1 (one) capsule (100 mg total) by mouth 3 (three)times a day as needed for cough . (Patient not taking: Reported on 05/13/2021 .) 30 capsule 1 meloxicam (MOBIC) 15 MG tablet Take 1 (one) tablet (15 mg total) by mouth daily for 10 days . 10 tablet 0 methotrexate (TREXALL) 2.5 MG tablet Take by mouth once a week. methylPREDNISolone (MEDROL DOSEPACK) 4 mg tablet Take as directed.. (Patient not taking: Reported on 04/24/2021 .) 21 tablet 0 predniSONE (DELTASONE) 5 MG tablet Take 7.5 mg by mouth daily Reasons: Polymyalgia Rheumatica, 7.5mg. traMADoL (ULTRAM) 50 mg tablet Take 1 (one) tablet (50 mg total) by mouth every 4 (four) hours as needed for pain . 5 tablet 0 No current facility-administered medications for this visit. Patient Instructions Please continue all of your regularly prescribed medications as directed by your primary care doctor specialist. Use RICE (REST, ICE, COMPRESSION AND ELEVATION) therapy and NSAIDs (such as Advil or motrin/ibuprofen) pain control. 600 mg every 6-8 hours. You may alternate with Tylenol as needed. Take your newly prescribed medication, Tramadol, as directed. Use Tramadol with caution as it may cause drowsiness. Do not drive, drink alcohol or operate machinery while taking this medication. Keep this medication in a safe location. Do not share this medication with anyone else. Follow up with Orthopedics when they reach out to you. You may return to the urgent care at any time for re-evaluation. Go to the emergency dept for new or worsening symptoms. Wrist Sprain: Care Instructions Your Care Instructions Your wrist hurts because you have stretched or torn ligaments, which connect the bones in your wrist. Wrist sprains usually take from 2 to 10 weeks to heal, but some take longer. Usually, the more painyou have, the more severe your wrist sprain is and the longer it will take to heal. You can heal faster and regain strength in your wrist with good home treatment. Follow-up care is a maddox part of your treatment and safety. Be sure to make and go to all appointments, and call your doctor if you are having problems. It's also a good idea to know your test resultsand keep a list of the medicines you take. How can you care for yourself at home? Prop up your arm on a pillow when you ice it or anytime you sit or lie down for the next 3 days. Try to keep your wrist above the level of your heart. This will help reduce swelling. Put ice or cold packs on your wrist for 10 to 20 minutes at a time. Try to do this every 1 to 2 hours for the next 3 days (when you are awake) or until the swelling goes down. Put a thin cloth between the ice pack and your skin. After 2 or 3 days, if your swelling is gone, apply a heating pad set on low or a warm cloth to yourwrist. This helps keep your wrist flexible. Some doctors suggest that you go back and forth betweenhot and cold. If you have an elastic bandage, keep it on for the next 24 to 36 hours. The bandage should be snug but not so tight that it causes numbness or tingling. To rewrap the wrist, wrap the bandage around the hand a few times, beginning at the fingers. Then wrap it around the hand between the thumb and index finger, ending by circling the wrist several times. If your doctor gave you a splint or brace, wear it as directed to protect your wrist until it has healed. Take pain medicines exactly as directed. ? If the doctor gave you a prescription medicine for pain, take it as prescribed. ? If you are not taking a prescription pain medicine, ask your doctor if you can take an yqob-eoj-ylfsgrs medicine. Try not to use your injured wrist and hand. When should you call for help? Call your doctor now or seek immediate medical care if: Your hand or fingers are cool or pale or change color. Watch closely for changes in your health, and be sure to contact your doctor if: Your pain gets worse. Your wrist has not improved after 1 week. Where can you learn more? Log into your personal health record on [email or web address] and enter G541 in the Education box to learn more about Wrist Sprain: Care Instructions. Current as of: October 01, 2020 Content Version: 12.8 [employer]. Care instructions adapted under license by your healthcare professional. If you have questions about a medical condition or this instruction, always ask your healthcare professional. [employer] disclaims any warranty or liability for your use of this information. Wrist Sprain: Rehab Exercises Introduction Here are some examples of exercises for you to try. The exercises may be suggested for a condition or for rehabilitation. Start each exercise slowly. Ease off the exercises if you start to have pain. You will be told when to start these exercises and which ones will work best for you. How to do the exercises Resisted wrist extension 1. Sit leaning forward with your legs slightly spread. Then place your forearm on your thigh with your affected hand and wrist in front of your knee. 2. Grasp one end of an exercise band with your palm down. Step on the other end. 3. Slowly bend your wrist upward for a count of 2. Then lower your wrist slowly to a count of 5. 4. Repeat 8 to 12 times. Resisted wrist flexion 1. Sit leaning forward with your legs slightly spread. Then place your forearm on your thigh with your affected hand and wrist in front of your knee. 2. Grasp one end of an exercise band with your palm up. Step on the other end. 3. Slowly bend your wrist upward for a count of 2. Then lower your wrist slowly to a count of 5. 4. Repeat 8 to 12 times. Resisted radial deviation 1. Sit leaning forward with your legs slightly spread. Then place your forearm on your thigh with your affected hand and wrist in front of your knee. 2. Grasp one end of an exercise band with your hand facing toward your other thigh. Step on the other end. 3. Slowly bend your wrist upward for a count of 2. Then lower your wrist slowly to a count of 5. 4. Repeat 8 to 12 times. Resisted ulnar deviation 1. Sit leaning forward with your legs slightly spread. Then place your forearm on your thigh with your affected hand and wrist by the inside of your knee. 2. Grasp one end of an exercise band with your palm down. Step on the other end with the foot opposite the hand holding the band. 3. Slowly bend your wrist outward and toward your knee for a count of 2. Then slowly move your wrist back to the starting position to a count of 5. 4. Repeat 8 to 12 times. Resisted forearm pronation 1. Sit leaning forward with your legs slightly spread. Then place your forearm on your thigh with your affected hand and wrist in front of your knee. 2. Grasp one end of an exercise band with your palm up. Step on the other end. 3. Keeping your wrist straight, roll your palm inward toward your thigh for a count of 2. Then slowly move your wrist back to the starting position to a count of 5. 4. Repeat 8 to 12 times. Resisted supination 1. Sit leaning forward with your legs slightly spread. Then place your forearm on your thigh with your affected hand and wrist in front of your knee. 2. Grasp one end of an exercise band with your palm down. Step on the other end. 3. Keeping your wrist straight, roll your palm outward and away from your thigh for a count of 2. Then slowly move your wrist back to the starting position to a count of 5. 4. Repeat 8 to 12 times. Follow-up care is a maddox part of your treatment and safety. Be sure to make and go to all appointments, and call your doctor if you are having problems. It's also a good idea to know your test resultsand keep a list of the medicines you take. Where can you learn more? Log into your personal health record on [email or web address] and enter S110 in the Education box to learn more about Wrist Sprain: Rehab Exercises. Current as of: October 01, 2020 Content Version: 12.8 [employer]. Care instructions adapted under license by your healthcare professional. If you have questions about a medical condition or this instruction, always ask your healthcare professional. [employer] disclaims any warranty or liability for your use of this information. Learning About RICE (Rest, Ice, Compression, and Elevation) What is RICE? RICE is a way to care for an injury. RICE helps relieve pain and swelling. It may also help with healing and flexibility. RICE stands for: R est and protect the injured or sore area. I ce or a cold pack used as soon as possible. C ompression, or wrapping the injured or sore area with an elastic bandage. E levation (propping up) the injured or sore area. How do you do RICE? You can use RICE for home treatment when you have general aches and pains or after an injury or surgery. Rest Do not put weight on the injury for at least 24 to 48 hours. Use crutches for a badly sprained knee or ankle. Support a sprained wrist, elbow, or shoulder with a sling. Ice Put ice or a cold pack on the injury right away to reduce pain and swelling. Frozen vegetables celestinestylemarkso work as an ice pack. Put a thin cloth between the ice or cold pack and your skin. The cloth protects the injured area from getting too cold. Use ice for 10 to 15 minutes at a time for the first 48 to 72 hours. Compression Use compression for sprains, strains, and surgeries of the arms and legs. Wrap the injured area with an elastic bandage or compression sleeve to reduce swelling. Don't wrap it too tightly. If the area below it feels numb, tingles, or feels cool, loosen the wrap. Elevation Use elevation for areas of the body that can be propped up, such as arms and legs. Prop up the injured area on pillows whenever you use ice. Keep it propped up anytime you sit or liedown. Try to keep the injured area at or above the level of your heart. This will help reduce swelling and bruising. Where can you learn more? Log into your personal health record on [email or web address] and enter I463 in the Education box to learn more about Learning About RICE (Rest, Ice, Compression, and Elevation). Current as of: October 01, 2020 Content Version: 12.8 [employer]. Care instructions adapted under license by your healthcare professional. If you have questions about a medical condition or this instruction, always ask your healthcare professional. [employer] disclaims any warranty or liability for your use of this information. documented in this [id number] Instructions* Patient Instructions* Juan Pablo Velasquez PA-C - 05/13/2021 4:08 PM EDT Images from the original note were not included. Please continue all of your regularly prescribed medications as directed by your primary care doctor specialist. Use RICE (REST, ICE, COMPRESSION AND ELEVATION) therapy and NSAIDs (such as Advil or motrin/ibuprofen) pain control. 600 mg every 6-8 hours. You may alternate with Tylenol as needed. Take your newly prescribed medication, Tramadol, as directed. Use Tramadol with caution as it may cause drowsiness. Do not drive, drink alcohol or operate machinery while taking this medication. Keep this medication in a safe location. Do not share this medication with anyone else. Follow up with Orthopedics when they reach out to you. You may return to the urgent care at any time for re-evaluation. Go to the emergency dept for new or worsening symptoms. Wrist Sprain: Care Instructions Your Care Instructions Your wrist hurts because you have stretched or torn ligaments, which connect the bones in your wrist. Wrist sprains usually take from 2 to 10 weeks to heal, but some take longer. Usually, the more painyou have, the more severe your wrist sprain is and the longer it will take to heal. You can heal faster and regain strength in your wrist with good home treatment. Follow-up care is a maddox part of your treatment and safety. Be sure to make and go to all appointments, and call your doctor if you are having problems. It's also a good idea to know your test resultsand keep a list of the medicines you take. How can you care for yourself at home? Prop up your arm on a pillow when you ice it or anytime you sit or lie down for the next 3 days. Try to keep your wrist above the level of your heart. This will help reduce swelling. Put ice or cold packs on your wrist for 10 to 20 minutes at a time. Try to do this every 1 to 2 hours for the next 3 days (when you are awake) or until the swelling goes down. Put a thin cloth between the ice pack and your skin. After 2 or 3 days, if your swelling is gone, apply a heating pad set on low or a warm cloth to yourwrist. This helps keep your wrist flexible. Some doctors suggest that you go back and forth betweenhot and cold. If you have an elastic bandage, keep it on for the next 24 to 36 hours. The bandage should be snug but not so tight that it causes numbness or tingling. To rewrap the wrist, wrap the bandage around the hand a few times, beginning at the fingers. Then wrap it around the hand between the thumb and index finger, ending by circling the wrist several times. If your doctor gave you a splint or brace, wear it as directed to protect your wrist until it has healed. Take pain medicines exactly as directed. ? If the doctor gave you a prescription medicine for pain, take it as prescribed. ? If you are not taking a prescription pain medicine, ask your doctor if you can take an iihw-ufx-gegvqta medicine. Try not to use your injured wrist and hand. When should you call for help? Call your doctor now or seek immediate medical care if: Your hand or fingers are cool or pale or change color. Watch closely for changes in your health, and be sure to contact your doctor if: Your pain gets worse. Your wrist has not improved after 1 week. Where can you learn more? Log into your personal health record on [email or web address] and enter G541 in the Education box to learn more about Wrist Sprain: Care Instructions. Current as of: October 01, 2020 Content Version: 12.8 [employer]. Care instructions adapted under license by your healthcare professional. If you have questions about a medical condition or this instruction, always ask your healthcare professional. [employer] disclaims any warranty or liability for your use of this information. Wrist Sprain: Rehab Exercises Introduction Here are some examples of exercises for you to try. The exercises may be suggested for a condition or for rehabilitation. Start each exercise slowly. Ease off the exercises if you start to have pain. You will be told when to start these exercises and which ones will work best for you. How to do the exercises Resisted wrist extension 1. Sit leaning forward with your legs slightly spread. Then place your forearm on your thigh with your affected hand and wrist in front of your knee. 2. Grasp one end of an exercise band with your palm down. Step on the other end. 3. Slowly bend your wrist upward for a count of 2. Then lower your wrist slowly to a count of 5. 4. Repeat 8 to 12 times. Resisted wrist flexion 1. Sit leaning forward with your legs slightly spread. Then place your forearm on your thigh with your affected hand and wrist in front of your knee. 2. Grasp one end of an exercise band with your palm up. Step on the other end. 3. Slowly bend your wrist upward for a count of 2. Then lower your wrist slowly to a count of 5. 4. Repeat 8 to 12 times. Resisted radial deviation 1. Sit leaning forward with your legs slightly spread. Then place your forearm on your thigh with your affected hand and wrist in front of your knee. 2. Grasp one end of an exercise band with your hand facing toward your other thigh. Step on the other end. 3. Slowly bend your wrist upward for a count of 2. Then lower your wrist slowly to a count of 5. 4. Repeat 8 to 12 times. Resisted ulnar deviation 1. Sit leaning forward with your legs slightly spread. Then place your forearm on your thigh with your affected hand and wrist by the inside of your knee. 2. Grasp one end of an exercise band with your palm down. Step on the other end with the foot opposite the hand holding the band. 3. Slowly bend your wrist outward and toward your knee for a count of 2. Then slowly move your wrist back to the starting position to a count of 5. 4. Repeat 8 to 12 times. Resisted forearm pronation 1. Sit leaning forward with your legs slightly spread. Then place your forearm on your thigh with your affected hand and wrist in front of your knee. 2. Grasp one end of an exercise band with your palm up. Step on the other end. 3. Keeping your wrist straight, roll your palm inward toward your thigh for a count of 2. Then slowly move your wrist back to the starting position to a count of 5. 4. Repeat 8 to 12 times. Resisted supination 1. Sit leaning forward with your legs slightly spread. Then place your forearm on your thigh with your affected hand and wrist in front of your knee. 2. Grasp one end of an exercise band with your palm down. Step on the other end. 3. Keeping your wrist straight, roll your palm outward and away from your thigh for a count of 2. Then slowly move your wrist back to the starting position to a count of 5. 4. Repeat 8 to 12 times. Follow-up care is a maddox part of your treatment and safety. Be sure to make and go to all appointments, and call your doctor if you are having problems. It's also a good idea to know your test resultsand keep a list of the medicines you take. Where can you learn more? Log into your personal health record on [email or web address] and enter S110 in the Education box to learn more about Wrist Sprain: Rehab Exercises. Current as of: October 01, 2020 Content Version: 12.8 [employer]. Care instructions adapted under license by your healthcare professional. If you have questions about a medical condition or this instruction, always ask your healthcare professional. [employer] disclaims any warranty or liability for your use of this information. Learning About RICE (Rest, Ice, Compression, and Elevation) What is RICE? RICE is a way to care for an injury. RICE helps relieve pain and swelling. It may also help with healing and flexibility. RICE stands for: R est and protect the injured or sore area. I ce or a cold pack used as soon as possible. C ompression, or wrapping the injured or sore area with an elastic bandage. E levation (propping up) the injured or sore area. How do you do RICE? You can use RICE for home treatment when you have general aches and pains or after an injury or surgery. Rest Do not put weight on the injury for at least 24 to 48 hours. Use crutches for a badly sprained knee or ankle. Support a sprained wrist, elbow, or shoulder with a sling. Ice Put ice or a cold pack on the injury right away to reduce pain and swelling. Frozen vegetables willalso work as an ice pack. Put a thin cloth between the ice or cold pack and your skin. The cloth protects the injured area from getting too cold. Use ice for 10 to 15 minutes at a time for the first 48 to 72 hours. Compression Use compression for sprains, strains, and surgeries of the arms and legs. Wrap the injured area with an elastic bandage or compression sleeve to reduce swelling. Don't wrap it too tightly. If the area below it feels numb, tingles, or feels cool, loosen the wrap. Elevation Use elevation for areas of the body that can be propped up, such as arms and legs. Prop up the injured area on pillows whenever you use ice. Keep it propped up anytime you sit or liedown. Try to keep the injured area at or above the level of your heart. This will help reduce swelling and bruising. Where can you learn more? Log into your personal health record on [email or web address] and enter I463 in the Education box to learn more about Learning About RICE (Rest, Ice, Compression, and Elevation). Current as of: October 01, 2020 Content Version: 12.8 Exabeam. Care instructions adapted under license by your healthcare professional. If you have questions about a medical condition or this instruction, always ask your healthcare professional. [employer] disclaims any warranty or liability for your use of this information. documented in this [id number] History of Present illness Narrative* Mone Salvador PA-C - 04/24/2021 9:53 AM EDT Images from the original note were not included. Patient Name: [facility] Location: [facility] [address] [place] [address] Date Of : Date Of Visit: 1945 04/24/2021 MRN# Provider: [id number] Mone Salvador PA-C Chief Complaint Patient presents with Cough coughing, chest/nasal congestion, and sore throat x 3 days, no covid exposure, and she is covid vaccinated in [facility] Assessment & Plan 1. LRTI (lower respiratory tract infection) azithromycin (Zithromax Z-Moris) 250 MG tablet benzonatate (Tessalon Perles) 100 MG capsule albuterol 90 mcg/actuation inhaler Covid-19/Influenza Order Algorithm 2. Suspected COVID-19 virus infection Covid-19/Influenza Order Algorithm No follow-ups on file. Medical Decision Making Rapid covid test negative. Placed on azithromycin, tessalon pearles, albuterol inhaler for acute bronchitis/LRTI. Lungs clear at this time. Return precautions discussed. Additional Clinical Comments Educated patient and/or guardian about signs and symptoms that would warrant further immediate evaluation. Recommended that they should return to urgent care, make an appointment with their family physician, or go to the emergency room if symptoms persist or get acutely worse. Recommended follow upwithin the next week with their PCP or to get established with a PCP soon in order to follow up appropriately. Subjective 75 y.o. female presents with Cough (coughing, chest/nasal congestion, and sore throat x 3 days, no covid exposure, and she is covid vaccinated in [place] ) Patient with 3 days of sinus and chest congestion, cough with yellow sputum, intermittent wheezing,fatigue, subjective fevers with chills, and irritated throat. This feels like bronchitis that she gets yearly. No chest pain, hemoptysis, SOB, n/v/d. No known ill contacts. She is covid vaccinated. Tx; none. Review Of Systems Review of Systems Constitutional: Positive for chills, fatigue and fever. HENT: Positive for congestion. Negative for trouble swallowing and voice change. Eyes: Negative for redness. Respiratory: Positive for cough. Negative for shortness of breath. Cardiovascular: Negative for chest pain. Medical History Past Medical History: Diagnosis Date Disease of thyroid gland Hypertension Polymyalgia (HCC) Past Surgical History: Procedure Laterality Date BREAST SURGERY reduction Patient Active Problem List Diagnosis Cervical radiculopathy Social History Social History Tobacco Use Smoking status: Never Smoker Smokeless tobacco: Never Used Vaping Use Vaping Use: Never used Substance Use Topics Alcohol use: No Drug use: No Family History Family History Problem Relation Age of Onset Heart disease Mother Heart disease Father Heart disease Brother Objective Physical Exam BP 125/79 (BP Location: Right arm, Patient Position: Sitting, BP Cuff Size: X- large Adult) Pulse 94 Temp 99.9 F (37.7 C) (Tympanic) Resp 16 Ht 5' 5 Wt 78.9 kg (174 lb) SpO2 95% BMI 28.96 kg/m Vision/Hearing Exam:No exam data present Physical Exam Vitals and nursing note reviewed. Exam conducted with a pelletizer tender present. Constitutional: General: She is not in acute distress. Appearance: Normal appearance. HENT: Head: Normocephalic and atraumatic. Right Ear: External ear normal. Left Ear: External ear normal. Nose: Nose normal. Mouth/Throat: Mouth: Mucous membranes are moist. Pharynx: Oropharynx is clear. No oropharyngeal exudate or posterior oropharyngeal erythema. Eyes: Conjunctiva/sclera: Conjunctivae normal. Cardiovascular: Rate and Rhythm: Normal rate and regular rhythm. Heart sounds: Normal heart sounds. Pulmonary: Effort: Pulmonary effort is normal. No respiratory distress. Breath sounds: Normal breath sounds. No stridor. No wheezing, rhonchi or rales. Chest: Chest wall: No tenderness. Musculoskeletal: General: Normal range of motion. Cervical back: Neck supple. Skin: General: Skin is dry. Findings: No rash. Neurological: Mental Status: She is alert and oriented to person, place, and time. Psychiatric: Mood and Affect: Mood normal. Behavior: Behavior normal. Thought Content: Thought content normal. Judgment: Judgment normal. Procedure Notes Procedures Results Recent Results (from the past 168 hour(s)) COVID-19, Molecular Collection Time: 04/24/21 10:06 AM Specimen: Nasopharyngeal; Swab Result Value Ref Range SARS-CoV-2 Not Detected Not Detected No orders to display Orders Placed This Visit Orders Placed This Encounter Procedures Covid-19/Influenza Order Algorithm COVID-19, Molecular Medication List At End Of Visit Current Outpatient Medications Medication Sig Dispense Refill cetirizine (ZYRTEC) 10 MG tablet Take 10 mg by mouth daily . hydroCHLOROthiazide (HYDRODIURIL) 12.5 MG tablet Take 12.5 mg by mouth daily. leflunomide (ARAVA) 20 MG tablet Take 20 mg by mouth daily . levothyroxine (SYNTHROID, LEVOTHROID) 100 MCG tablet Take 100 mcg by mouth once daily. methotrexate (TREXALL) 2.5 MG tablet Take by mouth once a week. omeprazole (PRILOSEC) 20 MG capsule TAKE 1 CAPSULE BY MOUTH AT LEAST 30 MINUTES PRIOR TO BREAKFAST albuterol 90 mcg/actuation inhaler Inhale 2 (two) puffs every 6 (six) hours as needed for wheezing . 1 Inhaler 0 azithromycin (Zithromax Z-Moris) 250 MG tablet Take 2 (two) tablets (500 mg total) by mouth daily for1 day, THEN 1 (one) tablet (250 mg total) daily for 4 days. 6 tablet 0 benzonatate (Tessalon Perles) 100 MG capsule Take 1 (one) capsule (100 mg total) by mouth 3 (three)times a day as needed for cough . 30 capsule 1 methylPREDNISolone (MEDROL DOSEPACK) 4 mg tablet Take as directed.. (Patient not taking: Reported on 04/24/2021 .) 21 tablet 0 metoprolol tartrate (LOPRESSOR) 25 MG tablet Take 25 mg by mouth 2 (two) times a day. predniSONE (DELTASONE) 5 MG tablet Take 7.5 mg by mouth daily Reasons: Polymyalgia Rheumatica, 7.5mg. No current facility-administered medications for this visit. Patient Instructions Bronchitis: Care Instructions Your Care Instructions Bronchitis is inflammation of the bronchial tubes, which carry air to the lungs. The tubes swell and produce mucus, or phlegm. The mucus and inflamed bronchial tubes make you cough. You may have trouble breathing. Most cases of bronchitis are caused by viruses like those that cause colds. Antibiotics usually do not help and they may be harmful. Bronchitis usually develops rapidly and lasts about 2 to 3 weeks in otherwise healthy people. Follow-up care is a maddox part of your treatment and safety. Be sure to make and go to all appointments, and call your doctor if you are having problems. It's also a good idea to know your test resultsand keep a list of the medicines you take. How can you care for yourself at home? Take all medicines exactly as prescribed. Call your doctor if you think you are having a problem with your medicine. Get some extra rest. Take an whcd-dah-mlfybki pain medicine, such as acetaminophen (Tylenol), ibuprofen (Advil, Motrin),or naproxen (Aleve) to reduce fever and relieve body aches. Read and follow all instructions on thelabel. Do not take two or more pain medicines at the same time unless the doctor told you to. Many pain medicines have acetaminophen, which is Tylenol. Too much acetaminophen (Tylenol) can be harmful. Take an tpou-pfo-zgeoyej cough medicine that contains dextromethorphan to help quiet a dry, hackingcough so that you can sleep. Avoid cough medicines that have more than one active ingredient. Read and follow all instructions on the label. Breathe moist air from a humidifier, hot shower, or sink filled with hot water. The heat and moisture will thin mucus so you can cough it out. Do not smoke. Smoking can make bronchitis worse. If you need help quitting, talk to your doctor about stop-smoking programs and medicines. These can increase your chances of quitting for good. When should you call for help? Call 911 anytime you think you may need emergency care. For example, call if: You have severe trouble breathing. Call your doctor now or seek immediate medical care if: You have new or worse trouble breathing. You cough up dark brown or bloody mucus (sputum). You have a new or higher fever. You have a new rash. Watch closely for changes in your health, and be sure to contact your doctor if: You cough more deeply or more often, especially if you notice more mucus or a change in the color of your mucus. You are not getting better as expected. Where can you learn more? Log into your personal health record on [email or web address] and enter H333 in the Education box to learn more about Bronchitis: Care Instructions. Current as of: September 10, 2020 Content Version: 12.8 Exabeam. Care instructions adapted under license by your healthcare professional. If you have questions about a medical condition or this instruction, always ask your healthcare professional. [employer] disclaims any warranty or liability for your use of this information. documented in this [id number] Instructions* Patient Instructions* Mone Salvador PA-C - 04/24/2021 9:46 AM EDT Images from the original note were not included. Bronchitis: Care Instructions Your Care Instructions Bronchitis is inflammation of the bronchial tubes, which carry air to the lungs. The tubes swell and produce mucus, or phlegm. The mucus and inflamed bronchial tubes make you cough. You may have trouble breathing. Most cases of bronchitis are caused by viruses like those that cause colds. Antibiotics usually do not help and they may be harmful. Bronchitis usually develops rapidly and lasts about 2 to 3 weeks in otherwise healthy people. Follow-up care is a maddox part of your treatment and safety. Be sure to make and go to all appointments, and call your doctor if you are having problems. It's also a good idea to know your test resultsand keep a list of the medicines you take. How can you care for yourself at home? Take all medicines exactly as prescribed. Call your doctor if you think you are having a problem with your medicine. Get some extra rest. Take an svla-lhe-fqvcjfc pain medicine, such as acetaminophen (Tylenol), ibuprofen (Advil, Motrin),or naproxen (Aleve) to reduce fever and relieve body aches. Read and follow all instructions on thelabel. Do not take two or more pain medicines at the same time unless the doctor told you to. Many pain medicines have acetaminophen, which is Tylenol. Too much acetaminophen (Tylenol) can be harmful. Take an rbzg-dpb-wdendmh cough medicine that contains dextromethorphan to help quiet a dry, hackingcough so that you can sleep. Avoid cough medicines that have more than one active ingredient. Read and follow all instructions on the label. Breathe moist air from a humidifier, hot shower, or sink filled with hot water. The heat and moisture will thin mucus so you can cough it out. Do not smoke. Smoking can make bronchitis worse. If you need help quitting, talk to your doctor about stop-smoking programs and medicines. These can increase your chances of quitting for good. When should you call for help? Call 911 anytime you think you may need emergency care. For example, call if: You have severe trouble breathing. Call your doctor now or seek immediate medical care if: You have new or worse trouble breathing. You cough up dark brown or bloody mucus (sputum). You have a new or higher fever. You have a new rash. Watch closely for changes in your health, and be sure to contact your doctor if: You cough more deeply or more often, especially if you notice more mucus or a change in the color of your mucus. You are not getting better as expected. Where can you learn more? Log into your personal health record on [email or web address] and enter H333 in the Education box to learn more about Bronchitis: Care Instructions. Current as of: September 10, 2020 Content Version: 12.8 Exabeam. Care instructions adapted under license by your healthcare professional. If you have questions about a medical condition or this instruction, always ask your healthcare professional. Exabeam disclaims any warranty or liability for your use of this information. documented in this encounterOhioHealthEvaluation + Plan note No data available for this section [facility] Evaluation + Plan note Future Appointments Appointment Date:02/23/2024 06:00:00 AM Scheduled Provider: Location:[facility] Appointment Type:Echo - Echocardiogram Adult Appointment Date:03/10/2024 10:00:00 AM Scheduled Provider:ANGELA STEPHENS MD Location:[facility] Appointment Type:PC OV Lab Check [facility] evaluqrqjy + Plan note Future Appointments Appointment Date:04/29/2024 10:00:00 AM Scheduled Provider: Location:[facility] Appointment Type:PF PFT w/Bronchodiltor Appointment Date:06/09/2024 10:30:00 AM Scheduled Provider: Location:[facility] Appointment Type:CV OV Appointment Date:06/15/2024 10:30:00 AM Scheduled Provider:ANGELA STEPHENS MD Location:[facility] Appointment Type:PC OV Lab Check Future Scheduled Tests Laboratory* Methylmalonic Acid, Serum 03/10/24 * Intrinsic Factor Abs, Serum 03/10/24 * Basic Metabolic Panel 03/22/24 * Ferritin 03/10/24 * Vitamin B12 Level 03/10/24 * Complete Blood Count 03/10/24 * Vitamin D Level 03/10/24 * Complete Metabolic Panel 03/10/24 * N-Terminal proBNP 06/14/24 Radiology* BD Bone Density DEXA Axial Skeleton 03/10/24 [facility] evaluation + Plan note Future Appointments Appointment Date:06/15/2024 10:30:00 AM Scheduled Provider:ANGELA STEPHENS MD Location:[facility] Appointment Type:PC OV Lab Check Appointment Date:08/03/2024 03:00:00 PM Scheduled Provider: Location:[facility] Appointment Type:CV OV Future Scheduled Tests Laboratory* Methylmalonic Acid, Serum 03/10/24 * Intrinsic Factor Abs, Serum 03/10/24 * Basic Metabolic Panel 04/08/24 * Ferritin 03/10/24 * Vitamin B12 Level 03/10/24 * Complete Blood Count 03/10/24 * Vitamin D Level 03/10/24 * Complete Metabolic Panel 03/10/24 Radiology* BD Bone Density DEXA Axial Skeleton 03/10/24 [facility] evaluation + Plan note Future Appointments Appointment Date:06/22/2024 01:30:00 PM Scheduled Provider: Location:[facility] Appointment Type:BD Bone Density DEXA Axial Skeleton Appointment Date:07/01/2024 03:15:00 PM Scheduled Provider: Location:[facility] Appointment Type:CV OV Appointment Date:08/26/2024 09:45:00 AM Scheduled Provider:ANGELA STEPHENS MD Location:[facility] Appointment Type:PC OV Lab Check Future Scheduled Tests Laboratory* Basic Metabolic Panel 05/04/24 * Basic Metabolic Panel 04/08/24 * Lipid Profile 07/01/24 * Complete Metabolic Panel 07/01/24 Radiology* BD Bone Density DEXA Axial Skeleton 06/22/24 * BD Bone Density DEXA Axial Skeleton 03/10/24 [facility] Evaluation + Plan note Future Appointments Appointment Date:10/02/2024 11:00:00 AM Scheduled Provider: Location:[facility] Appointment Type:MRI Spine Thoracic w/o Contrast Appointment Date:10/02/2024 11:45:00 AM Scheduled Provider: Location:[facility] Appointment Type:MRI Spine Lumbar w/o Contrast Appointment Date:04/03/2025 01:30:00 PM Scheduled Provider:ANGELA STEPHENS MD Location:[facility] Appointment Type:PC Wellness Medicare with Labs Future Scheduled Tests Laboratory* Basic Metabolic Panel 05/04/24 * Basic Metabolic Panel 04/08/24 * Basic Metabolic Panel 08/29/24 * Lipid Profile 07/01/24 * Lipid Profile 02/20/25 * Complete Metabolic Panel 07/01/24 * N-Terminal proBNP 02/20/25 Radiology* BD Bone Density DEXA Axial Skeleton 03/10/24 * MRI Spine Lumbar w/o Contrast 10/02/24 * MRI Spine Thoracic w/o Contrast 10/02/24 [facility] Evaluation note* Diagnosis LRTI (lower respiratory tract infection)- Primary Other diseases of respiratory system, not elsewhere classified Suspected COVID-19 virus infection [facility]* Diagnosis Left wrist injury, initial encounter- Primary Fall, initial encounter [facility] Diagnosis Arthritis of carpometacarpal (CMC) joint of left thumb [facility]* Diagnosis LRTI (lower respiratory tract infection)- Primary Other diseases of respiratory system, not elsewhere classified Suspected COVID-19 virus infection Cough [facility] noteNo assessment information availableAnaheim [facility] Work Phone: Hospital Discharge instructions No data available for this section [facility] Progress note No data available for this section [facility] Reason for referral (narrative)No reason for referral information availableAnaheim Regional Medical Center Work Phone: Instructions * Patient Instructions - Devika Palomo PA-C - 07/08/2017 10:51 AM EDT Go directly to [facility] Chest Pain: Care Instructions Your Care Instructions There are many things that can cause chest pain. Some are not serious and will get better on their own in a few days. But some kinds of chest pain need more testing and treatment. Your doctor may have recommended a follow-up visit in the next 8 to 12 hours. If you are not getting better, you may need more tests or treatment. Even though your doctor has released you, you still need to watch for any problems. The doctor carefully checked you, but sometimes problems can develop later. If you have new symptoms or if your symptoms do not get better, get medical care right away. If you have worse or different chest pain or pressure that lasts more than 5 minutes or you passed out (lost consciousness), call 911 or seek other emergency help right away. A medical visit is only one step in your treatment. Even if you feel better, you still need to do what your doctor recommends, such as going to all suggested follow-up appointments and taking medicines exactly as directed. This will help you recover and help prevent future problems. How can you care for yourself at home? Rest until you feel better. Take your medicine exactly as prescribed. Call your doctor if you think you are having a problem with your medicine. Do not drive after taking a prescription pain medicine. When should you call for help? Call 911 if: You passed out (lost consciousness). You have severe difficulty breathing. You have symptoms of a heart attack. These may include: Chest pain or pressure, or a strange feeling in your chest. Sweating. Shortness of breath. Nausea or vomiting. Pain, pressure, or a strange feeling in your back, neck, jaw, or upper belly or in one or both shoulders or arms. Lightheadedness or sudden weakness. A fast or irregular heartbeat. After you call 911, the explosives mixer operator may tell you to chew 1 adult-strength or 2 to 4 low-dose aspirin. Wait for an ambulance. Do not try to drive yourself. Call your doctor today if: You have any trouble breathing. Your chest pain gets worse. You are dizzy or lightheaded, or you feel like you may faint. You are not getting better as expected. You are having new or different chest pain. Where can you learn more? Log into your personal health record on [email or web address] and enter A120 in the Education box to learn more about Chest Pain: Care Instructions. Current as of: April 11, 2016 Content Version: 11.2 [id number] Exabeam. Care instructions adapted under license by your healthcare professional. If you have questions about a medical condition or this instruction, always ask your healthcare professional. [employer] disclaims any warranty or liability for your use of this information. in this encounter* Patient Instructions - Tiny Quiroz CNP - 07/01/2018 9:34 AM EDT Formatting of this note may be different from the original. Your strep test was negative. If you are still sick in 10 days, start the antibiotics. If you startthem, you must finish them. Increase fluids and vitamin C intake. Talk to your doctor about your low oxygen level and frequent illness. Bronchitis: Care Instructions Your Care Instructions Bronchitis is inflammation of the bronchial tubes, which carry air to the lungs. The tubes swell and produce mucus, or phlegm. The mucus and inflamed bronchial tubes make you cough. You may have trouble breathing. Most cases of bronchitis are caused by viruses like those that cause colds. Antibiotics usually do not help and they may be harmful. Bronchitis usually develops rapidly and lasts about 2 to 3 weeks in otherwise healthy people. Follow-up care is a maddox part of your treatment and safety. Be sure to make and go to all appointments, and call your doctor if you are having problems. It's also a good idea to know your test resultsand keep a list of the medicines you take. How can you care for yourself at home? Take all medicines exactly as prescribed. Call your doctor if you think you are having a problem with your medicine. Get some extra rest. Take an szku-iga-etlolkd pain medicine, such as acetaminophen (Tylenol), ibuprofen (Advil, Motrin),or naproxen (Aleve) to reduce fever and relieve body aches. Read and follow all instructions on thelabel. Do not take two or more pain medicines at the same time unless the doctor told you to. Many pain medicines have acetaminophen, which is Tylenol. Too much acetaminophen (Tylenol) can be harmful. Take an jwxv-ldi-cwltogg cough medicine that contains dextromethorphan to help quiet a dry, hackingcough so that you can sleep. Avoid cough medicines that have more than one active ingredient. Read and follow all instructions on the label. Breathe moist air from a humidifier, hot shower, or sink filled with hot water. The heat and moisture will thin mucus so you can cough it out. Do not smoke. Smoking can make bronchitis worse. If you need help quitting, talk to your doctor about stop-smoking programs and medicines. These can increase your chances of quitting for good. When should you call for help? Call 911 anytime you think you may need emergency care. For example, call if: ? You have severe trouble breathing. ?Call your doctor now or seek immediate medical care if: ? You have new or worse trouble breathing. ? You cough up dark brown or bloody mucus (sputum). ? You have a new or higher fever. ? You have a new rash. ?Watch closely for changes in your health, and be sure to contact your doctor if: ? You cough more deeply or more often, especially if you notice more mucus or a change in the colorof your mucus. ? You are not getting better as expected. Where can you learn more? Log into your personal health record on [email or web address] and enter H333 in the Education box to learn more about Bronchitis: Care Instructions. Current as of: October 21, 2017 Content Version: .[id number] [employer]. Care instructions adapted under license by your healthcare professional. If you have questions about a medical condition or this instruction, always ask your healthcare professional. [employer] disclaims any warranty or liability for your use of this information. in this encounter* Patient Instructions - Ramón Hanna PA-C - 08/18/2017 9:33 AM EDT Follow up if symptoms do not improve or worsen. Bronchitis: Care Instructions Your Care Instructions Bronchitis is inflammation of the bronchial tubes, which carry air to the lungs. The tubes swell and produce mucus, or phlegm. The mucus and inflamed bronchial tubes make you cough. You may have trouble breathing. Most cases of bronchitis are caused by viruses like those that cause colds. Antibiotics usually do not help and they may be harmful. Bronchitis usually develops rapidly and lasts about 2 to 3 weeks in otherwise healthy people. Follow-up care is a maddox part of your treatment and safety. Be sure to make and go to all appointments, and call your doctor if you are having problems. It's also a good idea to know your test resultsand keep a list of the medicines you take. How can you care for yourself at home? Take all medicines exactly as prescribed. Call your doctor if you think you are having a problem with your medicine. Get some extra rest. Take an kxre-nco-ucipfua pain medicine, such as acetaminophen (Tylenol), ibuprofen (Advil, Motrin),or naproxen (Aleve) to reduce fever and relieve body aches. Read and follow all instructions on thelabel. Do not take two or more pain medicines at the same time unless the doctor told you to. Many pain medicines have acetaminophen, which is Tylenol. Too much acetaminophen (Tylenol) can be harmful. Take an czix-hhh-kqisihk cough medicine that contains dextromethorphan to help quiet a dry, hackingcough so that you can sleep. Avoid cough medicines that have more than one active ingredient. Read and follow all instructions on the label. Breathe moist air from a humidifier, hot shower, or sink filled with hot water. The heat and moisture will thin mucus so you can cough it out. Do not smoke. Smoking can make bronchitis worse. If you need help quitting, talk to your doctor about stop-smoking programs and medicines. These can increase your chances of quitting for good. When should you call for help? Call 911 anytime you think you may need emergency care. For example, call if: You have severe trouble breathing. Call your doctor now or seek immediate medical care if: You have new or worse trouble breathing. You cough up dark brown or bloody mucus (sputum). You have a new or higher fever. You have a new rash. Watch closely for changes in your health, and be sure to contact your doctor if: You cough more deeply or more often, especially if you notice more mucus or a change in the color of your mucus. You are not getting better as expected. Where can you learn more? Log into your personal health record on [email or web address] and enter H333 in the Education box to learn more about Bronchitis: Care Instructions. Current as of: April 07, 2016 Content Version: 11.2 [id number] [employer]. Care instructions adapted under license by your healthcare professional. If you have questions about a medical condition or this instruction, always ask your healthcare professional. [employer] disclaims any warranty or liability for your use of this information. in this encounter Assessments Diagnosis Left arm pain - Primary Pain in soft tissues of limb Chest heaviness Other chest pain Diagnosis Sore throat - Primary Acute pharyngitis Bronchitis Bronchitis, not specified as acute or chronic Diagnosis Viral upper respiratory trac t infection - Primary Acute upper respiratory infections of unspecified site Diagnosis Other chest pain - Primary Labile blood pressure Summary Purpose Family History No Family History Records Found Relationship Condition Age at Onset Recorded Date/T darwin mother Malignant neoplasm Unknown Hypertension Unknown Cardiac disease Unknown father Cardiac disease Unknown brother Cardiac disease Unknown Advance Directives No Advanced Directives Records FoundDocuments on File Type Date Recorded Patient Quality Assurance Group Leader Expl anation Advance Directives and Living Will Latest Code Status on File Code Status Date Activated Date Inactivated Comments Full Code 07/08/2017 5:06 PM 07/09/2017 5:41 PM Documents on File Type Date Recorded Patient Quality Assurance Group Leader Expl anation Advance Directives and Living Will Latest Code Status on File Code Status Date Activated Date Inactivated Comments Full Code 07/08/2017 5:06 PM 07/09/2017 5:41 PM History of Present Illness * Ramón Hanna PA-C - 08/18/2017 9:24 AM EDT Formatting of this note may be different from the original. PATIENT NAME: Peggy Lopez [facility] [address] [place] [id number] : 1945 DATE OF VISIT: 08/18/2017 #: [id number] PROVIDER: Ramón Hanna PA-C Chief Complaint Patient presents with URI hx bronchitis, started 1 week ago with deep bronchial cough, productive colored mucus, trouble sleeping due to cough, it's not getting better SUBJECTIVE 71 y.o. female presents URI (hx bronchitis, started 1 week ago with deep bronchial cough, productive colored mucus, trouble sleeping due to cough, it's not getting better ) Cough This is a new problem. The current episode started in the past 7 days. The problem has been unchanged. The problem occurs constantly. The cough is productive of sputum. Associated symptoms include chest pain, ear pain, nasal congestion, rhinorrhea and wheezing. Pertinent negatives include no chills, ear congestion, fever, headaches, heartburn, hemoptysis, myalgias, postnasal drip, rash, sore throat (raspy d/t cough), shortness of breath, sweats or weight loss. Nothing aggravates the symptoms. She has tried OTC cough suppressant for the symptoms. The treatment provided no relief. Her past medical history is significant for bronchitis and environmental allergies. There is no history of asthma, COPD or pneumonia. MEDICAL ISSUES Past Medical History: Diagnosis Date Disease of thyroid gland Hypertension Polymyalgia (HCC) Patient Active Problem List Diagnosis SNOMED CT(R) Cervical radiculopathy CERVICAL RADICULOPATHY SOCIAL HISTORY Social History Social History Marital status: Spouse name: N/A Number of children: N/A Years of education: N/A Occupational History Not on file. Social History Main Topics Smoking status: Never Smoker Smokeless tobacco: Never Used Alcohol use No Drug use: No Sexual activity: Not on file Other Topics Concern Not on file Social History Narrative FAMILY HISTORY Family History Problem Relation Age of Onset Heart disease Mother Heart disease Father Heart disease Brother REVIEW OF SYSTEMS Review of Systems Constitutional: Negative for chills, fever and weight loss. HENT: Positive for ear pain and rhinorrhea. Negative for postnasal drip and sore throat (raspy d/t cough). Respiratory: Positive for cough and wheezing. Negative for hemoptysis and shortness of breath. Cardiovascular: Positive for chest pain. Gastrointestinal: Negative for heartburn. Musculoskeletal: Negative for myalgias. Skin: Negative for rash. Allergic/Immunologic: Positive for environmental allergies. Neurological: Negative for headaches. MEDICATIONS PRIOR TO VISIT Current Outpatient Prescriptions on File Prior to Visit Medication Sig Dispense Refill hydroCHLOROthiazide (HYDRODIURIL) 12.5 MG tablet Take 12.5 mg by mouth daily. levothyroxine (SYNTHROID, LEVOTHROID) 100 MCG tablet Take 100 mcg by mouth once daily. metoprolol tartrate (LOPRESSOR) 25 MG tablet Take 25 mg by mouth 2 (two) times a day. predniSONE (DELTASONE) 5 MG tablet Take 7.5 mg by mouth daily Reasons: Polymyalgia Rheumatica, 7.5mg. No current facility-administered medications on file prior to visit. ALLERGIES/INTOLERANCES No Known Allergies OBJECTIVE BP 110/76 Pulse 79 Temp 98.1 F (36.7 C) (Oral) Resp 16 Ht 5' 4 Wt 90.3 kg (199 lb) SpO2 94% BMI 34.16 kg/m2 Physical Exam Constitutional: She is oriented to person, place, and time. She appears well- developed and well-nourished. No distress. HENT: Head: Normocephalic and atraumatic. Right Ear: Hearing, tympanic membrane, external ear and ear canal normal. Left Ear: Hearing, tympanic membrane, external ear and ear canal normal. Nose: No rhinorrhea. Right sinus exhibits no maxillary sinus tenderness. Left sinus exhibits no maxillary sinus tenderness. Mouth/Throat: Posterior oropharyngeal edema and posterior oropharyngeal erythema present. No oropharyngeal exudate. Eyes: Conjunctivae are normal. Pupils are equal, round, and reactive to light. Right eye exhibits no discharge. Left eye exhibits no discharge. No scleral icterus. Neck: Neck supple. No thyromegaly present. Cardiovascular: Normal rate, regular rhythm and normal heart sounds. Pulmonary/Chest: Effort normal. No respiratory distress. She has no decreased breath sounds. She has no wheezes. She has no rhonchi. She has no rales. Lymphadenopathy: She has no cervical adenopathy. Neurological: She is alert and oriented to person, place, and time. Psychiatric: She has a normal mood and affect. Nursing note and vitals reviewed. PROCEDURE Procedures Results No results found for this or any previous visit (from the past 168 hour(s)). ASSESSMENT/PLAN (expressed as patient instructions): SNOMED CT(R) 1. Viral upper respiratory tract infection VIRAL UPPER RESPIRATORY TRACT INFECTION methylPREDNISolone (MEDROL DOSEPACK) 4 mg tablet benzonatate (TESSALON) 200 MG capsule No Follow-up on file. ADDITIONAL CLINICAL COMMENTS No notes on file ORDERS PLACED THIS VISIT No orders of the defined types were placed in this encounter. MEDICATION LIST AT END OF VISIT Current Outpatient Prescriptions Medication Sig Dispense Refill hydroCHLOROthiazide (HYDRODIURIL) 12.5 MG tablet Take 12.5 mg by mouth daily. levothyroxine (SYNTHROID, LEVOTHROID) 100 MCG tablet Take 100 mcg by mouth once daily. metoprolol tartrate (LOPRESSOR) 25 MG tablet Take 25 mg by mouth 2 (two) times a day. predniSONE (DELTASONE) 5 MG tablet Take 7.5 mg by mouth daily Reasons: Polymyalgia Rheumatica, 7.5mg. benzonatate (TESSALON) 200 MG capsule Take 1 (one) capsule (200 mg total) by mouth 3 (three) times a day as needed for cough. 20 capsule 0 methylPREDNISolone (MEDROL DOSEPACK) 4 mg tablet Take as directed.. 21 tablet 0 No current facility-administered medications for this visit. in this encounter* Mone Liu RN - 07/09/2017 2:50 PM EDT AVS reviewed with patient. No questions at this time. Wheelchair assistance to be provided for pt. * Jennifer Obando RN - 07/09/2017 2:19 PM EDT COMPLEX DISCHARGE Date: 07/09/2017 Time: 2:19 PM Patient Name: Peggy Lopez Date of : 1945 Sex: Female RNCM met with patient at the bedside. No additional home going needs identified at this time. Discharge Plan Shared UM/CC and RN Source of Information: Patient Living Arrangements: Alone Support Systems: Children Functional Status: Independent Type of Residence: Private residence Prior to Admission Home Care Services: No Current Home Equipment: None Insurance Coverage for Prescriptions: Yes Anticipated Discharge Plan Anticipated HME: None Anticipated Home Care Needs: None [facility] Disposition D/C Disposition: Home Agency/Destination: Home Home Care Needs : None in this encounter Hospital Course * Sandi Riley DO - 07/09/2017 1:52 PM EDT Formatting of this note may be different from the original. Sandi Riley DO [facility] Hospitalists MEDICAL OBSERVATION DISCHARGE SUMMARY Peggy Lopez Admit Date: 07/08/2017 Discharge Date: 07/09/17 Family Physician: Physician No MEDICAL OBSERVATION UNIT SUMMARY Peggy Lopez is a 71 y.o. female admitted to the hospital on 07/08/2017 for evaluation of left sided chest/arm pain. She had associated paresthesias of the left hand. Strength was intact. There were nored flag symptoms. She had a cardiac evaluation, including EKG, troponins and stress test. All were unremarkable. She was recommended to have outpatient PT/OT and take celebrex for 1 week. She will f/u with her fine artist and may need referral to PM&R if symptoms persist Comments/Problems to be Addressed After Discharge Discharge Medication Recommendations Current Discharge Medication List START taking these medications Details celecoxib (CELEBREX) 200 MG capsule Take 1 (one) capsule (200 mg total) by mouth 2 (two) times a day for 7 days. Qty: 14 capsule, Refills: 0 omeprazole (PRILOSEC) 40 MG capsule Take 1 (one) capsule (40 mg total) by mouth daily for 7 days. Qty: 7 capsule, Refills: 0 CONTINUE these medications which have NOT CHANGED Details hydroCHLOROthiazide (HYDRODIURIL) 12.5 MG tablet Take 12.5 mg by mouth daily. levothyroxine (SYNTHROID, LEVOTHROID) 100 MCG tablet Take 100 mcg by mouth once daily. metoprolol tartrate (LOPRESSOR) 25 MG tablet Take 25 mg by mouth 2 (two) times a day. predniSONE (DELTASONE) 5 MG tablet Take 7.5 mg by mouth daily Reasons: Polymyalgia Rheumatica, 7.5mg. Peggy Lopez was seen and examined on the day of discharge. The patient was appropriately risk stratified for observation level of care. in this encounter Reason for Referral Status Reason Specialty Diagnoses / Procedures Referred By Contact Referred To Contact Authorized Orthopedic Surgery Diagnoses Left wrist injury, initial encounter Juan Pablo Velasquez PA-C [id number] [facility] [address] [place] [id number] Chief Complaint and Reason for Visit Chief Complaint Admit Date ESTABLISH (SELF) May 10, 2025 12:5 3pm Additional Source Comments INFORMATION SOURCE (unrecogn ized section and content) DATE CREATED AUTHOR 05/12/2018 [facility] DATE CREATED AUTHOR AUTHOR'S ORGANIZ ATION 06/02/2021 [facility] DATE CREATED AUTHOR AUTHOR'S ORGANIZ ATION 06/14/2021 [facility] DATE CREATED AUTHOR AUTHOR'S ORGANIZ ATION 07/09/2024 [facility] ([place]) DATE CREATED AUTHOR AUTHOR'S ORGANIZ ATION 04/14/2025 [facility] DATE CREATED AUTHOR AUTHOR'S ORGANIZ ATION 06/01/2025 [facility] DATE CREATED AUTHOR AUTHOR'S ORGANIZ ATION 06/02/[address] [facility] Reason for Visit (unrecogniz ed section and content) Reason Comments URI hx bronchitis, start ed 1 week ago with deep bronchial cough, productive colored mucus, trouble sleeping due to cough, it's not getting better Reason Comments Chest Pain Status Reason Specialty Diagnoses / Procedures Referre d By Contact Referred To Contact Reason Comments Cough coughing, chest/nasa l congestion, and sore throat x 3 days, no covid exposure, and she is covid vaccinated in feburary Reason Comments Fall Tripped over a curb about 4 hrs and injured L wrist. Painful and slightly swollen. Reason Comments Pain Injury Status Reason Specialty Diagnoses / Procedures Referred By Contact Referred To Contact Closed Orthopedic Surgery Diagnoses Left wrist injury, initial encounter Juan Pablo Velasquez PA-C [address] [place] [address] Dr [address] [place] [id number] Saurabh Parekh MD [address] [place] [address] Reason Comments Sore Throat x 3 days, cough, con gestion, drainage, yellow mucus Patient Care team informatio n (unrecognized section and content) Team Status: Active Member Role Status Dates Out of [facility] Doctor Primary Care Provider Active Team Status: Inactive Member Role Status Dates Out of [facility] Doctor Primary Care Provider Active Start: May 10, 2025 End: May 10, 2025 Out of [facility] Doctor Referring Provider Active Sta rt: May 10, 2025 End: May 10, 2025 Dr. Blake Negron MD Attending Provider Active S tart: May 10, 2025 End: May 10, 2025 Goals (unrecognized section and content) Goals may be documented in a n alternate section FOR RECORDS PERTAINING TO PATIENTS WHO ARE OR HAVE BEEN ENROLLED IN A CHEMICAL DEPENDENCY/SUBSTANCEABUSE PROGRAM, SOME INFORMATION MAY BE OMITTED. This clinical summary was aggregated from multiple sources. Caution should be exercised in using it in the provision of clinical care. This summary normalizes information from multiple sources, and as a consequence, information in this document may materially change the coding, format and clinical context of patient data. In addition, data may be omitted in some cases. CLINICAL DECISIONS SHOULD BE BASED ON THE PRIMARY CLINICAL RECORDS. [facility] [employer] [facility]. provides no warranty or guarantee of the accuracy or completeness of information in this document.
--- NOTE | 2025-06-06 17:43 | STRESSREP ---
Stress Test Report Pharmacologic myocardial perfusion stress test. 79-year-old lady with history of chest pain Resting EKG demonstrates sinus rhythm with a rate of 65 bpm. Resting blood pressure is 128/72 mmHg. 0.4 mg of regadenoson was infused per usual protocol followed by rapid intravenous saline flush injection. Continuous EKG monitoring was performed. The maximum heart rate was 94 bpm which was 66%of max impacted heart rate the maximum workload was 1 metabolic equivalent. At rest there were no ST or T wave changes noted to suggest ischemia and at peak infusion nonspecific ST changes were noted which did not meet the criteria for ischemia. No clinical angina is noted. The final blood pressure was 122/60mmHg. Myocardial perfusion protocol. 11.9 mCi of technetium 99m sestamibi was injected at rest. 0.4 mg of regadenoson was infused per usual protocol. At peak infusion 34.7 mCi of technetium 99m sestamibi was injected stress images were obtained stress and rest images were reconstructed and compared in the short axis vertical long and horizontal long axis. Gated images were also obtained. Perfusion SPECT analysis: Review of the stress images demonstrate normal uptake of tracer noted in all areas of the myocardium. The resting images similar demonstrated normal uptake of tracer noted in all areas of the myocardium. No areas of reversibility are noted to suggest ischemia and no previous infarct is noted. Gated SPECT analysis: The gated ejection fraction is 77%. Conclusion: Normal pharmacologic myocardial perfusion stress test. Preserved ejection fraction.
== END | disposition home or self-care (01) ==
PROVIDERS: Referring Provider Internal Medicine Cardiovascular Disease; Visit Provider Internal Medicine Cardiovascular Disease
DX: I25.10 Atherosclerotic heart disease of native coronary artery without angina pectoris (principal)
CPT/HCPCS: 78452; 93017; A9500; A4216; J2785

== ENCOUNTER → 2025-06-20 | Outpatient (CLI) | payer MEDICARE, OTHER, SELFPAY ==
--- NOTE | 2025-06-20 14:28 | RAD_ITS ---
PROCEDURE: SHOULDER MIN 2 VIEWS 06/20/2025 REASON FOR EXAM: PAIN TECHNIQUE: SHOULDER MIN 2 VIEWS COMPARISON: None. FINDINGS: Bones: No acute bony abnormalities. Joints: No dislocation. Soft tissues: No soft tissue abnormalities. RAD/Shoulder min 2 Views IMPRESSION: No acute bony abnormalities. Reading Location: [id number]
== END | disposition home or self-care (01) ==
LOC: MTRAD 14:28
PROVIDERS: Referring Provider Physician Assistant; Visit Provider Physician Assistant
DX: M25.511 Pain in right shoulder (principal)
CPT/HCPCS: 73030

== ENCOUNTER → 2025-07-26 | Outpatient (CLI) | payer MEDICARE, OTHER, SELFPAY ==
--- NOTE | 2025-07-26 18:25 | CT_ITS ---
PROCEDURE: EXTREMITY UPPER WITHOUT CONTRA 07/26/2025 REASON FOR EXAM: RT SHOULDER BLUEPRINT TECHNIQUE: Procedure Code: CTEUWO Modality: CT Procedure: EXTREMITY UPPER WITHOUT CONTRA Coronal and Sagittal reconstruction series were provided. One or more dose reduction techniques were used (e.g., Automated exposure control, adjustment of the mA and/or kV according to patient size, use of iterative reconstruction technique. RADIATION DOSE SUMMARY: CTDlvol: 22.89 mGy DLP: 594.9 mGycm COMPARISON: None FINDINGS: No acute fracture. No destructive bone lesion. Degenerative changes of the glenohumeral joint are present including diffuse joint space narrowing and subchondral cystic changes with marginal osteophytes of the humeral head. There is slight superior migration of the humeral head on the glenoid with narrowing of the acromial humeral space. Present with mild degenerative changes of the acromioclavicular joint. Adjacent ribcage is normal. Mild atrophy of the supraspinatus muscle. No lymphadenopathy. Adjacent lung and airway appear patent. There is a pulmonary nodule in the right lower lobe measuring 7 mm. Follow-up CT of the chest in 6 months is recommended to assess stability. CT/Extremity Upper without Contra IMPRESSION: Degenerative changes of the right glenohumeral joint. No acute fracture disloc ation. Mild degenerative changes of the acromioclavicular joint. 6 mm pulmonary nodule in the right lower lobe for which follow-up evaluation in [address] is [address] CT of the chest without contrast. Reading Location: [id number]
== END | disposition home or self-care (01) ==
PROVIDERS: Referring Provider Specialist; Visit Provider Specialist
DX: M19.011 Primary osteoarthritis, right shoulder (principal); S46.011A Strain of muscle(s) and tendon(s) of the rotator cuff of right shoulder, initial encounter
CPT/HCPCS: 73200

== ENCOUNTER 2025-08-14 07:06 | Observation (INO) | payer MEDICARE, OTHER, SELFPAY ==
--- OUTSIDE RECORDS SUMMARY | 2025-06-19 13:13 | XMS RPT_ITS ---
Author Name Auto Generated Organization OHIP Support Name Relationship Address Phone MERRITT RUIZ Next of Kin Unknown + MERRITT RUIZ Next of Kin Unknown + MERRITT RUIZ Next of Kin Unknown + JOSEPH, MERRITT Next of Kin Unknown + JOSEPH MERRITT Next of Kin Unknown + MERRITT RUIZ Next of Kin Unknown + JOSEPH MERRITT Next of Kin Unknown + JOSEPH, MERRITT Next of Kin Unknown + JOSEPH, MERRITT Next of Kin Unknown + JOSEPH MERRITT Next of Kin Unknown + JOSEPH, MERRITT Next of Kin Unknown + JOSEPH, MERRITT Next of Kin Unknown + JOSEPH MERRITT Next of Kin Unknown + JOSEPH MERRITT Next of Kin Unknown + JOSEPH, MERRITT Next of Kin Unknown + JOSEPH, MERRITT Next of Kin Unknown + JOSEPH MERRITT Next of Kin Unknown + JOSEPH MERRITT Next of Kin Unknown + JOSEPH MERRITT Next of Kin Unknown + JOSEPH MERRITT Next of Kin Unknown + JOSEPH MERRITT Next of Kin Unknown + MERRITT RUIZ Next of Kin Unknown + JOSEPH, MERRITT Next of Kin Unknown + JOSEPH, MERRITT Next of Kin Unknown + JOSEPH, MERRITT Next of Kin Unknown + JOSEPH, MERRITT Next of Kin Unknown + JOSEPH, MERRITT Next of Kin Unknown + JOSEPH, MERRITT Next of Kin Unknown + JOSEPH, MERRITT Next of Kin Unknown + JOSEPH, MERRITT Next of Kin Unknown + JOSEPH, MERRITT Next of Kin Unknown + JOSEPH, MERRITT Next of Kin Unknown + JOSEPH, MERRITT Next of Kin Unknown + JOSEPH, MERRITT Next of Kin Unknown + JOSEPH, MERRITT Next of Kin Unknown + JOSEPH, MERRITT Next of Kin Unknown + JOSEPH, MERRITT Next of Kin Unknown + JOSEPH, MERRITT Next of Kin Unknown + Care Team Providers Care Supervisor Parking Lot Name Role Phone EDGARDO HICKEY, DR ANGELA Castro Primary Care Unavailab Dioni HICKEY, DR YU Ny Attending Nahum Salcedo MD, DR JEAN Admitting Unavailab Denisse HICKEY, DR JEAN Attending Nahum Mobley MD, DR ANGELA Castro Primary Care Unavailab Itz HICKEY, DR ANGELA Castro Primary Care Unavailab Dioni HICKEY, DR YU Ny Attending Nahum Mobley MD, DR ANGELA Castro Primary Care Unavailab Dioni HICKEY, DR YU Ny Attending Nahum Mobley MD, DR ANGELA Castro Primary Care Unavailab Itz HICKEY, DR ANGELA Castro Attending Nahum Mobley MD, DR ANGELA Castro Primary Care Unavailab Itz HICKEY, DR ANGELA Castro Attending Nahum Mobley MD, DR PRIVI P Primary Care Unavailab Itz HICKEY, DR ANGELA Castro Attending Unavailab Itz HICKEY, DR ANGELA Castro Primary Care Unavailab galen REYNOSO MD, DR ANGELA Castro Attending Unavailab galen REYNOSO MD, DR ANGELA Castro Primary Care Unavailab galen REYNOSO MD, DR ANGELA Castro Attending Unavailab galen REYNOSO MD, DR ANGELA Castro Primary Care Unavailab galen BRIDGES MD, DR JEAN Attending Unavailab galen REYNOSO MD, DR ANGELA Castro Primary Care Unavailab galen DESHPANDE PA-C, VINOD Attending Tho REYNOSO MD, DR ANGELA Castro Primary Care Unavailab galen BRIDGES MD, DR JEAN Attending Unavailab galen REYNOSO MD, DR ANGELA Castro Primary Care Unavailab galen REYNOSO MD, DR ANGELA Castro Attending Unavailab galen REYNOSO MD, DR ANGELA Castro Primary Care Unavailab galen BRIDGES MD, DR JEAN Admitting Unavailab galen BRIDGES MD, DR JEAN Attending Unavailab galen REYNOSO MD, DR ANGELA Castro Primary Care Unavailab galen BRIDGES MD, DR JEAN Attending Unavailab galen BRIDGES MD, DR JEAN Attending Unavailab galen REYNOSO MD, DR ANGELA Castro Primary Care Unavailab galen BRIDGES MD, DR JEAN Attending Unavailab galen REYNOSO MD, DR ANGELA Castro Primary Care Unavailab galen REYNOSO MD, DR ANGELA Castro Primary Care Unavailab galen DESHPANDE PA-C, VINOD Attending Tho REYNOSO MD, DR ANGELA Castro Primary Care Unavailab Itz HICKEY, DR ANGELA Castro Attending Unavailab le PROBLEMS DATE TYPE CONDITION / CODE [facility] Pain in unspecif ied knee / M25.569(ICD-10) [facility] Unknown Pain in right kn ee / M25.561(ICD-10) JERAMY CULP, [facility] MAIN PROCEDURES No Procedure Records Found RESULTS CT KNEE W/O CONTRAST RIGHT Observed: 02/2025 2:30 PM Status: F Source: [facility] ORIGINAL EXAMINATION: CT OF THE RIGHT KNEE WITHOUT CONTRAST 06/19/2025 3:55 pm TECHNIQUE: CT of the right knee was performed without the administration of intravenous contrast. Multiplanar reformatted images are provided for review. Automated exposure control, iterative reconstruction, and/or weight based adjustment of the mA/kV was utilized to reduce the radiation dose to as low as reasonably achievable. MA KO protocol was performed with axial images through the right hip and right ankle. COMPARISON: Radiograph dated 02/20/2025 HISTORY ORDERING SYSTEM PROVIDED HISTORY: Reason for Exam: UNILATERAL PRIMARY OSTEOARTHRITIS FINDINGS: There is no acute fracture or dislocation. There is no suspicious lytic or blastic osseous lesion. There is no aggressive periosteal reaction. Limited evaluation of the uterus and adnexa. Sigmoid colon diverticulosis. Mild SI joint degenerative changes. Mild to moderate bilateral femoroacetabular joint space narrowing. Enthesopathy at the right ischial tuberosity. Pubic symphysis is maintained with mild degenerative changes. Moderate to severe tricompartmental osteoarthritis of the right knee most pronounced in the lateral compartment with mild valgus, near [id number] subchondral sclerosis and marginal osteophyte formation. Medial compartment spurring as well as spurring of the tibial spines and intercondylar notch. Quadriceps enthesopathy. Moderate knee joint effusion with calcified intra-articular bodies measuring up to 6 mm.. Small popliteal Lopez's cyst with bodies. Lateral patellar subluxation. Infrapatellar subcutaneous edema. Retrocalcaneal enthesopathy. There is no evidence of solid or cystic soft tissue mass. IMPRESSION: 1. Moderate to severe tricompartmental osteoarthritis of the right knee most pronounced in the lateral compartment with mild valgus. 2. Moderate knee joint effusion with calcified intra-articular bodies measuring up to 6 mm. 3. Small popliteal Lopez's cyst with bodies. 4. Additional incidental findings as detailed above. Interpreted by: Franci Moeller Preliminary Report By: Franci Moeller Electronically signed By Franci Moeller Dictated Date: 06/19/2025 4:12:09 PM Prelim Date: 06/19/2025 4:18:17 PM Sign Date: 06/19/2025 4:18:17 PM Ordering Provider: YU MORILLO MRSAPCR Collected: 2:09 PM Status: F Source: [facility] TYPE CODE TESTS RESULT OUT OF RANGE REFERENCE UNITS LAB MRSAPCR1(LOINC) MRSA (PCR) Not Detected Not Dete cted Result Comment: Notes 146[address] LAB MRSAPCRINT(LOIN C) MRSA PCR Int See Below Result Comment: Clinical Interpretation: MRSA DNA not detected by Real-Time Polymerase Chain Reaction (PCR). A negative result may be due to intermittent colonization. Colonization may vary depending on patient treatment, patient status, or exposure to high-risk environments. As with all PCR based in vitro diagnostic tests, extremely low levels of target below the limit of detection of the assay may be detected, but results may not be reproducible. Performed By: #### MRSAPCR # ### [address] [id number] CBC Collected: 2:09 PM Status: F Source: [facility] Order Comment: Pre-Admission Testing TYPE CODE TESTS RESULT OUT OF RANGE REFERENCE UNITS LAB WBC(LOINC) WBC 5.5 4.5-10.8 10 3/mcL LAB RBCCT(LOINC) RBC 3.62 Low 4.10-5.30 10 6/mcL LAB HGB(LOINC) Hgb 11.2 Low 12.0-16.0 G/dL LAB HCT(LOINC) Hct 34.4 34.0-46.0 % LAB MCV(LOINC) MCV 94.9 80.0-99.0 fL LAB MCH(LOINC) MCH 30.8 27.0-33.0 pg LAB MCHC(LOINC) MCHC 32.5 32.0-36.0 G/dL LAB RDW(LOINC) RDW 14.4 11.5-15.5 % LAB PLT(LOINC) Platelet 187 150-450 10 3/mcL LAB MPV(LOINC) MPV 9.7 6.6-10.5 fL Performed By: #### ALB, ABSG EL, BMP, CBC, ABOGEL, ANEU, GFR, ADIFF #### [facility] [address] [place], [place] [address] .AUTO DIFF Collected: 06/19/2025 2:09 PM Status: F Source: [facility] TYPE CODE TESTS RESULT OUT OF RANGE REFERENCE UNITS LAB CYNTHIA(LOINC) Neutrophil % 55.1 50.0-75.0 % LAB LYM(LOINC) Lymphocyte % 32.2 20.0-40.0 % LAB MON(LOINC) Monocyte % 8.3 2.0-13.0 % LAB EO(LOINC) Eosinophil % 3.9 0.0-6.0 % LAB BAS(LOINC) Basophil % 0.5 0.0-2.5 % LAB ABLYM(LOINC) Lymphocyte, Absolute 1.8 0.9-4.3 10 3/mcL LAB RERE(LOINC) Monocyte, Absolute 0.5 0.1-1.4 10 3/mcL LAB AEOS(LOINC) Eosinophil, Absolute 0.2 0.0-0.7 10 3/mcL LAB ABAS(LOINC) Basophil, Absolute 0.0 0.0-0.3 10 3/mcL Performed By: #### ALB, ABSG EL, BMP, CBC, ABOGEL, ANEU, GFR, ADIFF #### [address] [address] .NEUABS Collected: 2:09 PM Status: F Source: [facility] TYPE CODE TESTS RESULT OUT OF RANGE REFERENCE UNITS LAB ANEU(INC) Neutrophil, Absolute 3.0 2.3-8.1 10 3/mcL Performed By: #### ALB, ABSG EL, BMP, CBC, ABOGEL, ANEU, GFR, ADIFF #### [address] [address] BMP Collected: 06/19/2025 2:09 PM Status: F Source: [facility] TYPE CODE TESTS RESULT OUT OF RANGE REFERENCE UNITS LAB GLU(LOINC) Glucose Level 92 83-110 mg/dL LAB NA(LOINC) Sodium Level 145 136-145 mmol/L LAB K(LOINC) Potassium Level 4.2 3.5-5.1 mmol/L LAB CL(LOINC) Chloride 110 High 98-107 mmol/L LAB CO2(LOINC) CO2 25 23-31 mmol/L LAB EBAL(LOINC) Electrolyte Balance 10.0 4.0-15.0 mEq/L LAB BUN(LOINC) BUN 26 High 7-18 mg/dL LAB CRE(LOINC) Creatinine Lvl (s) 1.22 High 0.51-0.95 mg/dL LAB BC(LOINC) BUN/Creatinine Ratio 21 7-27 ratio LAB CA(LOINC) Calcium Lvl 9.4 8.4-10.2 mg/dL Performed By: #### ALB, ABSG EL, BMP, CBC, ABOGEL, ANEU, GFR, ADIFF #### [address] [address] ALB Collected: 06/19/2025 2:09 PM Status: F Source: [facility] TYPE CODE TESTS RESULT OUT OF RANGE REFERENCE UNITS LAB ALB(LOINC) Albumin Level 3.7 3.4-4.8 G/dL Performed By: #### ALB, ABSG EL, BMP, CBC, ABOGEL, ANEU, GFR, ADIFF #### [address] [address] .GFR Collected: 06/19/2025 2:09 PM Status: F Source: [facility] TYPE CODE TESTS RESULT OUT OF RANGE REFERENCE UNITS LAB eGFR(LOINC) Estimated Glomerular Filtration Rate 45 ml/min/1. 73sqm Result Comment: Stages of Chronic Kidney Disease [...] calculate the eGFR results. Performed By: #### ALB, ABSG EL, BMP, CBC, ABOGEL, ANEU, GFR, ADIFF #### [address] [address] ABO/RH (GEL) Collected: 06/19/2025 2:09 PM Status: F Source: [facility] TYPE CODE TESTS RESULT OUT OF RANGE REFERENCE UNITS LAB ABORH(LOINC) ABO/Rh Interp A POS Unknown Performed By: #### ALB, ABSG EL, BMP, CBC, ABOGEL, ANEU, GFR, ADIFF #### [address] [address] ABS (GEL) Collected: 06/19/2025 2:09 PM Status: F Source: [facility] TYPE CODE TESTS RESULT OUT OF RANGE REFERENCE UNITS LAB ABSCINT(LOINC) ABSC Interp (Gel) Negative ABSC Performed By: #### ALB, ABSG EL, BMP, CBC, ABOGEL, ANEU, GFR, ADIFF #### [facility] [address] [place], [place] [address] CMP Collected: 04/11/2025 7:56 AM Status: F Source: [facility] TYPE CODE TESTS RESULT OUT OF RANGE REFERENCE UNITS LAB GLU(LOINC) Glucose Level 106 82-115 mg/dL LAB NA(LOINC) Sodium Level 143 136-145 mEq/L LAB K(LOINC) Potassium Level 4.4 3.5-5.0 mEq/L LAB CL(LOINC) Chloride 109 98-110 mEq/L LAB CO2(LOINC) CO2 29 22-32 mEq/L LAB EBAL(LOINC) Electrolyte Balance 5.0 4.0-15.0 mEq/L LAB BUN(LOINC) BUN 31.0 High 8.0-22.0 mg/dL LAB CRE(LOINC) Creatinine Lvl (s) 1.36 High 0.50-1.20 mg/dL Result Comment: Testing perf ormed on Cortilia analyzer using enzymatic creatinine methodology. LAB BC(LOINC) BUN/Creatinine Ratio 22.8 High 10.0-22.0 ratio LAB CA(LOINC) Calcium Lvl 9.8 8.7-10.4 mg/dL LAB PROT(LOINC) Total Protein 7.1 5.7-8.2 G/dL LAB ALB(LOINC) Albumin Level 3.8 3.2-4.8 G/dL LAB GLB(LOINC) Globulin 3.3 2.5-4.2 G/dL LAB AG(LOINC) A/G Ratio 1.2 0.9-1.6 ratio LAB BILT(LOINC) Bili Total 0.30 0.20-1.20 mg/dL Result Comment: Use of this assay is not recommended for patients undergoing treatment with eltrombopag due to the potential for falsely elevated results. LAB AP(LOINC) Alk Phos 114 38-126 U/L LAB AST(LOINC) AST/SGOT 19 8-34 U/L LAB ALT(LOINC) ALT/SGPT 13 10-49 U/L Performed By: #### CMP, FT4, GFR, CBC, TSH, ADIFF, ANEU, VIDH #### [address] [address] TSH Collected: 7:56 AM Status: F Source: [facility] TYPE CODE TESTS RESULT OUT OF RANGE REFERENCE UNITS LAB TSH(LOINC) TSH 4.011 0.550-4.780 mIU/mL Performed By: #### CMP, FT4, GFR, CBC, TSH, ADIFF, ANEU, VIDH #### [address] [address] FT4 Collected: 7:56 AM Status: F Source: [facility] TYPE CODE TESTS RESULT OUT OF RANGE REFERENCE UNITS LAB FT4(LOINC) Free T4 1.03 0.89-1.76 ng/dL Result Comment: Note - New Reference Range in effect 20 Performed By: #### CMP, FT4, GFR, CBC, TSH, ADIFF, ANEU, VIDH #### [address] [address] .GFR Collected: 04/11/2025 7:56 AM Status: F Source: [facility] TYPE CODE TESTS RESULT OUT OF RANGE REFERENCE UNITS LAB eGFR(LOINC) Estimated Glomerular Filtration Rate 40 ml/min/1. 73sqm Result Comment: Stages of Chronic Kidney Disease [...] calculate the eGFR results. Performed By: #### CMP, FT4, GFR, CBC, TSH, ADIFF, ANEU, VIDH #### [address] [address] VIDH Collected: 7:56 AM Status: F Source: [facility] TYPE CODE TESTS RESULT OUT OF RANGE REFERENCE UNITS LAB VIDH(LOINC) Vit. D 25-Hydroxy 36.2 ng/mL Result Comment: Interpretive Values Based on Total 25(OH)D: Severe Deficiency <20 ng/mL Mild to Moderate Deficiency 20-30 ng/mL Optimum Levels 30-100 ng/mL Toxicity Possible >100 ng/mL Performed By: #### CMP, FT4, GFR, CBC, TSH, ADIFF, ANEU, VIDH #### [address] [address] CBC Collected: 7:56 AM Status: F Source: [facility] TYPE CODE TESTS RESULT OUT OF RANGE REFERENCE UNITS LAB WBC(LOINC) WBC 4.9 4.5-10.8 10 3/mcL LAB RBCCT(LOINC) RBC 3.69 Low 4.10-5.30 10 6/mcL LAB HGB(LOINC) Hgb 11.3 Low 12.0-16.0 G/dL LAB HCT(LOINC) Hct 34.7 34.0-46.0 % LAB MCV(LOINC) MCV 94.1 80.0-99.0 fL LAB MCH(LOINC) MCH 30.8 27.0-33.0 pg LAB MCHC(LOINC) MCHC 32.7 32.0-36.0 G/dL LAB RDW(LOINC) RDW 15.1 11.5-15.5 % LAB PLT(LOINC) Platelet 178 150-450 10 3/mcL LAB MPV(LOINC) MPV 9.4 6.6-10.5 fL Performed By: #### CMP, FT4, GFR, CBC, TSH, ADIFF, ANEU, VIDH #### [address] [address] .AUTO DIFF Collected: 04/11/2025 7:56 AM Status: F Source: [facility] TYPE CODE TESTS RESULT OUT OF RANGE REFERENCE UNITS LAB CYNTHIA(LOINC) Neutrophil % 46.2 Low 50.0-75.0 % LAB LYM(LOINC) Lymphocyte % 38.7 20.0-40.0 % LAB MON(LOINC) Monocyte % 11.9 2.0-13.0 % LAB EO(LOINC) Eosinophil % 2.7 0.0-6.0 % LAB BAS(LOINC) Basophil % 0.5 0.0-2.5 % LAB ABLYM(LOINC) Lymphocyte, Absolute 1.9 0.9-4.3 10 3/mcL LAB RERE(LOINC) Monocyte, Absolute 0.6 0.1-1.4 10 3/mcL LAB AEOS(LOINC) Eosinophil, Absolute 0.1 0.0-0.7 10 3/mcL LAB ABAS(LOINC) Basophil, Absolute 0.0 0.0-0.3 10 3/mcL Performed By: #### CMP, FT4, GFR, CBC, TSH, ADIFF, ANEU, VIDH #### [place] [id number] .NEUABS Collected: 7:56 AM Status: F Source: [facility] TYPE CODE TESTS RESULT OUT OF RANGE REFERENCE UNITS LAB ANEU(LOINC) Neutrophil, Absolute 2.3 2.3-8.1 10 3/mcL Performed By: #### CMP, FT4, GFR, CBC, TSH, ADIFF, ANEU, VIDH #### [place] [address] BMP Collected: 03/31/2025 10:08 AM Status: F Source: [facility] TYPE CODE TESTS RESULT OUT OF RANGE REFERENCE UNITS LAB GLU(LOINC) Glucose Level 115 82-115 mg/dL LAB NA(LOINC) Sodium Level 142 136-145 mEq/L LAB K(LOINC) Potassium Level 4.1 3.5-5.0 mEq/L LAB CL(LOINC) Chloride 110 98-110 mEq/L LAB CO2(LOINC) CO2 24 22-32 mEq/L LAB EBAL(LOINC) Electrolyte Balance 8.0 4.0-15.0 mEq/L LAB BUN(LOINC) BUN 25.0 High 8.0-22.0 mg/dL LAB CRE(LOINC) Creatinine Lvl (s) 1.35 High 0.50-1.20 mg/dL Result Comment: Testing perf ormed on Cortilia analyzer using enzymatic creatinine methodology. LAB BC(LOINC) BUN/Creatinine Ratio 18.5 10.0-22.0 ratio LAB CA(LOINC) Calcium Lvl 9.1 8.7-10.4 mg/dL Performed By: #### BMP, GFR #### [address] [address] .GFR Collected: 10:08 AM Status: F Source: [facility] TYPE CODE TESTS RESULT OUT OF RANGE REFERENCE UNITS LAB eGFR(LOINC) Estimated Glomerular Filtration Rate 40 ml/min/1. 73sqm Result Comment: Stages of Chronic Kidney Disease [...] calculate the eGFR results. Performed By: #### BMP, GFR #### [address] [address] BMP Collected: 03/22/2025 10:36 AM Status: F Source: [facility] TYPE CODE TESTS RESULT OUT OF RANGE REFERENCE UNITS LAB GLU(LOINC) Glucose Level 110 82-115 mg/dL LAB NA(LOINC) Sodium Level 140 136-145 mEq/L LAB K(LOINC) Potassium Level 4.9 3.5-5.0 mEq/L LAB CL(LOINC) Chloride 107 98-110 mEq/L LAB CO2(LOINC) CO2 26 22-32 mEq/L LAB EBAL(LOINC) Electrolyte Balance 7.0 4.0-15.0 mEq/L LAB BUN(LOINC) BUN 36.0 High 8.0-22.0 mg/dL LAB CRE(LOINC) Creatinine Lvl (s) 1.48 High 0.50-1.20 mg/dL Result Comment: Testing perf ormed on Cortilia analyzer using enzymatic creatinine methodology. LAB BC(LOINC) BUN/Creatinine Ratio 24.3 High 10.0-22.0 ratio LAB CA(LOINC) Calcium Lvl 9.3 8.7-10.4 mg/dL Performed By: #### BMP, GFR #### [address] [address] .GFR Collected: 10:36 AM Status: F Source: [facility] TYPE CODE TESTS RESULT OUT OF RANGE REFERENCE UNITS LAB eGFR(LOINC) Estimated Glomerular Filtration Rate 36 ml/min/1. 73sqm Result Comment: Stages of Chronic Kidney Disease [...] calculate the eGFR results. Performed By: #### BMP, GFR #### [place] [address] PBNP Collected: 10:24 AM Status: F Source: [facility] TYPE CODE TESTS RESULT OUT OF RANGE REFERENCE UNITS LAB PBNP(LOINC) N-Terminal proBNP 199 0-1800 pg/mL Performed By: #### LIPID, PB COMM[employer]CIAL LENDING RELATIONSHIP MANAGER #### [place] [address] LIPID Collected: 03/08/2025 10:24 AM Status: F Source: [facility] TYPE CODE TESTS RESULT OUT OF RANGE REFERENCE UNITS LAB CHOL(LOINC) Cholesterol 118 50-199 mg/dL Result Comment: Cholesterol Reference Interval: Less than 200 Desirable 200-239 Borderline high risk 240 and above High risk LAB TRIG(LOINC) Triglycerides 132 3-149 mg/dL LAB HD(LOINC) HDL Cholesterol 35 Low 40-59 mg/dL LAB LDL(LOINC) LDL Cholesterol 57 0-129 mg/dL Performed By: #### LIPID, PB COMMERCIAL LENDING RELATIONSHIP MANAGER #### [address] [address] XR KNEE THREE VIEWS RIGHT Observed: 05/2025 9:05 AM Status: F Source: [facility] ORIGINAL EXAMINATION: XR knee TECHNIQUE: Three views [...] Date: 02/20/2025 9:19:02 AM Ordering Provider: VINOD MCNAMARA Collected: 10/21/2024 9:51 AM Status: F Source: [facility] TYPE CODE TESTS RESULT OUT OF RANGE REFERENCE UNITS LAB PBNP(LOINC) N-Terminal proBNP 209 0-1800 pg/mL Performed By: #### GFR, BMP, PBNP #### [address] [address] BMP Collected: 10/21/2024 9:51 AM Status: F Source: [facility] TYPE CODE TESTS RESULT OUT OF RANGE REFERENCE UNITS LAB GLU(LOINC) Glucose Level 111 82-115 mg/dL LAB NA(LOINC) Sodium Level 141 136-145 mEq/L LAB K(LOINC) Potassium Level 4.1 3.5-5.0 mEq/L LAB CL(LOINC) Chloride 107 98-110 mEq/L LAB CO2(LOINC) CO2 28 22-32 mEq/L LAB EBAL(LOINC) Electrolyte Balance 6.0 4.0-15.0 mEq/L LAB BUN(LOINC) BUN 22.0 8.0-22.0 mg/dL LAB CRE(LOINC) Creatinine Lvl (s) 1.17 0.50-1.20 mg/dL Result Comment: Testing perf ormed on Cortilia analyzer using enzymatic creatinine methodology. LAB BC(LOINC) BUN/Creatinine Ratio 18.8 10.0-22.0 ratio LAB CA(LOINC) Calcium Lvl 9.7 8.7-10.4 mg/dL Performed By: #### GFR, BMP, PBNP #### [address] [address] .GFR Collected: 4 9:51 AM Status: F Source: [facility] TYPE CODE TESTS RESULT OUT OF RANGE REFERENCE UNITS LAB GFRAA(LOINC) GFR 54 ml/min/1. 73sqm Result Comment: GFR Population mean for , [...] Disease: Less than 15 mL/min/1.73 square meters LAB GFRNO(LOINC) GFR Non- 45 ml/min/1. 73sqm Result Comment: GFR Population mean for , [...] 15 mL/min/1.73 square meters Performed By: #### GFR, BMP, PBNP #### [place] [address] BMP Collected: 09/22/2024 7:49 AM Status: F Source: [facility] TYPE CODE TESTS RESULT OUT OF RANGE REFERENCE UNITS LAB GLU(LOINC) Glucose Level 99 82-115 mg/dL LAB NA(LOINC) Sodium Level 143 136-145 mEq/L LAB K(LOINC) Potassium Level 4.8 3.5-5.0 mEq/L LAB CL(LOINC) Chloride 110 98-110 mEq/L LAB CO2(LOINC) CO2 26 22-32 mEq/L LAB EBAL(LOINC) Electrolyte Balance 7.0 4.0-15.0 mEq/L LAB BUN(LOINC) BUN 28.0 High 8.0-22.0 mg/dL LAB CRE(LOINC) Creatinine Lvl (s) 1.17 0.50-1.20 mg/dL Result Comment: Testing perf ormed on Cortilia analyzer using enzymatic creatinine methodology. LAB BC(LOINC) BUN/Creatinine Ratio 23.9 High 10.0-22.0 ratio LAB CA(LOINC) Calcium Lvl 9.7 8.7-10.4 mg/dL Performed By: #### GFR, BMP #### [place] [address] .GFR Collected: 7:49 AM Status: F Source: [facility] TYPE CODE TESTS RESULT OUT OF RANGE REFERENCE UNITS LAB GFRAA(LOINC) GFR 54 ml/min/1. 73sqm Result Comment: GFR Population mean for , [...] Disease: Less than 15 mL/min/1.73 square meters LAB GFRNO(LOINC) GFR Non- 45 ml/min/1. 73sqm Result Comment: GFR Population mean for , [...] 15 mL/min/1.73 square meters Performed By: #### GFR, BMP #### [address] [address] BMP Collected: 09/16/2024 9:16 AM Status: F Source: [facility] TYPE CODE TESTS RESULT OUT OF RANGE REFERENCE UNITS LAB GLU(LOINC) Glucose Level 113 82-115 mg/dL LAB NA(LOINC) Sodium Level 148 High 136-145 mEq/L LAB K(LOINC) Potassium Level 5.5 High 3.5-5.0 mEq/L LAB CL(LOINC) Chloride 114 High 98-110 mEq/L LAB CO2(LOINC) CO2 24 22-32 mEq/L LAB EBAL(LOINC) Electrolyte Balance 10.0 4.0-15.0 mEq/L LAB BUN(LOINC) BUN 34.0 High 8.0-22.0 mg/dL LAB CRE(LOINC) Creatinine Lvl (s) 1.56 High 0.50-1.20 mg/dL Result Comment: Testing perf ormed on Cortilia analyzer using enzymatic creatinine methodology. LAB BC(LOINC) BUN/Creatinine Ratio 21.8 10.0-22.0 ratio LAB CA(LOINC) Calcium Lvl 9.6 8.7-10.4 mg/dL Performed By: #### BMP, GFR #### [address] [address] .GFR Collected: 9:16 AM Status: F Source: [facility] TYPE CODE TESTS RESULT OUT OF RANGE REFERENCE UNITS LAB GFRAA(LOINC) GFR 39 ml/min/1. 73sqm Result Comment: GFR Population mean for , [...] Disease: Less than 15 mL/min/1.73 square meters LAB GFRNO(LOINC) GFR Non- 32 ml/min/1. 73sqm Result Comment: GFR Population mean for , [...] 15 mL/min/1.73 square meters Performed By: #### BMP, GFR #### [place] [id number] UPE Collected: 10:15 AM Status: F Source: [facility] TYPE CODE TESTS RESULT OUT OF RANGE REFERENCE UNITS LAB UPE(LOINC) UPE Interpretation Electrophoresis of concentrated urine demonstrates the presence of a small amount of albumin and other globulins in a pattern similar to that of serum. This may be seen in diseases associated with mild glomerular dysfunction as well as postural proteinuria, transient proteinuria and . Result Comment: Electronical ly Signed by: MECCA LR 09/01/2024 18:12 EDT Performed By: #### UPE #### [address] [address] CBC Collected: 10:02 AM Status: F Source: [facility] TYPE CODE TESTS RESULT OUT OF RANGE REFERENCE UNITS LAB WBC(LOINC) WBC 7.7 4.5-10.8 10 3/mcL LAB RBCCT(LOINC) RBC 3.83 Low 4.10-5.30 10 6/mcL LAB HGB(LOINC) Hgb 11.6 Low 12.0-16.0 G/dL LAB HCT(LOINC) Hct 36.2 34.0-46.0 % LAB MCV(LOINC) MCV 94.5 80.0-99.0 fL LAB MCH(LOINC) MCH 30.4 27.0-33.0 pg LAB MCHC(LOINC) MCHC 32.2 32.0-36.0 G/dL LAB RDW(LOINC) RDW 15.3 11.5-15.5 % LAB PLT(LOINC) Platelet 198 150-450 10 3/mcL LAB MPV(LOINC) MPV 9.9 6.6-10.5 fL Performed By: #### CMP, GFR, CBC, [id number], ANEU, ADIFF, SPE, B12, IFES #### [place] [id number] .AUTO DIFF Collected: 08/30/2024 10:02 AM Status: F Source: [facility] MAIN TYPE CODE TESTS RESULT OUT OF RANGE REFERENCE UNITS LAB CYNTHIA(LOINC) Neutrophil % 69.3 50.0-75.0 % LAB LYM(LOINC) Lymphocyte % 19.5 Low 20.0-40.0 % LAB MON(LOINC) Monocyte % 8.8 2.0-13.0 % LAB EO(LOINC) Eosinophil % 1.9 0.0-6.0 % LAB BAS(LOINC) Basophil % 0.5 0.0-2.5 % LAB ABLYM(LOINC) Lymphocyte, Absolute 1.5 0.9-4.3 10 3/mcL LAB RERE(LOINC) Monocyte, Absolute 0.7 0.1-1.4 10 3/mcL LAB AEOS(LOINC) Eosinophil, Absolute 0.1 0.0-0.7 10 3/mcL LAB ABAS(LOINC) Basophil, Absolute 0.0 0.0-0.3 10 3/mcL Performed By: #### CMP, GFR, CBC, [id number], ANEU, ADIFF, SPE, B12, IFES #### [place] [id number] .NEUABS Collected: 4 10:02 AM Status: F Source: [facility] MAIN TYPE CODE TESTS RESULT OUT OF RANGE REFERENCE UNITS LAB ANEU(LOINC) Neutrophil, Absolute 5.4 2.3-8.1 10 3/mcL Performed By: #### CMP, GFR, CBC, [id number], ANEU, ADIFF, SPE, B12, IFES #### [place] [address] B12 Collected: 4 10:02 AM Status: F Source: [facility] TYPE CODE TESTS RESULT OUT OF RANGE REFERENCE UNITS LAB B12(LOINC) Vitamin B12 Lvl 740 211-911 pg/mL Performed By: #### CMP, GFR, CBC, 725531, ANEU, ADIFF, SPE, B12, IFES #### [place] [address] .GFR Collected: 10:02 AM Status: F Source: [facility] TYPE CODE TESTS RESULT OUT OF RANGE REFERENCE UNITS LAB GFRAA(LOINC) GFR 45 ml/min/1. 73sqm Result Comment: GFR Population mean for , [...] Disease: Less than 15 mL/min/1.73 square meters LAB GFRNO(LOINC) GFR Non- 37 ml/min/1. 73sqm Result Comment: GFR Population mean for , [...] 15 mL/min/1.73 square meters Performed By: #### CMP, GFR, CBC, [id number], ANEU, ADIFF, SPE, B12, IFES #### [place] [address] CMP Collected: 08/30/2024 10:02 AM Status: F Source: [facility] TYPE CODE TESTS RESULT OUT OF RANGE REFERENCE UNITS LAB GLU(LOINC) Glucose Level 107 82-115 mg/dL LAB NA(LOINC) Sodium Level 139 136-145 mEq/L LAB K(LOINC) Potassium Level 4.3 3.5-5.0 mEq/L LAB CL(LOINC) Chloride 109 98-110 mEq/L LAB CO2(LOINC) CO2 29 22-32 mEq/L LAB EBAL(LOINC) Electrolyte Balance 1.0 Low 4.0-15.0 mEq/L LAB BUN(LOINC) BUN 31.0 High 8.0-22.0 mg/dL LAB CRE(LOINC) Creatinine Lvl (s) 1.37 High 0.50-1.20 mg/dL Result Comment: Testing perf ormed on Cortilia analyzer using enzymatic creatinine methodology. LAB BC(LOINC) BUN/Creatinine Ratio 22.6 High 10.0-22.0 ratio LAB CA(LOINC) Calcium Lvl 9.3 8.7-10.4 mg/dL LAB PROT(LOINC) Total Protein 6.9 5.7-8.2 G/dL Result Comment: Note - New Reference Range in effect 20 LAB ALB(LOINC) Albumin Level 3.4 3.2-4.8 G/dL LAB GLB(LOINC) Globulin 3.5 1.5-3.8 G/dL LAB AG(LOINC) A/G Ratio 1.0 0.9-1.6 ratio LAB BILT(LOINC) Bili Total 0.50 0.20-1.20 mg/dL Result Comment: Use of this assay is not recommended for patients undergoing treatment with eltrombopag due to the potential for falsely elevated results. LAB AP(LOINC) Alk Phos 111 38-126 U/L LAB AST(LOINC) AST/SGOT 16 8-34 U/L LAB ALT(LOINC) ALT/SGPT 8 Low 10-49 U/L Performed By: #### CMP, GFR, CBC, 279213, ANEU, ADIFF, SPE, B12, IFES #### [place] [address] IFES Collected: 4 10:02 AM Status: F Source: [facility] TYPE CODE TESTS RESULT OUT OF RANGE REFERENCE UNITS LAB IFES(LOINC) IFES Interpretation Immunofixation electrophoresis of serum shows the presence of only polyclonal immunoglobulins (IgG,A,M,[place] and Lambda), No monoclonal protein detected. Result Comment: Electronical ly Signed by: MECCA LR 08/31/2024 15:05 EDT Performed By: #### CMP, GFR, CBC, 119538, ANEU, ADIFF, SPE, B12, IFES #### [place] [address] SPE Collected: 4 10:02 AM Status: F Source: [facility] TYPE CODE TESTS RESULT OUT OF RANGE REFERENCE UNITS LAB PROT(LOINC) Total Protein 6.9 5.7-8.2 G/dL Result Comment: Note - New Reference Range in effect 20 LAB PEALB(LOINC) Albumin 3.4 3.3-5.0 G/dL LAB PEA1(LOINC) Alpha 1 0.3 0.1-0.4 G/dL LAB PEA2(LOINC) Alpha 2 1.2 0.6-1.2 G/dL LAB PEB(LOINC) Beta 1.1 0.6-1.3 G/dL LAB PEGLB(LOINC) Gamma 0.9 0.7-1.6 G/dL LAB PECOM(LOINC) SPE Interpretation Normal serum protein electrophoresis pattern. No abnormality detected. Result Comment: Electronical ly Signed by: MECCA LR 09/01/2024 18:08 EDT Performed By: #### CMP, GFR, CBC, 074158, ANEU, ADIFF, SPE, B12, IFES #### [address] [address] VITB6 Collected: 10:02 AM Status: F Source: [facility] TYPE CODE TESTS RESULT OUT OF RANGE REFERENCE UNITS LAB 334612(LOINC) Vitamin B6 Lvl 2.2 Low 3.4-65.2 UG/L Result Comment: This test wa s developed and its performance characteristics determined by [facility]. It has not been cleared or approved by the Food and Drug Administration. Deficiency: <3.4 Marginal: 3.4 - 5.1 Adequate: >5.1 Performed At: [address] [id number] Merrill Mayers MD Ph:[phone] Performed By: #### CMP, GFR, CBC, 253763, ANEU, ADIFF, SPE, B12, IFES #### [address] [address] BMP Collected: 08/30/2024 9:59 AM Status: F Source: [facility] TYPE CODE TESTS RESULT OUT OF RANGE REFERENCE UNITS LAB GLU(LOINC) Glucose Level 108 82-115 mg/dL LAB NA(LOINC) Sodium Level 141 136-145 mEq/L LAB K(LOINC) Potassium Level 4.3 3.5-5.0 mEq/L LAB CL(LOINC) Chloride 107 98-110 mEq/L LAB CO2(LOINC) CO2 29 22-32 mEq/L LAB EBAL(LOINC) Electrolyte Balance 5.0 4.0-15.0 mEq/L LAB BUN(LOINC) BUN 30.0 High 8.0-22.0 mg/dL LAB CRE(LOINC) Creatinine Lvl (s) 1.37 High 0.50-1.20 mg/dL Result Comment: Testing perf ormed on Cortilia analyzer using enzymatic creatinine methodology. LAB BC(LOINC) BUN/Creatinine Ratio 21.9 10.0-22.0 ratio LAB CA(LOINC) Calcium Lvl 9.3 8.7-10.4 mg/dL Performed By: #### REMA, GFR, PBNP #### [address] [address] .GFR Collected: 9:59 AM Status: F Source: [facility] TYPE CODE TESTS RESULT OUT OF RANGE REFERENCE UNITS LAB GFRAA(LOINC) GFR 45 ml/min/1. 73sqm Result Comment: GFR Population mean for , [...] Disease: Less than 15 mL/min/1.73 square meters LAB GFRNO(LOINC) GFR Non- 37 ml/min/1. 73sqm Result Comment: GFR Population mean for , [...] 15 mL/min/1.73 square meters Performed By: #### REMA, GFR, PBNP #### [address] [address] PBNP Collected: 08/30/2024 9:59 AM Status: F Source: [facility] TYPE CODE TESTS RESULT OUT OF RANGE REFERENCE UNITS LAB PBNP(LOINC) N-Terminal proBNP 495 0-1800 pg/mL Performed By: #### BMP, GFR, PBNP #### [place] [address] XR SPINE LUMBAR AP/LAT Observed: 024 10:45 AM Status: F Source: [facility] MA[facility] ORIGINAL EXAMINATION: AP and lateral 2 XRAY [...] by: Josep Guzman MD Preliminary Report By: Josep Guzman MD Electronically signed By Josep Guzman MD Dictated Date: 08/29/2024 1:26:02 PM Prelim Date: 08/29/2024 1:27:50 PM Sign Date: 08/29/2024 1:27:50 PM Ordering Provider: ANGELA REYNOSO CBC Collected: 4 11:50 AM Status: F Source: [facility] Order Comment: STAT Dr. Lexi fitzpatrick pager [phone] TYPE CODE TESTS RESULT OUT OF RANGE REFERENCE UNITS LAB WBC(LOINC) WBC 7.6 4.5-10.8 10 3/mcL LAB RBCCT(LOINC) RBC 3.82 Low 4.10-5.30 10 6/mcL LAB HGB(LOINC) Hgb 11.8 Low 12.0-16.0 G/dL LAB HCT(LOINC) Hct 35.7 34.0-46.0 % LAB MCV(LOINC) MCV 93.4 80.0-99.0 fL LAB MCH(LOINC) MCH 30.7 27.0-33.0 pg LAB MCHC(LOINC) MCHC 32.9 32.0-36.0 G/dL LAB RDW(LOINC) RDW 14.9 11.5-15.5 % LAB PLT(LOINC) Platelet 187 150-450 10 3/mcL LAB MPV(LOINC) MPV 9.5 6.6-10.5 fL Performed By: #### ANEU, АЛЕКСАНДР FF, GFR, CMP, CBC, LONDON, LIP #### [address] [address] .AUTO DIFF Collected: 08/17/2024 11:50 AM Status: F Source: [facility] TYPE CODE TESTS RESULT OUT OF RANGE REFERENCE UNITS LAB CYNTHIA(LOINC) Neutrophil % 69.0 50.0-75.0 % LAB LYM(LOINC) Lymphocyte % 19.4 Low 20.0-40.0 % LAB MON(LOINC) Monocyte % 7.9 2.0-13.0 % LAB EO(LOINC) Eosinophil % 3.1 0.0-6.0 % LAB BAS(LOINC) Basophil % 0.6 0.0-2.5 % LAB ABLYM(LOINC) Lymphocyte, Absolute 1.5 0.9-4.3 10 3/mcL LAB RERE(LOINC) Monocyte, Absolute 0.6 0.1-1.4 10 3/mcL LAB AEOS(LOINC) Eosinophil, Absolute 0.2 0.0-0.7 10 3/mcL LAB ABAS(LOINC) Basophil, Absolute 0.0 0.0-0.3 10 3/mcL Performed By: #### ANEU, АЛЕКСАНДР FF, GFR, CMP, CBC, LOND[place], LIP #### [address] [address] .NEUABS Collected: 11:50 AM Status: F Source: [facility] TYPE CODE TESTS RESULT OUT OF RANGE REFERENCE UNITS LAB ANEU(LOINC) Neutrophil, Absolute 5.2 2.3-8.1 10 3/mcL Performed By: #### ANEU, АЛЕКСАНДР FF, GFR, CMP, CBC, LONDON, LIP #### [address] [address] LONDON Collected: 11:50 AM Status: F Source: [facility] Order Comment: STAT Dr. Lexi fitzpatrick pager [phone] TYPE CODE TESTS RESULT OUT OF RANGE REFERENCE UNITS LAB LONDON(LOINC) Amylase Level 62 30-118 U/L Result Comment: Note - New Reference Range in effect 20 Performed By: #### ANEU, АЛЕКСАНДР FF, GFR, CMP, CBC, [place], LIP #### [place] [address] LIP Collected: 11:50 AM Status: F Source: [facility] Order Comment: STAT Dr. Lexi fitzpatrick pager [phone] TYPE CODE TESTS RESULT OUT OF RANGE REFERENCE UNITS LAB LIP(LOINC) Lipase Level 26 12-53 U/L Result Comment: Note - New Reference Range in effect 20 Performed By: #### ANEU, АЛЕКСАНДР FF, GFR, CMP, CBC, [place], LIP #### [place] [address] CMP Collected: 08/17/2024 11:50 AM Status: F Source: [facility] Order Comment: STAT Dr. Lexi fitzpatrick pager [phone] TYPE CODE TESTS RESULT OUT OF RANGE REFERENCE UNITS LAB GLU(LOINC) Glucose Level 125 High 82-115 mg/dL LAB NA(LOINC) Sodium Level 144 136-145 mEq/L LAB K(LOINC) Potassium Level 4.9 3.5-5.0 mEq/L LAB CL(LOINC) Chloride 109 98-110 mEq/L LAB CO2(LOINC) CO2 29 22-32 mEq/L LAB EBAL(LOINC) Electrolyte Balance 6.0 4.0-15.0 mEq/L LAB BUN(LOINC) BUN 29.0 High 8.0-22.0 mg/dL LAB CRE(LOINC) Creatinine Lvl (s) 1.20 0.50-1.20 mg/dL Result Comment: Testing perf ormed on Cortilia analyzer using enzymatic creatinine methodology. LAB BC(LOINC) BUN/Creatinine Ratio 24.2 High 10.0-22.0 ratio LAB CA(LOINC) Calcium Lvl 10.0 8.7-10.4 mg/dL LAB PROT(LOINC) Total Protein 6.9 5.7-8.2 G/dL Result Comment: Note - New Reference Range in effect 20 LAB ALB(LOINC) Albumin Level 3.3 3.2-4.8 G/dL LAB GLB(LOINC) Globulin 3.6 1.5-3.8 G/dL LAB AG(LOINC) A/G Ratio 0.9 0.9-1.6 ratio LAB BILT(LOINC) Bili Total 0.40 0.20-1.20 mg/dL Result Comment: Use of this assay is not recommended for patients undergoing treatment with eltrombopag due to the potential for falsely elevated results. LAB AP(LOINC) Alk Phos 110 38-126 U/L LAB AST(LOINC) AST/SGOT 15 8-34 U/L LAB ALT(LOINC) ALT/SGPT 10 10-49 U/L Performed By: #### ANEU, АЛЕКСАНДР FF, GFR, CMP, CBC, [place]OND[place], LIP #### [place] [address] .GFR Collected: 4 11:50 AM Status: F Source: [facility] TYPE CODE TESTS RESULT OUT OF RANGE REFERENCE UNITS LAB GFRAA(LOINC) GFR 53 ml/min/1. 73sqm Result Comment: GFR Population mean for , [...] Disease: Less than 15 mL/min/1.73 square meters LAB GFRNO(LOINC) GFR Non- 43 ml/min/1. 73sqm Result Comment: GFR Population mean for , [...] 15 mL/min/1.73 square meters Performed By: #### ANEU, АЛЕКСАНДР FF, GFR, CMP, CBC, LONDON, LIP #### [facility] [address] [place] [address] ALLERGIES No Allergies Records Found ENCOUNTERS ADMIT/DISCHARGE ACCOUNT NUMBER ADMITTING ENCOUNTER CLASS LOCATION SOURCE 06/19/2025/06/19/20 [id number] [facility]06/19/20 [id number] Ambulatory [facility] 05/29/2025 [id number] Ambulatory [facility] :[facility] 04/11/2025/04/11/20 [id number] Ambulatory ABuilding:DN [facility] 03/31/2025/03/31/20 [id number] Ambulatory ABuilding:DN [facility] MA[facility] 03/22/2025/03/22/20 [id number] Ambulatory ABuilding:DN [facility] 03/08/2025/03/08/20 [id number] Ambulatory ABuilding:DN [facility] MA[facility] 02/20/2025/02/21/20 [id number] Ambulatory ABuilding:CV [facility] 02/20/2025/02/21/20 [id number] Ambulatory ABuilding:UC [facility] 10/21/2024/10/21/20 24 [id number] Ambulatory ABuilding:DN [facility] MA[facility] 09/26/2024/09/26/20 24 [id number] YULIANA HICKEY, DR JEAN Ambulatory [facility] :RAD [facility] 09/23/2024 [id number] Ambulatory ABuilding:N X [facility] 09/22/2024/09/22/20 24 [id number] Ambulatory ABuilding:DN [facility] MA[facility] 09/16/2024/09/16/20 24 [id number] Ambulatory ABuilding:DN [facility] 08/31/2024 [id number] YULIANA HICKEY, DR JEAN Ambulatory ABuilding:HL [facility] MAIN 08/30/2024/08/30/20 24 [id number] Ambulatory ABuilding:DN [facility] 08/30/2024/08/30/20 24 [id number] Ambulatory ABuilding:DN [facility] MA[facility] 08/26/2024/08/26/20 24 [id number] Ambulatory ABuilding:NX [facility] 08/17/2024/08/17/20 24 [id number] Ambulatory ABuilding:DN [facility] MAIN PAYERS ENCOUNTER GUARANTOR PAYER SUBSCRIBER SOURCE 06/19/2025 HERNAN STYLES: [id number] [facility] [place] [address]~[email or web address]@ [email or web address]: (HP) Primary Insurance:MEDICARE PART B INSCOPolicy Number: [id number] Date:6498-03-54Bxuy Name:[facility] ADMINISTRATORS [facility] [address] [place] [address]YB: HERNAN STYLES: [id number] [place], [place] [address]Psb: (HP) (WP) [facility] 06/19/2025 Secondary Insurance:CIGNA SUPPLEMENTAL INSCOPolicy Number: [id number] Date:1237-77-49Pxgs 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 VAZQUEZ [address]BR: HERNAN VINCENTB: [id number] [place], [place] [address]Xdl: (HP) (WP) [facility] 06/19/2025 [place]NA[place]B: [place] [address]~[email or web address]@ [email or web address]: (HP) Primary Insurance:MEDICARE PART B INSCOPolicy Number: [id number] Date:3657-22-21Alhp Name:[facility] ADMINISTRATORS [address] [place] [address]ZE: HERNAN VINCENTB: [id number] [place], [place] [address]Xms: (HP) (WP) [facility] 06/19/2025 Secondary Insurance:CIGNA SUPPLEMENTAL INSCOPolicy Number: [id number] Date:1263-03-72Tjal 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 [facility] [place] [address]FV: HERNAN VINCENTB: [id number] [place], [place] [address]Bgw: (HP) (WP) [facility] 05/29/2025 [place]: [place] [address]~JOSEE [email or web address]: (HP) Primary Insurance:MEDICARE PART B INSCOPolicy Number: [id number] Date:1107-85-21Cfft Name:[facility] ADMINISTRATORS [address] [place] [address] [address]RF: HERNAN VINCENTB: [id number] [place] [address]Mdt: (HP) (WP) [facility] 05/29/2025 Secondary Insurance:CIGNA SUPPLEMENTAL INSCOPolicy Number: [id number] Date:3256-47-49Zdwy Name:CPO MOORE MeaganROBINSON RANDOLPH [address]EL: HERNAN VINCENTB: [id number] [place] [address]Fex: (HP) (WP) [facility] 04/11/2025 HERNAN VINCENTB: [id number] [place] [address]~JOSEE [email or web address]el: (HP) Primary Insurance:MEDICARE PART B INSCOPolicy Number: [id number] Date:6578-67-67Fcms Name:GYPSY MOORE [address], [place] [address]GM: HERNAN VINCENTB: [id number] [place] [address]Qir: (HP) (WP) [facility] 04/11/2025 Secondary Insurance:CIGNA SUPPLEMENTAL INSCOPolicy Number: [id number] Date:0516-12-21Ojyc Name:ROBINSON HANNAH [address]QK: HERNAN VINCENTB: [id number] [place] [address]Fae: (HP) (WP) [facility] 03/31/2025 HERNAN VINCENTB: [id number] [place] [address]~JOSEE [email or web address]: (HP) Primary Insurance:MEDICARE PART B INSCOPolicy Number: [id number] Date:3114-15-88Ppfs Name:[facility] ADMINISTRATORS [facility] [address] [address], [place] [address]RE: HERNAN VINCENTB: [id number] [facility] [address]Jxk: (HP) () [facility] 03/31/2025 Secondary Insurance:CIGNA SUPPLEMENTAL INSCOPolicy Number: [id number] Date:1379-17-75Qoce Name:[facility] OSCAR [address] [address]RF: HERNAN VINCENTB: [id number] [place] [address]Kmf: (HP) (WP) [facility] 03/22/2025 HERNAN VINCENTB: [id number] [place] [address]~JOSEE [email or web address]: (HP) Primary Insurance:MEDICARE PART B INSCOPolicy Number: [id number] Date:5241-50-22Xgag Name:[facility] ADMINISTRATORS [facility] [address] [address], [place] [address]IA: HERNAN VINCENTB: [id number] [facility] [address]Nki: (HP) (WP) [facility] 03/22/2025 Secondary Insurance:CIGNA SUPPLEMENTAL INSCOPolicy Number: [id number] Date:0529-84-45Dtli Name:ROBINSON HANNAH [address]ZQ: HERNAN VINCENTB: [id number] [place] [address]Lyt: (HP) (WP) [facility] 03/08/2025 [place]B: [place] [address]~[email or web address] [email or web address]: (HP) Primary Insurance:MEDICARE PART B INSCOPolicy Number: [id number] Date:0088-15-91Ofke Name:GYPSY RODRIGUEZ OSCAR [address] [place] [address]FM: HERNAN VINCENTB: [id number] [place] [address]Eok: (HP) (WP) [facility] 03/08/2025 Secondary Insurance:CIGNA SUPPLEMENTAL INSCOPolicy Number: [id number] Date:3537-82-98Tnhb Name:CPO OSCAR GUERRIER ROBINSON [address]TN: HERANN VINCENTB: [id number] [place] [address]Bde: (HP) (WP) [facility] 02/20/2025 HERNAN VINCENTB: [id number] [place] [address]~[email or web address] [email or web address]: (HP) Primary Insurance:MEDICARE PART B INSCOPolicy Number: [id number] Date:1046-00-55Uanw Name:[facility] SARAH VALDES JOSE [address]AD: HERNAN VINCENTB: [id number] [place] [address]Ary: (HP) (WP) [facility] 02/20/2025 Secondary Insurance:CIGNA SUPPLEMENTAL INSCOPolicy Number: [id number] Date:7807-08-31Znos Name:ROBINSON HANNAH [address]BW: HERNAN VINCENTB: [id number] [place] [address]Yev: (HP) (WP) [facility] 02/20/2025 [place]B: [place] [address]~JOSEE [email or web address]el: (HP) Primary Insurance:MEDICARE PART B INSCOPolicy Number: [id number] Date:2400-25-45Vozz Name:[facility] SARAH [facility] VALDESJOSE [address]XE: HERNAN VINCENTB: [id number] [place] [address]Tch: (HP) (WP) [facility] 02/20/2025 Secondary Insurance:CIGNA SUPPLEMENTAL INSCOPolicy Number: [id number] Date:4852-83-83Iysx Name:ROBINSON HANNAH [address]IP: HERNAN VINCENTB: [id number] [place] [address]Tjw: (HP) () [facility] 10/21/2024 [place]B: [place] [address]~JOSEE [email or web address]: (HP) Primary Insurance:MEDICARE PART B INSCOPolicy Number: [id number] Date:7098-33-42Eblb Name:[facility] ADMINISTRATORS [facility] JOSE EDWARDS [address]DW: HERNAN VINCENTB: [id number] [place] [address]Nus: (HP) (WP) [facility] 10/21/2024 Secondary Insurance:CIGNA INSCOPolicy Number: [id number] Date:0489-30-09Nues Name:CPO MOORE [address] [address]FH: HERNAN VINCENTB: [id number] [place] [address]Brp: (HP) (WP) [facility] 09/26/2024 [place]B: [place] [address]~[email or web address] [email or web address]: (HP) Primary Insurance:MEDICARE PART B INSCOPolicy Number: [id number] Date:2931-44-10Hzfv Name:[facility] ADMINISTRATORS [facility] JOSE EDWARDS [address]QC: HERNAN VINCENTB: [id number] [place] [address]Cty: (HP) (WP) [facility] 09/26/2024 Secondary Insurance:CIGNA INSCOPolicy Number: [id number] Date:3282-75-23Ssgb 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Sowmya SarahROBINSON [address] [address]YG: HERNAN VINCENTB: [id number] [place] [address]Wop: (HP) (WP) [facility] 09/23/2024 [place]B: [place] [address]~JOSEE [email or web address]el: (HP) Primary Insurance:MEDICARE PART B INSCOPolicy Number: [id number] Date:4017-61-67Sczz Name:GYPSY MOORE [address]NAQLVTRQV, [place] [address]GE: HERNAN VINCENTB: [id number] [place] [address]Cxr: (HP) (WP) [facility] 09/23/2024 Secondary Insurance:CIGNA INSCOPolicy Number: [id number] Date:4672-19-49Qxar 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Sowmya SarahROBINSON KIMBALL [address]AK: HERNAN VINCENTB: [id number] [place] [address]Hay: (HP) (WP) [facility] 09/22/2024 [place]: [place] [address]~[email or web address] [email or web address]: (HP) Primary Insurance:MEDICARE PART B INSCOPolicy Number: [id number] Date:3500-32-14Fkum Name:[facility] ADMINISTRATORS [facility] [address] [address], [place] [address]LL: HERNAN VINCENTB: [id number] [place] [address]Bfq: (HP) () [facility] 09/22/2024 Secondary Insurance:CIGNA INSCOPolicy Number: [id number] Date:6939-84-83Opmi 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 OSCAR [address]INSON [place]IM[place] [address]PL: HERNAN VINCENTB: [id number] [place] [address]Acf: (HP) () [facility] 09/16/2024 [place]: [place] [address]~[email or web address] [email or web address]: (HP) Primary Insurance:MEDICARE PART B INSCOPolicy Number: [id number] Date:9398-38-74Vgaj Name:[facility] ADMINISTRATORS [facility] [address] [address], [place] [address]TW: HERNAN VINCENTB: [id number] [place] [address]Qzd: (HP) (WP) [facility] 09/16/2024 Secondary Insurance:CIGNA INSCOPolicy Number: [id number] Date:0723-12-12Cwsn Name:ROBINSON HANNAH [address]CB: HERNAN VINCENTB: [id number] [place] [address]Hmz: (HP) (WP) [facility] 08/31/2024 HERNAN VINCENTB: [id number] [place] [address]~[email or web address] [email or web address]: (HP) Primary Insurance:MEDICARE PART B INSCOPolicy Number: [id number] Date:2226-21-06Xhcz Name:GYPSY RODRIGUEZ OSCAR [address] [place] [address]NC: HERNAN VINCENTB: [id number] [place] [address]Dyb: (HP) (WP) [facility] 08/31/2024 Secondary Insurance:CIGNA INSCOPolicy Number: [id number] Date:6261-66-66Fmnp Name:CPO OSCAR GUERRIERROBINSON [address]IQ: HERNAN VINCENTB: [id number] [place] [address]Ytp: (HP) (WP) [facility] 08/30/2024 HERNAN VINCENTB: [id number] [place] [address]~[email or web address]: (HP) Primary Insurance:MEDICARE PART B INSCOPolicy Number: [id number] Date:1250-79-41Dgxo Name:[facility] [place] [address]HD: HERNAN VINCENTB: [id number] [place] [address]Olh: (HP) (WP) [facility] 08/30/2024 Secondary Insurance:CIGNA INSCOPolicy Number: [id number] Date:8639-26-12Erng Name:ROBINSON HANNAH [address]DF: HERNAN VINCENTB: [id number] [place] [address]Fss: (HP) (WP) [facility] 08/30/2024 [place]: [place] [address]~[email or web address] [email or web address]ENTERel: (HP) Primary Insurance:MEDICARE PART B INSCOPolicy Number: [id number] Date:4489-94-11Lrbz Name:[facility] ADMINISTRATORS [facility] [place] [address] [address]FA: HERNAN VINCENTB: [id number] [place] [address]Qvb: (HP) () [facility] 08/30/2024 Secondary Insurance:CIGNA INSCOPolicy Number: [id number] Date:8237-22-56Cdcl Name:ROBINSON HANNAH [address]SA: HERNAN VINCENTB: [id number] [place] [address]Umo: (HP) () [facility] 08/26/2024 [place]: [place] [address]~[email or web address] [email or web address]: (HP) Primary Insurance:MEDICARE PART B INSCOPolicy Number: [id number] Date:3291-95-11Apar Name: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 [address] [address]ZM: HERNAN VINCENTB: [id number] [place] [address]Ibg: (HP) (WP) [facility] 08/17/2024 [place]: [place] [address]~[email or web address]: (HP) Primary Insurance:MEDICARE PART B INSCOPolicy Number: [id number] Date:9680-50-20Exka Name:[facility] [employer] [facility] [address] [id number], [place] [address]MP: HERNAN STYLES: [id number] [place] [address]Qwm: () (WP) [facility] 08/17/2024 Secondary Insurance:[facility] INSCople[facility] Hospitaly Number: [id number] Date:[id number] Name:CP[employer] [address] [address]YW: HERNAN STYLES: [id number] [place] [address]Mhb: () () [facility]
--- OUTSIDE RECORDS SUMMARY | 2025-06-19 13:13 | XMS RPT_ITS ---
[...] Kin Unknown + Care Team Providers Care Heat Treating Bluer Name Role Phone EDGARDO HICKEY, DR ANGELA Castro Primary Care Unavailab Dioni HICKEY, DR YU Ny Attending Nahum Salcedo MD, DR JEAN Admitting Unavailab Denisse HICKEY, DR JEAN Attending Nahum Mobley MD, DR ANGELA Castro Primary Care Unavailab Itz HICKEY, DR ANGELA Catsro Primary Care Unavailab Dioni HICKEY, DR YU [...] DR ANGELA Castro Primary Care Unavailab galen DESHPANED PA-C, VINOD Attending Tho REYNOSO MD, DR ANGELA Castro Primary Care Unavailab Itz HICKEY, DR ANGELA Castro Attending Unavailab le PROBLEMS DATE TYPE CONDITION / CODE [facility] Pain in unspecif ied knee / M25.569(ICD-10) [facility] Unknown Pain in right kn ee / M25.561(ICD-10) JERAMY CULP, [facility] MAIN PROCEDURES No Procedure Records Found RESULTS CT KNEE W/O CONTRAST RIGHT Observed: 02/2025 2:30 PM Status: F Source: [facility] ORIGINAL EXAMINATION: CT OF THE RIGHT KNEE [...] the lateral compartment with mild valgus, near ogea-me-qawb subchondral sclerosis and marginal osteophyte formation. Medial [...] MRSAPCR Collected: 2:09 PM Status: F Source: [facility] TYPE CODE TESTS RESULT OUT OF RANGE REFERENCE UNITS LAB MRSAPCR1(LOINC) MRSA (PCR) Not Detected Not Dete cted Result Comment: Notes 36[address] LAB MRSAPCRINT(LOIN C) MRSA PCR Int See [...] reproducible. Performed By: #### MRSAPCR # ### [address] [address] CBC Collected: 2:09 PM Status: F Source: [facility] Order Comment: Pre-Admission Testing TYPE CODE TESTS [...] BMP, CBC, ABOGEL, ANEU, GFR, ADIFF #### [facility] [address] [place], [place] [address] .AUTO DIFF Collected: 06/19/2025 2:09 PM Status: F Source: [facility] TYPE CODE TESTS RESULT OUT OF RANGE [...] BMP, CBC, ABOGEL, ANEU, GFR, ADIFF #### [address] [address] .NEUABS Collected: 2:09 PM Status: F Source: [facility] TYPE CODE TESTS RESULT OUT OF RANGE REFERENCE UNITS LAB ANEU(INC) Neutrophil, Absolute 3.0 2.3-8.1 10 3/mcL Performed By: #### ALB, ABSG EL, BMP, CBC, ABOGEL, ANEU, GFR, ADIFF #### [address] [address] BMP Collected: 06/19/2025 2:09 PM Status: F Source: [facility] TYPE CODE TESTS RESULT OUT OF RANGE [...] BMP, CBC, ABOGEL, ANEU, GFR, ADIFF #### [address] [address] ALB Collected: 06/19/2025 2:09 PM Status: F Source: [facility] TYPE CODE TESTS RESULT OUT OF RANGE REFERENCE UNITS LAB ALB(LOINC) Albumin Level 3.7 3.4-4.8 G/dL Performed By: #### ALB, ABSG EL, BMP, CBC, ABOGEL, ANEU, GFR, ADIFF #### [address] [address] .GFR Collected: 06/19/2025 2:09 PM Status: F Source: [facility] TYPE CODE TESTS RESULT OUT OF RANGE [...] BMP, CBC, ABOGEL, ANEU, GFR, ADIFF #### [address] [address] ABO/RH (GEL) Collected: 06/19/2025 2:09 PM Status: F Source: [facility] TYPE CODE TESTS RESULT OUT OF RANGE REFERENCE UNITS LAB ABORH(LOINC) ABO/Rh Interp A POS Unknown Performed By: #### ALB, ABSG EL, BMP, CBC, ABOGEL, ANEU, GFR, ADIFF #### [address] [address] ABS (GEL) Collected: 06/19/2025 2:09 PM Status: F Source: [facility] TYPE CODE TESTS RESULT OUT OF RANGE REFERENCE UNITS LAB ABSCINT(LOINC) ABSC Interp (Gel) Negative ABSC Performed By: #### ALB, ABSG EL, BMP, CBC, ABOGEL, ANEU, GFR, ADIFF #### [facility] [address] [place], [place] [address] CMP Collected: 04/11/2025 7:56 AM Status: F Source: [facility] TYPE CODE TESTS RESULT OUT [...] mg/dL Result Comment: Testing perf ormed on Codarica analyzer using enzymatic creatinine methodology. LAB BC(LOINC) [...] GFR, CBC, TSH, ADIFF, ANEU, VIDH #### [address] [address] TSH Collected: 7:56 AM Status: F Source: [facility] TYPE CODE TESTS RESULT OUT OF RANGE REFERENCE UNITS LAB TSH(LOINC) TSH 4.011 0.550-4.780 mIU/mL Performed By: #### CMP, FT4, GFR, CBC, TSH, ADIFF, ANEU, VIDH #### [address] [address] FT4 Collected: 7:56 AM Status: F Source: [facility] TYPE CODE TESTS RESULT OUT OF RANGE REFERENCE UNITS LAB FT4(LOINC) Free T4 1.03 0.89-1.76 ng/dL Result Comment: Note - New Reference Range in effect 20 Performed By: #### CMP, FT4, GFR, CBC, TSH, ADIFF, ANEU, VIDH #### [address] [address] .GFR Collected: 04/11/2025 7:56 AM Status: F Source: [facility] TYPE CODE TESTS RESULT OUT [...] GFR, CBC, TSH, ADIFF, ANEU, VIDH #### [address] [address] VIDH Collected: 7:56 AM Status: F Source: [facility] TYPE CODE TESTS RESULT OUT OF RANGE REFERENCE UNITS LAB VIDH(LOINC) Vit. D 25-Hydroxy 36.2 ng/mL Result Comment: Interpretive Values Based on Total 25(OH)D: Severe Deficiency <20 ng/mL Mild to Moderate Deficiency 20-30 ng/mL Optimum Levels 30-100 ng/mL Toxicity Possible >100 ng/mL Performed By: #### CMP, FT4, GFR, CBC, TSH, ADIFF, ANEU, VIDH #### [address] [address] CBC Collected: 7:56 AM Status: F Source: [facility] TYPE CODE TESTS RESULT OUT [...] GFR, CBC, TSH, ADIFF, ANEU, VIDH #### [address] [address] .AUTO DIFF Collected: 04/11/2025 7:56 AM Status: F Source: [facility] TYPE CODE TESTS RESULT OUT [...] GFR, CBC, TSH, ADIFF, ANEU, VIDH #### [place] [id number] .NEUABS Collected: 7:56 AM Status: F Source: [facility] TYPE CODE TESTS RESULT OUT OF RANGE REFERENCE UNITS LAB ANEU(LOINC) Neutrophil, Absolute 2.3 2.3-8.1 10 3/mcL Performed By: #### CMP, FT4, GFR, CBC, TSH, ADIFF, ANEU, VIDH #### [place] [address] BMP Collected: 03/31/2025 10:08 AM Status: F Source: [facility] TYPE CODE TESTS RESULT OUT [...] mg/dL Result Comment: Testing perf ormed on Codarica analyzer using enzymatic creatinine methodology. LAB BC(LOINC) BUN/Creatinine Ratio 18.5 10.0-22.0 ratio LAB CA(LOINC) Calcium Lvl 9.1 8.7-10.4 mg/dL Performed By: #### BMP, GFR #### [address] [address] .GFR Collected: 10:08 AM Status: F Source: [facility] TYPE CODE TESTS RESULT OUT [...] results. Performed By: #### BMP, GFR #### [address] [address] BMP Collected: 03/22/2025 10:36 AM Status: F Source: [facility] TYPE CODE TESTS RESULT OUT [...] mg/dL Result Comment: Testing perf ormed on Codarica analyzer using enzymatic creatinine methodology. LAB BC(LOINC) BUN/Creatinine Ratio 24.3 High 10.0-22.0 ratio LAB CA(LOINC) Calcium Lvl 9.3 8.7-10.4 mg/dL Performed By: #### BMP, GFR #### [address] [address] .GFR Collected: 10:36 AM Status: F Source: [facility] TYPE CODE TESTS RESULT OUT [...] results. Performed By: #### BMP, GFR #### [place] [address] PBNP Collected: 10:24 AM Status: F Source: [facility] TYPE CODE TESTS RESULT OUT OF RANGE REFERENCE UNITS LAB PBNP(LOINC) N-Terminal proBNP 199 0-1800 pg/mL Performed By: #### LIPID, PB CUSTOMER SERVICE DRIVER #### [place] [address] LIPID Collected: 03/08/2025 10:24 AM Status: F Source: [facility] TYPE CODE TESTS RESULT OUT OF RANGE REFERENCE UNITS LAB CHOL(LOINC) Cholesterol 118 50-199 mg/dL Result Comment: Cholesterol Reference Interval: Less than 200 Desirable 200-239 Borderline high risk 240 and above High risk LAB TRIG(LOINC) Triglycerides 132 3-149 mg/dL LAB HD(LOINC) HDL Cholesterol 35 Low 40-59 mg/dL LAB LDL(LOINC) LDL Cholesterol 57 0-129 mg/dL Performed By: #### LIPID, PB CUSTOMER SERVICE DRIVER #### [address] [address] XR KNEE THREE VIEWS RIGHT Observed: 05/2025 9:05 AM Status: F Source: [facility] ORIGINAL EXAMINATION: XR knee TECHNIQUE: [...] Collected: 10/21/2024 9:51 AM Status: F Source: [facility] TYPE CODE TESTS RESULT OUT OF RANGE REFERENCE UNITS LAB PBNP(LOINC) N-Terminal proBNP 209 0-1800 pg/mL Performed By: #### GFR, BMP, PBNP #### [address] [address] BMP Collected: 10/21/2024 9:51 AM Status: F Source: [facility] TYPE CODE TESTS RESULT OUT [...] mg/dL Result Comment: Testing perf ormed on Codarica analyzer using enzymatic creatinine methodology. LAB BC(LOINC) BUN/Creatinine Ratio 18.8 10.0-22.0 ratio LAB CA(LOINC) Calcium Lvl 9.7 8.7-10.4 mg/dL Performed By: #### GFR, BMP, PBNP #### [address] [address] .GFR Collected: 4 9:51 AM Status: F Source: [facility] TYPE CODE TESTS RESULT OUT [...] Performed By: #### GFR, BMP, PBNP #### [place] [address] BMP Collected: 09/22/2024 7:49 AM Status: F Source: [facility] TYPE CODE TESTS RESULT OUT [...] mg/dL Result Comment: Testing perf ormed on Codarica analyzer using enzymatic creatinine methodology. LAB BC(LOINC) BUN/Creatinine Ratio 23.9 High 10.0-22.0 ratio LAB CA(LOINC) Calcium Lvl 9.7 8.7-10.4 mg/dL Performed By: #### GFR, BMP #### [place] [address] .GFR Collected: 7:49 AM Status: F Source: [facility] TYPE CODE TESTS RESULT OUT [...] meters Performed By: #### GFR, BMP #### [address] [address] BMP Collected: 09/16/2024 9:16 AM Status: F Source: [facility] TYPE CODE TESTS RESULT OUT [...] mg/dL Result Comment: Testing perf ormed on Codarica analyzer using enzymatic creatinine methodology. LAB BC(LOINC) BUN/Creatinine Ratio 21.8 10.0-22.0 ratio LAB CA(LOINC) Calcium Lvl 9.6 8.7-10.4 mg/dL Performed By: #### BMP, GFR #### [address] [address] .GFR Collected: 9:16 AM Status: F Source: [facility] TYPE CODE TESTS RESULT OUT [...] meters Performed By: #### BMP, GFR #### [place] [id number] UPE Collected: 10:15 AM Status: F Source: [facility] TYPE CODE TESTS RESULT OUT [...] 18:12 EDT Performed By: #### UPE #### [address] [address] CBC Collected: 10:02 AM Status: F Source: [facility] TYPE CODE TESTS RESULT OUT [...] fL Performed By: #### CMP, GFR, CBC, 074516, ANEU, ADIFF, SPE, B12, IFES #### [place] [address] .AUTO DIFF Collected: 08/30/2024 10:02 AM Status: F Source: [facility] TYPE CODE TESTS RESULT OUT [...] 3/mcL Performed By: #### CMP, GFR, CBC, 758185, ANEU, ADIFF, SPE, B12, IFES #### [place] [address] .NEUABS Collected: 4 10:02 AM Status: F Source: [facility] TYPE CODE TESTS RESULT OUT OF RANGE REFERENCE UNITS LAB ANEU(LOINC) Neutrophil, Absolute 5.4 2.3-8.1 10 3/mcL Performed By: #### CMP, GFR, CBC, 705102, ANEU, ADIFF, SPE, B12, IFES #### [place] [address] B12 Collected: 4 10:02 AM Status: F Source: [facility] TYPE CODE TESTS RESULT OUT OF RANGE REFERENCE UNITS LAB B12(LOINC) Vitamin B12 Lvl 740 211-911 pg/mL Performed By: #### CMP, GFR, CBC, 474411, ANEU, ADIFF, SPE, B12, IFES #### [place] [address] .GFR Collected: 10:02 AM Status: F Source: [facility] TYPE CODE TESTS RESULT OUT [...] meters Performed By: #### CMP, GFR, CBC, 993226, ANEU, ADIFF, SPE, B12, IFES #### [place] [address] CMP Collected: 08/30/2024 10:02 AM Status: F Source: [facility] TYPE CODE TESTS RESULT OUT [...] mg/dL Result Comment: Testing perf ormed on Codarica analyzer using enzymatic creatinine methodology. LAB BC(LOINC) [...] U/L Performed By: #### CMP, GFR, CBC, 115127, ANEU, ADIFF, SPE, B12, IFES #### [place] [address] IFES Collected: 4 10:02 AM Status: F Source: [facility] TYPE CODE TESTS RESULT OUT OF RANGE REFERENCE UNITS LAB IFES(LOINC) IFES Interpretation Immunofixation electrophoresis of serum shows the presence of only polyclonal immunoglobulins (IgG,A,M,[place] and Lambda), No monoclonal protein detected. Result Comment: Electronical ly Signed by: MECCA LR 08/31/2024 15:05 EDT Performed By: #### CMP, GFR, CBC, 211902, ANEU, ADIFF, SPE, B12, IFES #### [place] [address] SPE Collected: 4 10:02 AM Status: F Source: [facility] TYPE CODE TESTS RESULT OUT [...] EDT Performed By: #### CMP, GFR, CBC, 516319, ANEU, ADIFF, SPE, B12, IFES #### [address] [address] VITB6 Collected: 10:02 AM Status: F Source: [facility] TYPE CODE TESTS RESULT OUT OF RANGE REFERENCE UNITS LAB 578807(LOINC) Vitamin B6 Lvl 2.2 Low 3.4-65.2 UG/L Result Comment: This test wa s developed and its performance characteristics determined by [facility]. It has not been cleared or approved by the Food and Drug Administration. Deficiency: <3.4 Marginal: 3.4 - 5.1 Adequate: >5.1 Performed At: [address] [id number] Merrill Mayers MD Ph:[phone] Performed By: #### CMP, GFR, CBC, 690183, ANEU, ADIFF, SPE, B12, IFES #### [address] [address] BMP Collected: 08/30/2024 9:59 AM Status: F Source: [facility] TYPE CODE TESTS RESULT OUT [...] mg/dL Result Comment: Testing perf ormed on Codarica analyzer using enzymatic creatinine methodology. LAB BC(LOINC) BUN/Creatinine Ratio 21.9 10.0-22.0 ratio LAB CA(LOINC) Calcium Lvl 9.3 8.7-10.4 mg/dL Performed By: #### REMA, GFR, PBNP #### [address] [address] .GFR Collected: 9:59 AM Status: F Source: [facility] TYPE CODE TESTS RESULT OUT [...] Performed By: #### REMA, GFR, PBNP #### [address] [address] PBNP Collected: 08/30/2024 9:59 AM Status: F Source: [facility] TYPE CODE TESTS RESULT OUT OF RANGE REFERENCE UNITS LAB PBNP(LOINC) N-Terminal proBNP 495 0-1800 pg/mL Performed By: #### BMP, GFR, PBNP #### [place] [address] XR SPINE LUMBAR AP/LAT Observed: 024 10:45 AM Status: F Source: [facility] ORIGINAL EXAMINATION: AP and lateral [...] Collected: 4 11:50 AM Status: F Source: [facility] Order Comment: STAT Dr. Lexi fitzpatrick pager [phone] TYPE CODE TESTS RESULT OUT OF RANGE [...] FF, GFR, CMP, CBC, [place], LIP #### [address] [address] .AUTO DIFF Collected: 08/17/2024 11:50 AM Status: F Source: [facility] TYPE CODE TESTS RESULT OUT [...] FF, GFR, CMP, CBC, [place], LIP #### [address] [address] .NEUABS Collected: 11:50 AM Status: F Source: [facility] TYPE CODE TESTS RESULT OUT OF RANGE REFERENCE UNITS LAB ANEU(LOINC) Neutrophil, Absolute 5.2 2.3-8.1 10 3/mcL Performed By: #### ANEU, АЛЕКСАНДР FF, GFR, CMP, CBC, [place], LIP #### [address] [address] LONDON Collected: 11:50 AM Status: F Source: [facility] Order Comment: STAT Dr. Lexi fitzpatrick pager [phone] TYPE CODE TESTS RESULT OUT OF RANGE REFERENCE UNITS LAB [place]ON(LOINC) Amylase Level 62 30-118 U/L Result Comment: Note - New Reference Range in effect 20 Performed By: #### ANEU, АЛЕКСАНДР FF, GFR, CMP, CBC, [place], LIP #### [place] [address] LIP Collected: 11:50 AM Status: F Source: [facility] Order Comment: STAT Dr. Lexi fitzpatrick pager [phone] TYPE CODE TESTS RESULT OUT OF RANGE REFERENCE UNITS LAB LIP(LOINC) Lipase Level 26 12-53 U/L Result Comment: Note - New Reference Range in effect 20 Performed By: #### ANEU, АЛЕКСАНДР FF, GFR, CMP, CBC, [place], LIP #### [place] [address] CMP Collected: 08/17/2024 11:50 AM Status: F Source: [facility] Order Comment: STAT Dr. Lexi fitzpatrick pager [phone] TYPE CODE TESTS RESULT OUT OF RANGE [...] mg/dL Result Comment: Testing perf ormed on Codarica analyzer using enzymatic creatinine methodology. LAB BC(LOINC) [...] FF, GFR, CMP, CBC, [place], LIP #### [place] [address] .GFR Collected: 4 11:50 AM Status: F Source: [facility] TYPE CODE TESTS RESULT OUT [...] FF, GFR, CMP, CBC, [place], LIP #### [facility] [address] [place] [address] ALLERGIES No Allergies Records Found ENCOUNTERS ADMIT/DISCHARGE ACCOUNT NUMBER ADMITTING ENCOUNTER CLASS LOCATION SOURCE 06/19/2025/06/19/20 [id number] [facility] 06/19/2025/06/19/20 [id number] Ambulatory [facility] MAINBuilding :[facility] 05/29/2025 [id number] Ambulatory [facility] MAINBuilding :[facility] 04/11/2025/04/11/20 [id number] Ambulatory ABuilding:[facility] 03/31/2025/03/31/20 [id number] Ambulatory ABuilding:[facility] 03/22/2025/03/22/20 [id number] Ambulatory ABuilding:[facility] 03/08/2025/03/08/20 [id number] Ambulatory ABuilding:[facility] 02/20/2025/02/21/20 [id number] Ambulatory ABuilding:[facility] 02/20/2025/02/21/20 [id number] Ambulatory ABuilding:[facility] 10/21/2024/10/21/20 24 [id number] Ambulatory ABuilding:[facility] 09/26/2024/09/26/20 24 [id number] YULIANA HICKEY, DR JEAN Ambulatory [facility] MAINBuilding :RAD [facility] 09/23/2024 [id number] Ambulatory ABuilding:N X [facility] 09/22/2024/09/22/20 24 [id number] Ambulatory ABuilding:[facility] 09/16/2024/09/16/20 24 [id number] Ambulatory ABuilding:DN [facility] 08/31/2024 [id number] YULIANA HICKEY, DR JEAN Ambulatory ABuilding:[facility] 08/30/2024/08/30/20 24 [id number] Ambulatory ABuilding:DN [facility] 08/30/2024/08/30/20 24 [id number] Ambulatory ABuilding:[facility] 08/26/2024/08/26/20 24 [id number] Ambulatory ABuilding:NX [facility] 08/17/2024/08/17/20 24 [id number] Ambulatory ABuilding:[facility] PAYERS ENCOUNTER GUARANTOR PAYER SUBSCRIBER SOURCE 06/19/2025 HERNAN STYLES: [id number] [facility] [place] [address]~[email or web address]: (HP) Primary Insurance:MEDICARE PART B INSCOPolicy Number: [id number] Date:3503-68-64Ddpc Name:[facility] [address] [place] [address]MH: HERNAN STYLES: [id number] [place], [place] [address]Ffb: (HP) (WP) [facility] 06/19/2025 Secondary Insurance:CIGNA SUPPLEMENTAL INSCOPolicy Number: [id number] Date:4762-85-11Rsml 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 ROBINSON VAZQUEZ [address]BG: HERNAN VINCENTB: [id number] [place], [place] [address]Ziz: (HP) (WP) [facility] 06/19/2025 HERNAN VINCENTB: [place] [address]~[email or web address]@ [email or web address]: (HP) Primary Insurance:MEDICARE PART B INSCOPolicy Number: [id number] Date:6101-50-10Flhb Name:[facility] [address] [place] [address]LI: HERNAN VINCENTB: [id number] [place], [place] [address]Cri: (HP) (WP) [facility] 06/19/2025 Secondary Insurance:CIGNA SUPPLEMENTAL INSCOPolicy Number: [id number] Date:5407-05-62Gukd 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 [facility] [place] [place] [address]EK: HERNAN VINCENTB: [id number] [place], [place] [address]Bwh: (HP) (WP) [facility] 05/29/2025 HERNAN VINCENTB: [place] [address]~JOSEE [email or web address]: (HP) Primary Insurance:MEDICARE PART B INSCOPolicy Number: [id number] Date:8539-16-66Oqqf Name:[facility] [address] [address]YD: HERNAN VINCENTB: [id number] [place] [address]Djn: (HP) (WP) [facility] 05/29/2025 Secondary Insurance:CIGNA SUPPLEMENTAL INSCOPolicy Number: [id number] Date:1732-17-01Uvyb Name:CPO MOORE MeaganROBINSON RANDOLPH [address]PV: HERNAN VINCENTB: [id number] [place] [address]Agw: (HP) (WP) [facility] 04/11/2025 HERNAN VINCENTB: [id number] [place] [address]~JOSEE [email or web address]: (HP) Primary Insurance:MEDICARE PART B INSCOPolicy Number: [id number] Date:8585-00-32Andi Name:GYPSY MOORE [address], [place] [address]ZJ: HERNAN VINCENTB: [id number] [place] [address]Gpr: (HP) (WP) [facility] 04/11/2025 Secondary Insurance:CIGNA SUPPLEMENTAL INSCOPolicy Number: [id number] Date:7645-52-49Spas Name:ROBINSON HANNAH [address]YO: HERNAN VINCENTB: [id number] [place] [address]Mha: (HP) (WP) [facility] 03/31/2025 HERNAN VINCENTB: [id number] [place] [address]~JOSEE [email or web address]: (HP) Primary Insurance:MEDICARE PART B INSCOPolicy Number: [id number] Date:5051-36-75Bwna Name:[facility] ADMINISTRATORS [facility] [address] [address], [place] [address]UP: HERNAN VINCENTB: [id number] [facility] [address]Ewq: (HP) () [facility] 03/31/2025 Secondary Insurance:CIGNA SUPPLEMENTAL INSCOPolicy Number: [id number] Date:6839-87-93Bqri Name:[facility] [address] [address]QD: HERNAN VINCENTB: [id number] [place] [address]Yir: (HP) (WP) [facility] 03/22/2025 HERNAN VINCENTB: [id number] [place] [address]~JOSEE [email or web address]: (HP) Primary Insurance:MEDICARE PART B INSCOPolicy Number: [id number] Date:5057-73-02Dfod Name:[facility]MINIST[facility]ORS [facility] [address] [address]FSZGPJC, [place] [address]GD: HERNAN VINCENTB: [id number] [facility] [address]Sdg: (HP) (WP) [facility] 03/22/2025 Secondary Insurance:CIGNA SUPPLEMENTAL INSCOPolicy Number: [id number] Date:9928-15-72Tarh Name:ROBINSON HANNAH [address]WV: HERNAN VINCENTB: [id number] [place] [address]Ist: (HP) (WP) [facility] 03/08/2025 HERNAN VINCENTB: [place] [address]~JOSEE [email or web address]: (HP) Primary Insurance:MEDICARE PART B INSCOPolicy Number: [id number] Date:7369-22-62Mrzy Name:GYPSY RODRIGUEZ OSCAR [address] [place] [address]FN: HERNAN VINCENTB: [id number] [place] [address]Gkq: (HP) (WP) [facility] 03/08/2025 Secondary Insurance:CIGNA SUPPLEMENTAL INSCOPolicy Number: [id number] Date:6816-67-50Vjwr Name:CPO OSCAR GUERRIER ROBINSON [id number]: HERNAN VINCENTB: [id number] [place] [address]Xgw: (HP) (WP) [facility] 02/20/2025 HERNAN VINCENTB: [id number] [place] [address]~[email or web address] [email or web address]: (HP) Primary Insurance:MEDICARE PART B INSCOPolicy Number: [id number] Date:0680-42-16Oinf Name:[facility] SARAH VALDES JOSE [id number]: HERNAN VINCENTB: [id number] [place] [address]Mmp: (HP) (WP) [facility] 02/20/2025 Secondary Insurance:[employer]IGNA SUPPLEMENTAL INSCOPolicy Number: [id number] Date:2605-24-43Ynmh Name:ROBINSON HANNAH [id number]: HERNAN VINCENTB: [id number] [place] [address]Igy: (HP) (WP) [facility] 02/20/2025 HERNAN VINCENTB: [place] [address]~JOSEE [email or web address]: (HP) Primary Insurance:MEDICARE PART B INSCOPolicy Number: [id number] Date:5182-45-36Eyng Name:[facility] [address]CC: HERNAN VINCENTB: [id number] [place] [address]Esg: (HP) (WP) [facility] 02/20/2025 Secondary Insurance:CIGNA SUPPLEMENTAL INSCOPolicy Number: [id number] Date:7879-79-26Gcvc Name:ROBINSON HANNAH [address]SJ: HERNAN VINCENTB: [id number] [place] [address]Uii: (HP) () [facility] 10/21/2024 HERNAN VINCENTB: [place] [address]~JOSEE [email or web address]: (HP) Primary Insurance:MEDICARE PART B INSCOPolicy Number: [id number] Date:2620-65-48Awrd Name:[facility] JOSE EDWARDS [address]EF: HERNAN VINCENTB: [id number] [place] [address]Xey: (HP) (WP) [facility] 10/21/2024 Secondary Insurance:CIGNA INSCOPolicy Number: [id number] Date:6749-87-43Cqhr Name:CPO [address] [address]XT: HERNAN VINCENTB: [id number] [place] [address]Lig: (HP) (WP) [facility] 09/26/2024 HERNAN VINCENTB: [place] [address]~JOSEE [email or web address]: (HP) Primary Insurance:MEDICARE PART B INSCOPolicy Number: [id number] Date:0895-19-62Fqia Name:[facility] JOSE EDWARDS [address]UN: HERNAN VINCENTB: [id number] [place] [address]Mnn: (HP) (WP) [facility] 09/26/2024 Secondary Insurance:CIGNA INSCOPolicy Number: [id number] Date:8359-89-77Mpmr 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Sowmya SarahROBINSON [place]IM[place]ALL [address]FD: HERNAN VINCENTB: [id number] [place] [address]Iud: (HP) (WP) [facility] 09/23/2024 HERNAN VINCENTB: [place] [address]~JOSEE [email or web address]: (HP) Primary Insurance:MEDICARE PART B INSCOPolicy Number: [id number] Date:8757-61-69Eufk Name:GYPSY MOORE [address], [place] [address]LF: HERNAN VINCENTB: [id number] [place] [address]Yvh: (HP) (WP) [facility] 09/23/2024 Secondary Insurance:CIGNA INSCOPolicy Number: [id number] Date:1219-53-60Zucw 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Sowmya SarahROBINSON [address]IM[address] [address]BC: HERNAN VINCENTB: [id number] [place] [address]Wyo: (HP) (WP) [facility] 09/22/2024 HERNAN VINCENTB: [place] [address]~JOSEE [email or web address]: (HP) Primary Insurance:MEDICARE PART B INSCOPolicy Number: [id number] Date:4720-66-83Xqzb Name:[facility] [address] [address], [place] [address]II: HERNAN VINCENTB: [id number] [place] [address]Bds: (HP) () [facility] 09/22/2024 Secondary Insurance:CIGNA INSCOPolicy Number: [id number] Date:5581-82-52Ttfi 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 [address] [address]MH: HERNAN VINCENTB: [id number] [place] [address]Nko: (HP) () [facility] 09/16/2024 HERNAN VINCENTB: [place] [address]~JOSEE [email or web address]: (HP) Primary Insurance:MEDICARE PART B INSCOPolicy Number: [id number] Date:1535-56-97Peum Name:[facility] [address] [address], [place] [address]SD: HERNAN VINCENTB: [id number] [place] [address]Ano: (HP) (WP) [facility] 09/16/2024 Secondary Insurance:CIGNA INSCOPolicy Number: [id number] Date:8448-80-36Nnun Name:ROBINSON HANNAH [address]II: HERNAN VINCENTB: [id number] [place] [address]Lae: (HP) (WP) [facility] 08/31/2024 HERNAN VINCENTB: [id number] [place] [address]~JOSEE [email or web address]: (HP) Primary Insurance:MEDICARE PART B INSCOPolicy Number: [id number] Date:0159-07-36Yixp Name:GYPSY RODRIGUEZ OSCAR [address] [place] [address]MY: HERNAN VINCENTB: [id number] [place] [address]Wop: (HP) (WP) [facility] 08/31/2024 Secondary Insurance:CIGNA INSCOPolicy Number: [id number] Date:2182-63-85Hens Name:CPO OSCAR GUERRIERROBINSON [address]LB: HERNAN VINCENTB: [id number] [place] [address]Jgg: (HP) (WP) [facility] 08/30/2024 HERNAN VINCENTB: [id number] [place] [address]~JOSEE [email or web address]: (HP) Primary Insurance:MEDICARE PART B INSCOPolicy Number: [id number] Date:7137-65-66Sjhp Name:[facility] [place] [place] [address]MR: HERNAN VINCENTB: [id number] [place] [address]Jhj: (HP) (WP) [facility] 08/30/2024 Secondary Insurance:CIGNA INSCOPolicy Number: [id number] Date:9873-71-65Zfar Name:ROBINSON HANNAH [address]XR: HERNAN VINCENTB: [id number] [place] [address]Iso: (HP) (WP) [facility] 08/30/2024 HERNAN VINCENTB: [place] [address]~JOSEE [email or web address]: (HP) Primary Insurance:MEDICARE PART B INSCOPolicy Number: [id number] Date:5339-28-74Eamm Name:[facility] [place] [address] [address]SH: HERNAN VINCENTB: [id number] [place] [address]Rqy: (HP) () [facility] 08/30/2024 Secondary Insurance:CIGNA INSCOPolicy Number: [id number] Date:3035-58-36Fejg Name:ROBINSON HANNAH [address]XZ: HERNAN VINCENTB: [id number] [place] [address]Xzh: (HP) () [facility] 08/26/2024 HERNAN VINCENTB: [place] [address]~JOSEE [email or web address]: (HP) Primary Insurance:MEDICARE PART B INSCOPolicy Number: [id number] Date:2321-73-07Pgvu Name:[facility] ADMINISTRATORS [place] [address]SE GERBER [address]BW: HERNAN VINCENTB: [id number] [place] [address]Tuf: (HP) (WP) [facility] 08/26/2024 Secondary Insurance:CIGNA INSCOPolicy Number: [id number] Date:3487-01-57Ccvi 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 [address] [address]JH: HERNAN VINCENTB: [id number] [place] [address]Yub: (HP) (WP) [facility] 08/17/2024 HERNAN VINCENTB: [place] [address]~JOSEE [email or web address]: (HP) Primary Insurance:MEDICARE PART B INSCOPolicy Number: [id number] Date:4914-15-89Xtnz Name:[facility] [address] [address], [place] [address]VR: HERNAN STYLES: [id number] [place] [address]Dio: () (WP) [facility] 08/17/2024 Secondary Insurance:[facility] INSCentral [facility] Centery Number: [id number] Date:4525-95-54Bzqi Name:CPO OSCAR [address] [address]OZ: HERNAN STYLES: [id number] [place] [address]Uyx: () () [facility]
--- OUTSIDE RECORDS SUMMARY | 2025-06-19 13:13 | XMS RPT_ITS ---
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 Pain in unspecif ied knee / M25.569(ICD-10) [facility] 02/20/2025 Unknown Pain in right kn ee / M25.561(ICD-10) JERAMY CULP, [facility] MAIN PROCEDURES No Procedure Records Found RESULTS CT KNEE W/O CONTRAST RIGHT Observed: 02/2025 2:30 PM Status: F Source: [facility] ORIGINAL EXAMINATION: CT OF THE RIGHT [...] the lateral compartment with mild valgus, near iwom-tt-aypt subchondral sclerosis and marginal osteophyte formation. Medial [...] Collected: 2:09 PM Status: F Source: [facility] TYPE CODE TESTS RESULT OUT OF RANGE REFERENCE UNITS LAB MRSAPCR1(LOINC) MRSA (PCR) Not Detected Not Dete cted Result Comment: Notes 520[address] LAB MRSAPCRINT(LOIN C) MRSA PCR Int See [...] reproducible. Performed By: #### MRSAPCR # ### [address] [address] CBC Collected: 2:09 PM Status: F Source: [facility] Order Comment: Pre-Admission Testing TYPE CODE [...] BMP, CBC, ABOGEL, ANEU, GFR, ADIFF #### [facility] [address] [place], [place] [address] .AUTO DIFF Collected: 06/19/2025 2:09 PM Status: F Source: [facility] TYPE CODE TESTS RESULT OUT OF [...] BMP, CBC, ABOGEL, ANEU, GFR, ADIFF #### [address] [address] .NEUABS Collected: 2:09 PM Status: F Source: [facility] TYPE CODE TESTS RESULT OUT OF RANGE REFERENCE UNITS LAB ANEU(INC) Neutrophil, Absolute 3.0 2.3-8.1 10 3/mcL Performed By: #### ALB, ABSG EL, BMP, CBC, ABOGEL, ANEU, GFR, ADIFF #### [address] [address] BMP Collected: 06/19/2025 2:09 PM Status: F Source: [facility] TYPE CODE TESTS RESULT OUT OF [...] BMP, CBC, ABOGEL, ANEU, GFR, ADIFF #### [address] [address] ALB Collected: 06/19/2025 2:09 PM Status: F Source: [facility] TYPE CODE TESTS RESULT OUT OF RANGE REFERENCE UNITS LAB ALB(LOINC) Albumin Level 3.7 3.4-4.8 G/dL Performed By: #### ALB, ABSG EL, BMP, CBC, ABOGEL, ANEU, GFR, ADIFF #### [address] [address] .GFR Collected: 06/19/2025 2:09 PM Status: F Source: [facility] TYPE CODE TESTS RESULT OUT OF [...] BMP, CBC, ABOGEL, ANEU, GFR, ADIFF #### [address] [address] ABO/RH (GEL) Collected: 06/19/2025 2:09 PM Status: F Source: [facility] TYPE CODE TESTS RESULT OUT OF RANGE REFERENCE UNITS LAB ABORH(LOINC) ABO/Rh Interp A POS Unknown Performed By: #### ALB, ABSG EL, BMP, CBC, ABOGEL, ANEU, GFR, ADIFF #### [address] [address] ABS (GEL) Collected: 06/19/2025 2:09 PM Status: F Source: [facility] TYPE CODE TESTS RESULT OUT OF RANGE REFERENCE UNITS LAB ABSCINT(LOINC) ABSC Interp (Gel) Negative ABSC Performed By: #### ALB, ABSG EL, BMP, CBC, ABOGEL, ANEU, GFR, ADIFF #### [facility] [address] [place], [place] [address] CMP Collected: 04/11/2025 7:56 AM Status: F Source: [facility] MAIN TYPE CODE TESTS RESULT OUT [...] mg/dL Result Comment: Testing perf ormed on Mobile Patrol analyzer using enzymatic creatinine methodology. LAB BC(LOINC) [...] GFR, CBC, TSH, ADIFF, ANEU, VIDH #### [address] [address] TSH Collected: 7:56 AM Status: F Source: [facility] MAIN TYPE CODE TESTS RESULT OUT OF RANGE REFERENCE UNITS LAB TSH(LOINC) TSH 4.011 0.550-4.780 mIU/mL Performed By: #### CMP, FT4, GFR, CBC, TSH, ADIFF, ANEU, VIDH #### [address] [address] FT4 Collected: 7:56 AM Status: F Source: [facility] MAIN TYPE CODE TESTS RESULT OUT OF RANGE REFERENCE UNITS LAB FT4(LOINC) Free T4 1.03 0.89-1.76 ng/dL Result Comment: Note - New Reference Range in effect 20 Performed By: #### CMP, FT4, GFR, CBC, TSH, ADIFF, ANEU, VIDH #### [address] [address] .GFR Collected: 04/11/2025 7:56 AM Status: F Source: [facility] MAIN TYPE CODE TESTS RESULT OUT [...] GFR, CBC, TSH, ADIFF, ANEU, VIDH #### [address] [address] VIDH Collected: 7:56 AM Status: F Source: [facility] MAIN TYPE CODE TESTS RESULT OUT OF RANGE REFERENCE UNITS LAB VIDH(LOINC) Vit. D 25-Hydroxy 36.2 ng/mL Result Comment: Interpretive Values Based on Total 25(OH)D: Severe Deficiency <20 ng/mL Mild to Moderate Deficiency 20-30 ng/mL Optimum Levels 30-100 ng/mL Toxicity Possible >100 ng/mL Performed By: #### CMP, FT4, GFR, CBC, TSH, ADIFF, ANEU, VIDH #### [address] [address] CBC Collected: 7:56 AM Status: F Source: [facility] MAIN TYPE CODE TESTS RESULT OUT [...] GFR, CBC, TSH, ADIFF, ANEU, VIDH #### [address] [address] .AUTO DIFF Collected: 04/11/2025 7:56 AM Status: F Source: [facility] MAIN TYPE CODE TESTS RESULT OUT [...] GFR, CBC, TSH, ADIFF, ANEU, VIDH #### [place] [id number] .NEUABS Collected: 7:56 AM Status: F Source: [facility] MAIN TYPE CODE TESTS RESULT OUT OF RANGE REFERENCE UNITS LAB ANEU(LOINC) Neutrophil, Absolute 2.3 2.3-8.1 10 3/mcL Performed By: #### CMP, FT4, GFR, CBC, TSH, ADIFF, ANEU, VIDH #### [place] [address] BMP Collected: 03/31/2025 10:08 AM Status: F Source: [facility] MAIN TYPE CODE TESTS RESULT OUT [...] mg/dL Result Comment: Testing perf ormed on Mobile Patrol analyzer using enzymatic creatinine methodology. LAB BC(LOINC) BUN/Creatinine Ratio 18.5 10.0-22.0 ratio LAB CA(LOINC) Calcium Lvl 9.1 8.7-10.4 mg/dL Performed By: #### BMP, GFR #### [address] [address] .GFR Collected: 10:08 AM Status: F Source: [facility] MAIN TYPE CODE TESTS RESULT OUT [...] results. Performed By: #### BMP, GFR #### [address] [address] BMP Collected: 03/22/2025 10:36 AM Status: F Source: [facility] MAIN TYPE CODE TESTS RESULT OUT [...] mg/dL Result Comment: Testing perf ormed on Mobile Patrol analyzer using enzymatic creatinine methodology. LAB BC(LOINC) BUN/Creatinine Ratio 24.3 High 10.0-22.0 ratio LAB CA(LOINC) Calcium Lvl 9.3 8.7-10.4 mg/dL Performed By: #### BMP, GFR #### [address] [address] .GFR Collected: 10:36 AM Status: F Source: [facility] MAIN TYPE CODE TESTS RESULT OUT [...] results. Performed By: #### BMP, GFR #### [place] [address] PBNP Collected: 10:24 AM Status: F Source: [facility] MAIN TYPE CODE TESTS RESULT OUT OF RANGE REFERENCE UNITS LAB PBNP(LOINC) N-Terminal proBNP 199 0-1800 pg/mL Performed By: #### LIPID, PB TOWERMAN #### [place] [address] LIPID Collected: 03/08/2025 10:24 AM Status: F Source: [facility] MAIN TYPE CODE TESTS RESULT OUT OF RANGE REFERENCE UNITS LAB CHOL(LOINC) Cholesterol 118 50-199 mg/dL Result Comment: Cholesterol Reference Interval: Less than 200 Desirable 200-239 Borderline high risk 240 and above High risk LAB TRIG(LOINC) Triglycerides 132 3-149 mg/dL LAB HD(LOINC) HDL Cholesterol 35 Low 40-59 mg/dL LAB LDL(LOINC) LDL Cholesterol 57 0-129 mg/dL Performed By: #### LIPID, PB TOWERMAN #### [address] [address] XR KNEE THREE VIEWS RIGHT Observed: 05/2025 9:05 AM Status: F Source: [facility] MAIN ORIGINAL EXAMINATION: XR knee TECHNIQUE: [...] Collected: 10/21/2024 9:51 AM Status: F Source: [facility] MAIN TYPE CODE TESTS RESULT OUT OF RANGE REFERENCE UNITS LAB PBNP(LOINC) N-Terminal proBNP 209 0-1800 pg/mL Performed By: #### GFR, BMP, PBNP #### [address] [address] BMP Collected: 10/21/2024 9:51 AM Status: F Source: [facility] MAIN TYPE CODE TESTS RESULT OUT [...] mg/dL Result Comment: Testing perf ormed on Mobile Patrol analyzer using enzymatic creatinine methodology. LAB BC(LOINC) BUN/Creatinine Ratio 18.8 10.0-22.0 ratio LAB CA(LOINC) Calcium Lvl 9.7 8.7-10.4 mg/dL Performed By: #### GFR, BMP, PBNP #### [address] [address] .GFR Collected: 4 9:51 AM Status: F Source: [facility] MAIN TYPE CODE TESTS RESULT OUT [...] Performed By: #### GFR, BMP, PBNP #### [place] [address] BMP Collected: 09/22/2024 7:49 AM Status: F Source: [facility] MAIN TYPE CODE TESTS RESULT OUT [...] mg/dL Result Comment: Testing perf ormed on Mobile Patrol analyzer using enzymatic creatinine methodology. LAB BC(LOINC) BUN/Creatinine Ratio 23.9 High 10.0-22.0 ratio LAB CA(LOINC) Calcium Lvl 9.7 8.7-10.4 mg/dL Performed By: #### GFR, BMP #### [place] [address] .GFR Collected: 7:49 AM Status: F Source: [facility] MAIN TYPE CODE TESTS RESULT OUT [...] meters Performed By: #### GFR, BMP #### [address] [address] BMP Collected: 09/16/2024 9:16 AM Status: F Source: [facility] MAIN TYPE CODE TESTS RESULT OUT [...] mg/dL Result Comment: Testing perf ormed on Mobile Patrol analyzer using enzymatic creatinine methodology. LAB BC(LOINC) BUN/Creatinine Ratio 21.8 10.0-22.0 ratio LAB CA(LOINC) Calcium Lvl 9.6 8.7-10.4 mg/dL Performed By: #### BMP, GFR #### [address] [address] .GFR Collected: 9:16 AM Status: F Source: [facility] MAIN TYPE CODE TESTS RESULT OUT [...] meters Performed By: #### BMP, GFR #### [place] [id number] UPE Collected: 10:15 AM Status: F Source: [facility] MAIN TYPE CODE TESTS RESULT OUT [...] 18:12 EDT Performed By: #### UPE #### [address] [address] CBC Collected: 10:02 AM Status: F Source: [facility] MAIN TYPE CODE TESTS RESULT OUT [...] fL Performed By: #### CMP, GFR, CBC, 439655, ANEU, ADIFF, SPE, B12, IFES #### [place] [address] .AUTO DIFF Collected: 08/30/2024 10:02 AM Status: F Source: [facility] MAIN TYPE CODE TESTS RESULT OUT [...] 3/mcL Performed By: #### CMP, GFR, CBC, 737008, ANEU, ADIFF, SPE, B12, IFES #### [place] [address] .NEUABS Collected: 4 10:02 AM Status: F Source: [facility] MAIN TYPE CODE TESTS RESULT OUT OF RANGE REFERENCE UNITS LAB ANEU(LOINC) Neutrophil, Absolute 5.4 2.3-8.1 10 3/mcL Performed By: #### CMP, GFR, CBC, 484512, ANEU, ADIFF, SPE, B12, IFES #### [place] [address] B12 Collected: 4 10:02 AM Status: F Source: [facility] MAIN TYPE CODE TESTS RESULT OUT OF RANGE REFERENCE UNITS LAB B12(LOINC) Vitamin B12 Lvl 740 211-911 pg/mL Performed By: #### CMP, GFR, CBC, 908364, ANEU, ADIFF, SPE, B12, IFES #### [place] [address] .GFR Collected: 10:02 AM Status: F Source: [facility] MAIN TYPE CODE TESTS RESULT OUT [...] meters Performed By: #### CMP, GFR, CBC, 423201, ANEU, ADIFF, SPE, B12, IFES #### [place] [address] CMP Collected: 08/30/2024 10:02 AM Status: F Source: [facility] MAIN TYPE CODE TESTS RESULT OUT [...] mg/dL Result Comment: Testing perf ormed on Mobile Patrol analyzer using enzymatic creatinine methodology. LAB BC(LOINC) [...] U/L Performed By: #### CMP, GFR, CBC, 940647, ANEU, ADIFF, SPE, B12, IFES #### [place] [address] IFES Collected: 4 10:02 AM Status: F Source: [facility] MAIN TYPE CODE TESTS RESULT OUT OF RANGE REFERENCE UNITS LAB IFES(LOINC) IFES Interpretation Immunofixation electrophoresis of serum shows the presence of only polyclonal immunoglobulins (IgG,A,M,[place] and Lambda), No monoclonal protein detected. Result Comment: Electronical ly Signed by: MECCA LR 08/31/2024 15:05 EDT Performed By: #### CMP, GFR, CBC, 112348, ANEU, ADIFF, SPE, B12, IFES #### [place] [address] SPE Collected: 4 10:02 AM Status: F Source: [facility] MAIN TYPE CODE TESTS RESULT OUT [...] EDT Performed By: #### CMP, GFR, CBC, 505595, ANEU, ADIFF, SPE, B12, IFES #### [address] [address] VITB6 Collected: 10:02 AM Status: F Source: [facility] MAIN TYPE CODE TESTS RESULT OUT OF RANGE REFERENCE UNITS LAB 561823(LOINC) Vitamin B6 Lvl 2.2 Low 3.4-65.2 UG/L Result Comment: This test wa s developed and its performance characteristics determined by [facility]. It has not been cleared or approved by the Food and Drug Administration. Deficiency: <3.4 Marginal: 3.4 - 5.1 Adequate: >5.1 Performed At: [address] [id number] Merrill Mayers MD Ph:[phone] Performed By: #### CMP, GFR, CBC, 755807, ANEU, ADIFF, SPE, B12, IFES #### [address] [address] BMP Collected: 08/30/2024 9:59 AM Status: F Source: [facility] MAIN TYPE CODE TESTS RESULT OUT [...] mg/dL Result Comment: Testing perf ormed on Mobile Patrol analyzer using enzymatic creatinine methodology. LAB BC(LOINC) BUN/Creatinine Ratio 21.9 10.0-22.0 ratio LAB CA(LOINC) Calcium Lvl 9.3 8.7-10.4 mg/dL Performed By: #### REMA, GFR, PBNP #### [address] [address] .GFR Collected: 9:59 AM Status: F Source: [facility] MAIN TYPE CODE TESTS RESULT OUT [...] Performed By: #### REMA, GFR, PBNP #### [address] [address] PBNP Collected: 08/30/2024 9:59 AM Status: F Source: [facility] MAIN TYPE CODE TESTS RESULT OUT OF RANGE REFERENCE UNITS LAB PBNP(LOINC) N-Terminal proBNP 495 0-1800 pg/mL Performed By: #### BMP, GFR, PBNP #### [place] [address] XR SPINE LUMBAR AP/LAT Observed: 024 10:45 AM Status: F Source: [facility] MAIN ORIGINAL EXAMINATION: AP and lateral [...] Collected: 4 11:50 AM Status: F Source: [facility] MAIN Order Comment: STAT Dr. Lexi fitzpatrick pager [phone] TYPE CODE TESTS RESULT OUT OF RANGE [...] FF, GFR, CMP, CBC, [place], LIP #### [address] [address] .AUTO DIFF Collected: 08/17/2024 11:50 AM Status: F Source: [facility] MAIN TYPE CODE TESTS RESULT OUT [...] FF, GFR, CMP, CBC, [place], LIP #### [address] [address] .NEUABS Collected: 11:50 AM Status: F Source: [facility] MAIN TYPE CODE TESTS RESULT OUT OF RANGE REFERENCE UNITS LAB ANEU(LOINC) Neutrophil, Absolute 5.2 2.3-8.1 10 3/mcL Performed By: #### ANEU, АЛЕКСАНДР FF, GFR, CMP, CBC, [place], LIP #### [address] [address] [place] Collected: 11:50 AM Status: F Source: [facility] MAIN Order Comment: STAT Dr. Lexi fitzpatrick pager [phone] TYPE CODE TESTS RESULT OUT OF RANGE REFERENCE UNITS LAB [place]ON(LOINC) Amylase Level 62 30-118 U/L Result Comment: Note - New Reference Range in effect 20 Performed By: #### ANEU, АЛЕКСАНДР FF, GFR, CMP, CBC, [place], LIP #### [place] [address] LIP Collected: 11:50 AM Status: F Source: [facility] MAIN Order Comment: STAT Dr. Lexi fitzpatrick pager [phone] TYPE CODE TESTS RESULT OUT OF RANGE REFERENCE UNITS LAB LIP(LOINC) Lipase Level 26 12-53 U/L Result Comment: Note - New Reference Range in effect 20 Performed By: #### ANEU, АЛЕКСАНДР FF, GFR, CMP, CBC, [place], LIP #### [place] [address] CMP Collected: 08/17/2024 11:50 AM Status: F Source: [facility] MAIN Order Comment: STAT Dr. Lexi fitzpatrick pager [phone] TYPE CODE TESTS RESULT OUT OF RANGE [...] mg/dL Result Comment: Testing perf ormed on Mobile Patrol analyzer using enzymatic creatinine methodology. LAB BC(LOINC) [...] FF, GFR, CMP, CBC, [place], LIP #### [place] [address] .GFR Collected: 4 11:50 AM Status: F Source: [facility] MAIN TYPE CODE TESTS RESULT OUT [...] FF, GFR, CMP, CBC, [place], LIP #### [facility] [address] [place] [address] ALLERGIES No Allergies Records Found ENCOUNTERS ADMIT/DISCHARGE ACCOUNT NUMBER ADMITTING ENCOUNTER CLASS LOCATION SOURCE 06/19/2025/06/19/20 [id number] [place] [facility]/19[facility]25/06/19/20 [id number] [place] [facility] 05/29/2025 [id number] [place] [facility] 04/11/2025/04/11/20 [id number] Ambulatory ABuilding:[facility] 03/31/2025/03/31/20 [id number] Ambulatory ABuilding:DN [facility] 03/22/2025/03/22/20 [id number] Ambulatory ABuilding:DN [facility] 03/08/2025/03/08/20 [id number] Ambulatory ABuilding:DN [facility] 02/20/2025/02/21/20 [id number] Ambulatory ABuilding:CV [facility] 02/20/2025/02/21/20 [id number] Ambulatory ABuilding:[facility] 10/21/2024/10/21/20 24 [id number] Ambulatory ABuilding:DN [facility] 09/26/2024/09/26/20 24 [id number] YULIANA HICKEY, DR JEAN Amb[place] [facility] 09/23/2024 [id number] Ambulatory ABuilding:N X [facility] 09/22/2024/09/22/20 24 [id number] Ambulatory ABuilding:DN [facility] 09/16/2024/09/16/20 24 [id number] Ambulatory ABuilding:DN [facility] 08/31/2024 [id number] YULIANA HICKEY, DR JEAN Ambulatory ABuilding:[facility] 08/30/2024/08/30/20 24 [id number] Ambulatory ABuilding:DN [facility] 08/30/2024/08/30/20 24 [id number] Ambulatory ABuilding:DN [facility] 08/26/2024/08/26/20 24 [id number] Ambulatory ABuilding:NX [facility] 08/17/2024/08/17/20 24 [id number] Ambulatory ABuilding:DN [facility] PAYERS ENCOUNTER GUARANTOR PAYER SUBSCRIBER SOURCE 06/19/2025 HERNAN STYLES: [id number] [facility] [place] [address]~[email or web address]ENTERel: (HP) Primary Insurance:MEDICARE PART B INSCOPolicy Number: [id number] Date:5511-04-77Ztpj Name:[facility] [employer] [facility] [address] [place] [address]JZ: HERNAN STYLES: [id number] [place], [place] [address]Aya: (HP) (WP) [facility] 06/19/2025 Secondary Insurance:CIGNA SUPPLEMENTAL INSCOPolicy Number: [id number] Date:1869-89-78Kupy 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 VAZQUEZ [address]IE: HERNAN VINCENTB: [id number] [place], [place] [address]Hdn: (HP) (WP) [facility] 06/19/2025 HERNAN VINCENTB: [place] [address]~[email or web address]@ [email or web address]: (HP) Primary Insurance:MEDICARE PART B INSCOPolicy Number: [id number] Date:5895-03-44Gmrm Name:[facility] [employer] [address] [place] [address]JN: HERNAN VINCENTB: [id number] [place], [place] [address]Wvp: (HP) (WP) [facility] 06/19/2025 Secondary Insurance:CIGNA SUPPLEMENTAL INSCOPolicy Number: [id number] Date:7435-62-51Eihn 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 [facility] [place] [address]XR: HERNAN VINCENTB: [id number] [place], [place] [address]Lgj: (HP) (WP) [facility] 05/29/2025 HERNAN VINCENTB: [place] [address]~JOSEE [email or web address]: (HP) Primary Insurance:MEDICARE PART B INSCOPolicy Number: [id number] Date:6850-40-85Vpjv Name:[facility] [employer] [address] [address]IU: HERNAN VINCENTB: [id number] [place] [address]Hiy: (HP) (WP) [facility] 05/29/2025 Secondary Insurance:CIGNA SUPPLEMENTAL INSCOPolicy Number: [id number] Date:6390-71-94Xitp Name:CPO MOORE MeaganROBINSON RANDOLPH [address]HY: HERNAN VINCENTB: [id number] [place] [address]Ode: (HP) (WP) [facility] 04/11/2025 HERNAN VINCENTB: [id number] [place] [address]~JOSEE [email or web address]: (HP) Primary Insurance:MEDICARE PART B INSCOPolicy Number: [id number] Date:6970-91-22Yvya Name:GYPSY MOORE [address], [place] [address]BT: HERNAN VINCENTB: [id number] [place] [address]Wxx: (HP) (WP) [facility] 04/11/2025 Secondary Insurance:CIGNA SUPPLEMENTAL INSCOPolicy Number: [id number] Date:2136-02-56Azne Name:ROBINSON HANNAH [address]BS: HERNAN VINCENTB: [id number] [place] [address]Jyc: (HP) (WP) [facility] 03/31/2025 HERNAN VINCENTB: [id number] [place] [address]~[email or web address] [email or web address]: (HP) Primary Insurance:MEDICARE PART B INSCOPolicy Number: [id number] Date:2446-29-41Ptcf Name:[facility] [employer] [address] [address], [place] [address]PC: HERNAN VINCENTB: [id number] [facility] [place] [address]Foe: (HP) () [facility] 03/31/2025 Secondary Insurance:CIGNA SUPPLEMENTAL INSCOPolicy Number: [id number] Date:1681-41-46Emcb Name:[facility] [place] [address] [address]EL: HERNAN VINCENTB: [id number] [place] [address]Tnn: (HP) (WP) [facility] 03/22/2025 HERNAN VINCENTB: [id number] [place] [address]~JOSEE [email or web address]: (HP) Primary Insurance:MEDICARE PART B INSCOPolicy Number: [id number] Date:5740-35-82Bcdm Name:[facility] ADMIN[employer]ORS [facility] [address] [address], [place] [address]XB: HERNAN VINCENTB: [id number] [facility] [place] [address]Pvk: (HP) (WP) [facility] 03/22/2025 Secondary Insurance:CIGNA SUPPLEMENTAL INSCOPolicy Number: [id number] Date:2491-46-07Npxz Name:ROBINSON HANNAH [address]PB: HERNAN VINCENTB: [id number] [place] [address]Bzn: (HP) (WP) [facility] 03/08/2025 HERNAN [place]INCENTB: [place] [address]~[email or web address] [email or web address]: (HP) Primary Insurance:MEDICARE PART B INSCOPolicy Number: [id number] Date:6727-57-32Odyq Name:GYPSY RODRIGUEZ OSCAR [address] [place] [address]RP: HERNAN VINCENTB: [id number] [place] [address]Nwf: (HP) (WP) [facility] 03/08/2025 Secondary Insurance:[employer]IGNA SUPPLEMENTAL INSCOPolicy Number: [id number] Date:8417-62-19Ubpj Name:CPO OSCAR GUERRIER ROBINSON [address]KP: HERNAN VINCENTB: [id number] [place] [address]Zos: (HP) (WP) [facility] 02/20/2025 HERNAN VINCENTB: [id number] [place] [address]~JOSEE [email or web address]: (HP) Primary Insurance:MEDICARE PART B INSCOPolicy Number: [id number] Date:2900-99-63Rzcs Name:[facility] SARAH VALDES JOSE [id number]: HERNAN VINCENTB: [id number] [place] [address]Klo: (HP) (WP) [facility] 02/20/2025 Secondary Insurance:CIGNA SUPPLEMENTAL INSCOPolicy Number: [id number] Date:5220-31-52Jfqy Name:ROBINSON HANNAH [id number]: HERNAN VINCENTB: [id number] [place] [address]Uxl: (HP) (WP) [facility] 02/20/2025 HERNAN VINCENTB: [place] [address]~JOSEE [email or web address] CENTERel: (HP) Primary Insurance:MEDICARE PART B INSCOPolicy Number: [id number] Date:0800-12-98Gcyn Name:[facility]AH [facility]ALS[facility] VALDESJOSE [id number]: HERNAN VINCENTB: [id number] [place] [address]Uzi: (HP) (WP) [facility] 02/20/2025 Secondary Insurance:CIGNA SUPPLEMENTAL INSCOPolicy Number: [id number] Date:0340-93-76Dcma Name:ROBINSON HANNAH [id number]: HERNAN VINCENTB: [id number] [place] [address]Wvv: (HP) () [facility] 10/21/2024 HERNAN VINCENTB: [place] [address]~JOSEE [email or web address]: (HP) Primary Insurance:MEDICARE PART B INSCOPolicy Number: [id number] Date:2318-48-34Ksbb Name:[facility] [employer] [facility] JOSE EDWARDS [address]MM: HERNAN VINCENTB: [id number] [place] [address]Uxb: (HP) (WP) [facility] 10/21/2024 Secondary Insurance:CIGNA INSCOPolicy Number: [id number] Date:6894-96-81Catp Name:[address] [address]CI: HERNAN VINCENTB: [id number] [place] [address]Pdm: (HP) (WP) [facility] 09/26/2024 HERNAN [place]INCENTB: [place] [address]~JOSEE [email or web address]: (HP) Primary Insurance:MEDICARE PART B INSCOPolicy Number: [id number] Date:1892-95-75Mfrb Name:[facility] [employer] [facility] JOSE EDWARDS [address]HS: HERNAN VINCENTB: [id number] [place] [address]Jyw: (HP) (WP) [facility] 09/26/2024 Secondary Insurance:CIGNA INSCOPolicy Number: [id number] Date:3202-06-78Klyw 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Sowmya SarahROBINSON KIMBALL [address]PU: HERNAN VINCENTB: [id number] [place] [address]Tzv: (HP) (WP) [facility] 09/23/2024 HERNAN [place]B: [place] [address]~JOSEE [email or web address]: (HP) Primary Insurance:MEDICARE PART B INSCOPolicy Number: [id number] Date:7292-13-25Odyq Name:GYPSY MOORE [address]EYNLZ[place], [place] [address]NF: HERNAN VINCENTB: [id number] [place] [address]Lsx: (HP) (WP) [facility] 09/23/2024 Secondary Insurance:CIGNA INSCOPolicy Number: [id number] Date:5105-31-33Rbjq 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Sowmya SarahROBINSON [address]IMBALL [address]RD: HERNAN VINCENTB: [id number] [place] [address]Rvy: (HP) (WP) [facility] 09/22/2024 HERNAN [place]INCENTB: [place] [address]~JOSEE [email or web address]: (HP) Primary Insurance:MEDICARE PART B INSCOPolicy Number: [id number] Date:0376-86-08Rgjy Name:[facility] [employer] [address] [address]SFQADNMGD, [place] [address]NE: HERNAN VINCENTB: [id number] [place] [address]Sbj: (HP) () [facility] 09/22/2024 Secondary Insurance:CIGNA INSCOPolicy Number: [id number] Date:7295-39-29Sccy 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 [address] [address]BR: HERNAN VINCENTB: [id number] [place] [address]Cns: (HP) () [facility] 09/16/2024 HERNAN [place]INCENTB: [place] [address]~JOSEE [email or web address]: (HP) Primary Insurance:MEDICARE PART B INSCOPolicy Number: [id number] Date:9547-62-66Dmxq Name:[facility] [employer] [facility] [address] [address], [place] [address]XZ: HERNAN VINCENTB: [id number] [place] [address]Imu: (HP) (WP) [facility] 09/16/2024 Secondary Insurance:CIGNA INSCOPolicy Number: [id number] Date:2742-70-38Fgtn Name:ROBINSON HANNAH [address]KO: HERNAN VINCENTB: [id number] [place] [address]Lmh: (HP) (WP) [facility] 08/31/2024 HERNAN VINCENTB: [id number] [place] [address]~JOSEE [email or web address]: (HP) Primary Insurance:MEDICARE PART B INSCOPolicy Number: [id number] Date:5959-56-89Fptd Name:GYPSY RODRIGUEZ [address] [place] [address]ND: HERNAN VINCENTB: [id number] [place] [address]Zim: (HP) (WP) [facility] 08/31/2024 Secondary Insurance:CIGNA INSCOPolicy Number: [id number] Date:2002-22-09Rjvd Name:CPO OSCAR GUERRIERROBINSON [address]ZV: HERNAN VINCENTB: [id number] [place] [address]Ywh: (HP) (WP) [facility] 08/30/2024 HERNAN VINCENTB: [id number] [place] [address]~JOSEE [email or web address]: (HP) Primary Insurance:MEDICARE PART B INSCOPolicy Number: [id number] Date:5736-44-98Hgxd Name:[facility] [place] [address]SG: HERNAN VINCENTB: [id number] [place] [address]Lhv: (HP) (WP) [facility] 08/30/2024 Secondary Insurance:CIGNA INSCOPolicy Number: [id number] Date:1327-17-14Uihp Name:ROBINSON HANNAH [address]VN: HERNAN VINCENTB: [id number] [place] [address]Ocu: (HP) (WP) [facility] 08/30/2024 HERNAN [place]INCENTB: [place] [address]~JOSEE [email or web address]: (HP) Primary Insurance:MEDICARE PART B INSCOPolicy Number: [id number] Date:8027-53-60Fnsc Name:[facility] ADMINISTRATORS [facility] [id number] [place] [address]TL: HERNAN VINCENTB: [id number] [place] [address]Nwx: (HP) () [facility] 08/30/2024 Secondary Insurance:CIGNA INSCOPolicy Number: [id number] Date:4351-70-92Hyzr Name:ROBINSON HANNAH [address]BE: HERNAN VINCENTB: [id number] [place] [address]Avq: (HP) () [facility] 08/26/2024 HERNAN VINCENTB: [place] [address]~JOSEE [email or web address]: (HP) Primary Insurance:MEDICARE PART B INSCOPolicy Number: [id number] Date:6618-44-75Nusi Name:[facility] ADMINISTRATORS [place] [address] [address]BM: HERNAN VINCENTB: [id number] [place] [address]Zzp: (HP) (WP) [facility] 08/26/2024 Secondary Insurance:CIGNA INSCOPolicy Number: [id number] Date:9531-23-92Ryta 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 Hospitaly Number: [id number] Date:9412-28-70Fvhl Name:CPO [address]SCAR [address] [address]UL: HERNAN STYLES: [id number] [place] [address]Svb: () () [facility]
--- OUTSIDE RECORDS SUMMARY | 2025-06-19 13:13 | XMS RPT_ITS ---
[...] Kin Unknown + Care Team Providers Care Tuyere Fitter Name Role Phone EDGARDO HICKEY, DR ANGELA [...] DATE TYPE CONDITION / CODE [facility] Pain in unspecif ied knee / M25.569(ICD-10) [facility] Unknown Pain in right kn ee / M25.561(ICD-10) JERAMY CULP, [facility] MAIN PROCEDURES No Procedure Records Found RESULTS CT KNEE W/O CONTRAST RIGHT Observed: 02/2025 2:30 PM Status: F Source: [facility] ORIGINAL EXAMINATION: CT OF THE RIGHT KNEE [...] the lateral compartment with mild valgus, near grsi-xa-ehvy subchondral sclerosis and marginal osteophyte formation. Medial [...] MRSAPCR Collected: 2:09 PM Status: F Source: [facility] TYPE CODE TESTS RESULT OUT OF RANGE REFERENCE UNITS LAB MRSAPCR1(LOINC) MRSA (PCR) Not Detected Not Dete cted Result Comment: Notes 34013 LAB MRSAPCRINT(LOIN C) MRSA PCR Int See [...] reproducible. Performed By: #### MRSAPCR # ### [address] [address] CBC Collected: 2:09 PM Status: F Source: [facility] Order Comment: Pre-Admission Testing TYPE CODE TESTS [...] BMP, CBC, ABOGEL, ANEU, GFR, ADIFF #### [facility] [address], [place] [address] .AUTO DIFF Collected: 06/19/2025 2:09 PM Status: F Source: [facility] TYPE CODE TESTS RESULT OUT OF RANGE [...] BMP, CBC, ABOGEL, ANEU, GFR, ADIFF #### [address] [address] .NEUABS Collected: 2:09 PM Status: F Source: [facility] TYPE CODE TESTS RESULT OUT OF RANGE REFERENCE UNITS LAB ANEU(INC) Neutrophil, Absolute 3.0 2.3-8.1 10 3/mcL Performed By: #### ALB, ABSG EL, BMP, CBC, ABOGEL, ANEU, GFR, ADIFF #### [address] [address] BMP Collected: 06/19/2025 2:09 PM Status: F Source: [facility] TYPE CODE TESTS RESULT OUT OF RANGE [...] BMP, CBC, ABOGEL, ANEU, GFR, ADIFF #### [address] [address] ALB Collected: 06/19/2025 2:09 PM Status: F Source: [facility] TYPE CODE TESTS RESULT OUT OF RANGE REFERENCE UNITS LAB ALB(LOINC) Albumin Level 3.7 3.4-4.8 G/dL Performed By: #### ALB, ABSG EL, BMP, CBC, ABOGEL, ANEU, GFR, ADIFF #### [address] [address] .GFR Collected: 06/19/2025 2:09 PM Status: F Source: [facility] TYPE CODE TESTS RESULT OUT OF RANGE [...] BMP, CBC, ABOGEL, ANEU, GFR, ADIFF #### [address] [address] ABO/RH (GEL) Collected: 06/19/2025 2:09 PM Status: F Source: [facility] TYPE CODE TESTS RESULT OUT OF RANGE REFERENCE UNITS LAB ABORH(LOINC) ABO/Rh Interp A POS Unknown Performed By: #### ALB, ABSG EL, BMP, CBC, ABOGEL, ANEU, GFR, ADIFF #### [address] [address] ABS (GEL) Collected: 06/19/2025 2:09 PM Status: F Source: [facility] TYPE CODE TESTS RESULT OUT OF RANGE REFERENCE UNITS LAB ABSCINT(LOINC) ABSC Interp (Gel) Negative ABSC Performed By: #### ALB, ABSG EL, BMP, CBC, ABOGEL, ANEU, GFR, ADIFF #### [facility] [address], [place] [address] CMP Collected: 04/11/2025 7:56 AM Status: F Source: [facility] MAIN TYPE CODE TESTS RESULT OUT OF [...] mg/dL Result Comment: Testing perf ormed on Crossfader analyzer using enzymatic creatinine methodology. LAB BC(LOINC) [...] GFR, CBC, TSH, ADIFF, ANEU, VIDH #### [address] [address] TSH Collected: 7:56 AM Status: F Source: [facility] MAIN TYPE CODE TESTS RESULT OUT OF RANGE REFERENCE UNITS LAB TSH(LOINC) TSH 4.011 0.550-4.780 mIU/mL Performed By: #### CMP, FT4, GFR, CBC, TSH, ADIFF, ANEU, VIDH #### [address] [address] FT4 Collected: 7:56 AM Status: F Source: [facility] MAIN TYPE CODE TESTS RESULT OUT OF RANGE REFERENCE UNITS LAB FT4(LOINC) Free T4 1.03 0.89-1.76 ng/dL Result Comment: Note - New Reference Range in effect 20 Performed By: #### CMP, FT4, GFR, CBC, TSH, ADIFF, ANEU, VIDH #### [address] [address] .GFR Collected: 04/11/2025 7:56 AM Status: F Source: [facility] MAIN TYPE CODE TESTS RESULT OUT OF [...] GFR, CBC, TSH, ADIFF, ANEU, VIDH #### [address] [address] VIDH Collected: 7:56 AM Status: F Source: [facility] MAIN TYPE CODE TESTS RESULT OUT OF RANGE REFERENCE UNITS LAB VIDH(LOINC) Vit. D 25-Hydroxy 36.2 ng/mL Result Comment: Interpretive Values Based on Total 25(OH)D: Severe Deficiency <20 ng/mL Mild to Moderate Deficiency 20-30 ng/mL Optimum Levels 30-100 ng/mL Toxicity Possible >100 ng/mL Performed By: #### CMP, FT4, GFR, CBC, TSH, ADIFF, ANEU, VIDH #### [address] [address] CBC Collected: 7:56 AM Status: F Source: [facility] MAIN TYPE CODE TESTS RESULT OUT OF [...] GFR, CBC, TSH, ADIFF, ANEU, VIDH #### [address] [address] .AUTO DIFF Collected: 04/11/2025 7:56 AM Status: F Source: [facility] MAIN TYPE CODE TESTS RESULT OUT OF [...] GFR, CBC, TSH, ADIFF, ANEU, VIDH #### [place] [id number] .NEUABS Collected: 7:56 AM Status: F Source: [facility] MAIN TYPE CODE TESTS RESULT OUT OF RANGE REFERENCE UNITS LAB ANEU(LOINC) Neutrophil, Absolute 2.3 2.3-8.1 10 3/mcL Performed By: #### CMP, FT4, GFR, CBC, TSH, ADIFF, ANEU, VIDH #### [place] [address] BMP Collected: 03/31/2025 10:08 AM Status: F Source: [facility] MAIN TYPE CODE TESTS RESULT OUT OF [...] mg/dL Result Comment: Testing perf ormed on Crossfader analyzer using enzymatic creatinine methodology. LAB BC(LOINC) BUN/Creatinine Ratio 18.5 10.0-22.0 ratio LAB CA(LOINC) Calcium Lvl 9.1 8.7-10.4 mg/dL Performed By: #### BMP, GFR #### [address] [address] .GFR Collected: 10:08 AM Status: F Source: [facility] MAIN TYPE CODE TESTS RESULT OUT OF [...] results. Performed By: #### BMP, GFR #### [address] [address] BMP Collected: 03/22/2025 10:36 AM Status: F Source: [facility] MAIN TYPE CODE TESTS RESULT OUT OF [...] mg/dL Result Comment: Testing perf ormed on Crossfader analyzer using enzymatic creatinine methodology. LAB BC(LOINC) BUN/Creatinine Ratio 24.3 High 10.0-22.0 ratio LAB CA(LOINC) Calcium Lvl 9.3 8.7-10.4 mg/dL Performed By: #### BMP, GFR #### [address] [address] .GFR Collected: 10:36 AM Status: F Source: [facility] MAIN TYPE CODE TESTS RESULT OUT OF [...] results. Performed By: #### BMP, GFR #### [place] [address] PBNP Collected: 10:24 AM Status: F Source: [facility] MAIN TYPE CODE TESTS RESULT OUT OF RANGE REFERENCE UNITS LAB PBNP(LOINC) N-Terminal proBNP 199 0-1800 pg/mL Performed By: #### LIPID, PB [facility] #### [place] [address] LIPID Collected: 03/08/2025 10:24 AM Status: F Source: [facility] MAIN TYPE CODE TESTS RESULT OUT OF RANGE REFERENCE UNITS LAB CHOL(LOINC) Cholesterol 118 50-199 mg/dL Result Comment: Cholesterol Reference Interval: Less than 200 Desirable 200-239 Borderline high risk 240 and above High risk LAB TRIG(LOINC) Triglycerides 132 3-149 mg/dL LAB HD(LOINC) HDL Cholesterol 35 Low 40-59 mg/dL LAB LDL(LOINC) LDL Cholesterol 57 0-129 mg/dL Performed By: #### LIPID, PB [facility] #### [address] [address] XR KNEE THREE VIEWS RIGHT Observed: 05/2025 9:05 AM Status: F Source: [facility] MAIN ORIGINAL EXAMINATION: XR knee TECHNIQUE: Three [...] Collected: 10/21/2024 9:51 AM Status: F Source: [facility] MAIN TYPE CODE TESTS RESULT OUT OF RANGE REFERENCE UNITS LAB PBNP(LOINC) N-Terminal proBNP 209 0-1800 pg/mL Performed By: #### GFR, BMP, PBNP #### [address] [address] BMP Collected: 10/21/2024 9:51 AM Status: F Source: [facility] MAIN TYPE CODE TESTS RESULT OUT OF [...] mg/dL Result Comment: Testing perf ormed on Crossfader analyzer using enzymatic creatinine methodology. LAB BC(LOINC) BUN/Creatinine Ratio 18.8 10.0-22.0 ratio LAB CA(LOINC) Calcium Lvl 9.7 8.7-10.4 mg/dL Performed By: #### GFR, BMP, PBNP #### [address] [address] .GFR Collected: 4 9:51 AM Status: F Source: [facility] MAIN TYPE CODE TESTS RESULT OUT OF [...] Performed By: #### GFR, BMP, PBNP #### [place] [address] BMP Collected: 09/22/2024 7:49 AM Status: F Source: [facility] MAIN TYPE CODE TESTS RESULT OUT OF [...] mg/dL Result Comment: Testing perf ormed on Crossfader analyzer using enzymatic creatinine methodology. LAB BC(LOINC) BUN/Creatinine Ratio 23.9 High 10.0-22.0 ratio LAB CA(LOINC) Calcium Lvl 9.7 8.7-10.4 mg/dL Performed By: #### GFR, BMP #### [place] [address] .GFR Collected: 7:49 AM Status: F Source: [facility] MAIN TYPE CODE TESTS RESULT OUT OF [...] meters Performed By: #### GFR, BMP #### [address] [address] BMP Collected: 09/16/2024 9:16 AM Status: F Source: [facility] MAIN TYPE CODE TESTS RESULT OUT OF [...] mg/dL Result Comment: Testing perf ormed on Crossfader analyzer using enzymatic creatinine methodology. LAB BC(LOINC) BUN/Creatinine Ratio 21.8 10.0-22.0 ratio LAB CA(LOINC) Calcium Lvl 9.6 8.7-10.4 mg/dL Performed By: #### BMP, GFR #### [address] [address] .GFR Collected: 9:16 AM Status: F Source: [facility] MAIN TYPE CODE TESTS RESULT OUT OF [...] meters Performed By: #### BMP, GFR #### [place] [id number] UPE Collected: 10:15 AM Status: F Source: [facility] MAIN TYPE CODE TESTS RESULT OUT OF [...] 18:12 EDT Performed By: #### UPE #### [address] [address] CBC Collected: 10:02 AM Status: F Source: [facility] MAIN TYPE CODE TESTS RESULT OUT OF [...] fL Performed By: #### CMP, GFR, CBC, 607334, ANEU, ADIFF, SPE, B12, IFES #### [place] [address] .AUTO DIFF Collected: 08/30/2024 10:02 AM Status: F Source: [facility] MAIN TYPE CODE TESTS RESULT OUT OF [...] 3/mcL Performed By: #### CMP, GFR, CBC, 085008, ANEU, ADIFF, SPE, B12, IFES #### [place] [address] .NEUABS Collected: 4 10:02 AM Status: F Source: [facility] MAIN TYPE CODE TESTS RESULT OUT OF RANGE REFERENCE UNITS LAB ANEU(LOINC) Neutrophil, Absolute 5.4 2.3-8.1 10 3/mcL Performed By: #### CMP, GFR, CBC, 600592, ANEU, ADIFF, SPE, B12, IFES #### [place] [address] B12 Collected: 4 10:02 AM Status: F Source: [facility] MAIN TYPE CODE TESTS RESULT OUT OF RANGE REFERENCE UNITS LAB B12(LOINC) Vitamin B12 Lvl 740 211-911 pg/mL Performed By: #### CMP, GFR, CBC, 647998, ANEU, ADIFF, SPE, B12, IFES #### [place] [address] .GFR Collected: 10:02 AM Status: F Source: [facility] MAIN TYPE CODE TESTS RESULT OUT OF [...] meters Performed By: #### CMP, GFR, CBC, 683547, ANEU, ADIFF, SPE, B12, IFES #### [place] [address] CMP Collected: 08/30/2024 10:02 AM Status: F Source: [facility] MAIN TYPE CODE TESTS RESULT OUT OF [...] mg/dL Result Comment: Testing perf ormed on Crossfader analyzer using enzymatic creatinine methodology. LAB BC(LOINC) [...] U/L Performed By: #### CMP, GFR, CBC, 501345, ANEU, ADIFF, SPE, B12, IFES #### [place] [address] IFES Collected: 4 10:02 AM Status: F Source: [facility] MAIN TYPE CODE TESTS RESULT OUT OF RANGE REFERENCE UNITS LAB IFES(LOINC) IFES Interpretation Immunofixation electrophoresis of serum shows the presence of only polyclonal immunoglobulins (IgG,A,M,[place] and Lambda), No monoclonal protein detected. Result Comment: Electronical ly Signed by: MECCA LR 08/31/2024 15:05 EDT Performed By: #### CMP, GFR, CBC, 923481, ANEU, ADIFF, SPE, B12, IFES #### [place] [address] SPE Collected: 4 10:02 AM Status: F Source: [facility] MAIN TYPE CODE TESTS RESULT OUT OF [...] EDT Performed By: #### CMP, GFR, CBC, 095376, ANEU, ADIFF, SPE, B12, IFES #### [address] [address] VITB6 Collected: 10:02 AM Status: F Source: [facility] MAIN TYPE CODE TESTS RESULT OUT OF RANGE REFERENCE UNITS LAB 769275(LOINC) Vitamin B6 Lvl 2.2 Low 3.4-65.2 UG/L Result Comment: This test wa s developed and its performance characteristics determined by [facility]. It has not been cleared or approved by the Food and Drug Administration. Deficiency: <3.4 Marginal: 3.4 - 5.1 Adequate: >5.1 Performed At: [address] [id number] Merrill Mayers MD Ph:[phone] Performed By: #### CMP, GFR, CBC, 568218, ANEU, ADIFF, SPE, B12, IFES #### [address] [address] BMP Collected: 08/30/2024 9:59 AM Status: F Source: [facility] MAIN TYPE CODE TESTS RESULT OUT OF [...] mg/dL Result Comment: Testing perf ormed on Crossfader analyzer using enzymatic creatinine methodology. LAB BC(LOINC) BUN/Creatinine Ratio 21.9 10.0-22.0 ratio LAB CA(LOINC) Calcium Lvl 9.3 8.7-10.4 mg/dL Performed By: #### REMA, GFR, PBNP #### [address] [address] .GFR Collected: 9:59 AM Status: F Source: [facility] MAIN TYPE CODE TESTS RESULT OUT OF [...] Performed By: #### REMA, GFR, PBNP #### [address] [address] PBNP Collected: 08/30/2024 9:59 AM Status: F Source: [facility] MAIN TYPE CODE TESTS RESULT OUT OF RANGE REFERENCE UNITS LAB PBNP(LOINC) N-Terminal proBNP 495 0-1800 pg/mL Performed By: #### BMP, GFR, PBNP #### [place] [address] XR SPINE LUMBAR AP/LAT Observed: 024 10:45 AM Status: F Source: [facility] MAIN ORIGINAL EXAMINATION: AP and lateral 2 [...] Collected: 4 11:50 AM Status: F Source: [facility] MAIN Order Comment: STAT Dr. Lexi fitzpatrick pager [phone] TYPE CODE TESTS RESULT OUT OF RANGE [...] FF, GFR, CMP, CBC, [place], LIP #### [address] [address] .AUTO DIFF Collected: 08/17/2024 11:50 AM Status: F Source: [facility] MAIN TYPE CODE TESTS RESULT OUT OF [...] FF, GFR, CMP, CBC, [place], LIP #### [address] [address] .NEUABS Collected: 11:50 AM Status: F Source: [facility] MAIN TYPE CODE TESTS RESULT OUT OF RANGE REFERENCE UNITS LAB ANEU(LOINC) Neutrophil, Absolute 5.2 2.3-8.1 10 3/mcL Performed By: #### ANEU, АЛЕКСАНДР FF, GFR, CMP, CBC, [place], LIP #### [address] [address] L[place]ON Collected: 11:50 AM Status: F Source: [facility] MAIN Order Comment: STAT Dr. Lexi fitzpatrick pager [phone] TYPE CODE TESTS RESULT OUT OF RANGE REFERENCE UNITS LAB [place](LOINC) Amylase Level 62 30-118 U/L Result Comment: Note - New Reference Range in effect 20 Performed By: #### ANEU, АЛЕКСАНДР FF, GFR, CMP, CBC, [place], LIP #### [place] [address] LIP Collected: 11:50 AM Status: F Source: [facility] MAIN Order Comment: STAT Dr. Lexi fitzpatrick pager [phone] TYPE CODE TESTS RESULT OUT OF RANGE REFERENCE UNITS LAB LIP(LOINC) Lipase Level 26 12-53 U/L Result Comment: Note - New Reference Range in effect 20 Performed By: #### ANEU, АЛЕКСАНДР FF, GFR, CMP, CBC, [place], LIP #### [place] [address] CMP Collected: 08/17/2024 11:50 AM Status: F Source: [facility] MAIN Order Comment: STAT Dr. Lexi fitzpatrick pager [phone] TYPE CODE TESTS RESULT OUT OF RANGE [...] mg/dL Result Comment: Testing perf ormed on Crossfader analyzer using enzymatic creatinine methodology. LAB BC(LOINC) [...] FF, GFR, CMP, CBC, [place], LIP #### [place] [address] .GFR Collected: 4 11:50 AM Status: F Source: [facility] MAIN TYPE CODE TESTS RESULT OUT OF [...] FF, GFR, CMP, CBC, [place], LIP #### [facility] [address] [place] [address] ALLERGIES No Allergies Records Found ENCOUNTERS ADMIT/DISCHARGE ACCOUNT NUMBER ADMITTING ENCOUNTER CLASS LOCATION SOURCE 06/19/2025/06/19/20 [id number] [facility]20 [id number] Ambulatory [facility] :RAD [facility] 05/29/2025 [id number] Ambulatory [facility]Building :[facility] 04/11/2025/04/11/20 [id number] Ambulatory ABuilding:DN [facility] 03/31/2025/03/31/20 [id number] Ambulatory ABuilding:DN [facility] 03/22/2025/03/22/20 [id number] Ambulatory ABuilding:DN [facility] 03/08/2025/03/08/20 [id number] Ambulatory ABuilding:DN [facility] 02/20/2025/02/21/20 [id number] Ambulatory ABuilding:CV [facility] 02/20/2025/02/21/20 [id number] Ambulatory ABuilding:[facility] 10/21/2024/10/21/20 24 [id number] Ambulatory ABuilding:DN [facility] 09/26/2024/09/26/20 24 [id number] YULIANA HICKEY, DR JEAN Ambulatory [facility]Building :RAD [facility] 09/23/2024 [id number] Ambulatory ABuilding:N X [facility] MA[facility] 09/22/2024/09/22/20 24 [id number] Ambulatory ABuilding:DN [facility] 09/16/2024/09/16/20 24 [id number] Ambulatory ABuilding:DN [facility] 08/31/2024 [id number] YULIANA HICKEY, DR JEAN Ambulatory ABuilding:HL [facility] 08/30/2024/08/30/20 24 [id number] Ambulatory ABuilding:DN [facility] 08/30/2024/08/30/20 24 [id number] Ambulatory ABuilding:DN [facility] 08/26/2024/08/26/20 24 [id number] Ambulatory ABuilding:NX [facility] MAIN 08/17/2024/08/17/20 24 [id number] Ambulatory ABuilding:DN [facility] PAYERS ENCOUNTER GUARANTOR PAYER SUBSCRIBER SOURCE 06/19/2025 HERNAN STYLES: [id number] [facility] [place] [place] [address]~[email or web address]: (HP) Primary Insurance:MEDICARE PART B INSCOPolicy Number: [id number] Date:3745-15-75Bzwh Name:[employer] [facility] [address] [place] [address]YY: HERNAN STYLES: [id number] [place], [place] [address]Sfk: (HP) (WP) [facility] 06/19/2025 Secondary Insurance:CIGNA SUPPLEMENTAL INSCOPolicy Number: [id number] Date:3422-94-61Hihh Name:AB 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 [place] VAZQUEZ [address]JU: HERNAN VINCENTB: [id number] [place], [place] [address]Fib: (HP) (WP) [facility] 06/19/2025 HERNAN VINCENTB: [place] [address]~[email or web address]@ [email or web address]: (HP) Primary Insurance:MEDICARE PART B INSCOPolicy Number: [id number] Date:5776-28-00Qbrr Name:[employer] [address] [place] [address]II: HERNAN VINCENTB: [id number] [place], [place] [address]Vww: (HP) (WP) [facility] 06/19/2025 Secondary Insurance:CIGNA SUPPLEMENTAL INSCOPolicy Number: [id number] Date:2920-16-18Buqb Name:AB 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 [facility] [place] [address]HV: HERNAN VINCENTB: [id number] [place], [place] [address]Trz: (HP) (WP) [facility] 05/29/2025 HERNAN VINCENTB: [place] [address]~[email or web address] [email or web address]: (HP) Primary Insurance:MEDICARE PART B INSCOPolicy Number: [id number] Date:2572-57-08Ixbx Name:[employer] [address] [place] [address] [address]ZO: HERNAN VINCENTB: [id number] [place] [address]Clp: (HP) (WP) [facility] 05/29/2025 Secondary Insurance:CIGNA SUPPLEMENTAL INSCOPolicy Number: [id number] Date:8199-54-29Boug Name:CPO MOORE MeaganROBINSON RANDOLPH [address]VP: HERNAN VINCENTB: [id number] [place] [address]Bfr: (HP) (WP) [facility] 04/11/2025 HERNAN VINCENTB: [id number] [place] [address]~JOSEE [email or web address]: (HP) Primary Insurance:MEDICARE PART B INSCOPolicy Number: [id number] Date:2261-40-29Tjqr Name:GYPSY MOORE [address]QBCPURP, [place] [address]CT: HERNAN VINCENTB: [id number] [place] [address]Mwl: (HP) (WP) [facility] 04/11/2025 Secondary Insurance:CIGNA SUPPLEMENTAL INSCOPolicy Number: [id number] Date:5542-69-37Svfq Name:ROBINSON HANNAH [address]HL: HERNAN VINCENTB: [id number] [place] [address]Lzb: (HP) (WP) [facility] 03/31/2025 HERNAN VINCENTB: [id number] [place] [address]~JOSEE [email or web address]: (HP) Primary Insurance:MEDICARE PART B INSCOPolicy Number: [id number] Date:2654-21-11Kpzu Name:[facility] [employer] [facility] [address] [address], [place] [address]DX: HERNAN VINCENTB: [id number] [facility] [place] [address]Zak: (HP) () [facility] 03/31/2025 Secondary Insurance:CIGNA SUPPLEMENTAL INSCOPolicy Number: [id number] Date:5201-46-17Dqhn Name:[facility] [address] [address]XL: HERNAN VINCENTB: [id number] [place] [address]Qod: (HP) (WP) [facility] 03/22/2025 HERNAN VINCENTB: [id number] [place] [address]~JOSEE [email or web address]: (HP) Primary Insurance:MEDICARE PART B INSCOPolicy Number: [id number] Date:4628-01-03Fhvi Name:[facility] [employer] [facility] [address] [address], [place] [address]NC: HERNAN VINCENTB: [id number] [facility] [place] [address]Yjt: (HP) (WP) [facility] 03/22/2025 Secondary Insurance:CIGNA SUPPLEMENTAL INSCOPolicy Number: [id number] Date:6864-04-18Bird Name:ROBINSON HANNAH [address]NE: HERNAN VINCENTB: [id number] [place] [address]Ovp: (HP) (WP) [facility] 03/08/2025 [place]NA[place]B: [place] [address]~[email or web address]: (HP) Primary Insurance:MEDICARE PART B INSCOPolicy Number: [id number] Date:4188-97-74Ywgf Name:GYPSY RODRIGUEZ OSCAR [address] [place] [address]BG: HERNAN VINCENTB: [id number] [place] [address]Tan: (HP) (WP) [facility] 03/08/2025 Secondary Insurance:CIGNA SUPPLEMENTAL INSCOPolicy Number: [id number] Date:0608-24-21Oquv Name:CPO OSCAR GUERRIER ROBINSON [id number]: HERNAN VINCENTB: [id number] [place] [address]Qap: (HP) (WP) [facility] 02/20/2025 HERNAN VINCENTB: [id number] [place] [address]~[email or web address]: (HP) Primary Insurance:MEDICARE PART B INSCOPolicy Number: [id number] Date:6157-20-90Yewm Name:[facility] [place] SARAH VALDES JOSE [id number]: HERNAN VINCENTB: [id number] [place] [address]Yhn: (HP) (WP) [facility] 02/20/2025 Secondary Insurance:CIGNA SUPPLEMENTAL INSCOPolicy Number: [id number] Date:3316-60-36Ylpf Name:ROBINSON HANNAH [id number]: HERNAN VINCENTB: [id number] [place] [address]Rua: (HP) (WP) [facility] 02/20/2025 [place]B: [place] [address]~[email or web address]ENTERel: (HP) Primary Insurance:MEDICARE PART B INSCOPolicy Number: [id number] Date:1989-46-28Fgjd Name:[facility] SYSTEM[facility] VALDESJOSE [address]WU: HERNAN VINCENTB: [id number] [place] [address]Ksd: (HP) (WP) [facility] 02/20/2025 Secondary Insurance:CIGNA SUPPLEMENTAL INSCOPolicy Number: [id number] Date:0804-70-26Kaeh Name:ROBINSON HANNAH [address]YT: HERNAN VINCENTB: [id number] [place] [address]Nfd: (HP) () [facility] 10/21/2024 HERNAN VINCENTB: [place] [address]~JOSEE [email or web address]: (HP) Primary Insurance:MEDICARE PART B INSCOPolicy Number: [id number] Date:3042-89-99Igaf Name:[employer] [facility] JOSE EDWARDS [address]CX: HERNAN VINCENTB: [id number] [place] [address]Bqz: (HP) (WP) [facility] 10/21/2024 Secondary Insurance:CIGNA INSCOPolicy Number: [id number] Date:4431-67-98Pppy Name:CPO MOORE [address] [address]GH: HERNAN VINCENTB: [id number] [place] [address]Omv: (HP) (WP) [facility] 09/26/2024 HERNAN VINCENTB: [place] [address]~[email or web address] [email or web address]: (HP) Primary Insurance:MEDICARE PART B INSCOPolicy Number: [id number] Date:9240-02-14Shlj Name:[employer] [facility] JOSE EDWARDS [address]OJ: HERNAN VINCENTB: [id number] [place] [address]Axo: (HP) (WP) [facility] 09/26/2024 Secondary Insurance:CIGNA INSCOPolicy Number: [id number] Date:7068-50-91Hxwc Name:AB 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Sowmya SarahROBINSON KIMBALL [address]IG: HERNAN VINCENTB: [id number] [place] [address]Kug: (HP) (WP) [facility] 09/23/2024 HERNAN VINCENTB: [place] [address]~JOSEE [email or web address]: (HP) Primary Insurance:MEDICARE PART B INSCOPolicy Number: [id number] Date:6332-51-11Ijez Name:GYPSY MOORE [address]ZLZESPVNP, [place] [address]JJ: HERNAN VINCENTB: [id number] [place] [address]Snp: (HP) (WP) [facility] 09/23/2024 Secondary Insurance:CIGNA INSCOPolicy Number: [id number] Date:3044-50-27Ubqo Name:AB 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Sowmya SarahROBINSON KIMBALL [address]CR: HERNAN VINCENTB: [id number] [place] [address]Iul: (HP) (WP) [facility] 09/22/2024 HERNAN VINCENTB: [place] [address]~JOSEE [email or web address]: (HP) Primary Insurance:MEDICARE PART B INSCOPolicy Number: [id number] Date:5375-05-69Htgv Name:[employer] [facility] [address] [address]WPCQM[place]KU, [place] [address]XN: HERNAN VINCENTB: [id number] [place] [address]Jgz: (HP) () [facility] 09/22/2024 Secondary Insurance:CIGNA INSCOPolicy Number: [id number] Date:6128-51-19Joef Name:AB 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 [address]SCAR [address] [address]HV: HERNAN VINCENTB: [id number] [place] [address]Hek: (HP) () [facility] 09/16/2024 HERNAN VINCENTB: [place] [address]~JOSEE [email or web address]: (HP) Primary Insurance:MEDICARE PART B INSCOPolicy Number: [id number] Date:0392-79-81Tzer Name:[facility] [facility] [address] [address]QSJDQNSOQ, [place] [address]KJ: HERNAN VINCENTB: [id number] [place] [address]Bcm: (HP) (WP) [facility] 09/16/2024 Secondary Insurance:CIGNA INSCOPolicy Number: [id number] Date:1436-63-56Etit Name:ROBINSON HANNAH [address]AO: HERNAN VINCENTB: [id number] [place] [address]Ifu: (HP) (WP) [facility] 08/31/2024 HERNAN VINCENTB: [id number] [place] [address]~[email or web address] [email or web address]: (HP) Primary Insurance:MEDICARE PART B INSCOPolicy Number: [id number] Date:0218-83-46Igmf Name:GYPSY RODRIGUEZ OSCAR [address] [place] [address]VR: HERNAN VINCENTB: [id number] [place] [address]Scj: (HP) (WP) [facility] 08/31/2024 Secondary Insurance:CIGNA INSCOPolicy Number: [id number] Date:7674-00-33Clcr Name:CPO OSCAR GUERRIERROBINSON [address]SP: HERNAN VINCENTB: [id number] [place] [address]Qgh: (HP) (WP) [facility] 08/30/2024 HERNAN VINCENTB: [id number] [place] [address]~[email or web address] [email or web address]: (HP) Primary Insurance:MEDICARE PART B INSCOPolicy Number: [id number] Date:3462-31-37Cstc Name:[facility] [place] [address]VN: HERNAN VINCENTB: [id number] [place] [address]Oia: (HP) (WP) [facility] 08/30/2024 Secondary Insurance:CIGNA INSCOPolicy Number: [id number] Date:2751-20-93Audp Name:ROBINSON HANNAH [address]DU: HERNAN VINCENTB: [id number] [place] [address]Zsc: (HP) (WP) [facility] 08/30/2024 HERNAN VINCENTB: [place] [address]~JOSEE [email or web address]el: (HP) Primary Insurance:MEDICARE PART B INSCOPolicy Number: [id number] Date:7196-50-85Mriu Name:[facility] [place] [facility] SYSTEM[facility]Y MOORE [id number] [place] [address]QP: HERNAN VINCENTB: [id number] [place] [address]Sup: (HP) () [facility] 08/30/2024 Secondary Insurance:CIGNA INSCOPolicy Number: [id number] Date:2310-07-23Kxoq Name:ROBINSON HANNAH [address]LC: HERNAN VINCENTB: [id number] [place] [address]Gui: (HP) () [facility] 08/26/2024 HERNAN VINCENTB: [place] [address]~[email or web address] [email or web address]: (HP) Primary Insurance:MEDICARE PART B INSCOPolicy Number: [id number] Date:0607-29-06Cqaj Name:[facility] [place] [employer] [place] [address]JOSE GERBER [address]XY: HERNAN VINCENTB: [id number] [place] [address]Lmr: (HP) (WP) 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 08/17/2024 HERNAN VINCENTB: [place] [address]~[email or web address] [email or web address]: (HP) Primary Insurance:MEDICARE PART B INSCOPolicy Number: [id number] Date:4443-09-94Epwp Name:[employer] [facility] [address] [address], [place] [address]JX: HENRAN STYLES: [id number] [place] [address]Zbp: () (WP) [facility] 08/17/2024 Secondary Insurance:[facility]SNort[facility] Hospitaly Number: [id number] Date:2103-15-58Wvli Name:CPO OSCAR Rhodes[address] [address]GQ: HERNAN STYLES: [id number] [place] [address]Btj: () () [facility]
--- NOTE | 2025-07-19 14:46 | PAT.ANESEVAL ---
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 When Was Last Pacemaker Check QUESTION #4 FULL TEXT: You/Your Family Experience fever (hyperthermia) with Anesthesia Last Oral Intake Last Oral intake: Last Oral Intake NPO since Meds taken in AM with sips of water? Meds patient instructed to take am of surgery PONV PONV - supervisor [employer]: PONV - supervisor [employer] Female Yes 07/19/25 14:36 HX of Motion Sickness No 07/19/25 14:36 HX of N/V After Surgery No 07/19/25 14:36 Non-Smoker Yes 07/19/25 14:36 Duration of Surgery greater Yes 07/19/25 14:36 than 60 minutes Number of Risk Factors 3 07/19/25 14:36 PONV Score Moderate Risk 07/19/25 14:36 Height & Weight Height & Weight: Anesthesia: Height & Weight Height 5 ft 3 in 05/10/25 13:06 Respiratory Assessment Respiratory Assessment - supervisor [employer]: Respiratory Tract Infection Hx - supervisor [employer] Hx Respiratory Tract Infection No 07/19/25 14:36 STOP Sleep Apnea STOP Sleep Apnea - supervisor [employer]: STOP Sleep Apnea - supervisor [employer] Hx Hypertension Yes: CONTROLLED ON MED 07/19/25 14:36 Hx Sleep Apnea No 07/19/25 14:36 CPAP BIPAP Do you snore loudly (louder No 07/19/25 14:36 than talking or can be heard Do you often feel tired/ No 07/19/25 14:36 fatigued/ sleepy during daytime? Has anyone observed you stop No 07/19/25 14:36 breathing during sleep? STOP Results Negative 07/19/25 14:36 QUESTION #5 FULL TEXT : Do you snore loudly (louder than talking or can be heard through closed doors)? 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 Specify any problems Hx of Preganancy in last 3 No 07/19/25 14:36 Months Nurse Filling Out Transfusion VCHRISTIN 07/19/25 14:36 & Questions: Date: 07/19/25 07/19/25 14:36 Time: 14:37 07/19/25 14:36 Patient unable to answer at this time (ie. confused, unrespo /Reproduction History /Reproductive History - supervisor [employer]: /Reproductive Hx- supervisor [employer] Hx Now No 07/19/25 14:36 Gestational Age (in weeks): EDC: Hx Hx Para Hx Section SAB No 07/19/25 14:36 [facility] Medical History (Updated 07/19/25 @ 14:36 by Luanne Rolle) Wears partial dentures Wears glasses Post-menopausal History of steroid therapy Thyroid disease Arthritis History of diverticulitis Non-smoker Shortness of breath on exertion History of edema Hypertension History of echocardiogram History of stress test Cardiology follow-up encounter Right shoulder strain Vitamin D deficiency SOB (shortness of breath) Pulmonary hypertension PSVT (paroxysmal supraventricular tachycardia) Postural dizziness PMR (polymyalgia rheumatica) Fatigue Chronic diastolic heart failure Anemia Depression Diverticulitis Hypothyroidism Osteoarthritis Hyperlipidemia Essential (primary) hypertension CAD (coronary artery disease) Home Medications Medication Instructions Recorded Last Taken Type aspirin 81 mg tablet,delayed 81 mg PO QDAY 04/12/25 Unknown History release (Adult Aspirin Regimen) clopidogrel 75 mg tablet 75 mg PO QDAY 04/12/25 Unknown History ferrous sulfate 324 mg (65 mg 324 mg PO DAILY 04/12/25 Unknown History iron) tablet,delayed release leflunomide 20 mg tablet 20 mg PO QDAY 04/12/25 Unknown History levothyroxine 100 mcg capsule 100 mcg PO QDAY 04/12/25 Unknown History mecobalamin (vitamin B12) 5,000 5,000 mcg PO 2XW 04/12/25 Unknown History mcg chewable tablet rosuvastatin 10 mg tablet 10 mg PO QDAY 04/12/25 Unknown History spironolactone 25 mg tablet 25 mg PO QDAY 05/10/25 Unknown History dapagliflozin propanediol 5 mg 5 mg PO DAILY 07/19/25 Unknown History tablet (Farxiga) nebivolol 5 mg tablet (Bystolic) 5 mg PO DAILY 07/19/25 Unknown History Allergy/AdvReac Type Severity Reaction Status Date / Time acetaminophen (From Vicodin) Allergy Severe Nausea/Vom/ Verified 07/19/25 14:42 Diarrhea hydrocodone (From Vicodin) Allergy Severe Nausea/Vom/ Verified 07/19/25 14:42 Diarrhea Family History Mother Cancer Hypertension Heart disease Father Heart disease Brother Heart disease Hypertension Surgical History (Updated 07/19/25 @ 14:36 by Luanne Rolle) History of abdominoplasty Hx of bilateral breast reduction surgery History of bowel resection S/P coronary artery stent placement (~2018) Social History Smoking Status: Never smoker alcohol intake: current alcohol intake frequency: a few times a month substance use type: does not use Audit: Pertinent Findings HISTORY of Pertinent Findings History of Pertinent Findings: 79-year-old lady who presented approximately a year ago with shortness of breath with exertion despite various testing. She eventually underwent a cardiac catheterization with demonstrated an 80% mid left anterior descending artery lesion for which she underwent PCI and stenting. She said that she did well after that but was told that she had diastolic heart failure for which she was put on medication and she thinks that she is overmedicated. Her renal function worsened and she was put on Farxiga for this. Pertinent Findings EKG Perinent findings: 04/2025: NSR with RBBB, LAFB Stress test pertinent findings: 05/2025: Gated SPECT analysis: The gated ejection fraction is 77%. Conclusion: Normal pharmacologic myocardial perfusion stress test. Preserved ejection fraction. Echo (EF%) pertinent findings: Echocardiogram 09/26/24 (Fei) Summary Left ventricle: The cavity size is normal. Wall thickness is normal. Systolic function is normal. The estimated ejection fraction is 60-65%. Wall motion is normal; there are no regional wall motion abnormalities. Normal diastolic function. Aortic valve: Thickening, consistent with sclerosis. Mitral valve: The annulus is mildly calcified. Right ventricle: Systolic pressure is moderately increased. The RV systolic pressure by Doppler is 47mmHg. Right atrium: The estimated right atrial pressure is 3mmHg. Atrial septum: Septal thickness is increased, consistent with lipomatous hypertrophy. Heart catheterization pertinent findings: Cardiac Catheterization 06/02/24 (Catlett) Summary 1st lesion: Stent placement was performed. A 3mm x 24mm Synergy XD stent was used. The stent was advanced across the lesion and deployed with two inflations and a maximum pressure of 12 terry. Stent placement was performed. A 3mm x 16mm Synergy XD stent was used. The stent was advanced across the lesion and deployed with a single inflation and a max pressure of 11 terry. LAD: Mid-vessel lesion: The diagnostic study demonstrated an 80% stenosis. The distal vessel supplies a large vascular territory. The lesion is a likely culprit for the patient's clinical presentation. The lesion presents an ACC/AHA type A/B "low/moderate risk" lesion for intervention. Stent placement was performed, with balloon angioplasty, resulting in an excellent angiographic appearance. Following intervention, there is a residual 0% stenosis with DOLORES grade 3 flow. Labs: Recommendation Anesthesia Recommendation Anesthesia recommendation: OPTIMIZED for anesthesia (Cleared by cardiology on 06/07/25)
--- NOTE | 2025-08-04 12:56 | HP.PCM_ITS ---
History and Physical History and Physical Patient Name: Peggy Feliz : 1945From: IGNACIO MORSE PA-C DATE OF PRE-OPERATIVE EXAM: 08/04/2025 DATE OF SURGERY: 08/14/2025 SCHEDULED PROCEDURE: Right reverse total shoulder arthroplasty HISTORY OF PRESENT ILLNESS: Preoperative history and physical exam was performed on August 04, 2025. Patient was initially to undergo a right total knee arthroplasty however due to her shoulder problems she wanted to prioritize his shoulder first. She does have previous history of a left total shoulder arthroplasty by an outside in. She has been having constant right shoulder pain. She has difficulty and inability to raise her arm straight up above her shoulder. Activities of daily living have been significantly impaired due to her range of motion. She has difficulty getting dressed and doing her hair due to the pain. She is right- hand dominant. Patient feels weaker with the right shoulder. She denies past history of surgery on the right shoulder. After failing conservative measures and discussing all treatment options with Dr. Andrea Zimmerman, the patient does wish to proceed forward with a right reverse total shoulder arthroplasty. She has been using tramadol for breakthrough pain. She has had clearance from the primary care provider Dr. Stephens and Dr. Negron with cardiology. Patient has been instructed to stop her Plavix 5 days prior to surgery. No recent fevers, chills or recent infections. She denies past history of DVT or pulmonary embolism. No recent chest pain or shortness of breath. Patient has been using ferrous sulfate due to preoperative anemia which was found on lab work. REVIEW OF SYSTEMS: ROS: Const: Reports fainting and weight change, but denies anorexia, anxiety, change in appetite and fever,hard of hearing, and vision problems. CV: Denies chest pain, heart murmur, irregular heartbeat and peripheral vascular disease. Resp: Denies asthma, cough, pneumonia, sleep apnea, shortness of breath, tuberculosis and wheezing. GI: Reports heartburn, but denies constipation, diarrhea, nausea, bloody stools and vomiting, and difficulty swallowing. : Denies incontinence. Musculo: Reports gait disturbance, leg swelling, limitations of movement, osteopenia, pain, trouble walking and weakness. Skin: Denies Raynaud's, history of shingles and tattoo. Neuro: Reports dizziness and numbness/tingling but denies ambulatory dysfunction and tremor. Psych: Reports memory loss and mood changes, but denies anxiety, depression, insomnia, mental illness and stress. Luis Alberto/Lymph: Reports anemia, but denies bleeding/bruising tendency and past transfusion. Reviewed, no changes. PAST MEDICAL HISTORY: Advance Care Plan: Other Directive, POA Effective Date: 05/04/2019 Other Directive, LIVING WILL Effective Date: 05/04/2019 PMH: Medical Problems: Arthritis, Thyroid, High Blood Pressure, Hypercholesterolemia, Vitamin B6 deficiency, pernicious anemia, chronic diastolic heart failure, neuropathy in feet Depression - mild Polymyalgia Rheumatica, current chronic use of systemic steroids, diverticulitis, Coronary Artery Disease (CAD), pulmonary hypertension, Vitamin D deficiency, Paroxysmal Supraventricular Tachycardia, nsaid induced gastritis, osteopenia, shortness of breath on exertion, anemia, bifascicular block, epigastric pain, hypersomnolence disorder, Left Anterior Fascicular Block, presence of stent in anterior descending artery Accidents: None Surgical Hx: Breast Reduction - 15 YEARS AGO Cataracts Colon Resection - small bowel Heart Stent - (06/02/2024) in anterior descending artery - Dr. Jamil POLLARD Shoulder Arthroscopy LT Anesthesia Complications: None Assistive Devices: Glasses Reviewed, no changes. SOCIAL HISTORY: SH: Marital: .Occupation: Retired.Work Status: Retired.Hand Dominance: Right-handed. Personal Habits: Cigarette Use: Never.Smokeless Tobacco: Never Used Smokeless Tobacco.E-Cigarette Use: Never used.Alcohol: Occasionally.Drug Use: Denies Use.Enjoy Exercising: Never Exercises. Reviewed, no changes. VITALS: Ht: 62" Wt: 157lb Wt k.215 BMI: 28.7 BP: 122/72 Pulse: 88 Resp: 14 T: 97.7 T: 36.5C Pain Level: 9/10 O2SatR: 92 ALLERGIES: No Known Drug Allergy MEDICATIONS: Tramadol HCL 50 mg 1-2 by mouth every 6 hours as needed pain, Levothyroxine Sodium 100mcg 1 po qdaily, Simvastatin 10 mg 1po qday, Leflunomide 20 mg 1po qday, Clopidogrel Bisulfate 75 mg 1 daily, Spironolactone 25 mg 1 by mouth every day, Bystolic 5 mg 1 po qdaily, Aspirin 81 81 mg 1 pill 2x/day by mouth, Farxiga 5 mg daily PRE-OP EXAM: General appearance:NORMAL Other: Eyes: Conjunctivae and lids: NORMAL Pupils: ERR Ears, Nose, Mouth, and Throat: NORMAL Other: Inspection of lips, teeth and gums: NORMAL Other: Neck: Examination of neck: no masses noted. Respiratory: Assessment of respiratory effort: NORMAL Other: Auscultation of lungs: clear to auscultation no wheezes, rhonchi or rales. Cardiovascular: Auscultation of heart: regular rate and rhythm, no murmurs, gallops or rubs. PHYSICAL EXAMINATION: Right shoulder is without erythema or signs of infection. She has diffuse tenderness throughout the anterior and lateral shoulder. She has difficulty lifting her arm over 90 without significant pain. 3+/5 supraspinatus strength on the right. Sensation intact to light touch. IMAGING STUDIES: MRI of the right shoulder reveals a repairable rotator cuff tear. She has moderate supraspinatus muscle atrophy. Severe supraspinatus tendinosis with high-grade partial-thickness footprint tear. She has tendinosis and partial thickness tear of the subscapularis with mild atrophy. Degenerative labral fraying. Glenohumeral joint with 3-4 chondromalacia. IMPRESSION: 1. 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 Severe right knee osteoarthritis with valgus deformity 3. Hypertension 4. Pernicious anemia 5. Thyroid disease 6. Hypercholesterolemia 7. Polymyalgia rheumatica 8. Coronary artery disease with previous heart stent 9. Depression 10. Neuropathy 11. Vitamin D deficiency 12. Paroxysmal supraventricular tachycardia 13. History of diverticulitis 14. Pulmonary hypertension 15. Lab work consistent with chronic kidney disease which is not diagnosed by primary care provider 16. Overweight with BMI 28.8 PLAN: Pain Medications: Postoperative pain regimen will be initiated by Dr. Andrea Zimmerman in the hospital. Due to patient's cardiac history and kidney function testing we are going to avoid nonsteroidal anti-inflammatories. Patient has been instructed to stop the Plavix 5 days prior to surgery. Patient does have ongoing anemia which she is currently taking ferrous sulfate. Current hemoglobin was 11.2. Patient was concerned about discharge home as she lives home alone and has no one to help. She will also have driving restrictions. I did discuss with the patient that care management team will be on board for appropriate safe discharge planning. DVT Prophylaxis Plan: Aspirin 81 mg twice daily for 2 weeks postoperatively. Denies past history of DVT or pulmonary embolism. Patient will continue with DON hampton for 2 weeks postoperatively. This dictation was created using voice recognition software. Phonetic and/or grammatical errors may exist. ___ I have re-examined the patient. There are no clinical changes since date of exam. ___ See progress notes for changes. ___ Dictated on admission Date: Time: Signature:
[2025-08-14] VITALS (14 sets, daily range): BP systolic 105–155; BP diastolic 55–93; PULSE 70–84; RESP 16–17; TEMP 35.9–36.8; O2SAT 87–100; BMI 28.9
[2025-08-14] MEDS: LR 1,000 ML - BOLUS PREOP 999 ML IV (12:39)
[2025-08-14] MEDS: Vancomycin HCl 1,000 MG in 0.9% Normal Saline (250mL Bag) 250 ML 250 MG IV (12:39)
--- NOTE | 2025-08-14 12:41 | PRE.ANES_ITS ---
ASA Classification* ASA Classification ASA Classification: 3 Assessment & Plan Anesthesia* Anesthesia Assessment Anesthesia Assessment: Discussed sedation and/or anesthesia options, risks, benefits, and alternatives with patient/parents/legal guardian/POA. Questions invited. The patient/parents/legal guardian/POA seems to understand and agrees to proceed with anesthesia plan. Reviewed the physical assessment, medical history, allergy history and patient home medications list prior to surgery/procedure/anesthetic and documented any changes. Performed airway and anesthesia risk assessments. Procedural Plan Add'l anesthesia plan details: General Anesthesia with Brachial plexus block Anesthesia Type Anesthesia Type: General and Block History Source History Obtained from:: Patient and Chart Anesthesia Focused Assessment* Temperature: 98.3 F Pulse Rate: 83 Blood Pressure: 155/78 Respiratory Rate: 16 Pulse Ox: 94 Airway Assessment Mouth opens: >3 cm Mallampati Score: II Labs Anesthesia Preop lab: CBC CHEMISTRY POC Glucose, (74-106) 78 mg/dL Today, 12:10 COAG Pre-Assessment Diagnosis/Proposed Procedure Planned Operative Procedure(s): (R) RIGHT REVERSE TOTAL SHOULDER ARTHROPLASTY, ERAS Anesthesia History 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 When Was Last Pacemaker Check QUESTION #4 FULL TEXT: You/Your Family Experience fever (hyperthermia) with Anesthesia Last Oral Intake Last Oral intake: Last Oral Intake NPO since 09:45 08/14/25 11:58 Meds taken in AM with sips of Yes 08/14/25 11:58 water? Meds patient instructed to take am of surgery PONV PONV - machine tool electrician: PONV - machine tool electrician Female Yes 07/19/25 14:36 HX of Motion Sickness No 07/19/25 14:36 HX of N/V After Surgery No 07/19/25 14:36 Non-Smoker Yes 07/19/25 14:36 Duration of Surgery greater Yes 07/19/25 14:36 than 60 minutes Number of Risk Factors 3 07/19/25 14:36 PONV Score Moderate Risk 07/19/25 14:36 Height & Weight Height & Weight: Anesthesia: Height & Weight Height 5 ft 2 in 08/14/25 11:58 Weight: 71.7 kg 08/14/25 11:58 Body Mass Index (BMI) 28.9 08/14/25 11:58 Respiratory Assessment Respiratory Assessment - machine tool electrician: Respiratory Tract Infection Hx - machine tool electrician Hx Respiratory Tract Infection No 07/19/25 14:36 STOP Sleep Apnea STOP Sleep Apnea - machine tool electrician: STOP Sleep Apnea - machine tool electrician Hx Hypertension Yes: CONTROLLED ON MED 07/19/25 14:36 Hx Sleep Apnea No 07/19/25 14:36 CPAP BIPAP Do you snore loudly (louder No 07/19/25 14:36 than talking or can be heard Do you often feel tired/ No 07/19/25 14:36 fatigued/ sleepy during daytime? Has anyone observed you stop No 07/19/25 14:36 breathing during sleep? STOP Results Negative 07/19/25 14:36 QUESTION #5 FULL TEXT : Do you snore loudly (louder than talking or can be heard through closed doors)? Tobacco Use History Tobacco Use History - machine tool electrician: Tobacco Use History - machine tool electrician Tobacco Use Smoking Status Never smoker 07/19/25 14:36 Hx Tobacco Use No 07/19/25 14:36 Years Smoking Packs Smoked per Day Smoking Cessation Date was within the last 15 years Hx Smoking Cessation Date Hx Smoking Cessation Counseling Hematologic Medial History Hematologic Hx - machine tool electrician: Hematologic Medical Hx - follow up manager Hx of Blood Transfusion No 07/19/25 14:36 Hx of Transfusion in last 3 No 07/19/25 14:36 Months Date of Last Transfusion (if within last 3 months) Ever experience any problems No 07/19/25 14:36 with transfusion(s)? Specify any problems Hx of Preganancy in last 3 No 07/19/25 14:36 Months Nurse Filling Out Transfusion VCHRISTIN 07/19/25 14:36 & Questions: Date: 07/19/25 07/19/25 14:36 Time: 14:37 07/19/25 14:36 Patient unable to answer at this time (ie. confused, unrespo /Reproduction History /Reproductive History - machine tool electrician: /Reproductive Hx- machine tool electrician Hx Now No 07/19/25 14:36 Gestational Age (in weeks): EDC: Hx Hx Para Hx Section SAB No 07/19/25 14:36 Active Medications Active Medications: Current Medications Generic Name Dose Route Start Last Admin Trade Name Emile PRN Reason Stop Dose Admin Acetaminophen 1,000 mg 08/14/25 13:30 08/14/25 12:39 Acetaminophen 500 Mg Tablet PO 08/14/25 13:31 1,000 mg PREOP ONE Administration Acetaminophen 1,000 mg 08/14/25 14:00 Acetaminophen 500 Mg Tablet PO Q8 [facility] Aspirin 81 mg 08/14/25 08:00 Aspirin E.C. 81 Mg Tablet PO DAILY@0800 [facility] Aspirin 81 mg 08/14/25 10:00 Aspirin 81 Mg Tab.Chew PO BID [facility] Dexamethasone Sodium Phosphate 10 mg 08/14/25 13:30 Dexamethasone 10 Mg/Ml Vial IV 08/14/25 13:31 INTRAOP ONE Enteral Nutritional Formula 237 ml 08/14/25 08:00 Ensure Surgery 237 Ml Liquid PO TIDCM [facility] Famotidine 20 mg 08/14/25 10:00 Famotidine 20 Mg Tablet PO DAILY [facility] Gabapentin 600 mg 08/14/25 13:30 08/14/25 12:39 Gabapentin 600 Mg Tablet PO 08/14/25 13:31 600 mg PREOP ONE Administration Lactated Ringer's 1,000 mls @ 999 mls/hr 08/14/25 13:30 08/14/25 12:39 IV 08/14/25 14:30 999 mls/hr .Q1H1M [facility] Administration Cefazolin Sodium 2 gm/ Sodium 110 mls @ 150 mls/hr 08/14/25 13:30 Chloride IV 08/14/25 14:13 INTRAOP ONE Tranexamic Acid 1,000 mg/ 110 mls @ 660 mls/hr 08/14/25 13:30 Sodium Chloride IV 08/14/25 13:39 INTRAOP ONE Tranexamic Acid 1,000 mg/ 110 mls @ 660 mls/hr 08/14/25 13:30 Sodium Chloride IV 08/14/25 13:39 INTRAOP ONE Lactated Ringer's 1,000 mls @ 999 mls/hr 08/14/25 13:30 IV 08/14/25 14:30 .Q1H1M [facility] Lactated Ringer's 1,000 mls @ 125 mls/hr 08/14/25 13:30 IV 08/14/25 21:29 .Q8H [facility] Vancomycin HCl 1,000 mg/ 270 mls @ 250 mls/hr 08/14/25 13:30 08/14/25 12:39 Sodium Chloride IV 08/14/25 14:34 250 mls/hr PREOP ONE Administration Cefazolin Sodium 1 gm in 50 mls @ 100 mls/hr 08/14/25 07:10 IV 08/14/25 15:39 Q8H [facility] Insulin Human Lispro 1 - 6 unit 08/14/25 13:30 Insulin Lispro 100 Unit/Ml Insuln.Pen SC 08/14/25 18:00 Q4H PRN PRN BG>/= 180, SEE PROTOCOL Protocol Morphine Sulfate 2 - 4 mg 08/14/25 07:06 Morphine 2 Mg/Ml Syringe IV Q2H PRN PRN Pain Score 4-10 Ondansetron HCl 4 mg 08/14/25 07:06 Ondansetron 4 Mg/2 Ml Vial IV Q6H PRN PRN NAUSEA/VOMITING Promethazine HCl 12.5 mg 08/14/25 07:06 Promethazine 25 Mg Tablet PO Q6H PRN PRN NAUSEA/VOMITING Promethazine HCl 12.5 mg 08/14/25 07:06 Promethazine 25 Mg/Ml Syringe IM Q6H PRN PRN NAUSEA/VOMITING Senna/Docusate Sodium 2 tablet 08/14/25 10:00 Senna/Docusate Sodium 1 Tablet PO BID [facility] Tramadol HCl 50 - 100 mg 08/14/25 07:06 Tramadol 50 Mg Tablet PO Q6H PRN PRN Pain Score 4-10 PFSH Medical History Wears partial dentures Wears glasses Post-menopausal History of steroid therapy Thyroid disease Arthritis History of diverticulitis Non-smoker Shortness of breath on exertion History of edema Hypertension History of echocardiogram History of stress test Cardiology follow-up encounter Right shoulder strain Vitamin D deficiency SOB (shortness of breath) Pulmonary hypertension PSVT (paroxysmal supraventricular tachycardia) Postural dizziness PMR (polymyalgia rheumatica) Fatigue Chronic diastolic heart failure Anemia Depression Diverticulitis Hypothyroidism Osteoarthritis Hyperlipidemia Essential (primary) hypertension CAD (coronary artery disease) Home Medications Medication Instructions Recorded Last Taken Type aspirin 81 mg tablet,delayed 81 mg PO QDAY 04/12/25 Un known History release (Adult Aspirin Regimen) clopidogrel 75 mg tablet 75 mg PO QDAY 04/12/2508/09 History ferrous sulfate 324 mg (65 mg 324 mg PO DAILY 04/12/25 Unknown History iron) tablet,delayed release leflunomide 20 mg tablet 20 mg PO QDAY 04/12/25 Unkno wn History levothyroxine 100 mcg capsule 100 mcg PO QDAY 04/12/25 08/14/25 08:00 History mecobalamin (vitamin B12) 5,000 5,000 mcg PO 2XW 04/12 Unknown History mcg chewable tablet rosuvastatin 10 mg tablet 10 mg PO QDAY 04/12/25 Unkno wn History spironolactone 25 mg tablet 25 mg PO QDAY 05/10/25 Unk nown History dapagliflozin propanediol 5 mg 5 mg PO DAILY 07/19/25 08/11/25 History tablet (Farxiga) nebivolol 5 mg tablet (Bystolic) 5 mg PO DAILY 5 08/14/25 08:00 History Allergy/AdvReac Type Severity Reaction Status Date / Time hydrocodone (From Vicodin) Allergy Severe Nausea/Vom/ Verified 07/19/25 14:42 Diarrhea Family History Mother Cancer Hypertension Heart disease Father Heart disease Brother Heart disease Hypertension Surgical History History of abdominoplasty Hx of bilateral breast reduction surgery History of bowel resection S/P coronary artery stent placement (~2018) Social History Smoking Status: Never smoker alcohol intake: current alcohol intake frequency: a few times a month substance use type: does not use Prior Cardiac Testing/Procedures Prior Cardiac Testing/Procedures: Echocardiogram (EF 60%; RVSP 47) and Stress Test (Nl profusion stress test) Addt'l Information Additional Findings: Sinus RBBB; Review of Systems (Anesthesia) ROS Narrative System reviewed and no additional complaints, except as documented. Physical Exam Const alert, oriented x3 and average body habitus Resp normal respiratory effort, normal air movement and clear to auscultation bilaterally Cardio regular rate and regular rhythm Neuro oriented x3 and moves all extremities
[2025-08-14] MEDS: Midazolam 2 MG/2 ML Syringe IV (13:06)
[2025-08-14] MEDS: Cefazolin 1 GM/5 ML Vial 2 GM IV (13:17)
[2025-08-14] MEDS: Lidocaine 1% (5 ml sdv) 5 ML Vial IV (13:26)
[2025-08-14 13:53] LABS: Magnesium 1.6 mg/dL (1.5-2.2)
[2025-08-14] MEDS: TRANEXAMIC ACID 1,000 MG/10 ML ML 2000 MG IV (14:42)
--- NOTE | 2025-08-14 14:59 | PCM.OPRPT ---
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 Surgery/Procedure Performed: Right reverse total shoulder replacement plumbing foreman: Yes Claims Assistant: Paola Hardwick Tasks completed by first officer: Opening & closing, Implanting device and Retracting Additional special education teaching assistant?: No Type of Anesthesia: General RN Documented Start/Stop Times: Operation Date: 08/14/25 13:30 Case Time Into Pre-Op 08/14/25 11:32 Anesthesia Start 08/14/25 13:17 Into Room 08/14/25 13:17 Procedure Start 08/14/25 13:57 Procedure End 08/14/25 15:03 Anesthesia End 08/14/25 15:09 Out of Room 08/14/25 15:09 Into Recovery 08/14/25 15:21 Out of Recovery 08/14/25 16:31 Out of Pre-Op Procedure Start Time: 13:57 Procedure Stop Time: 15:03 Select all DRAINS/GRAFTS/IMPLANTS that apply: Prosthetic device Prosthetic device details: See body of operative report Special Medications: Ancef and vancomycin Estimated Blood Loss: 150 mL Fluids Replaced: 1000 mL crystalloid Specimen collected: No Description of surgery: Components used 1. Tournier perform glenoid 25 mm, +3 mm baseplate 2. Tournier perform 36 mm, 0 mm Glenosphere 3. Tournier perform 36 mm, 0 mm humeral liner 55% coverage 4. Tournier perform humeral stem primary press-fit 2+ size Brief history/Operative indications: 79 yo F with history of R shoulder pain and cuff tear arthropathy. Patient failed conservative measures as mentioned in the H&P. After discussion of risk and benefits of reverse total shoulder replacement including but not limited to blood loss, DVTs, PEs, nerve vessel damage, infection, general risk of anesthesia including loss of life, instability and stiffness patient demonstrating understanding wish to proceed was able to sign informed consent. Medical clearance was obtained. Procedure: On the date of the procedure, patient's R upper extremity was marked in the preoperative area. Patient was taken back to the operating room where they were placed on the table in the supine position. Anesthesia assumed control of the C-spine and airway, then administered anesthetic. All bony prominences were identified well-padded, the head was secured and the patient was placed in the beachchair position at about 35° inclination. Anesthesia remained in control of the C-spine airway throughout the remainder of the procedure. Patient was then appropriately fastened to the table and the R upper extremity was prepped in a sterile fashion. The surgeons then scrubbed. Upon reentering the room, the R upper extremity was draped in a sterile fashion and the incision was marked out. Timeout was called, everyone agreed upon the side, the site, the procedure to be performed, patient identity and antibiotics given. Incision was taken down through skin and subcutaneous tissue, fat down to fascia. The stripe of the deltopectoral interval and cephalic vein were identified and blunt dissection was used to retract the deltoid. The cephalic vein was retracted laterally. Clavipectoral fascia was then incised and a cobra retractor was placed in the wound. The proximal one third of the pectoralis major insertion was released. Pectoralis tendon insertion was used to tenodesed the biceps tendon which was identified in the bicipital groove. Tenodesis was done with #1 Vicryl. Proximally we followed the biceps tendon after transecting it into the rotator interval. The rotator interval was split and the arm was externally rotated. The split was 1 cm medial to the bicipital groove. Subscapularis tendon was released. We released down the anterior portion of the humeral head and a maddox elevator was used to release the inferior portion of the humeral head. The arm was externally rotated and the shoulder was dislocated. The humeral head was then cut at its natural retroversion. Once his humeral head cut was made humerus was retracted out of the way and the glenoid was exposed. After exposing the glenoid, the labrum and the remaining proximal biceps were debrided. At this time we are able to view the entire outer edge of the glenoid. A central pin was placed we sequentially reamed over this central pin to 25mm. Once this was completed the central screw was measured and found to be. The glenoid baseplate was screwed into place. Wound was closely irrigated out with normal saline we then drilled sequentially for 2 screws. Screws were placed superiorly and inferiorly and tightened down the screws. Once the screws were appropriately tightened into place the glenoid baseplate was compressed against the exposed subchondral bone. A 36mm glenosphere was impacted into place engaging the Hebert taper and tightened the central screw. Attention was then turned towards the humerus. The humerus was again externally rotated exposing the proximal portion of the humerus. Central canal finder was then used to open up the canal. We reamed to a size 2 reamer. We then broached to a size 2+ stem. We trialed the 0mm liner. We obtained an adequate reduction at this time with a nice stable shoulder. Good internal rotation to the gluteus, forward elevation to 140°, external rotation to 20°. Final components were then assembled on the back table, trials were removed and the wound was copiously irrigated with normal saline after dislocating the shoulder. Once the final components were assembled they were impacted into place. Shoulder was then reduced and found to be stable with good range of motion. Subscapularis tendon repaired using #2 FiberWire. The wound was with chlorhexidine solution then copiously irrigated out with a 1 L normal saline lavage. The deltopectoral fascia was then closed using #1 Vicryl skin was closed using 2-0 Vicryl interrupted sutures and final skin closure was done with 3-0 stratafix. Steri-Strips are placed for final skin closure. Sterile dressing was placed patient was then placed in a sling and awakened by anesthesia. Patient was then transferred to the PACU for recovery. Postoperative plan: Patient will be admitted to the hospital overnight. They will get physical therapy starting in 2 weeks with normal postoperative regimen. Patient will be placed on aspirin 81 mg twice daily for DVT prophylaxis. The first postoperative appointment will be in 2 weeks for wound check and initiation of phase 1 physical therapy. During the course of the procedure the physician special education teaching assistant played a vital role. His intimate knowledge of my steps in the procedure aided in safe and expedient completion of the procedure. The PA played a vital rolls in positioning particularly in obtaining the appropriate beach chair position and securing the patient's body and head to the table. The PA was also vital in the retraction of soft tissues during the exposure and especially the glenoid work as this is a vital part of the procedure to prevent neurovascular damage. the PA was also vital and protecting soft tissues during times of bony cuts and reaming. He also played a vital role in closure with my direct supervision. The PA was also important during reduction and dislocation of the joint and trials intraoperatively. Surgical Findings: Stable shoulder. Stage IV osteoarthritis Complications Complications: No Admit VTE Documentation VTE Present on Admission: No VTE Mechan Device Prophylaxis: SCD's and Knee High DON Hose VTE Pharm Prophylaxis ordered?: Yes
[2025-08-14] MEDS: LR 1,000 ML - BOLUS POSTOP 999 ML IV (15:11)
--- NOTE | 2025-08-14 15:18 | PCM.POST.ANE ---
Anesthesia: Postop Eval I Current Vital Signs Temperature: 97.4 F Pulse Rate: 83 Blood Pressure: 120/55 Respiratory Rate: 16 Pulse Ox: 97 Assessment Airway patent: Yes Spontaneous unlabored respirations: Yes nausea: No Vomiting: No Anesthesia Complication: No Fluid Hydration Crystalloid volume administer (ml): 1,000 Total IV fluid infused: 1,000 Progress Note Anesthesia document: Postop Eval 1 completed: Yes
--- NOTE | 2025-08-14 15:30 | RAD_ITS ---
PROCEDURE: SHOULDER MIN 2 VIEWS 08/14/2025 REASON FOR EXAM: TSA TECHNIQUE: Procedure Code: RADSH Modality: DX Procedure: SHOULDER MIN 2 VIEWS Laterality: Right COMPARISON: 06/20/2025 FINDINGS: Postop changes with interval placement of total right shoulder prosthesis appears to be in near anatomic alignment. RAD/Shoulder min 2 Views IMPRESSION: Postoperative changes with interval placement of total right shoulder prosthesi s in place. Reading Location: [place] [id number]
--- NOTE | 2025-08-14 16:09 | POSTOPAN2_ITS ---
Anesthesia Postop Eval I Sum Postop Eval Completion status Anesthesia document: Postop Eval 1 completed: Yes Anesthesia Postop Eval I Summary Anesthesia Postop Eval I Summary: Anesthesia Postop Eval I: Assessment Summary Airway patent Yes 08/14/25 15:18 SURVEY OPERATIONS DIRECTOR.[email or web address] Spontaneous unlabored Yes 08/14/25 15:18 SURVEY OPERATIONS DIRECTOR.[email or web address] respirations Mental status nausea No 08/14/25 15:18 SURVEY OPERATIONS DIRECTOR.[email or web address] Vomiting No 08/14/25 15:18 SURVEY OPERATIONS DIRECTOR.TNES Anesthesia Postop Eval I: Fluid Summary Crystalloid volume administer 1,000 08/14/25 15:18 SURVEY OPERATIONS DIRECTOR.TNES (ml) Colloids volume administered ( ml) Blood Product volume administered (ml) Total IV fluid infused 1,000 08/14/25 15:18 SURVEY OPERATIONS DIRECTOR.TNES Anesthesia Postop Eval I: Summary Notes Anesthesia Complication No 08/14/25 15:18 SURVEY OPERATIONS DIRECTOR.TNES Anesthesia Complication Comment: Post-operative progress note Anesthesia: Postop Eval II Evaluation Mental status: Awake and Calm Pain Level: 0 nausea: Yes Vomiting: No Progress Note Post-operative progress note: treated for nausea post op; block not expected to wear off during post op period Complications Anesthesia Complication: No
--- NOTE | 2025-08-14 16:09 | PCM.POSTANE2 ---
Anesthesia Postop Eval I Sum Postop Eval Completion status Anesthesia document: Postop Eval 1 completed: Yes Anesthesia Postop Eval I Summary Anesthesia Postop Eval I Summary: Anesthesia Postop Eval I: Assessment Summary Airway patent Yes 08/14/25 15:18 [email or web address] Spontaneous unlabored Yes 08/14/25 15:18 BACK [email or web address] respirations Mental status nausea No 08/14/25 15:18 BACK [email or web address] Vomiting No 08/14/25 15:18 BACK [email or web address] Anesthesia Postop Eval I: Fluid Summary Crystalloid volume administer 1,000 08/14/25 15:18 BACK [email or web address] (ml) Colloids volume administered ( ml) Blood Product volume administered (ml) Total IV fluid infused 1,000 08/14/25 15:18 BACK [email or web address] Anesthesia Postop Eval I: Summary Notes Anesthesia Complication No 08/14/25 15:18 BACK [email or web address] Anesthesia Complication Comment: Post-operative progress note Anesthesia: Postop Eval II Evaluation Mental status: Awake and Calm Pain Level: 0 nausea: Yes Vomiting: No Progress Note Post-operative progress note: treated for nausea post op; block not expected to wear off during post op period Complications Anesthesia Complication: No
[2025-08-14] MEDS: LR 1,000 ML - 125 ML/HR (POST BOLUS) POST OP IV (16:28)
[2025-08-14] MEDS: Ensure Surgery 237 ML LIQUID PO (17:00)
--- NOTE | 2025-08-14 17:06 | PCM.CONS.GEN ---
Assessment & Plan Assessment/Plan (1) Status post reverse total replacement of right shoulder: PLAN: Plan Patient is a 79-year-old female who presented [facility] on 08/14/2025 for planned right total shoulder replacement. Medicine consulted postoperatively for medical management. 1. Right shoulder osteoarthritis with rotator cuff dysfunction – Orthopedic surgery primary. S/p right total shoulder replacement with Dr. Zimmerman on 08/14. Tolerated procedure well, no intraoperative complications noted. Postoperative pain control, DVT prophylaxis and further management per orthopedics. Follow-up a.m. CBC and BMP. PT/OT/case management consulted. 2. History of CAD with stenting, chronic HFpEF, hypertension, hyperlipidemia – History of stenting x 1 to an 80% lesion in the mid LAD back in 2019. Last echo in 09/2024 with EF 60 to 65%, normal LV size and function, moderately increased RV systolic pressure, no other concerning findings noted. Stress testing done in May preoperatively was normal. Normotensive in the 120s over 70s postoperatively. Okay to resume home nebivolol, spironolactone and rosuvastatin. On baby aspirin twice daily DVT prophylaxis as below, will hold home Plavix and defer to orthopedics/outpatient cardiology on timing of restarting this. Will hold home dapagliflozin while inpatient, will be okay to resume on discharge. 3. Chronic iron deficiency anemia – Most recent hemoglobin 11.2 per orthopedic preoperative H&P. Follow-up a.m. CBC. Continue home iron supplement. 4. Hypothyroidism – Continue home Synthroid. 5. Polymyalgia rheumatica – Continue home leflunomide. DVT prophylaxis: Baby aspirin twice daily per orthopedics Total clinical time spent by myself addressing the patient's medical issues, reviewing all the data, and collaborating with patient's care team: 41 minutes. HPI Consult Data Date of Consult: 08/14/25 HPI Narrative Reason for Consultation: Postoperative medical management HPI Narrative: HERNAN LOPEZ, is a 79 F who presented to [facility] on 08/14/2025 for planned orthopedic procedure. Medicine consulted postoperatively for medical management. Medical history significant for right shoulder osteoarthritis with rotator cuff dysfunction. Patient had right reverse total shoulder replacement done with Dr. Zimmerman today. Tolerated procedure well, no intraoperative complications noted. I saw the patient at bedside earlier this evening. Patient had good energy level noted and was sitting up comfortably in bed, conversing normally and in no acute distress. She had a large sling in place for the right arm. She noted that her right hand continues to feel numb and she cannot move it, but she denies any pain in the shoulder down to the hand. She denies any other acute concerns currently. [facility] Medical History Wears partial dentures Wears glasses Post-menopausal History of steroid therapy Thyroid disease Arthritis History of diverticulitis Non-smoker Shortness of breath on exertion History of edema Hypertension History of echocardiogram History of stress test Cardiology follow-up encounter Right shoulder strain Vitamin D deficiency SOB (shortness of breath) Pulmonary hypertension PSVT (paroxysmal supraventricular tachycardia) Postural dizziness PMR (polymyalgia rheumatica) Fatigue Chronic diastolic heart failure Anemia Depression Diverticulitis Hypothyroidism Osteoarthritis Hyperlipidemia Essential (primary) hypertension CAD (coronary artery disease) Home Medications Medication Instructions Recorded Last Taken Type aspirin 81 mg tablet,delayed 81 mg PO QDAY 04/12/25 Unknown History release (Adult Aspirin Regimen) clopidogrel 75 mg tablet 75 mg PO QDAY 04/12/25 08/09/25 History ferrous sulfate 324 mg (65 mg 324 mg PO DAILY 04/12/25 Unknown History iron) tablet,delayed release leflunomide 20 mg tablet 20 mg PO QDAY 04/12/25 Unknown History levothyroxine 100 mcg capsule 100 mcg PO QDAY 04/12/25 08/14/25 08:00 History mecobalamin (vitamin B12) 5,000 5,000 mcg PO 2XW 04/12/25 Unknown History mcg chewable tablet rosuvastatin 10 mg tablet 10 mg PO QDAY 04/12/25 Unknown History spironolactone 25 mg tablet 25 mg PO QDAY 05/10/25 Unknown History dapagliflozin propanediol 5 mg 5 mg PO DAILY 07/19/25 08/11/25 History tablet (Farxiga) nebivolol 5 mg tablet (Bystolic) 5 mg PO DAILY 07/19/25 08/14/25 08:00 History Allergy/AdvReac Type Severity Reaction Status Date / Time hydrocodone (From Vicodin) Allergy Severe Nausea/Vom/ Verified 07/19/25 14:42 Diarrhea Family History Mother Cancer Hypertension Heart disease Father Heart disease Brother Heart disease Hypertension Surgical History History of abdominoplasty Hx of bilateral breast reduction surgery History of bowel resection S/P coronary artery stent placement (~2019) Social History Smoking Status: Never smoker alcohol intake: current alcohol intake frequency: a few times a month substance use type: does not use ROS Constitutional Constitutional: Denies chills, fatigue, fever(s) or weakness Cardiovascular Cardiovascular: Denies chest pain Respiratory/Chest Respiratory/Chest: Denies shortness of breath at rest Gastrointestinal Gastrointestinal: Reports abdominal pain Musculoskeletal Musculoskeletal: Denies arthralgias or myalgias Neurologic Neurologic: Denies dizziness or focal weakness Physical Exam Const alert, oriented x3, no apparent distress and average body habitus Constitutional Narrative: Pleasant elderly female, good energy level postoperatively, sitting up comfortably in bed, conversing normally, in no acute distress. General Appearance: cooperative and comfortable HEENT normocephalic, head/scalp atraumatic, hearing grossly normal bilaterally, nasal mucous membranes and turbinates normal and moist oral mucous membranes Eyes PERRL, EOMs intact bilaterally and conjunctivae normal Neck full ROM Chest inspection of chest normal Resp normal respiratory effort, normal air movement, no use of accessory muscles and clear to auscultation bilaterally Cardio regular rate, regular rhythm, no murmurs and peripheral pulses 2+ throughout GI normal to inspection, nondistended, normoactive bowel sounds, soft to palpation, non-tender and non-distended Back/Spine normal ROM Extremity Extremity Narrative: Right arm sling in place. Skin no rashes or lesions noted Psych mental status grossly normal Lab / Micro Data Labs: Laboratory Results - last 24 hr 08/14/25 12:10: POC Glucose 78 08/14/25 12:38: Magnesium 1.6 Imaging Radiology Impression Shoulder X-Ray 08/14/25 15:30 IMPRESSION: Postoperative changes with interval placement of total right shoulder prosthesis in place. Reading Location: [place] [address] Charges/Coding Visit Charges Inpatient E&M: 72837 Subs Hosp L2
[2025-08-14] MEDS: 0.9% Normal Saline (250mL Bag) 250 ML 15 ML IV (20:56)
[2025-08-14] MEDS: Senna/Docusate Sodium 1 Tablet 2 TABLET PO (20:56)
[2025-08-14] MEDS: Cefazolin 1 GM/50 ML BAG IV (20:56)
[2025-08-14] MEDS: 0.9% Saline Lock 10 ML Syringe IV (21:07)
[2025-08-15 00:25] VITALS: BP 148/76; PULSE 71; RESP 16; TEMP 36.7; O2SAT 94
[2025-08-15 04:55] VITALS: BP 153/79; PULSE 70; RESP 16; TEMP 36.6; O2SAT 97
[2025-08-15] MEDS: Cefazolin 1 GM/50 ML BAG IV (05:08)
[2025-08-15] MEDS: 0.9% Saline Lock 10 ML Syringe IV ×2 (05:09→12:55)
[2025-08-15 06:35] LABS: Hematocrit 31.4 % (37-47); Hemoglobin 10.2 g/dL (12.0-15.0); Mean Corp Hgb Conc 32.5 g/dL (32-36); Mean Corpuscular Volume 98.1 fL (81-99); Mean Platelet Vol. 10.5 fl (6.2-12.0); Platelet Count 206 K/mm3 (150-450); RBC Distribution Width CV 13.7 % (11.6-14.6); RBC Distribution Width SD 49.1 fl (35.1-43.9); Red Blood Count 3.20 M/mm3 (4.2-5.4); White Blood Count 10.4 K/mm3 (4.4-11.0)
[2025-08-15 07:04] LABS: Anion Gap 14 (5-15); BUN 25 mg/dL (4-19); BUN/Creat Ratio 17.1 RATIO (10-20); Calcium,Total 8.7 mg/dL (7.6-11.0); Carbon Dioxide 18.9 mmol/L (21.0-32.0); Chloride 105 mmol/L (98-108); Estimated Creatinine Clearance 28.78 ml/min (50-250); Glucose 252 mg/dL (70-99); Potassium 4.7 mmol/L (3.3-5.1)
[2025-08-15 08:35] VITALS: BP 143/72; PULSE 68; RESP 16; TEMP 36.4; O2SAT 97
[2025-08-15] MEDS: Senna/Docusate Sodium 1 Tablet 2 TABLET PO (08:39)
[2025-08-15] MEDS: Ensure Surgery 237 ML LIQUID PO ×2 (08:39→12:34)
--- NOTE | 2025-08-15 10:48 | CASEMGMT ---
MORALES Met with patient to complete MORALES form. MORALES form and its content were verbally explained and patient's questions were answered to the best of my ability. Patient voiced understanding and signed MORALES form. Patient provided a copy of signed MORALES form and original placed in patient's chart. Patient had no further questions. Katelyn Mendoza, Discharge Planning Asst
--- NOTE | 2025-08-15 11:17 | CASEMGMT ---
Addendum entered by Diana Omalley 08/15/25 11:56: Updated Mary BOWERS of pt plan at [place]n. Original Note: Spoke with OT who reports pt is safe to return home post surgery.
--- NOTE | 2025-08-15 11:41 | CASEMGMT ---
ZORA GONZALES Assessment Face to Face with patient for initial transition planning/care coordination assessment. ZORA GONZALES introduced self and role at [facility], pt voices understanding. Pt is A&Ox4 and is resting comfortably in the chair and is calm. Care providers, pharmacy, and demographics verified. Admitting dx: Right TSA PCP: Jhoan Stephens Specialists: Elsie POLLARD (Ortho) Preferred Pharmacy: [facility] Insurance: MCR A/B, [employer] MCR Supp Prescription Benefit: Yes LNOK: Terri (Friend and neighbor), Jamia (Daughter - Lives in [place] but is flying to stay with pt x1 week starting Thursday) Living Arrangements: Pt lives alone in a single story home with 2 steps to enter ADLs/IADLs: Pt reports that she is indep at baseline. Pt states that she has minor anxiety about returning home alone before her daughter comes Thursday. This ZORA CM offered HH/Pvt Duty aide. However, pt declines and states that her friend will be able to provide sufficient support tin the meantime. Transportation: Self, friend DME: Shower chair, grab bars, sling HHC/SNF: denies hx of or needs Pt’s goal: Home Plan: Pt plans to return home once medically ready and plans to follow up with orthopedics as an OP and start OP therapy subsequently as warranted. Pt reports that she will have good support at home through her friend and daughter. Pt denies any further DC needs, questions, or concerns. Report given to MS3 ZORA GONZALES. Jake Rodarte RN, CM
--- NOTE | 2025-08-15 12:23 | PCM.PN.ORT ---
Subjective Subjective Patient is sitting comfortably in bedside chair upon examination. Patient states that she is doing well at this point. Patient states that she lives alone so she is a little bit nervous about going home but states that she has friends and neighbors who will help her until her daughter gets her on Thursday. Patient states that her pain is well-controlled at this time. Patient denies any nausea, vomiting, dizziness. Patient denies any new numbness or tingling. Patient denies any shortness of breath, chest pain, calf pain. Patient denies any adverse events overnight. Objective Data Objective Data Vital Signs: Vital Signs Temp Pulse Resp BP Pulse Ox O2 Del Method O2 Flow Rate 97.6 F L 68 16 143/72 H 97 Room Air 2 08/15/25 08:35 08/15/25 08:35 08/15/25 08:35 08/15/25 08:35 08/15/25 08:35 08/15/25 08:35 08/15/25 00:25 Oxygen Flow Rate (L/min) 2 Oxygen Delivery Method Room Air Weight: 71.7 kg Body Mass Index (BMI) 28.9 Intake & Output: Intake and Output for Last 24 Hours 08/13/25 08/14/25 08/15/25 23:59 23:59 23:59 Intake Total 3920 / 3920 935.25 / 935.25 Output Total 150 / 150 Balance 3770 / 3770 935.25 / 935.25 Lab / Micro Data 08/15/25 06:05 08/15/25 06:05 Labs: Laboratory Results - last 24 hr 08/14/25 12:10: POC Glucose 78 08/14/25 12:38: Magnesium 1.6 08/15/25 06:05: WBC 10.4, RBC 3.20 L, Hgb 10.2 L, Hct 31.4 L, MCV 98.1, MCH 31.9, MCHC 32.5, RDW Std Deviation 49.1 H, RDW Coeff of Angela 13.7, Plt Count 206, MPV 10.5, Sodium 138, Potassium 4.7, Chloride 105, Carbon Dioxide 18.9 L, Anion Gap 14, BUN 25 H, Creatinine 1.47 H, Estim Creat Clear Calc 28.78 L, Est GFR (MDRD) Non-Af 36 L, BUN/Creatinine Ratio 17.1, Glucose 252 H, Calcium 8.7 Radiography Diagnostic Testing: Radiology Impression Shoulder X-Ray 08/14/25 15:30 IMPRESSION: Postoperative changes with interval placement of total right shoulder prosthesis in place. Reading Location: [place] [address] Physical Exam Narrative Vital signs stable and afebrile Dressing clean, dry, intact UltraSling appropriately fitted Sensation intact to axillary, radial, median and ulnar nerve distributions Motor intact with patient able to make okay sign, peace sign, cross fingers, thumbs up DON hose in place bilaterally. SCDs in place bilaterally. Const alert, oriented x3 and no apparent distress Assessment & Plan Assessment/Plan (1) Status post reverse total replacement of right shoulder: PLAN: 1. DVT prophylaxis: Patient will be on aspirin 81 mg twice daily for 2 weeks postoperatively. Patient will be also wearing DON hose for 2 weeks postoperatively. Patient was educated to take DON hose off for showering and at nighttime. 2. Pain medications: Patient states that her pain is adequately controlled at this time. Patient will be on Tylenol 1000 mg every 8 hours. Patient states that she was taking tramadol prior to the surgery and it was not controlling her pain adequately. Patient did inquire about switching to oxycodone for when she goes home. This will be discussed with Dr. Zimmerman. OARRS report was reviewed in office today. Patient was educated not to operate heavy equipment or motor vehicles while on narcotic pain medication. Patient was educated to use the least amount of narcotic as possible. Patient voiced understanding. 3. Constipation: Patient was instructed to take senna until her first bowel movement to decrease risk of impaction following surgery. Patient was instructed if she has not had a bowel movement in 3 days to call our office for reevaluation. 4. Physical therapy: Patient will not begin physical therapy until after 2-week follow-up appointment. Patient already has this visit scheduled. Patient was educated to continue with UltraSling at all times. Patient was educated to take the sling off for elbow range of motion and pendulum exercises 2-3 times daily. No range of motion of the operative shoulder for 2 weeks. Will begin outpatient physical therapy after schedule II week follow-up appointment. 5. H&H: 10.2/31.4. Patient is afebrile and vitals are stable. Patient was found to be anemic preoperatively and has been taking ferrous sulfate already at this time. Patient was encouraged to continue doing that. 6. Incentive spirometer: Patient was encouraged to use incentive spirometer every hour that week for the first week to exercise along and decrease risk of postoperative lung infection. 7. Patient is to follow-up per postoperative instructions. 8. Medicine has been involved for safe and proper discharge. 9. Occupational Therapy and social work has been involved for safe and proper discharge both of which we have signed off on patient being discharged at home with her friends helping her until her daughter is there to stay with her for a week. 10. Patient will have 2-week follow-up appointment with our office. 11. Disposition: Patient is okay for discharge as long as her pain maintains adequately controlled, continues to do well with occupational therapy and is okay per medicine doctors instructions. Patient states at this time she did do well with occupational therapy and feels more comfortable with going home with the help of her neighbors and friends. Patient's daughter will be there on Thursday to stay with her for 1 week to help her. Patient was educated to wear her sling at all times. Patient was educated to come out of the sling 2 or 3 times a day to work on elbow, wrist, hand range of motion. Patient was educated she could also work on pendulums. Patient was educated to avoid any range of motion of the shoulder until her 2-week follow-up appointment. Patient does have physical therapy scheduled to begin after her 2-week follow-up appointment with our office. Patient states that she does not need any aspirin, Tylenol, senna, Zofran. Medications will be sent to patient's pharmacy of choice. Patient was encouraged to call with any questions, concerns, new problems.
--- NOTE | 2025-08-15 12:36 | PCM.DC ---
Discharge Instructions DC O2, CPAP, BIPAP needs Home O2 Discharge instructions: No Dressing / Incision Discharge Activity: May Not Drive (No driving while wearing the UltraSling and taking narcotic pain medication.) Weight Bearing Status: No weight bearing (Nonweightbearing to operative arm and shoulder. No active or passive range of motion of the operative shoulder.) Keep extremity elevated above heart level: Right Arm (Ice to operative right arm as needed.) Dressing / Incision Call your doctor if your incision/area has: Continuous Slow Oozing, Sudden Increased Bleeding, Increased Pain/ Swelling, Increased Redness, Foul Smelling Discharge and Swelling at the incision site Call your doctor if you observe: Fever of 101 or Higher, Coldness, Increased Pain, Numbness or Tingling, Change in Color, Inability to urinate, Inability to have a bowel movement, Using more than 1 pad per hour, Shortness of breath, Dizziness, Fainting spells, Swelling in the ankles, Chest pain, Increased palpitations (irregular heartbeat), Calf discomfort and Uncontrolled pain Remove Dressing in: 5 days (Remove dressing on day 5 postop. As long as incision is clean, dry, intact may leave open to air.) Cleanse incision/area with: Soap & Water (Gentle soap and water in the shower.) Additional Dressing/Incision Instructions:: No soaking or submerging for 6 weeks postoperatively. No lotions, salves, oils for 6 weeks postoperatively. UltraSling at all times. No range of motion of patient's operative shoulder for 2 weeks until follow-up visit with [facility]. Patient may come out of sling 2 or 3 times daily for elbow, wrist, hand, pendulum exercises. Patient was encouraged to continue taking her ferrous sulfate. Patient was educated on the increased risk of constipation. OARRS report was reviewed today. Follow Up Care Test Results: Test results from this visit will be discussed in further detail at your follow-up appointment, if applicable. Discharge Plan Admission Admit Date/Time: 08/14/25 07:06 Attending Provider: Andrea Zimmerman Primary Care Provider: ANGELA REYNOSO Consulting Providers: Sudhir Cramer Discharge Orders/Prescriptions Prescriptions: New acetaminophen 500 mg Tablet 1,000 mg PO Q8 Qty: 0 0RF Rx Instructions: 1000 mg every 8 hours for postoperative pain. famotidine 20 mg Tablet 20 mg PO DAILY 30 Days Qty: 30 0RF aspirin 81 mg Tablet,Chewable 81 mg PO BID Qty: 0 0RF Rx Instructions: Aspirin 81 mg twice daily for 2 weeks postoperatively. sennosides-docusate sodium [Stimulant Laxative Plus] 8.6-50 mg Tablet 2 tab PO BID Qty: 0 0RF Rx Instructions: Take until first bowel movement and then can take as needed. tramadol 50 mg Tablet 50 - 100 mg PO Q6H PRN PRN (Reason: As needed for pain.) 7 Days Qty: 30 0RF Continued clopidogrel 75 mg tablet 75 mg PO QDAY Patient Comments: STOP 5 DAYS PRE-OP mecobalamin (vitamin B12) 5,000 mcg tablet,chewable 5,000 mcg PO 2XW ferrous sulfate 324 mg (65 mg iron) tablet,delayed release (DR/EC) 324 mg PO DAILY leflunomide 20 mg tablet 20 mg PO QDAY levothyroxine 100 mcg capsule 100 mcg PO QDAY rosuvastatin 10 mg tablet 10 mg PO QDAY spironolactone 25 mg tablet 25 mg PO QDAY nebivolol [Bystolic] 5 mg tablet 5 mg PO DAILY dapagliflozin propanediol [Farxiga] 5 mg tablet 5 mg PO DAILY Patient Comments: STOP 3 DAYS PRIOR TO PROCEDURE, 08/10/29 LD No Action aspirin [Adult Aspirin Regimen] 81 mg tablet,delayed release (DR/EC) 81 mg PO QDAY Disposition Disposition (needs filled in before D/C Order can be placed): Home, Self Care
--- NOTE | 2025-08-15 12:49 | PCM.PN.HOSP ---
Objective Data Objective Data Vital Signs: Vital Signs Temp Pulse Resp BP Pulse Ox O2 Del Method O2 Flow Rate 97.6 F L 68 16 143/72 H 97 Room Air 2 08/15/25 08:35 08/15/25 08:35 08/15/25 08:35 08/15/25 08:35 08/15/25 08:35 08/15/25 08:35 08/15/25 00:25 Oxygen Flow Rate (L/min) 2 Oxygen Delivery Method Room Air Weight: 158 lb 1.143 oz Body Mass Index (BMI) 28.9 Intake & Output: Intake and Output for Last 24 Hours 08/13/25 08/14/25 08/15/25 23:59 23:59 23:59 Intake Total 3920 / 3920 935.25 / 935.25 Output Total 150 / 150 Balance 3770 / 3770 935.25 / 935.25 Lab / Micro Data 08/15/25 06:05 08/15/25 06:05 Labs: Laboratory Results - last 24 hr 08/14/25 12:38: Magnesium 1.6 08/15/25 06:05: WBC 10.4, RBC 3.20 L, Hgb 10.2 L, Hct 31.4 L, MCV 98.1, MCH 31.9, MCHC 32.5, RDW Std Deviation 49.1 H, RDW Coeff of Angela 13.7, Plt Count 206, MPV 10.5, Sodium 138, Potassium 4.7, Chloride 105, Carbon Dioxide 18.9 L, Anion Gap 14, BUN 25 H, Creatinine 1.47 H, Estim Creat Clear Calc 28.78 L, Est GFR (MDRD) Non-Af 36 L, BUN/Creatinine Ratio 17.1, Glucose 252 H, Calcium 8.7 Radiography Diagnostic Testing: Radiology Impression Shoulder X-Ray 08/14/25 15:30 IMPRESSION: Postoperative changes with interval placement of total right shoulder prosthesis in place. Reading Location: [place] [address] Physical Exam Narrative Blood pressure 143/72. Her right reverse shoulder arthroplasty on 08/14/2025. Patient is doing well. No history of smoking Physical exam General: Alert, Oriented x3, Cooperative HEENT: Atraumatic, PERRLA, EOMI, Normocephalic. Oral: No Gingival or Mucosal Lesions/ Ulcerations Neck: Supple, No JVD, Negative Carotid Bruits Chest wall/Lungs: Air entry equal in bilateral lung bases. No crepitation/rhonchi Cardiovascular: Regular rate and rhythm, Normal S1,S2, No M/G/R Abdomen: Bowel Sounds Present, Soft, Non Tender, Non-Distended : No dysuria. No renal angle tenderness. No suprapubic tenderness. Extremities: No edema, Capillary Refill Less than 3 Seconds Skin: Right shoulder surgical dressing is dry. Musculoskeletal: Right shoulder: Sling and swath. No acute tenderness. Neurological: Cranial nerves II-XII grossly intact, DTR 2+/4. No acute focal neurological deficit. Psych/Mental Status: Normal Affect, Appropriate. Assessment & Plan Assessment/Plan (1) Status post reverse total replacement of right shoulder: PLAN: Plan Patient is a 79-year-old female who presented [facility] on 08/14[facility] for planned right total shoulder replacement. Medicine consulted postoperatively for medical management. 1. Right shoulder osteoarthritis with rotator cuff dysfunction – Orthopedic surgery primary. S/p right total shoulder replacement with Dr. Zimmerman on 08/14. Surgical dressing is dry. No hematoma. Continue pain control PT and OT. DVT prophylaxis as per operating surgeon 2. History of CAD with stenting, chronic HFpEF, hypertension, hyperlipidemia – History of stenting x 1 to an 80% lesion in the mid LAD back in 2018. Last echo in 09/2024 with EF 60 to 65%, normal LV size and function, moderately increased RV systolic pressure, no other concerning findings noted. Stress testing done in May preoperatively was normal. Normotensive in the 120s over 70s postoperatively. Okay to resume home nebivolol, spironolactone and rosuvastatin. On baby aspirin twice daily DVT prophylaxis as below, will hold home Plavix and defer to orthopedics/outpatient cardiology on timing of restarting this. Will hold home dapagliflozin while inpatient, will be okay to resume on discharge. 3. Chronic iron deficiency anemia – Most recent hemoglobin 11.2 per orthopedic preoperative H&P. Follow-up a.m. CBC. Continue home iron supplement. H&H 10.2/31.4%. Mild chronic anemia. No acute drop in H&H 4. Hypothyroidism – Continue home Synthroid. 5. Polymyalgia rheumatica – Continue home leflunomide. 6. Elevated BUN/creatinine BUN/creatinine 25/.47. No prior labs available to review. Recommend to hold leflunomide for 1 week. Repeat BMP in 1 week and follow with PCP DVT prophylaxis: Baby aspirin twice daily per orthopedics Patient is medically stable for discharge Charges/Coding Visit Charges Inpatient E&M: 76953 Subs Hosp L2
--- NOTE | 2025-08-15 14:12 | PHA.DC_ITS ---
Pharmacy [facility] Counseling Pharmacy Service has performed discharge medication reconciliation and counseling for this patient. The patient's discharge medication list was reviewed for discrepancies and discrepancies were resolved. The patient was counseled on the following discharge medications and changes in medications for homegoing were reviewed. The Reason for Use, instructions for use, and potential side effects were reviewed for all new medications. The patient's questions regarding all of their medications were answered. 1. Senna/docusate 2 tablets PO BID 2. Acetaminophen 1000 mg PO Q8 3. Tramadol 50-100 mg PO Q6H PRN pain 4. Aspirin 81 mg PO BID 5. Famotidine 20 mg PO daily The patient was able to verbally demonstrate an understanding of their discharge medications. Medications at Discharge Home Medications aspirin 81 mg tablet,delayed release (Adult Aspirin Regimen) 81 mg PO QDAY 04/12/25 clopidogrel 75 mg tablet 75 mg PO QDAY 04/12/25 ferrous sulfate 324 mg (65 mg iron) tablet,delayed release 324 mg PO DAILY 04/12/25 leflunomide 20 mg tablet 20 mg PO QDAY 04/12/25 levothyroxine 100 mcg capsule 100 mcg PO QDAY 04/12/25 mecobalamin (vitamin B12) 5,000 mcg chewable tablet 5,000 mcg PO 2XW 04/12/25 rosuvastatin 10 mg tablet 10 mg PO QDAY 04/12/25 spironolactone 25 mg tablet 25 mg PO QDAY 05/10/25 dapagliflozin propanediol 5 mg tablet (Farxiga) 5 mg PO DAILY 07/19/25 nebivolol 5 mg tablet (Bystolic) 5 mg PO DAILY 07/19/25 acetaminophen 500 mg tablet 1,000 mg (2 x 500 mg) PO Q8 #0 tabs 08/15/25 aspirin 81 mg chewable tablet 81 mg PO BID #0 tabs 08/15/25 famotidine 20 mg tablet 20 mg PO DAILY 30 days #30 tabs 08/15/25 sennosides 8.6 mg-docusate sodium 50 mg tablet (Stimulant Laxative Plus) 2 tab PO BID #0 tabs 08/15/25 tramadol 50 mg tablet 50 - 100 mg (1 - 2 x 50 mg) PO Q6H PRN PRN As needed for pain. 7 days #30 tabs 08/15/25
== END 2025-08-15 14:38 | disposition home or self-care (01) ==
LOC: SDC 15:52 → AC 15:52 → SDC 15:53 → MS3 15:53
PROVIDERS: Student in an Organized Health Care Education/Training Program; Admitting Provider Specialist; Referring Provider Specialist; Visit Provider Specialist
PROC: (CPT 23472; principal; 2025-08-14 13:00)
DX: M19.011 Primary osteoarthritis, right shoulder (principal); I11.0 Hypertensive heart disease with heart failure; I27.20 Pulmonary hypertension, unspecified; I50.32 Chronic diastolic (congestive) heart failure; G62.9 Polyneuropathy, unspecified; I25.10 Atherosclerotic heart disease of native coronary artery without angina pectoris; Z79.52 Long term (current) use of systemic steroids; M19.90 Unspecified osteoarthritis, unspecified site; E78.00 Pure hypercholesterolemia, unspecified; M35.3 Polymyalgia rheumatica; Z79.82 Long term (current) use of aspirin; Z79.899 Other long term (current) drug therapy; E03.9 Hypothyroidism, unspecified; Z79.890 Hormone replacement therapy; M17.11 Unilateral primary osteoarthritis, right knee; M75.101 Unspecified rotator cuff tear or rupture of right shoulder, not specified as traumatic; M21.061 Valgus deformity, not elsewhere classified, right knee; D50.9 Iron deficiency anemia, unspecified
CPT/HCPCS: 23472; 01638; 36415; 73030; 80048; 82962; 83735; 85027; 94668; 96361; 96365; 96366; 97167; 99221; C1776; A4216; G0378; J2405

== ENCOUNTER → 2025-10-31 | Outpatient (CLI) | payer MEDICARE, OTHER, SELFPAY ==
[2025-10-31 17:02] LABS: Hematocrit 36.7 % (37-47); Hemoglobin 11.9 g/dL (12.0-15.0); Immature Granulocytes Count 0.010 X10^3/uL (0.0-0.0); Mean Corp Hgb Conc 32.4 g/dL (32-36); Mean Corpuscular Volume 97.6 fL (81-99); Mean Platelet Vol. 10.6 fl (6.2-12.0); NRBC Flagged by Analyzer 0 % (0-5); Platelet Count 230 K/mm3 (150-450); RBC Distribution Width CV 13.3 % (11.6-14.6); RBC Distribution Width SD 47.6 fl (35.1-43.9); Red Blood Count 3.76 M/mm3 (4.2-5.4); White Blood Count 6.1 K/mm3 (4.4-11.0)
[2025-10-31 17:37] LABS: CRP < 3.00 mg/L (0.0-3.0)
== END | disposition home or self-care (01) ==
LOC: LAB 16:10
DX: Z96.611 Presence of right artificial shoulder joint (principal)
CPT/HCPCS: 36415; 85025; 85652; 86140